=== PATIENT | male | born 1960 | race Caucasian/White ===

== ENCOUNTER → 2017-12-28 08:54 | Outpatient (CLI) | payer MEDICARE, MEDICAID, SELFPAY ==
[2017-12-28 09:51] LABS: ALT 27 U/L (12-78); AST 21 U/L (15-37); Albumin 3.9 g/dL (3.4-5.0); Alkaline Phosphatase 168 U/L (46-116); Anion Gap 8.4 mmol/L (3-11); BUN 5 mg/dL (7-18); Bilirubin, Total 0.6 mg/dL (0.2-1.0); CO2 29.6 mmol/L (21.0-32.0); CREATININE 1.23 mg/dL (0.70-1.30); Calcium 8.8 mg/dL (8.5-10.1); Chloride 104 mmol/L (98-107); Cholesterol 109 mg/dL (50-200); Glucose 154 mg/dL (70-100); HDL Cholesterol 33 mg/dL (40-60); LDL CHOLESTEROL 53 mg/dL (<100); Potassium 4.1 mmol/L (3.5-5.1); Sodium 142 mmol/L (136-145); TSH (W/Ref FT4) 1.65 uIU/mL (0.358-3.74); Total Protein 7.6 g/dL (6.4-8.2); Triglyceride 206 mg/dL (30-150)
== END ==
PROVIDERS: PCP Nurse Practitioner; Visit Provider Nurse Practitioner
DX: E78.5 Hyperlipidemia, unspecified (principal); G47.9 Sleep disorder, unspecified; R53.83 Other fatigue
CPT/HCPCS: 36415; 80053; 80061; 83721; 84443

== ENCOUNTER 2018-08-11 01:17 | Outpatient (CLI) | payer MEDICARE, MEDICAID, SELFPAY ==
--- NOTE | 2018-08-11 14:51 | DI.US_ITS ---
SYMPTOM/DIAGNOSIS: PULSATILE MASS, EX SMOKER, R19.00 AORTA ULTRASOUND: The proximal abdominal aorta measures 2.3 by 1.8 cm. The mid segment measures 2 by 2.2 cm. and the distal segment measures 1.5 by 1.5 cm. The iliacs are intact. The left iliac measures 1.3 by 1.3 and the right iliac measures 1.2 by 1.2. SUMMARY: No evidence of an aneurysm. The aorta and iliac vessels appear intact.
== END 2018-08-11 01:37 ==
PROVIDERS: PCP Nurse Practitioner; Visit Provider Nurse Practitioner
DX: R19.00 Intra-abdominal and pelvic swelling, mass and lump, unspecified site (principal); Z87.891 Personal history of nicotine dependence
CPT/HCPCS: 76706

== ENCOUNTER 2019-01-18 08:49 | Outpatient (CLI) | payer MEDICARE, MEDICAID, SELFPAY ==
[2019-01-18 09:15] LABS: HCT 42.1 % (40.0-50.0); HGB 14.4 g/dL (13.5-17.5); Mean Corp. HGB Concentration 34.2 g/dL (32.0-36.0); Mean Corpuscular Hemoglobin 31.6 pg (27.0-33.0); Mean Corpuscular Volume 92.3 fL (80-95); Mean Platelet Volume 8.9 fL (8.0-11.0); Platelet Count 201 x1000/uL (130-400); RBC 4.56 m/cumm (4.50-6.00); White Blood Cell Count 7.43 k/cumm (4.4-10.8)
[2019-01-18 09:33] LABS: Hemoglobin A1C 6.1 % (4.5-6.2)
[2019-01-18 10:13] LABS: COMMENT (LAB VIEW ONLY) 38.42 mg/dL; Microalb ug/mg Crea 5.2 ug/mg Cr
[2019-01-18 10:14] LABS: ALT 26 U/L (16-63); AST 14 U/L (15-37); Albumin 4.4 g/dL (3.4-5.0); Alkaline Phosphatase 112 U/L (46-116); Anion Gap 12.2 mmol/L (3-11); BUN 11 mg/dL (7-18); Bilirubin, Total 0.5 mg/dL (0.2-1.0); CO2 26.8 mmol/L (21.0-32.0); CREATININE 1.08 mg/dL (0.70-1.30); Calcium 9.1 mg/dL (8.5-10.1); Calculated LDL 47 mg/dL; Chloride 105 mmol/L (98-107); Cholesterol 124 mg/dL (50-200); Glucose 112 mg/dL (70-100); HDL Cholesterol 54 mg/dL (40-60); Potassium 4.3 mmol/L (3.5-5.1); Sodium 144 mmol/L (136-145); Total Protein 7.7 g/dL (6.4-8.2); Triglyceride 119 mg/dL (30-150)
== END 2019-01-18 09:09 ==
PROVIDERS: PCP Nurse Practitioner; Visit Provider Nurse Practitioner
DX: E11.9 Type 2 diabetes mellitus without complications (principal); E78.5 Hyperlipidemia, unspecified
CPT/HCPCS: 36415; 80053; 80061; 83721; 85027; 82043; 82570; 83036

== ENCOUNTER 2019-12-19 12:01 | Outpatient (CLI) | payer MEDICARE, MEDICAID, SELFPAY ==
[2019-12-21 18:15] LABS: SARS-CoV-2 RNA Undetected (Undetected)
== END 2019-12-19 12:21 ==
PROVIDERS: PCP Nurse Practitioner; Visit Provider Nurse Practitioner
DX: Z11.59 Encounter for screening for other viral diseases (principal)
CPT/HCPCS: U0003

== ENCOUNTER 2020-01-09 10:23 | Outpatient (CLI) | payer MEDICARE, MEDICAID, SELFPAY ==
[2020-01-10 02:01] LABS: COVID-19 RT-PCR UVMMC Result Negative (Negative)
== END 2020-01-09 10:43 ==
PROVIDERS: PCP Nurse Practitioner; Visit Provider Nurse Practitioner
DX: Z11.59 Encounter for screening for other viral diseases (principal)
CPT/HCPCS: U0003

== ENCOUNTER 2020-03-12 04:03 | Outpatient (CLI) | payer MEDICARE, MEDICAID, SELFPAY ==
[2020-03-12 12:15] LABS: ALT 25 U/L (16-63); AST 16 U/L (15-37); Albumin 4.4 g/dL (3.4-5.0); Alkaline Phosphatase 101 U/L (46-116); Anion Gap 7.8 mmol/L (3-11); BUN 7 mg/dL (7-18); Bilirubin, Total 0.6 mg/dL (0.2-1.0); CO2 29.2 mmol/L (21.0-32.0); CREATININE 1.16 mg/dL (0.70-1.30); Calcium 9.1 mg/dL (8.5-10.1); Calculated LDL 40 mg/dL (<100); Chloride 102 mmol/L (98-107); Cholesterol 115 mg/dL (<200); Glucose 119 mg/dL (74-106); HDL Cholesterol 48 mg/dL (40-60); Potassium 4.5 mmol/L (3.5-5.1); Sodium 139 mmol/L (136-145); Total Protein 7.5 g/dL (6.4-8.2); Triglyceride 139 mg/dL (<150)
== END 2020-03-12 04:23 ==
PROVIDERS: PCP Nurse Practitioner; Visit Provider Nurse Practitioner
DX: E11.9 Type 2 diabetes mellitus without complications (principal); E78.5 Hyperlipidemia, unspecified; R79.89 Other specified abnormal findings of blood chemistry
CPT/HCPCS: 36415; 80053; 80061

== ENCOUNTER 2020-10-16 08:19 | Outpatient (CLI) | payer MEDICARE, MEDICAID, SELFPAY ==
[2020-10-17 13:44] LABS: COVID-19 RT-PCR UVMMC Result Negative (Negative)
== END 2020-10-16 08:20 | disposition home or self-care (01) ==
PROVIDERS: PCP Nurse Practitioner; Visit Provider Nurse Practitioner
DX: Z20.822 Contact with and (suspected) exposure to COVID-19 (principal)
CPT/HCPCS: U0003; U0005

== ENCOUNTER 2021-03-12 02:51 | Outpatient (CLI) | payer MEDICARE, MEDICAID, SELFPAY ==
[2021-03-12 07:33] LABS: HCT 39.5 % (40.0-50.0); HGB 13.4 g/dL (13.5-17.5); MCHC 33.9 % (32.0-36.0); MCV 91.4 fL (80-95); MPV 8.8 fL (8.0-11.0); Platelet Count 182 10^3/uL (130-400); RBC 4.32 10^6/uL (4.36-5.78); RDW 12.6 % (11.8-14.1); RDW-SD 41.6 fL; WBC 8.74 10^3/uL (4.4-10.8)
[2021-03-12 08:35] LABS: ALT 32 U/L (16-63); AST 16 U/L (15-37); Albumin 4.4 g/dL (3.4-5.0); Alkaline Phosphatase 114 U/L (46-116); Anion Gap 7.3 mmol/L (3-11); BUN 6 mg/dL (7-18); CO2 29.7 mmol/L (21.0-32.0); CREATININE 1.3 mg/dL (0.70-1.30); Calculated LDL 30 mg/dL (<100); Chloride 104 mmol/L (98-107); Cholesterol 102 mg/dL (<200); Estimated GFR 56.31 (mL/min/1.73m2); Glucose 127 mg/dL (74-106); HDL Cholesterol 46 mg/dL (40-60); Potassium 4.1 mmol/L (3.5-5.1); Sodium 141 mmol/L (136-145); Total Protein 7.5 g/dL (6.4-8.2); Triglyceride 134 mg/dL (<150)
== END 2021-03-12 02:52 | disposition home or self-care (01) ==
LOC: LBO 02:51
PROVIDERS: PCP Nurse Practitioner; Visit Provider Nurse Practitioner
DX: E11.9 Type 2 diabetes mellitus without complications (principal); E78.5 Hyperlipidemia, unspecified; K21.9 Gastro-esophageal reflux disease without esophagitis; R79.9 Abnormal finding of blood chemistry, unspecified
CPT/HCPCS: 36415; 80053; 80061; 85027

== ENCOUNTER 2021-06-05 13:04 | Emergency (ER) | payer MEDICARE, MEDICAID, SELFPAY ==
[2021-06-05 13:12] VITALS: BP 141/98; PULSE 99; RESP 16; TEMP 36.3; O2SAT 100
--- NOTE | 2021-06-05 13:54 | W.ED.GENAD ---
Discharge Plan Disposition Patient Disposition: OTHER Condition: Stable Discharge Details Clinical Impression: Schizophrenia Primary Care Provider: Trinh Dupree ED Provider: Mani Cannon Home Meds and New Rx's Prescriptions: Continued albuterol sulfate 90 mcg/actuation HFA aerosol inhaler 2 puff inhalation Q6H PRN (Reason: shortness of breath or wheezing) Qty: 8.5 RF: 6 olanzapine 15 mg tablet 10 mg PO DAILY RF: 0 blister naoh PO RF: 0 metformin 1,000 mg tablet 2,000 mg PO DAILY Qty: 60 RF: 12 aspirin 81 mg tablet,delayed release (DR/EC) 81 mg PO DAILY Qty: 90 RF: 3 atorvastatin 20 mg tablet 20 mg PO DAILY Qty: 90 RF: 3 Discharge Instructions Additional Instructions: At this time you have been provided with a medical screening examination and no obvious emergent process identified. Mental health has evaluated you and the plan is to be discharged to the care of bed. Please follow-up the plan set forth by the mental health team. Watch for new or worsening symptoms and return to the ER for any concerns. Medical Decision Making 61-year-old gentleman presenting to the ER reporting not sleeping well, not on his medication for the past 2 days, auditory hallucinations, and vague suicidal thoughts but does not want to act upon these. He has no acute medical concerns or complaints. He is hemodynamically stable. Plan is to obtain medical screening laboratory values, initiate a care plan, CPSO, and request a mental health evaluation once his laboratories are back and he is medically cleared. Laboratory values resulted and I do not see any obvious emergent process that would inhibit a mental health evaluation. Mental health evaluation completed and he will be excepted to the care bed. Patient has remained calm and cooperative while here in the ER. He was offered his standard medications but he declines at this time. He is comfortable going to the care of bed and feels this is an appropriate and safe plan. Standard discharge and return precautions provided This documentation was generated using Solairedirectation system, please disregard any oddities of phrase or misspellings. Medical Records Medical records reviewed: Yes I reviewed the patient's medical records. Lab Data Lab results reviewed: Yes I reviewed the patient's lab results. Labs: Laboratory Tests Range/Units 06/05/21 06/05/21 06/05/21 13:45 13:45 13:45 WBC (4.4-10.8) 10^3/uL 9.66 RBC (4.36-5.78) 10^6/uL 4.12 L Hgb (13.5-17.5) g/dL 13.1 L Hct (40.0-50.0) % 38.3 L MCV (80-95) fL 93.0 MCH (27.0-33.0) pg 31.8 MCHC (32.0-36.0) % 34.2 RDW (11.8-14.1) % 12.9 Plt Count (130-400) 10^3/uL 241 MPV (8.0-11.0) fL 9.1 Immature Gran % 0.4 Neutrophils % 75.9 Lymphocytes % 14.4 Monocytes % 6.7 Eosinophils % 2.1 Basophils % 0.5 Nucleated RBC % % 0 Absolute Neutrophils (1.2-6.7) 10^3/uL 7.33 H Absolute Lymphocytes (1.2-3.4) 10^3/uL 1.39 Absolute Monocytes (0.1-0.8) 10^3/uL 0.65 Absolute Eosinophils (0.0-0.7) 10^3/uL 0.20 Absolute Basophils (0.0-0.2) 10^3/uL 0.05 Sodium (136-145) mmol/L 137 Potassium (3.5-5.1) mmol/L 3.5 Chloride (98-107) mmol/L 99 Carbon Dioxide (21.0-32.0) mmol/L 27.3 Anion Gap (3-11) mmol/L 10.7 BUN (7-18) mg/dL 13 Creatinine (0.70-1.30) mg/dL 1.2 Estimated GFR/1.73 m2 (mL/min/1.73m2) >= 60.00 Glucose (74-106) mg/dL 126 H Calcium (8.5-10.1) mg/dL 9.0 Total Bilirubin (0.2-1.0) mg/dL 0.6 AST (15-37) U/L 14 L ALT (16-63) U/L 31 Alkaline Phosphatase (46-116) U/L 124 H Total Protein (6.4-8.2) g/dL 7.8 Albumin (3.4-5.0) g/dL 4.2 TSH (0.36-3.74) uIU/mL 1.12 Urine Color (Yellow) Urine Clarity (Clear) Urine pH (5-8) Ur Specific Wayside (1.005-1.025) Urine Protein (Negative) mg/dL Urine Ketones (Negative) mg/dL Urine Blood (Negative) Urine Nitrite (Negative) Urine Bilirubin (Negative) Urine Urobilinogen (Up TO 0.2) EU/dL Ur Leukocyte Esterase (Negative) Urine RBC (0-2) HPF Urine WBC (0-5) HPF Ur Epithelial Cells (Negative) HPF Urine Crystals (Negative) HPF Urine Bacteria (Negative) HPF Urine Casts (Negative) LPF Urine Mucus (Negative) Ur Culture Indicated? Urine Glucose (Negative) mg/dL Salicylates (<2.8) mg/dL < 2.8 Urine Opiates Screen (Negative) Urine Methadone Screen (Negative) Acetaminophen (10-30) ug/mL < 2 Ur Barbiturates Screen (Negative) Ur Tricyclics Screen (Negative) Ur Amphetamines Screen (Negative) U Benzodiazepines Scrn (Negative) Urine Cocaine Screen (Negative) Ur THC Screen (Negative) Ethyl Alcohol (<10) mg/dL < 3.0 COVID-19 Source SARS-CoV-2 (PCR) (Negative) Range/Units 06/05/21 06/05/21 06/05/21 13:45 13:45 13:45 WBC (4.4-10.8) 10^3/uL RBC (4.36-5.78) 10^6/uL Hgb (13.5-17.5) g/dL Hct (40.0-50.0) % MCV (80-95) fL MCH (27.0-33.0) pg MCHC (32.0-36.0) % RDW (11.8-14.1) % Plt Count (130-400) 10^3/uL MPV (8.0-11.0) fL Immature Gran % Neutrophils % Lymphocytes % Monocytes % Eosinophils % Basophils % Nucleated RBC % % Absolute Neutrophils (1.2-6.7) 10^3/uL Absolute Lymphocytes (1.2-3.4) 10^3/uL Absolute Monocytes (0.1-0.8) 10^3/uL Absolute Eosinophils (0.0-0.7) 10^3/uL Absolute Basophils (0.0-0.2) 10^3/uL Sodium (136-145) mmol/L Potassium (3.5-5.1) mmol/L Chloride (98-107) mmol/L Carbon Dioxide (21.0-32.0) mmol/L Anion Gap (3-11) mmol/L BUN (7-18) mg/dL Creatinine (0.70-1.30) mg/dL Estimated GFR/1.73 m2 (mL/min/1.73m2) Glucose (74-106) mg/dL Calcium (8.5-10.1) mg/dL Total Bilirubin (0.2-1.0) mg/dL AST (15-37) U/L ALT (16-63) U/L Alkaline Phosphatase (46-116) U/L Total Protein (6.4-8.2) g/dL Albumin (3.4-5.0) g/dL TSH (0.36-3.74) uIU/mL Urine Color (Yellow) Yellow Urine Clarity (Clear) Clear Urine pH (5-8) 5.5 Ur Specific Wayside (1.005-1.025) 1.015 Urine Protein (Negative) mg/dL Negative Urine Ketones (Negative) mg/dL Negative Urine Blood (Negative) Trace-intact H Urine Nitrite (Negative) Negative Urine Bilirubin (Negative) Negative Urine Urobilinogen (Up TO 0.2) EU/dL 0.2 Ur Leukocyte Esterase (Negative) Negative Urine RBC (0-2) HPF 0-2 Urine WBC (0-5) HPF Negative Ur Epithelial Cells (Negative) HPF Rare Urine Crystals (Negative) HPF Negative Urine Bacteria (Negative) HPF Negative Urine Casts (Negative) LPF Negative Urine Mucus (Negative) Negative Ur Culture Indicated? No Urine Glucose (Negative) mg/dL Negative Salicylates (<2.8) mg/dL Urine Opiates Screen (Negative) Negative Urine Methadone Screen (Negative) Negative Acetaminophen (10-30) ug/mL Ur Barbiturates Screen (Negative) Negative Ur Tricyclics Screen (Negative) Negative Ur Amphetamines Screen (Negative) Negative U Benzodiazepines Scrn (Negative) Negative Urine Cocaine Screen (Negative) Negative Ur THC Screen (Negative) Negative Ethyl Alcohol (<10) mg/dL COVID-19 Source Nasal/Nares SARS-CoV-2 (PCR) (Negative) Negative HPI General Mode of arrival: EMS. Date/Time Provider Initiated Documentation: 06/05/21 13:22. Limitations to Documentation: no limitations. Information obtained by: patient and EMS. HPI Narrative: This is a 61-year-old male, past medical history that includes schizophrenia, diabetes, GERD, OCD, presenting to the ER via EMS reporting having not slept well in the last few days, not taking his medications over the past 48 hours, reporting auditory hallucinations, and feeling suicidal. He states that he had thoughts about cutting his wrist but does not want to act upon this. He feels as though he needs additional help than what he can provide himself in his current living situation. He is not vaccinated against COVID. He tells me that he is no longer smoking cigarettes. Denies alcohol or drug use. He denies recent illness or trauma. Denies any self-harm today. Denies headache, visual changes, neck pain, chest pain, shortness of breath, abdominal pain, nausea vomit, change in bowel or bladder function, numbness, tingling, weakness in his extremities. Patient is unable to tell me what his auditory hallucinations are saying, he denies command hallucinations Related Data Home Medications Medication Instructions Recorded Confirmed olanzapine 15 mg tablet 10 mg PO DAILY tab-cap 01/18/19 03/27/20 blister noah PO 02/03/20 metformin 1,000 mg tablet 2,000 mg PO DAILY #60 tab 07/16/20 albuterol sulfate 90 mcg/actuation 2 puff INHALATION Q6H PRN #8.5 g 11/15/20 11/15/20 aerosol inhaler aspirin 81 mg tablet,delayed 81 mg PO DAILY #90 tab 12/24/20 06/05/21 release atorvastatin 20 mg tablet 20 mg PO DAILY #90 tab 02/18/21 06/05/21 Previous Rx's Medication Instructions Recorded metformin 1,000 mg tablet 2,000 mg PO DAILY #60 tab 07/16/20 albuterol sulfate 90 mcg/actuation 2 puff INHALATION Q6H PRN #8.5 g 11/15/20 aerosol inhaler aspirin 81 mg tablet,delayed 81 mg PO DAILY #90 tab 12/24/20 release atorvastatin 20 mg tablet 20 mg PO DAILY #90 tab 02/18/21 Allergies Allergy/AdvReac Type Severity Reaction Status Date / Time No Known Allergies Allergy Verified 06/05/21 13:19 General Stated Complaint: PsychEval SEBASTIEN: 2 Review of Systems Constitutional Constitutional: Denies fatigue, Denies fever(s), Denies headache(s) and Denies weakness Eyes Eyes: Denies change in vision ENT Ears, Nose, Mouth, and Throat: Denies headache(s) Cardiovascular Cardiovascular: Denies chest pain and Denies dyspnea Respiratory Respiratory: Denies cough and Denies dyspnea Gastrointestinal Gastrointestinal: Denies abdominal pain, Denies nausea and Denies vomiting Genitourinary Genitourinary: Denies dysuria Musculoskeletal Musculoskeletal: Denies numbness and Denies tingling Integumentary/Breasts Skin/Breast: Denies rash Neurologic Neurologic: Denies headache(s), Denies numbness, Denies tingling and Denies weakness Psychiatric Psychiatric: Reports auditory hallucinations, Denies homicidal ideation and Reports suicidal ideation Endocrine Endocrine: Denies fatigue PFSH All Active Problems Schizophrenia (Chronic) SOB (shortness of breath) (Acute) Routine medical exam (Acute) Encounter for screening laboratory testing for COVID-19 virus (Acute) Encounter for screening laboratory testing for COVID-19 virus (Acute) Schizoaffective disorder, depressive type (Chronic 12/27/13) most recent psych adm 11/2013 [facility] with psychosis, command hallucinations Colonoscopy refused (Acute) Unspecified disorder of liver (Acute) US: 09/2008; FATTY LIVER, ABNL LFT; ALK PHOS, ALT; GI CONSULT 2002, AntiMitrohondrial Ab neg, rec wt loss. Type 2 diabetes mellitus without complication, without long-term current use of insulin (Acute 12/29/17) Tobacco use disorder, continuous (Acute 09/01/11) FEV1 2.7 in 2004; 1 PPD; longest off 1 yr, 2 wks; stopped 03/27/2015; stopped again 12/13/16 Other retirement (current) drug therapy (Acute 12/10/15) olanzapine Other and unspecified hyperlipidemia (Acute 09/01/11) LDL 128, risk 12.9% 04/2015; start statin 03/2015 and [facility] Organic sleep apnea, unspecified (Acute 05/25/99) REPORTS C-PAP SINCE 1999; needs new machine; but unable to get it without new sleep study!; no longer using CPAP 02/2017 Obesity, unspecified (Acute 09/01/11) 150 lb = BMI 25 Fatty liver disease, nonalcoholic (Acute) GGT 247 ; nl Fe/TIBC 03/1999; [place]: 09/2008; FATTY LIVER, ABNL LFT; ALK PHOS, ALT; GI CONSULT 2002, AntiMitrohondrial Ab neg, rec wt loss. Esophageal reflux disease (Acute 09/01/11) RANITIDINE RX Early cataracts, bilateral (Acute 02/09/17) Dr Pizano 12/2016 Abnormal serum creatinine level (Acute 04/13/15) History of schizophrenia (Chronic) GERD (gastroesophageal reflux disease) (Chronic) Obsessive compulsive disorder (Chronic) Sleep apnea (Chronic) Psychosis (Acute) Suicidal ideation (Acute) Leukocytosis (Chronic) Surgical History Circumcision (02/07/05) Dr Henriquez Vasectomy (05/25/93) Dr Henriquez Family History Mother Asthma onset not known Father , Kidney Failure at age 83. Renal failure onset not known Sister No problems noted. Brother Diabetes onset not known Brother No problems noted. 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 Pets and animals: No Do you think of yourself as: straight/heterosexual Current gender identity: male What is your relationship status?: How often do you talk on the phone with friends or family?: three or more times per week How often do you get together with friends or relatives?: twice per week How often do you attend voodoo or voodoo services?: decline to answer Do you belong to any clubs or organized social groups?: no Panel score (0-1 are the most socially isolated patients): 1 What type of physical activity do you participate in: walking Duration: 30-45 minutes/day Frequency: daily Margi/Pentecostal: Episcopal Special margi needs: No Drive intox or ride w/intox superintendent drivers: No Exam Const General: cooperative, comfortable, no acute distress and disheveled Orientation: alert, awake, oriented to place, oriented to time and confused (Does not know the exact date) HENOR Head: normal to inspection, normocephalic and atraumatic Face and sinus: normal facial exam Mouth: moist mucous membranes Eyes General: appearance normal, both eyes and all related structures Conjunctivae: conjunctivae normal Neck Neck: normal visual inspection, full ROM, no meningeal signs, trachea midline, supple and nontender Resp Effort & Inspection: normal respiratory effort and able to speak in complete sentences Auscultation: clear to auscultation bilaterally Cardio Rate: regular rate Rhythm: regular rhythm GI Palpation: soft and nontender Back/Spine/Pelvis Back: No back tenderness Skin General skin exam: no rashes or lesions noted Neuro General: patient alert, patient awake, moves all extremities and no focal motor deficits Cognition: normal cognition Speech: speech normal Gait: normal gait Motor: muscle tone normal throughout and strength 5/5 throughout Sensory Exam: no sensory deficits noted Extrem General: normal to inspection, full ROM and capillary refill normal Psych Appearance: disheveled Mental Status: mental status grossly normal Speech and Movement: speech and movement normal Mood: paranoid Affect: sad Attitude: guarded and avoids eye contact Thought Process: flight of ideas Thought Content: hallucinations auditory and suicidality Insight: limited Judgment: limited Course Vital Signs Vital signs: Vital Signs Temperature 36.3 C L 06/05/21 13:12 Pulse 99 H 06/05/21 13:12 Respiratory Rate 16 06/05/21 13:12 Blood Pressure 141/98 H 06/05/21 13:12 Pulse Oximetry 100 06/05/21 13:12 Temperature 36.3 C L 06/05/21 13:12 Pulse 99 H 06/05/21 13:12 Respiratory Rate 16 06/05/21 13:12 Respiratory Effort 06/05/21 13:12 Blood Pressure 141/98 H 06/05/21 13:12 Blood Pressure Position Sitting 06/05/21 13:12 Pulse Oximetry 100 06/05/21 13:12 Oxygen Delivery Method Room Air 06/05/21 13:12 Oxygen Flow Rate 0 06/05/21 13:12 Pain Level 0 06/05/21 13:12
[2021-06-05 13:56] LABS: Source Nasal/Nares
[2021-06-05 13:57] LABS: Abs Immature Grans 0.04 10^3/uL (0.0-0.06); Absolute Basophil Count 0.05 10^3/uL (0.0-0.2); Absolute Lymphocyte Count 1.39 10^3/uL (1.2-3.4); Absolute Monocyte Count 0.65 10^3/uL (0.1-0.8); Absolute Neutrophil Count 7.33 10^3/uL (1.2-6.7); Basophils % 0.5; Eosinophils % 2.1; HCT 38.3 % (40.0-50.0); HGB 13.1 g/dL (13.5-17.5); Immature Grans % 0.4; Lymphocytes % 14.4; MCH 31.8 pg (27.0-33.0); MCHC 34.2 % (32.0-36.0); MPV 9.1 fL (8.0-11.0); Monocytes % 6.7; Neutrophils % 75.9; Nucleated RBC 0 %; Platelet Count 241 10^3/uL (130-400); RBC 4.12 10^6/uL (4.36-5.78); RDW 12.9 % (11.8-14.1); WBC 9.66 10^3/uL (4.4-10.8)
--- NOTE | 2021-06-05 14:09 | NUR.NOTE ---
Nursing Note:Pt calm & agreeable with care. Currently speaking w/ Tete from mental health via ipad/zoom.
[2021-06-05 14:11] LABS: Salicylate < 2.8 mg/dL (<2.8)
[2021-06-05 14:12] LABS: Acetaminophen < 2 ug/mL (10-30)
[2021-06-05 14:15] LABS: Bilirubin Negative (Negative); Blood Trace-intact (Negative); Clarity Clear (Clear); Glucose Negative (Negative); Ketones Negative (Negative); Leukocyte Esterase Negative (Negative); Nitrite Negative (Negative); Specific Gravity 1.015 (1.005-1.025); Urobilinogen 0.2 EU/dL (Up TO 0.2); pH 5.5 (5-8)
[2021-06-05 14:23] LABS: ALT 31 U/L (16-63); AST 14 U/L (15-37); Albumin 4.2 g/dL (3.4-5.0); Alkaline Phosphatase 124 U/L (46-116); Anion Gap 10.7 mmol/L (3-11); BUN 13 mg/dL (7-18); Bacteria Negative HPF (Negative); Bilirubin, Total 0.6 mg/dL (0.2-1.0); C & S Indicated? No; CO2 27.3 mmol/L (21.0-32.0); CREATININE 1.2 mg/dL (0.70-1.30); Casts Negative LPF (Negative); Chloride 99 mmol/L (98-107); Crystals Negative HPF (Negative); Epithelial Cells Rare HPF (Negative); Glucose 126 mg/dL (74-106); Mucus Negative (Negative); Potassium 3.5 mmol/L (3.5-5.1); RBC 0-2 HPF (0-2); Sodium 137 mmol/L (136-145); TSH (W/Ref FT4) 1.12 uIU/mL (0.36-3.74); Total Protein 7.8 g/dL (6.4-8.2); WBC Negative HPF (0-5)
[2021-06-05 14:26] LABS: ETHANOL BLOOD < 3.0 mg/dL (<10)
[2021-06-05 14:36] LABS: COVID-19 PCR Negative (Negative)
[2021-06-05 15:09] LABS: *AMPHETAMINES SCREEN URINE Negative (Negative); *BARBITURATES SCREEN URINE Negative (Negative); *BENZODIAZEPINES SCREEN URINE Negative (Negative); Cannabinoids THC Negative (Negative); Cocaine Screen,Urine Negative (Negative); METHADONE URINE SCREEN Negative (Negative); OPIATES URINE SCREEN Negative (Negative)
[2021-06-05 15:10] LABS: Tricyclic Antidepressants Negative (Negative)
--- NOTE | 2021-06-05 15:17 | CMACTNOTE_ITS ---
- If Service Date Differs Date of service: 06/05/21 Time of Service: 15:17 Care Management Activity Note S/O: aDve lives alone in an apartment in [facility]. He receives services through the [facility] at [facility] and has a diagnosis of schizophrenia. [facility] delivers Dave's medication and the frequency of the med drop was recently changed from daily to weekly, per Tete, [facility] case fitter. Dave has struggled with this change and has not taken his medication for a couple of days. This has resulted in Dave being unable to sleep at night and in a return of positive symptoms of schizophrenia, e.g. auditory hallucinations. A: Dave is a 61 year old male who presents in the ED for suicidal ideation. P: Dave is accepted at the [facility] Care Bed for mood stabilization. He will follow up with his PCP, [facility] providers, and plan of care as directed. Care Bed staff are providing transport to the crisis bed.
--- NOTE | 2021-06-05 15:17 | PDOC.ERCMACT ---
- If Service Date Differs Date of service: 06/05/21 Time of Service: 15:17 Care Management Activity Note S/O: Dave lives alone in an apartment in [facility]. He receives services through the [facility] at [facility] and has a diagnosis of schizophrenia. [facility] [facility] delivers Dave's medication and the frequency of the med drop was recently changed from daily to weekly, per Tete, [employer] case consultant. Dave has struggled with this change and has not taken his medication for a couple of days. This has resulted in Dave being unable to sleep at night and in a return of positive symptoms of schizophrenia, e.g. auditory hallucinations. A: Dave is a 61 year old male who presents in the ED for suicidal ideation. P: Dave is accepted at the [facility] Care Bed for mood stabilization. He will follow up with his PCP, [facility] providers, and plan of care as directed. Care Bed staff are providing transport to the crisis bed.
--- NOTE | 2021-06-05 15:50 | NUR.NOTE ---
clothes and money $70.00 returned to pt.Nursing Note:
== END 2021-06-05 15:55 | disposition other institution (70) ==
PROVIDERS: Emergency Provider Physician Assistant; PCP Nurse Practitioner
DX: F20.9 Schizophrenia, unspecified (principal); Z79.899 Other long term (current) drug therapy; Z20.822 Contact with and (suspected) exposure to COVID-19
CPT/HCPCS: 36415; 80053; 80307; 87635; 99285; 80320; 80329; 81003; 81015; 84443; 85025; 99283

== ENCOUNTER 2021-10-02 16:56 | Inpatient (IN) | payer MEDICARE, MEDICAID, SELFPAY ==
[2021-10-02 16:59] VITALS: BP 143/90; PULSE 121; RESP 18; TEMP 36.5; O2SAT 98
--- NOTE | 2021-10-02 17:30 | W.ED.GENAD ---
Discharge Plan Discharge Details Chief Complaint: PsychEval Primary Care Provider: Trinh Dupree ED Provider: Adin Schneider Home Meds and New Rx's Prescriptions: No Action Probiotic 10 billion cell capsule 10,000 mmu cells PO DAILY 0RF quetiapine 100 mg tablet 100 mg PO DAILY 0RF atorvastatin 20 mg tablet 20 mg PO DAILY Qty: 90 3RF olanzapine 15 mg tablet 10 mg PO DAILY 0RF Label Comments: 01/18/19-[facility] update-EO blister noah PO 0RF Rx Instructions: at [facility] aspirin 81 mg tablet,delayed release (DR/EC) 81 mg PO DAILY Qty: 90 3RF Rx Instructions: cardiovascular prevention metformin 1,000 mg tablet 2,000 mg PO DAILY Qty: 60 12RF Rx Instructions: Can this be sent to [facility]? Nurse administers there. Medical Decision Making She was parasitization. Patient appears sad. Depressed. He is medically clear. Case discussed with [facility]. ESTEBAN hunter pending HPI General Date/Time Provider Initiated Documentation: 10/02/21 16:57. HPI Narrative: Jordan is a 61-year-old gentleman with a history of schizoaffective disorder depressive type who feels very sad because his only living relative in [place] is moving to [place] and he just found out that he had not been invited to the going away republican. He states that this has been hurting time to the point that he has actually considered laying in the tub with water and dying if he does not get admitted to the hospital for he has full appetite, feels very lonely, has not had any alcohol in 20 years. Stopped smoking 3 years ago. Does not do any drugs. He came to the emergency department because he knows that mental health services close to 5 PM. Related Data Home Medications Medication Instructions Recorded Confirmed olanzapine 15 mg tablet 10 mg PO DAILY tab-cap 01/18/19 10/02/21 blister noah PO 02/03/20 10/01/21 aspirin 81 mg tablet,delayed 81 mg PO DAILY #90 tab 12/24/20 10/02/21 release metformin 1,000 mg tablet 2,000 mg PO DAILY #60 tab 07/09/21 10/02/21 Lactobacillus acidophilus 10 10,000 mmu cells PO DAILY 10/01/21 10/02/21 billion cell capsule (Probiotic) atorvastatin 20 mg tablet 20 mg PO DAILY #90 tab 10/01/21 10/02/21 quetiapine 100 mg tablet 100 mg PO DAILY 10/01/21 10/02/21 Previous Rx's Medication Instructions Recorded aspirin 81 mg tablet,delayed 81 mg PO DAILY #90 tab 12/24/20 release metformin 1,000 mg tablet 2,000 mg PO DAILY #60 tab 07/09/21 atorvastatin 20 mg tablet 20 mg PO DAILY #90 tab 10/01/21 Allergies Allergy/AdvReac Type Severity Reaction Status Date / Time No Known Allergies Allergy Verified 10/02/21 17:08 General Stated Complaint: PsychEval SEBASTIEN: 2 Review of Systems Narrative: Constitutional Constitutional:?Denies fatigue, Denies fever(s), Denies headache(s) and Denies weakness Eyes Eyes:?Denies change in vision ENT Ears, Nose, Mouth, and Throat:?Denies headache(s) Cardiovascular Cardiovascular:?Denies chest pain and Denies dyspnea Respiratory Respiratory:?Denies cough and Denies dyspnea Gastrointestinal Gastrointestinal:?Denies abdominal pain, Denies nausea and Denies vomiting Genitourinary Genitourinary:?Denies dysuria Musculoskeletal Musculoskeletal:?Denies numbness and Denies tingling Integumentary/Breasts Skin/Breast:?Denies rash Neurologic Neurologic:?Denies headache(s), Denies numbness, Denies tingling and Denies weakness Psychiatric Psychiatric:?No auditory hallucinations, Denies homicidal ideation Endocrine Endocrine:?Denies fatigue PFSH All Active Problems (Updated 07/06/21 @ 00:01 by SHERI ALLEN) SOB (shortness of breath) (Acute) Routine medical exam (Acute) Encounter for screening laboratory testing for COVID-19 virus (Acute) Encounter for screening laboratory testing for COVID-19 virus (Acute) Schizoaffective disorder, depressive type (Chronic 12/27/13) most recent psych adm 11/2013 [facility] with psychosis, command hallucinations Colonoscopy refused (Acute) Unspecified disorder of liver (Acute) US: 09/2008; FATTY LIVER, ABNL LFT; ALK PHOS, ALT; GI CONSULT 2002, AntiMitrohondrial Ab neg, rec wt loss. 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 Esophageal reflux disease (Acute 09/01/11) RANITIDINE RX Early cataracts, bilateral (Acute 02/09/17) Dr Pizano 12/2016 Abnormal serum creatinine level (Acute 04/13/15) History of schizophrenia (Chronic) GERD (gastroesophageal reflux disease) (Chronic) Obsessive compulsive disorder (Chronic) Sleep apnea (Chronic) Psychosis (Acute) Suicidal ideation (Acute) Leukocytosis (Chronic) Surgical History Circumcision (02/07/05) Dr Henriquez Vasectomy (05/25/93) Dr Henriquez Family History Mother Asthma onset not known Father , Kidney Failure at age 83. Renal failure onset not known Sister No problems noted. Brother Diabetes onset not known Brother No problems noted. 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 Pets and animals: No Do you think of yourself as: straight/heterosexual Current gender identity: male What is your relationship status?: How often do you talk on the phone with friends or family?: three or more times per week How often do you get together with friends or relatives?: twice per week How often do you attend zoroastrianism or spiritism services?: decline to answer Do you belong to any clubs or organized social groups?: no Panel score (0-1 are the most socially isolated patients): 1 What type of physical activity do you participate in: walking Duration: 30-45 minutes/day Frequency: daily Margi/Islam: Anabaptist Special margi needs: No Drive intox or ride w/intox school boat driver: No Do you feel safe at home: Yes Do you feel safe in your relationship?: Yes Exam Narrative Exam Narrative: Const General:?cooperative, comfortable, no acute distress and disheveled Orientation:?alert, awake, oriented to place, oriented to time and confused (Does not know the exact date) [facility] Head:?normal to inspection, normocephalic and atraumatic Face and sinus:?normal facial exam Mouth:?moist mucous membranes Eyes General:?appearance normal, both eyes and all related structures Conjunctivae:?conjunctivae normal Neck Neck:?normal visual inspection, full ROM, no meningeal signs, trachea midline, supple and nontender Resp Effort & Inspection:?normal respiratory effort and able to speak in complete sentences Auscultation:?clear to auscultation bilaterally Cardio Rate:?regular rate Rhythm:?regular rhythm GI Palpation:?soft and nontender Back/Spine/Pelvis Back:?No back tenderness Skin General skin exam:?no rashes or lesions noted Neuro General:?patient alert, patient awake, moves all extremities and no focal motor deficits Cognition:?normal cognition Speech:?speech normal Gait:?normal gait Motor:?muscle tone normal throughout and strength 5/5 throughout Sensory Exam:?no sensory deficits noted Extrem General:?normal to inspection, full ROM and capillary refill normal Psych Appearance:?disheveled Mental Status:?mental status grossly normal Speech and Movement:?speech and movement normal Mood:?flat Affect:?sad Attitude:?guarded and avoids eye contact Thought Process:?flight of ideas Thought Content suicidality Insight:?limited Judgment:?limited Course Consultations Consultation #1: Patient seen by [facility]. There are no available beds for the patient. Patient will be held emergency department overnight. They are seeking Time: 21:24 Vital Signs Vital signs: Vital Signs Temperature 36.5 C 10/02/21 16:59 Pulse 121 H 10/02/21 16:59 Respiratory Rate 18 10/02/21 16:59 Blood Pressure 143/90 H 10/02/21 16:59 Pulse Oximetry 98 10/02/21 16:59 Temperature 36.5 C 10/02/21 16:59 Temperature Source Temporal Artery Scan 10/02/21 16:59 Pulse 121 H 10/02/21 16:59 Respiratory Rate 18 10/02/21 16:59 Respiratory Effort Non-Labored 10/02/21 17:06 Blood Pressure 143/90 H 10/02/21 16:59 Blood Pressure Position Sitting 10/02/21 16:59 Pulse Oximetry 98 10/02/21 16:59 Oxygen Delivery Method Room Air 10/02/21 16:59 Oxygen Flow Rate 0 10/02/21 16:59 Pain Level 0 10/02/21 16:59
[2021-10-02 19:02] LABS: Abs Immature Grans 0.06 10^3/uL (0.0-0.06); Absolute Eosinophil Count 0.43 10^3/uL (0.0-0.7); Absolute Lymphocyte Count 2.56 10^3/uL (1.2-3.4); Absolute Monocyte Count 0.96 10^3/uL (0.1-0.8); Basophils % 0.8; Eosinophils % 3.6; HCT 38.7 % (40.0-50.0); HGB 13.1 g/dL (13.5-17.5); Immature Grans % 0.5; Lymphocytes % 21.4; MCH 30.7 pg (27.0-33.0); MCHC 33.9 % (32.0-36.0); MCV 91 fL (80-95); Neutrophils % 65.7; Platelet Count 203 10^3/uL (130-400); RBC 4.27 10^6/uL (4.36-5.78); RDW 12.9 % (11.8-14.1); RDW-SD 42.5 fL; WBC 11.95 10^3/uL (4.4-10.8)
[2021-10-02 19:03] LABS: Absolute Neutrophil Count 7.85 10^3/uL (1.2-6.7)
[2021-10-02 19:26] LABS: ALT 101 U/L (16-63); AST 29 U/L (15-37); Albumin 4.1 g/dL (3.4-5.0); Alkaline Phosphatase 137 U/L (46-116); Anion Gap 11.4 mmol/L (3-11); BUN 11 mg/dL (7-18); Bilirubin, Total 0.6 mg/dL (0.2-1.0); CO2 26.6 mmol/L (21.0-32.0); CREATININE 1.4 mg/dL (0.70-1.30); Calcium 8.6 mg/dL (8.5-10.1); Chloride 103 mmol/L (98-107); Estimated GFR 51.69 (mL/min/1.73m2); Glucose 125 mg/dL (74-106); Potassium 3.3 mmol/L (3.5-5.1); Sodium 141 mmol/L (136-145); TSH (W/Ref FT4) 1.78 uIU/mL (0.36-3.74); Total Protein 7.4 g/dL (6.4-8.2)
--- NOTE | 2021-10-02 19:31 | NUR.NOTE ---
pt did eat dinner . Nursing Note:
[2021-10-02 19:55] LABS: ETHANOL BLOOD < 3.0 mg/dL (<10)
[2021-10-02 19:57] LABS: Salicylate < 2.8 mg/dL (<2.8)
[2021-10-02 20:01] LABS: Acetaminophen < 2 ug/mL (10-30)
--- NOTE | 2021-10-02 21:31 | PDOC.MHCN ---
Date of service: 10/02/21 Time of Service: 21:32 Mental Health Crisis Note Presenting Issue How did you arrive at the ED and why did you come: Client arrived at [facility] ED endorsing SI with a plan. Client feels like he has nothing left to live for. Precipitating Factors Client currently endorsing SI. Disposition BEHAVIOR: Client is laying down in hospital bed dressed in proper paper hospital when this consumer loan underwriter arrives via zoom. EYE CONTACT: Good eye contact MOOD: depressed, hopeless, and withdrawn AFFECT: Flat APPETITE: Client reports that he only eats one time every two days. SLEEP(trouble falling/staying asleep: Client states that he has not been sleeping well, states that he sleeps for about 2 hours and then wakes up and cannot fall back asleep. Plan Client will remain at [facility] ED pending either inpatient admission or admission to a crisis bed. Crisis bed referral has already been made and referrals to [facility], [facility], and , and [facility]. Client will be seen daily until inpatient treatment can be secured or client can be safety planned home. Signature Clinician's Name/Title: Tere Conrad [facility] Emergency Clinician
[2021-10-02] MEDS: LORazepam 1 MG TAB 2 MG PO (22:02)
--- NOTE | 2021-10-02 22:02 | NUR.NOTE ---
pt sked that i call his boss at the [facility] to let him know that he would be spending the night in the hospital [facility] . I did do that. he also said that he had not slept in three days . Nursing Note:
[2021-10-02 23:40] LABS: Source Nasal/Nares
--- NOTE | 2021-10-02 23:57 | NUR.NOTE ---
pt to med 2 via [facility] .Nursing Note:
[2021-10-03 00:32] LABS: COVID-19 PCR Negative (Negative)
[2021-10-03 01:16] VITALS: BP 103/71; PULSE 100; RESP 17; TEMP 36.5; O2SAT 99
[2021-10-03 06:06] LABS: *AMPHETAMINES SCREEN URINE Negative (Negative); *BARBITURATES SCREEN URINE Negative (Negative); *BENZODIAZEPINES SCREEN URINE Negative (Negative); Cannabinoids THC Negative (Negative); Cocaine Screen,Urine Negative (Negative); METHADONE URINE SCREEN Negative (Negative); OPIATES URINE SCREEN Negative (Negative); Tricyclic Antidepressants Negative (Negative)
--- NOTE | 2021-10-03 07:30 | W.PM.HP.N ---
Assessment and Plan Assessment and plan (1) Schizoaffective disorder, depressive type: Status: Chronic Assessment and plan: He does exhibit some delusional thought processes. There does seem to be an element of psychosis present. (2) Suicidal ideation: Status: Acute Assessment and plan: He seems quite depressed and has thoughts of suicide with his statement about getting into out of been cutting his wrists. He does seem depressed about being alone with no support. A psychiatric admission is being worked on by mental health. History of Present Illness History of Present Illness Chief Complaint: suicidal ideation and abnormal thought problem Narrative: This 61-year-old male is here because of depression and suicidal ideation. He said he was invited to a republican that his [id number] was throwing because she is moving to [place]. He has a long history of schizophrenia and says he was in a hospital in [place] for 13 months, and he has been in other institutions such as [facility], [facility], [facility] and [facility] for psychiatric stabilization. He says he often hears voices and at least twice he found himself going the wrong way [place] the [place]. He has not had good reaction to haloperidol or risperidone. 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 He said his license might be taken away if he goes the wrong direction on [employer] again. He does not know how he can get to work. He says that he thought about sitting in a bathtub and cutting his wrists because he felt so much psychological pain and emotional discomfort from not being invited to the going away republican. He says he has no one to look to her friends except his only relationship is person that manages his Social Security payments and who is his guardian. He says he has been sleeping poorly and eats poorly. He says all his family is as he had a brother of [place] at age 56 and his sister did choke on a piece of lobster few years ago. He has not drank alcohol for 22 years and not smoked for 3 years according to him. He says he sometimes hears voices. He told me that he believes that before Fei came to [facility] stars were of different colors and that they sang music. He came to the emergency department and was seen by mental health and that a psychiatric admission/transfer is being worked on. He would be a voluntary admission. He tells me that he did not receive COVID-vaccine but the screening notes says that he has received it. Review of Systems Constitutional Constitutional: Denies chills, Denies fever(s), Denies headache(s) and Denies malaise ENT Ears, Nose, Mouth, and Throat: Denies headache(s) Cardiovascular Cardiovascular: Denies chest pain, Denies radiating jaw, neck or arm pain, Denies palpitations and Denies dyspnea Respiratory Respiratory: Denies cough, Denies dyspnea and Denies wheezing Gastrointestinal Gastrointestinal: Denies abdominal pain, Denies nausea and Denies vomiting Genitourinary Genitourinary: Denies difficulty urinating and Denies dysuria Neurologic Neurologic: Denies headache(s) Psychiatric Psychiatric: Reports depression, Reports difficulty concentrating, Reports auditory hallucinations, Denies homicidal ideation and Reports suicidal ideation Endocrine Endocrine: Denies palpitations Allergic/Immunologic Allergic/Immunologic: Denies wheezing PFSH All Active Problems (Updated 07/06/21 @ 00:01 by SHERI ALLEN) SOB (shortness of breath) (Acute) Routine medical exam (Acute) Encounter for screening laboratory testing for COVID-19 virus (Acute) Encounter for screening laboratory testing for COVID-19 virus (Acute) Schizoaffective disorder, depressive type (Chronic 12/27/13) most recent psych adm 11/2013 [facility] with psychosis, command hallucinations Colonoscopy refused (Acute) Unspecified disorder of liver (Acute) US: 09/2008; FATTY LIVER, ABNL LFT; ALK PHOS, ALT; GI CONSULT 2002, AntiMitrohondrial Ab neg, rec wt loss. 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 Esophageal reflux disease (Acute 09/01/11) RANITIDINE RX Early cataracts, bilateral (Acute 02/09/17) Dr Pizano 12/2016 Abnormal serum creatinine level (Acute 04/13/15) History of schizophrenia (Chronic) GERD (gastroesophageal reflux disease) (Chronic) Obsessive compulsive disorder (Chronic) Sleep apnea (Chronic) Psychosis (Acute) Suicidal ideation (Acute) Leukocytosis (Chronic) Surgical History Circumcision (02/07/05) Dr Henriquez Vasectomy (05/25/93) Dr Henriquez Family History Mother Asthma onset not known Father , Kidney Failure at age 83. Renal failure onset not known Sister No problems noted. Brother Diabetes onset not known Brother No problems noted. 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 animals: No Do you think of yourself as: straight/heterosexual Current gender identity: male What is your relationship status?: How often do you talk on the phone with friends or family?: three or more times per week How often do you get together with friends or relatives?: twice per week How often do you attend muslim or alevism services?: decline to answer Do you belong to any clubs or organized social groups?: no Panel score (0-1 are the most socially isolated patients): 1 What type of physical activity do you participate in: walking Duration: 30-45 minutes/day Frequency: daily Margi/Gnosticism: Yazidi Special margi needs: No Drive intox or ride w/intox electric train driver: No Do you feel safe at home: Yes Do you feel safe in your relationship?: Yes Meds Allergies and Home Medications Allergies Allergy/AdvReac Type Severity Reaction Status Date / Time No Known Allergies Allergy Verified 10/02/21 17:08 Home Medications Medication Instructions Recorded Confirmed Type olanzapine 15 mg tablet 10 mg PO DAILY 01/18/19 10/02/21 History blister noah PO 02/03/20 10/01/21 History aspirin 81 mg tablet,delayed 81 mg PO DAILY #90 tabs 12/24/20 10/02/21 Rx release metformin 1,000 mg tablet 2,000 mg PO DAILY #60 tabs 07/09/21 10/02/21 Rx Lactobacillus acidophilus 10 10,000 mmu cells PO DAILY 10/01/21 10/02/21 History billion cell capsule (Probiotic) atorvastatin 20 mg tablet 20 mg PO DAILY #90 tabs 10/01/21 10/02/21 Rx quetiapine 100 mg tablet 100 mg PO DAILY 10/01/21 10/02/21 History Exam Const General: cooperative, comfortable, no acute distress, not frail appearing and not lethargic Nutritional Appearance: overweight Orientation: alert and awake Eyes General: appearance normal, both eyes and all related structures Neck Neck: normal visual inspection, no lymphadenopathy and no JVD Thyroid: thyroid normal Resp Auscultation: clear to auscultation bilaterally, no rhonchi and no wheezes Cardio Rate: regular rate Rhythm: regular rhythm Heart Sounds: S1 normal, S2 normal, no gallops and no murmurs GI Palpation: soft, no hepatosplenomegaly, not firm and nontender Neuro General: patient alert, patient awake and CN's II-XI intact bilaterally Speech: speech normal Motor: muscle tone normal throughout and no movement abnormalities noted Extrem General: normal to inspection and no edema Psych Speech and Movement: speech and movement normal Affect: blunted Attitude: cooperative Thought Process: perseverating Thought Content: hallucinations Insight: fair Results Labs Result diagrams: 10/02/21 19:00 10/02/21 19:00 Labs: Laboratory Results - last 24 hr 10/02/21 10/02/21 10/02/21 19:00 19:00 19:00 WBC 11.95 H RBC 4.27 L Hgb 13.1 L Hct 38.7 L MCV 91 MCH 30.7 MCHC 33.9 RDW 12.9 Plt Count 203 MPV 9.0 Immature Gran % 0.5 Neutrophils % 65.7 Lymphocytes % 21.4 Monocytes % 8.0 Eosinophils % 3.6 Basophils % 0.8 Nucleated RBC % 0.0 Absolute Neutrophils 7.85 H Absolute Lymphocytes 2.56 Absolute Monocytes 0.96 H Absolute Eosinophils 0.43 Absolute Basophils 0.10 Sodium 141 Potassium 3.3 L Chloride 103 Carbon Dioxide 26.6 Anion Gap 11.4 H BUN 11 Creatinine 1.4 H Estimated GFR/1.73 m2 51.69 Glucose 125 H Calcium 8.6 Total Bilirubin 0.6 AST 29 ALT 101 H Alkaline Phosphatase 137 H Total Protein 7.4 Albumin 4.1 TSH 1.78 Salicylates < 2.8 Urine Opiates Screen Urine Methadone Screen Acetaminophen < 2 Ur Barbiturates Screen Ur Tricyclics Screen Ur Amphetamines Screen U Benzodiazepines Scrn Urine Cocaine Screen Ur THC Screen Ethyl Alcohol < 3.0 COVID-19 Source SARS-CoV-2 (PCR) 10/02/21 10/03/21 10/03/21 23:33 04:30 05:59 WBC RBC Hgb Hct MCV MCH MCHC RDW Plt Count MPV Immature Gran % Neutrophils % Lymphocytes % Monocytes % Eosinophils % Basophils % Nucleated RBC % Absolute Neutrophils Absolute Lymphocytes Absolute Monocytes Absolute Eosinophils Absolute Basophils Sodium Potassium Chloride Carbon Dioxide Anion Gap BUN Creatinine Estimated GFR/1.73 m2 Glucose Calcium Total Bilirubin AST ALT Alkaline Phosphatase Total Protein Albumin TSH Salicylates Urine Opiates Screen Negative Cancelled Urine Methadone Screen Negative Cancelled Acetaminophen Ur Barbiturates Screen Negative Cancelled Ur Tricyclics Screen Negative Cancelled Ur Amphetamines Screen Negative Cancelled U Benzodiazepines Scrn Negative Cancelled Urine Cocaine Screen Negative Cancelled Ur THC Screen Negative Cancelled Ethyl Alcohol COVID-19 Source Nasal/Nares SARS-CoV-2 (PCR) Negative Last Vital Signs Temp 36.5 C 10/03/21 01:16 Pulse 100 H 10/03/21 01:16 Resp 17 10/03/21 01:16 BP 103/71 10/03/21 01:16 Pulse Ox 99 10/03/21 01:16
[2021-10-03 08:15] VITALS: BP 125/86; PULSE 91; RESP 17; TEMP 36.8; O2SAT 100
[2021-10-03] MEDS: Aspirin E.C. 81 MG TABEC PO (08:31)
[2021-10-03] MEDS: metFORMIN C.R. 500 MG TABCR 2000 MG PO (08:31)
[2021-10-03] MEDS: OLANZapine 10 MG TAB PO (08:32)
[2021-10-03] MEDS: Atorvastatin 20 MG TAB PO (08:32)
--- NOTE | 2021-10-03 08:45 | PDOC.CMSAFE ---
- If Service Date Differs Date of service: 10/03/21 Time of Service: 08:46 Care Management Safety Plan Status: Voluntary - Reason for Wait Reason for Wait: Inpatient Admission VOLUNTARY FOR INPATIENT PSYCHIATRIC STABILIZATION. Patient is appropriate in all interactions since arriving at [facility]; Pt has demonstrated appropriate coping and communication skills, has articulated his or her needs and concerns and is fully engaged during staff interactions. Safety plan has been established with patient, and care team, to adhere to patient goals, identify restrictions based on behavioral status, address nutrition, and determine allowed personal belongings, tools for hygiene and personal care. Determine level of activity including ambulation, level of supervision, visitors, and determine privileges based on behaviors and level of engagement by pt. SAFETY PLAN: 1. Will remain on suicide precautions. In Paper Clothes 2. Will remain in room under direct supervision of one-on-one staff at all times provided by [employer]; RICKEY, GENERAL WAREHOUSE WORKER supervisor dairy sanitation. 3. May have paper cups, plates, finger foods as well as a cardboard spoon with which to eat meals. 4. Follow [facility] Management of the Admitted Behavioral Health Patient policy. 5. Comfort bath system only, shower permitted with escort at RN discretion. 6. No personal belongings-soft items permitted at RN discretion. 7. Visitors- per [facility] visitor policy and at RN discretion. 8. Activities: soft cart items, television and remote approved per RN discretion. 9. Bathroom privileges with escort in the ED, available in room without limitation on M/S. 10. Phone: contact limited to family at this time, via cordless phone at RN discretion. 11. Due to VOLUNTARY status, if patient wishes to leave [facility], staff will contact [facility] Crisis Screener ([phone]) and On-Call Adoption Specialist ([phone]) as soon as possible. In the event of elopement, notify [place] [employer] ([phone]). Patient is currently voluntarily at [facility] and seeking inpatient admission when a bed becomes available. [facility] Frontline Extension Service Specialist will continue seeking placement. Please contact the Produce Sorter Adoption Specialist ([phone]) and [facility] Extension Service Specialist ([phone]) for any needed changes in the Safety Plan. Safety plan has been provided to interdepartmental care team.
--- NOTE | 2021-10-03 10:06 | CMDISCH_ITS ---
- If Service Date Differs Date of service: 10/03/21 Time of Service: 10:06 LACE Index Scoring Tool - Questions: Length of Stay (in days): 1 Acuity (Admit via E.D.?): Yes Comorbidities: Diabetes w/o Complication, Mild Liver/Renal Disease (Fatty Liver) E.D. Visits: 2 - Answers: Total Score: 9 Risk of Readmission: Low Risk Care Management Discharge Reason for Hospitalization: Depression with SI: CONFERENCE COORDINATOR client Discharge Plan: Dave will discharge to the [facility] Crisis Bed. He will transport via private vehicle with [facility] staff. Patient/Family Education Needs: Review discharge instructions, discuss Ask Me Three. - MH Services (Omit if N/A) Current MH Services: CONFERENCE COORDINATOR - Disposition Disposition: Crisis Bed ([facility]) Transport via of: Private Vechicle ([facility])
--- NOTE | 2021-10-03 10:06 | PDOC.CMDIS ---
- If Service Date Differs Date of service: 10/03/21 Time of Service: 10:06 LACE Index Scoring Tool - Questions: Length of Stay (in days): 1 Acuity (Admit via E.D.?): Yes Comorbidities: Diabetes w/o Complication, Mild Liver/Renal Disease (Fatty Liver) E.D. Visits: 2 - Answers: Total Score: 9 Risk of Readmission: Low Risk Care Management Discharge Reason for Hospitalization: Depression with SI: HIM TECH client Discharge Plan: Dave will discharge to the [facility] Crisis Bed. He will transport via private vehicle with [facility] staff. Patient/Family Education Needs: Review discharge instructions, discuss Ask Me Three. - MH Services (Omit if N/A) Current MH Services: HIM TECH - Disposition Disposition: Crisis Bed ([facility]) Transport via of: Private Vechicle ([facility])
--- NOTE | 2021-10-03 10:14 | DSE_ITS ---
DS: Diagnosis Discharge Diagnosis (1) Schizoaffective disorder, depressive type: Status: Chronic (2) Suicidal ideation: Status: Acute Discharge Plan Disposition Patient Disposition: OTHER Condition: Fair Discharge Details Reason For Visit: depression Admit Date/Time: 10/02/21 22:44 Admit Provider: Ravi Castellanos Attending Provider: Ravi Castellanos Primary Care Provider: Trinh Dupree Hospital Course Hospital Course: This 61-year-old male is came to the hospital for complaint of depression and suicidal ideation.? He said he was invited to a democrat that his [id number] was throwing because she is moving to [place].? He has a long history of schizophrenia and says he was in a hospital in [place] for 13 months, and he has been in other institutions such as [facility], [facility], [facility], later [facility] and [facility] for psychiatric stabilization.? He says he often hears voices and at least twice he found himself going the [place] the [place].? He has not had good reaction to haloperidol or risperidone.? 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 He said his license might be taken away if he goes the wrong direction on [employer] again.? He does not know how he can get to work.? He says that he thought about sitting in a bathtub and cutting his wrists because he felt so much psychological pain and emotional discomfort from not being invited to the going away democrat.? He says he has no one to look to her friends except his only relationship is person that manages his Social Security payments and who is his guardian.? He says he has been sleeping poorly and eats poorly.? He says all his family is as he had a brother of [place] at age 56 and his sister did choke on a piece of lobster few years ago.? He has not drank alcohol for 22 years and not smoked for 3 years according to him.? He says he sometimes hears voices.? He told admitting MD he believes that before Fei came to the stars were of different colors and that they sang music.? He came to the emergency department and was seen by mental health. He was a voluntary admission.? He states he did not receive COVID-vaccine but the screening notes says that he has received it. Discharge to care bed Home Meds and New Rx's Prescriptions: Continued Probiotic 10 billion cell capsule 10,000 mmu cells PO DAILY quetiapine 100 mg tablet 100 mg PO DAILY atorvastatin 20 mg tablet 20 mg PO DAILY Qty: 90 3RF olanzapine 15 mg tablet 10 mg PO DAILY Label Comments: 01/18/19-[facility] update-EO aspirin 81 mg tablet,delayed release (DR/EC) 81 mg PO DAILY Qty: 90 3RF Rx Instructions: cardiovascular prevention metformin 1,000 mg tablet 2,000 mg PO DAILY Qty: 60 12RF Rx Instructions: Can this be sent to [facility]? Nurse administers there. Discontinued blister noah PO Rx Instructions: at [facility] Discharge Instructions Instructions: Depression (DC), Suicide Prevention (DC) Activity:: Activity as Tolerated Equipment/Supplies:: No Equipment Needed Diet:: As Tolerated Discharge Orders Discharge Orders: Discharge Order (Routine); Ordered 10/03/21 Ordered By: Bernadine Sandoval DS: Data Vitals/I&O Vitals and I&O: Vital Signs Temperature 36.8 C 10/03/21 08:15 Temperature Source Tympanic 10/03/21 08:15 Pulse 91 H 10/03/21 08:15 Pulse Rhythm Regular 10/03/21 08:57 Respiratory Rate 17 10/03/21 08:15 Respiratory Effort Non-Labored 10/03/21 08:57 Respiratory Depth Normal 10/03/21 08:57 Respiratory Pattern Normal 10/03/21 08:57 Blood Pressure 125/86 10/03/21 08:15 Blood Pressure Position Sitting 10/02/21 16:59 Pulse Oximetry 100 10/03/21 08:15 Oxygen Delivery Method Room Air 10/03/21 08:15 Oxygen Flow Rate 0 10/03/21 08:15 Pain Level 0 10/03/21 08:15 Intake & Output 10/02/21 10/02/21 10/03/21 11:59 23:59 11:59 Intake Total 716 / 716 Balance 716 / 716 Weight 67.132 kg Intake: Oral / 716 Other: Urine Color Yellow Urine Appearance Clear Urine Odor None Voiding Methods Toilet Data Completed and Pending Labs on day of discharge: Labs from last 24 hours 10/03/21 10/03/21 10/02/21 05:59 04:30 23:33 WBC RBC Hgb Hct MCV MCH MCHC RDW Plt Count MPV Immature Gran % Neutrophils % Lymphocytes % Monocytes % Eosinophils % Basophils % Nucleated RBC % Absolute Neutrophils Absolute Lymphocytes Absolute Monocytes Absolute Eosinophils Absolute Basophils Sodium Potassium Chloride Carbon Dioxide Anion Gap BUN Creatinine Estimated GFR/1.73 m2 Glucose Calcium Total Bilirubin AST ALT Alkaline Phosphatase Total Protein Albumin TSH Salicylates Urine Opiates Screen Cancelled Negative Urine Methadone Screen Cancelled Negative Acetaminophen Ur Barbiturates Screen Cancelled Negative Ur Tricyclics Screen Cancelled Negative Ur Amphetamines Screen Cancelled Negative U Benzodiazepines Scrn Cancelled Negative Urine Cocaine Screen Cancelled Negative Ur THC Screen Cancelled Negative Ethyl Alcohol COVID-19 Source Nasal/Nares SARS-CoV-2 (PCR) Negative 10/02/21 10/02/21 10/02/21 19:00 19:00 19:00 WBC 11.95 H RBC 4.27 L Hgb 13.1 L Hct 38.7 L MCV 91 MCH 30.7 MCHC 33.9 RDW 12.9 Plt Count 203 MPV 9.0 Immature Gran % 0.5 Neutrophils % 65.7 Lymphocytes % 21.4 Monocytes % 8.0 Eosinophils % 3.6 Basophils % 0.8 Nucleated RBC % 0.0 Absolute Neutrophils 7.85 H Absolute Lymphocytes 2.56 Absolute Monocytes 0.96 H Absolute Eosinophils 0.43 Absolute Basophils 0.10 Sodium 141 Potassium 3.3 L Chloride 103 Carbon Dioxide 26.6 Anion Gap 11.4 H BUN 11 Creatinine 1.4 H Estimated GFR/1.73 m2 51.69 Glucose 125 H Calcium 8.6 Total Bilirubin 0.6 AST 29 ALT 101 H Alkaline Phosphatase 137 H Total Protein 7.4 Albumin 4.1 TSH 1.78 Salicylates < 2.8 Urine Opiates Screen Urine Methadone Screen Acetaminophen < 2 Ur Barbiturates Screen Ur Tricyclics Screen Ur Amphetamines Screen U Benzodiazepines Scrn Urine Cocaine Screen Ur THC Screen Ethyl Alcohol < 3.0 COVID-19 Source SARS-CoV-2 (PCR) PFSH All Active Problems (Updated 07/06/21 @ 00:01 by SHERI ALLEN) SOB (shortness of breath) (Acute) Routine medical exam (Acute) Encounter for screening laboratory testing for COVID-19 virus (Acute) Encounter for screening laboratory testing for COVID-19 virus (Acute) Schizoaffective disorder, depressive type (Chronic 12/27/13) most recent psych adm 11/2013 [facility] with psychosis, command hallucinations Colonoscopy refused (Acute) Unspecified disorder of liver (Acute) US: 09/2008; FATTY LIVER, ABNL LFT; ALK PHOS, ALT; GI CONSULT 2002, AntiMitrohondrial Ab neg, rec wt loss. Type 2 diabetes mellitus without complication, without long-term current use of insulin (Acute 12/29/17) Tobacco use disorder, continuous (Acute 09/01/11) FEV1 2.7 in 2003; 1 PPD; longest off 1 yr, 2 wks; stopped 03/27/2015; stopped again 12/13/16 Other nursing home (current) drug therapy (Acute 12/10/15) olanzapine Other and unspecified hyperlipidemia (Acute 09/01/11) LDL 128, risk 12.9% 04/2015; start statin 03/2015 and [facility] [place] Organic sleep apnea, unspecified (Acute 05/25/99) REPORTS C-PAP SINCE 1999; needs new machine; but unable to get it without new sleep study!; no longer using CPAP 02/2017 Obesity, unspecified (Acute 09/01/11) 150 lb = BMI 25 Fatty liver disease, nonalcoholic (Acute) GGT 247 ; nl Fe/TIBC 03/1999; [place]: 09/2008; FATTY LIVER, ABNL LFT; ALK PHOS, ALT; GI CONSULT 2002, AntiMitrohondrial Ab neg, rec wt loss. Esophageal reflux disease (Acute 09/01/11) RANITIDINE RX Early cataracts, bilateral (Acute 02/09/17) Dr Pizano 12/2016 Abnormal serum creatinine level (Acute 04/13/15) History of schizophrenia (Chronic) GERD (gastroesophageal reflux disease) (Chronic) Obsessive compulsive disorder (Chronic) Sleep apnea (Chronic) Psychosis (Acute) Suicidal ideation (Acute) Leukocytosis (Chronic) Surgical History Circumcision (02/07/05) Dr Henriquez Vasectomy (05/25/93) Dr Henriquez Family History Mother Asthma onset not known Father , Kidney Failure at age 83. Renal failure onset not known Sister No problems noted. Brother Diabetes onset not known Brother No problems noted. 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 Pets and animals: No Do you think of yourself as: straight/heterosexual Current gender identity: male What is your relationship status?: How often do you talk on the phone with friends or family?: three or more times per week How often do you get together with friends or relatives?: twice per week How often do you attend baptist or yarsanism services?: decline to answer Do you belong to any clubs or organized social groups?: no Panel score (0-1 are the most socially isolated patients): 1 What type of physical activity do you participate in: walking Duration: 30-45 minutes/day Frequency: daily Margi/Islam: Latter-Day Special margi needs: No Drive intox or ride w/intox charter coach driver: No Do you feel safe at home: Yes Do you feel safe in your relationship?: Yes
--- NOTE | 2021-10-03 16:58 | W.PM.DS.N ---
Date of service: 10/03/21 Time of Service: 11:00 DS: Diagnosis Discharge Diagnosis (1) Schizoaffective disorder, depressive type: Status: Chronic Asessment and Plan: This 61-year-old male is here because of depression and suicidal ideation. He has a long history of schizophrenia and says he was in a hospital in [place] for 13 months, and he has been in other institutions such as group homes, care [facility], Replaced by [facility] and [facility] for psychiatric stabilization.? He says he hears voices and at least twice he found himself going the [place] way [place] the interstate.? He does not do well with haloperidol or risperidone.? 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 He says that he thought about sitting in a bathtub and cutting his wrists. He says he has been sleeping poorly and eats poorly.? He denies ETOH and drugs.? He says he sometimes hears voices.? He told the admitting provider he believes that before Fei came, the stars were of different colors and that they sang music.? He came to the emergency department and was seen by mental health, admitted to wait for placement. He is accepted at [facility] and awaiting transport by [facility]. He is in agreement with the ts. This is a voluntary admission. (2) Suicidal ideation: Status: Acute Asessment and Plan: As above - contracts for safety - is being transported by [facility] for safety. Discharge Plan Disposition Patient Disposition: OTHER Condition: Fair Discharge Details Reason For Visit: depression Admit Date/Time: 10/02/21 22:44 Admit Provider: Ravi Castellanos Attending Provider: Ravi Castellanos Primary Care Provider: Trinh Dupree Hospital Course Hospital Course: This 61-year-old male is came to the hospital for complaint of depression and suicidal ideation.? He said he was invited to a green party that his tghdev-sf-ipo was throwing because she is moving to [place].? He has a long history of schizophrenia and says he was in a hospital in [place] for 13 months, and he has been in other institutions such as group homes, [facility], Replaced by [facility] and [facility] for psychiatric stabilization.? He says he often hears voices and at least twice he found himself going the [place] the interstate.? He has not had good reaction to haloperidol or risperidone.? 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 He said his license might be taken away if he goes the wrong direction on interstate again.? He does not know how he can get to work.? He says that he thought about sitting in a bathtub and cutting his wrists because he felt so much psychological pain and emotional discomfort from not being invited to the going away green party.? He says he has no one to look to her friends except his only relationship is person that manages his Social Security payments and who is his guardian.? He says he has been sleeping poorly and eats poorly.? He says all his family is as he had a brother of [place] at age 56 and his sister did choke on a piece of lobster few years ago.? He has not drank alcohol for 22 years and not smoked for 3 years according to him.? He says he sometimes hears voices.? He told admitting MD he believes that before Fei came to the stars were of different colors and that they sang music.? He came to the emergency department and was seen by mental health. He was a voluntary admission.? He states he did not receive COVID-vaccine but the screening notes says that he has received it. Discharge to care bed Home Meds and New Rx's Prescriptions: Continued Probiotic 10 billion cell capsule 10,000 mmu cells PO DAILY quetiapine 100 mg tablet 100 mg PO DAILY atorvastatin 20 mg tablet 20 mg PO DAILY Qty: 90 3RF olanzapine 15 mg tablet 10 mg PO DAILY Label Comments: 01/18/19-[facility] update-EO aspirin 81 mg tablet,delayed release (DR/EC) 81 mg PO DAILY Qty: 90 3RF Rx Instructions: cardiovascular prevention metformin 1,000 mg tablet 2,000 mg PO DAILY Qty: 60 12RF Rx Instructions: Can this be sent to [facility]? Nurse administers there. Discontinued blister noah PO Rx Instructions: at [facility] Discharge Instructions Instructions: Depression (DC), Suicide Prevention (DC) Stand Alone Forms: Nursing Discharge Form Referrals: Trinh Dupree NP [Primary Care Provider] - Activity:: Activity as Tolerated Equipment/Supplies:: No Equipment Needed Diet:: As Tolerated Discharge Orders Discharge Orders: Discharge Order (Routine); Ordered 10/03/21 Ordered By: Bernadine Sandoval Discharge Data Discharge Date/Time-TO BE ENTERED AT DEPARTURE: 10/03/21 10:34 DS: Summary Time Spent with Patient providing and/or coordinating discharge services: Less than 30 minutes Status at Discharge Functional status at discharge: independent ambulation Overall status at discharge: patient is not back to baseline Mental Status: mental status grossly normal (anxious) Speech and Movement: agitated Mood: anxious mood Affect: normal affect Exam Psych Mental Status: mental status grossly normal (anxious) Speech and Movement: agitated Mood: anxious mood Affect: normal affect DS: Data Vitals/I&O Vitals and I&O: Vital Signs Temperature 36.8 C 10/03/21 08:15 Temperature Source Tympanic 10/03/21 08:15 Pulse 91 H 10/03/21 08:15 Pulse Rhythm Regular 10/03/21 08:57 Respiratory Rate 17 10/03/21 08:15 Respiratory Effort Non-Labored 10/03/21 08:57 Respiratory Depth Normal 10/03/21 08:57 Respiratory Pattern Normal 10/03/21 08:57 Blood Pressure 125/86 10/03/21 08:15 Blood Pressure Position Sitting 10/02/21 16:59 Pulse Oximetry 100 10/03/21 08:15 Oxygen Delivery Method Room Air 10/03/21 08:15 Oxygen Flow Rate 0 10/03/21 08:15 Pain Level 0 10/03/21 08:15 Intake & Output 10/02/21 10/03/21 10/03/21 23:59 11:59 23:59 Intake Total 2396 / 2396 Balance 2396 / 2396 Weight 67.132 kg Intake: Oral 2396 / 2396 Other: Urine Color Yellow Urine Appearance Clear Urine Odor None Comment Pt urinated in toilet Stool Size Moderate Voiding Methods Toilet Data Completed and Pending Labs on day of discharge: Labs from last 24 hours 10/03/21 10/03/21 10/02/21 05:59 04:30 23:33 WBC RBC Hgb Hct MCV MCH MCHC RDW Plt Count MPV Immature Gran % Neutrophils % Lymphocytes % Monocytes % Eosinophils % Basophils % Nucleated RBC % Absolute Neutrophils Absolute Lymphocytes Absolute Monocytes Absolute Eosinophils Absolute Basophils Sodium Potassium Chloride Carbon Dioxide Anion Gap BUN Creatinine Estimated GFR/1.73 m2 Glucose Calcium Total Bilirubin AST ALT Alkaline Phosphatase Total Protein Albumin TSH Salicylates Urine Opiates Screen Cancelled Negative Urine Methadone Screen Cancelled Negative Acetaminophen Ur Barbiturates Screen Cancelled Negative Ur Tricyclics Screen Cancelled Negative Ur Amphetamines Screen Cancelled Negative U Benzodiazepines Scrn Cancelled Negative Urine Cocaine Screen Cancelled Negative Ur THC Screen Cancelled Negative Ethyl Alcohol COVID-19 Source Nasal/Nares SARS-CoV-2 (PCR) Negative 10/02/21 10/02/21 10/02/21 19:00 19:00 19:00 WBC 11.95 H RBC 4.27 L Hgb 13.1 L Hct 38.7 L MCV 91 MCH 30.7 MCHC 33.9 RDW 12.9 Plt Count 203 MPV 9.0 Immature Gran % 0.5 Neutrophils % 65.7 Lymphocytes % 21.4 Monocytes % 8.0 Eosinophils % 3.6 Basophils % 0.8 Nucleated RBC % 0.0 Absolute Neutrophils 7.85 H Absolute Lymphocytes 2.56 Absolute Monocytes 0.96 H Absolute Eosinophils 0.43 Absolute Basophils 0.10 Sodium 141 Potassium 3.3 L Chloride 103 Carbon Dioxide 26.6 Anion Gap 11.4 H BUN 11 Creatinine 1.4 H Estimated GFR/1.73 m2 51.69 Glucose 125 H Calcium 8.6 Total Bilirubin 0.6 AST 29 ALT 101 H Alkaline Phosphatase 137 H Total Protein 7.4 Albumin 4.1 TSH 1.78 Salicylates < 2.8 Urine Opiates Screen Urine Methadone Screen Acetaminophen < 2 Ur Barbiturates Screen Ur Tricyclics Screen Ur Amphetamines Screen U Benzodiazepines Scrn Urine Cocaine Screen Ur THC Screen Ethyl Alcohol < 3.0 COVID-19 Source SARS-CoV-2 (PCR) PFSH All Active Problems SOB (shortness of breath) (Acute) Routine medical exam (Acute) Encounter for screening laboratory testing for COVID-19 virus (Acute) Encounter for screening laboratory testing for COVID-19 virus (Acute) Schizoaffective disorder, depressive type (Chronic 12/27/13) most recent psych adm 11/2013 [facility] with psychosis, command hallucinations Colonoscopy refused (Acute) Unspecified disorder of liver (Acute) US: 09/2008; FATTY LIVER, ABNL LFT; ALK PHOS, ALT; GI CONSULT 2002, AntiMitrohondrial Ab neg, rec wt loss. 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 Esophageal reflux disease (Acute 09/01/11) RANITIDINE RX Early cataracts, bilateral (Acute 02/09/17) Dr Pizano 12/2016 Abnormal serum creatinine level (Acute 04/13/15) History of schizophrenia (Chronic) GERD (gastroesophageal reflux disease) (Chronic) Obsessive compulsive disorder (Chronic) Sleep apnea (Chronic) Psychosis (Acute) Suicidal ideation (Acute) Leukocytosis (Chronic) Surgical History Circumcision (02/07/05) Dr Henriquez Vasectomy (05/25/93) Dr Henriquez Family History Mother Asthma onset not known Father , Kidney Failure at age 83. Renal failure onset not known Sister No problems noted. Brother Diabetes onset not known Brother No problems noted. 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 Pets and animals: No Do you think of yourself as: straight/heterosexual Current gender identity: male What is your relationship status?: How often do you talk on the phone with friends or family?: three or more times per week How often do you get together with friends or relatives?: twice per week How often do you attend hindu or jain services?: decline to answer Do you belong to any clubs or organized social groups?: no Panel score (0-1 are the most socially isolated patients): 1 What type of physical activity do you participate in: walking Duration: 30-45 minutes/day Frequency: daily Margi/Jew: Rastafarian Special margi needs: No Drive intox or ride w/intox road oiling truck driver: No Do you feel safe at home: Yes Do you feel safe in your relationship?: Yes
== END 2021-10-03 10:34 | disposition other institution (70) | DRG 885 ==
LOC: ER 23:30 → MS 23:42
PROVIDERS: Emergency Medicine; Admitting Provider Family Medicine; Emergency Provider Emergency Medicine; PCP Nurse Practitioner; Visit Provider Family Medicine
DX: F25.1 Schizoaffective disorder, depressive type (principal); R45.851 Suicidal ideations; K76.0 Fatty (change of) liver, not elsewhere classified; E11.9 Type 2 diabetes mellitus without complications; E78.5 Hyperlipidemia, unspecified; K21.9 Gastro-esophageal reflux disease without esophagitis; H25.9 Unspecified age-related cataract; F42.9 Obsessive-compulsive disorder, unspecified; G47.30 Sleep apnea, unspecified; Z87.891 Personal history of nicotine dependence
CPT/HCPCS: 36415; 80053; 80307; 87635; 99285; 80320; 80329; 84443; 85025; 99222; 99238

== ENCOUNTER 2022-01-06 10:50 | Observation (INO) | payer MEDICARE, MEDICAID, SELFPAY ==
[2022-01-06 10:57] VITALS: BP 151/87; PULSE 93; RESP 18; TEMP 36.8; O2SAT 99
--- NOTE | 2022-01-06 11:10 | ED.GENADUL_ITS ---
Discharge Plan Disposition Patient Disposition: [facility]IENT Condition: Stable Discharge Details Chief Complaint: PsychEval Clinical Impression: History of schizophrenia Primary Care Provider: Trinh Dupree ED Provider: Wander Tong Home Meds and New Rx's Prescriptions: No Action Probiotic 10 billion cell capsule 10,000 mmu cells PO DAILY quetiapine 100 mg tablet 100 mg PO DAILY atorvastatin 20 mg tablet 20 mg PO DAILY Qty: 90 3RF olanzapine 15 mg tablet 10 mg PO DAILY Label Comments: 01/18/19-[facility] update-EO metformin 1,000 mg tablet 2,000 mg PO DAILY Qty: 60 12RF Rx Instructions: Can this be sent to [facility]? Nurse administers there. aspirin 81 mg tablet,delayed release (DR/EC) 81 mg PO DAILY Qty: 90 3RF Rx Instructions: cardiovascular prevention Medical Decision Making 61 yo male with hx of schizophrenia comes in with [facility] after stating he was having thoughts of taking pills to harm himself. He denies actually taking anything to harm himself. He does appear anxious on exam but has clear speech and normal gait. He has no focal motor or sensation deficits on exam. Given his si with thoughts of self harm [facility] has already made a plan to seek voluntary placement, will obtain labs to evaluate for toxic ingestion. no bed availability today, patient calm and cooperative, voluntary. discussed with hospitalist who accepts for admission Differential Diagnosis Differential Diagnosis: schizophrenia, si Medical Records Medical records reviewed: Yes I reviewed the patient's medical records. Lab Data Lab results reviewed: Yes I reviewed the patient's lab results. HPI General Mode of arrival: ambulatory . Date/Time Provider Initiated Documentation: 01/06/22 10:55 . Limitations to Documentation: no limitations . Information obtained by: patient . History of Present Illness 61 year old M presents to the emergency department with the chief complaint of thoughts of self harm, described as moderate, Patient started experiencing this day(s) (1) and it has been constant. No relieving factors improve symptom(s), No exacerbating factors reported . Patient notes no other symptoms.. Patient did receive the following treatments prior to arrival, none Related Data Home Medications Medication Instructions Recorded Confirmed olanzapine 15 mg tablet 10 mg PO DAILY 01/18/19 10/02/21 metformin 1,000 mg tablet 2,000 mg PO DAILY #60 tabs 07/09/21 10/02/21 Lactobacillus acidophilus 10 10,000 mmu cells PO DAILY 10/01/21 10/02/21 billion cell capsule (Probiotic) atorvastatin 20 mg tablet 20 mg PO DAILY #90 tabs 10/01/21 10/02/21 quetiapine 100 mg tablet 100 mg PO DAILY 10/01/21 10/02/21 aspirin 81 mg tablet,delayed 81 mg PO DAILY #90 tabs 11/21/21 release Previous Rx's Medication Instructions Recorded metformin 1,000 mg tablet 2,000 mg PO DAILY #60 tabs 07/09/21 atorvastatin 20 mg tablet 20 mg PO DAILY #90 tabs 10/01/21 aspirin 81 mg tablet,delayed 81 mg PO DAILY #90 tabs 11/21/21 release Allergies Allergy/AdvReac Type Severity Reaction Status Date / Time No Known Allergies Allergy Verified 10/02/21 17:08 General Stated Complaint: PsychEval SEBASTIEN: 2 Review of Systems All systems reviewed & are unremarkable except as noted in HPI and below Constitutional Constitutional: Denies chills, Denies fever(s) and Denies weakness Eyes Eyes: Denies loss of vision Cardiovascular Cardiovascular: Denies chest pain and Denies dyspnea Respiratory Respiratory: Denies cough and Denies dyspnea Gastrointestinal Gastrointestinal: Denies abdominal pain, Denies nausea and Denies vomiting Genitourinary Genitourinary: Denies dysuria Integumentary/Breasts Skin/Breast: Denies rash Neurologic Neurologic: Denies loss of vision and Denies weakness PFSH All Active Problems (Updated 01/06/22 @ 12:49 by Wander Tong MD) SOB (shortness of breath) (Acute) Routine medical exam (Acute) Encounter for screening laboratory testing for COVID-19 virus (Acute) Encounter for screening laboratory testing for COVID-19 virus (Acute) Schizoaffective disorder, depressive type (Chronic 12/27/13) most recent psych adm 11/2013 [facility] with psychosis, command hallucinations Colonoscopy refused (Acute) Unspecified disorder of liver (Acute) US: 09/2008; FATTY LIVER, ABNL LFT; ALK PHOS, ALT; GI CONSULT 2002, AntiMitrohondrial Ab neg, rec wt loss. 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 Esophageal reflux disease (Acute 09/01/11) RANITIDINE RX Early cataracts, bilateral (Acute 02/09/17) Dr Pizano 12/2016 Abnormal serum creatinine level (Acute 04/13/15) History of schizophrenia (Chronic) GERD (gastroesophageal reflux disease) (Chronic) Obsessive compulsive disorder (Chronic) Sleep apnea (Chronic) Psychosis (Acute) Suicidal ideation (Acute) Leukocytosis (Chronic) Surgical History Circumcision (02/07/05) Dr Henriquez Vasectomy (05/25/93) Dr Henriquez Family History Mother Asthma onset not known Father , Kidney Failure at age 83. Renal failure onset not known Sister No problems noted. Brother Diabetes onset not known Brother No problems noted. 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 Pets and animals: No Do you think of yourself as: straight/heterosexual Current gender identity: male What is your relationship status?: How often do you talk on the phone with friends or family?: three or more times per week How often do you get together with friends or relatives?: twice per week How often do you attend baptism or church services?: decline to answer Do you belong to any clubs or organized social groups?: no Panel score (0-1 are the most socially isolated patients): 1 What type of physical activity do you participate in: walking Duration: 30-45 minutes/day Frequency: daily Margi/Restoration: Sikhism Special margi needs: No Drive intox or ride w/intox driver engineer: No Do you feel safe at home: Yes Do you feel safe in your relationship?: Yes Exam Const General: no acute distress Orientation: alert HENMT Head: normal to inspection Ears: external ears normal General nose exam: external nose normal Mouth: moist mucous membranes Eyes General: appearance normal, both eyes and all related structures Neck Neck: normal visual inspection Resp Effort & Inspection: normal respiratory effort and able to speak in complete sentences Cardio Rate: regular rate Skin General skin exam: no rashes or lesions noted Neuro General: patient alert and patient oriented x3 Extrem General: normal to inspection Psych Speech and Movement: speech and movement normal Course Vital Signs Vital signs: Vital Signs Temperature 36.8 C 01/06/22 10:57 Pulse 93 H 01/06/22 10:57 Respiratory Rate 18 01/06/22 10:57 Blood Pressure 151/87 H 01/06/22 10:57 Pulse Oximetry 99 01/06/22 10:57 Temperature 36.8 C 01/06/22 10:57 Temperature Source Temporal Artery Scan 01/06/22 10:57 Pulse 93 H 01/06/22 10:57 Respiratory Rate 18 01/06/22 10:57 Blood Pressure 151/87 H 01/06/22 10:57 Blood Pressure Position Sitting 01/06/22 10:57 Pulse Oximetry 99 01/06/22 10:57 Oxygen Delivery Method Room Air 01/06/22 10:57 Oxygen Flow Rate 0 01/06/22 10:57
[2022-01-06 11:39] LABS: Source Nasal/Nares
[2022-01-06 11:47] LABS: Abs Immature Grans 0.05 10^3/uL (0.0-0.06); Absolute Basophil Count 0.07 10^3/uL (0.0-0.2); Absolute Eosinophil Count 0.11 10^3/uL (0.0-0.7); Absolute Monocyte Count 0.68 10^3/uL (0.1-0.8); Absolute Neutrophil Count 7.72 10^3/uL (1.2-6.7); Basophils % 0.7; Eosinophils % 1.1; HCT 38.7 % (40.0-50.0); HGB 13.6 g/dL (13.5-17.5); Immature Grans % 0.5; Lymphocytes % 14.8; MCH 31.8 pg (27.0-33.0); MCHC 35.1 % (32.0-36.0); MCV 90 fL (80-95); MPV 8.6 fL (8.0-11.0); Monocytes % 6.7; Neutrophils % 76.2; Platelet Count 227 10^3/uL (130-400); RBC 4.28 10^6/uL (4.36-5.78); RDW 12.8 % (11.8-14.1); WBC 10.13 10^3/uL (4.4-10.8)
[2022-01-06 12:06] LABS: ALT 27 U/L (16-63); AST 14 U/L (15-37); Albumin 4.4 g/dL (3.4-5.0); Alkaline Phosphatase 110 U/L (46-116); BUN 14 mg/dL (7-18); Bilirubin, Total 0.6 mg/dL (0.2-1.0); CREATININE 1.3 mg/dL (0.70-1.30); Calcium 9.3 mg/dL (8.5-10.1); Chloride 101 mmol/L (98-107); Estimated GFR 56.31 (mL/min/1.73m2); Glucose 127 mg/dL (74-106); Potassium 4.1 mmol/L (3.5-5.1); Salicylate < 2.8 mg/dL (<2.8); Sodium 137 mmol/L (136-145); TSH (W/Ref FT4) 1.62 uIU/mL (0.36-3.74)
[2022-01-06 12:07] LABS: Acetaminophen < 2 ug/mL (10-30); ETHANOL BLOOD < 3.0 mg/dL (<10)
[2022-01-06 12:21] LABS: COVID-19 PCR Negative (Negative)
--- NOTE | 2022-01-06 12:36 | W.PM.HP.N ---
Date of service: 01/06/22 Time of Service: 12:36 Assessment and Plan Assessment and plan (1) Suicidal ideation: Status: Acute Assessment and plan: medically cleared and awaiting inpatient psychiatric placement continue CPSO and suicidal precautions. mental health following. (2) Schizoaffective disorder, depressive type: Status: Chronic Assessment and plan: continue home medication (3) Type 2 diabetes mellitus without complication, without long-term current use of insulin: Status: Acute Assessment and plan: continue home medication diabetic diet last A1C in September was 6.0 (4) Discharge planning issues: Status: Acute Assessment and plan: case management and mental health following plan to transfer for inpatient psychiatric care discussed with Dr Grove History of Present Illness History of Present Illness Chief Complaint: depression with suicidal ideation Narrative: This is a 61 yo? male with history of schizophrenia who presented to the ED with his mental health providers after reporting thoughts of taking pills to harm himself. He was medically screened in the ED and cleared for mental health evaluation. He has agreed to voluntary inpatient psychiatric management. He has had no behavioral disturbances while awaiting a bed. He will be moved to the transition unit under hospitalist services while awaiting his transfer. Review of Systems All systems reviewed & are unremarkable except as noted in HPI and below PFSH All Active Problems (Updated 01/06/22 @ 13:43 by Brooke Jose NP) Discharge planning issues (Acute) SOB (shortness of breath) (Acute) Routine medical exam (Acute) Encounter for screening laboratory testing for COVID-19 virus (Acute) Encounter for screening laboratory testing for COVID-19 virus (Acute) Schizoaffective disorder, depressive type (Chronic 12/27/13) most recent psych adm 11/2013 [facility] with psychosis, command hallucinations Colonoscopy refused (Acute) Unspecified disorder of liver (Acute) US: 09/2008; FATTY LIVER, ABNL LFT; ALK PHOS, ALT; GI CONSULT 2002, AntiMitrohondrial Ab neg, rec wt loss. Type 2 diabetes mellitus without complication, without long-term current use of insulin (Acute 12/29/17) Tobacco use disorder, continuous (Acute 09/01/11) FEV1 2.7 in 2003; 1 PPD; longest off 1 yr, 2 wks; stopped 03/27/2015; stopped again 12/13/16 [facility] [place] [facility] [place] drug therapy (Acute 12/10/15) olanzapine Other and unspecified hyperlipidemia (Acute 09/01/11) LDL 128, risk 12.9% 04/2015; [place] statin 03/[place] [facility] [place] sleep apnea, unspecified (Acute 05/25/99) REPORTS C-PAP SINCE 1999; needs new machine; but unable to get it without new sleep study!; no longer using CPAP 02/2017 Obesity, unspecified (Acute 09/01/11) 150 lb = BMI 25 Fatty liver disease, nonalcoholic (Acute) GGT 247 ; nl Fe/TIBC 03/1999; US: 09/2008; FATTY LIVER, ABNL LFT; ALK PHOS, ALT; GI CONSULT 2002, AntiMitrohondrial Ab neg, rec wt loss. Esophageal reflux disease (Acute 09/01/11) RANITIDINE RX Early cataracts, bilateral (Acute 02/09/17) Dr Pizano 12/2016 Abnormal serum creatinine level (Acute 04/13/15) History of schizophrenia (Chronic) GERD (gastroesophageal reflux disease) (Chronic) Obsessive compulsive disorder (Chronic) Sleep apnea (Chronic) Psychosis (Acute) Suicidal ideation (Acute) Leukocytosis (Chronic) Surgical History Circumcision (02/07/05) Dr Henriquez Vasectomy (05/25/93) Dr Henriquez Family History Mother Asthma onset not known Father , Kidney Failure at age 83. Renal failure onset not known Sister No problems noted. Brother Diabetes onset not known Brother No problems noted. 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 Pets and animals: No Do you think of yourself as: straight/heterosexual Current gender identity: male What is your relationship status?: How often do you talk on the phone with friends or family?: three or more times per week How often do you get together with friends or relatives?: twice per week How often do you attend alevism or sabianism services?: decline to answer Do you belong to any clubs or organized social groups?: no Panel score (0-1 are the most socially isolated patients): 1 What type of physical activity do you participate in: walking Duration: 30-45 minutes/day Frequency: daily Margi/Cheondoism: Rastafarian Special margi needs: No Drive intox or ride w/intox hearse driver: No Do you feel safe at home: Yes Do you feel safe in your relationship?: Yes Meds Allergies and Home Medications Allergies Allergy/AdvReac Type Severity Reaction Status Date / Time No Known Allergies Allergy Verified 10/02/21 17:08 Home Medications Medication Instructions Recorded Confirmed Type olanzapine 15 mg tablet 10 mg PO HS 01/18/19 01/06/22 History metformin 1,000 mg tablet 2,000 mg PO DAILY #60 tabs 07/09/21 01/06/22 Rx Lactobacillus acidophilus 10 10,000 mmu cells PO DAILY 10/01/21 01/06/22 History billion cell capsule (Probiotic) atorvastatin 20 mg tablet 20 mg PO DAILY #90 tabs 10/01/21 01/06/22 Rx quetiapine 100 mg tablet 100 mg PO HS 10/01/21 01/06/22 History aspirin 81 mg tablet,delayed 81 mg PO DAILY #90 tabs 11/21/21 01/06/22 Rx release Exam Const General: no acute distress Orientation: alert HENMT Head: normal to inspection Mouth: moist mucous membranes Eyes General: appearance normal, both eyes and all related structures Neck Neck: normal visual inspection Resp Effort & Inspection: normal respiratory effort and able to speak in complete sentences Cardio Rate: regular rate Skin General skin exam: no rashes or lesions noted Neuro General: patient alert and patient oriented x3 Extrem General: normal to inspection Psych Speech and Movement: speech and movement normal Results Labs Result diagrams: 01/06/22 11:33 01/06/22 11:33 Labs: Laboratory Results - last 24 hr 01/06/22 01/06/22 01/06/22 11:18 11:33 11:33 WBC 10.13 RBC 4.28 L Hgb 13.6 Hct 38.7 L MCV 90 MCH 31.8 MCHC 35.1 RDW 12.8 Plt Count 227 MPV 8.6 Immature Gran % 0.5 Neutrophils % 76.2 Lymphocytes % 14.8 Monocytes % 6.7 Eosinophils % 1.1 Basophils % 0.7 Nucleated RBC % 0.0 Absolute Neutrophils 7.72 H Absolute Lymphocytes 1.50 Absolute Monocytes 0.68 Absolute Eosinophils 0.11 Absolute Basophils 0.07 Sodium 137 Potassium 4.1 Chloride 101 Carbon Dioxide 28.0 Anion Gap 8.0 BUN 14 Creatinine 1.3 Estimated GFR/1.73 m2 56.31 Glucose 127 H Calcium 9.3 Total Bilirubin 0.6 AST 14 L ALT 27 Alkaline Phosphatase 110 Total Protein 8.0 Albumin 4.4 TSH 1.62 Salicylates Acetaminophen Ethyl Alcohol < 3.0 COVID-19 Source Nasal/Nares 01/06/22 11:33 WBC RBC Hgb Hct MCV MCH MCHC RDW Plt Count MPV Immature Gran % Neutrophils % Lymphocytes % Monocytes % Eosinophils % Basophils % Nucleated RBC % Absolute Neutrophils Absolute Lymphocytes Absolute Monocytes Absolute Eosinophils Absolute Basophils Sodium Potassium Chloride Carbon Dioxide Anion Gap BUN Creatinine Estimated GFR/1.73 m2 Glucose Calcium Total Bilirubin AST ALT Alkaline Phosphatase Total Protein Albumin TSH Salicylates < 2.8 Acetaminophen < 2 Ethyl Alcohol COVID-19 Source Last Vital Signs Temp 36.8 C 01/06/22 10:57 Pulse 93 H 01/06/22 10:57 Resp 18 01/06/22 10:57 BP 151/87 H 01/06/22 10:57 Pulse Ox 99 01/06/22 10:57
--- NOTE | 2022-01-06 13:00 | CMSP_ITS ---
- If Service Date Differs Date of service: 01/06/22 Time of Service: 13:00 Care Management Safety Plan Status: Voluntary - Reason for Wait Reason for Wait: Inpatient Admission CHIEF COMPLAINT: Dave presents in the ED for depression and suicidal ideation. He is accompanied by his [facility] HELP AID service provider. He reports a plan of overdosing on medication but denies acting on those thoughts. Dave has an extensive psychiatric history with a diagnosis of schizophrenia. VOLUNTARY FOR INPATIENT PSYCHIATRIC STABILIZATION. Patient is appropriate in all interactions since arriving at [facility]; Pt has demonstrated appropriate coping and communication skills, has articulated his or her needs and concerns and is fully engaged during staff interactions. Safety plan has been established with patient, and care team, to adhere to p atient goals, identify restrictions based on behavioral status, address nutrition, and determine allowed personal belongings, tools for hygiene and personal care. Determine level of activity including ambulation, level of supervision, visitors, and determine privileges based on behaviors and level of engagement by pt. SAFETY PLAN: 1. Will remain on suicide precautions. In Paper Clothes 2. Will remain in room under direct supervision of one-on-one staff at all times provided by CPSO, KINDERGARTEN TUTOR, CALL CENTER CONSULTANT hardwood floor sander. 3. May have paper cups, plates, finger foods as well as a cardboard spoon with which to eat meals. 4. Follow [facility] Management of the Admitted Behavioral Health Patient policy. 5. Shower permitted with escort at RN discretion. 6. No personal belongings-soft items permitted at RN discretion. 7. Visitors- per [facility] visitor policy and at RN discretion. 8. Activities: soft cart items, television and remote approved per RN discretion. 9. Bathroom privileges with escort in the ED, available in room without limitation on M/S. 10. Phone: contact limited to family at this time, via cordless phone at RN discretion. 11. Due to VOLUNTARY status, if patient wishes to leave [facility], staff will contact [facility] Crisis Screener ([phone]) and On-Call Bi Specialist ([phone]) as soon as possible. In the event of elopement, notify [facility] Police ([phone]). Patient is currently voluntarily at [facility] and seeking inpatient admission when a bed becomes available. [facility] Frontline Tile Applicator will continue seeking placement. Please contact the County Commissioner Bi Specialist ([phone]) and [facility] Tile Applicator ([phone]) for any needed changes in the Safety Plan. Safety plan has been provided to interdepartmental care team.
--- NOTE | 2022-01-06 13:00 | PDOC.CMSAFED ---
- If Service Date Differs Date of service: 01/06/22 Time of Service: 13:00 Care Management Safety Plan Status: Voluntary - Reason for Wait Reason for Wait: Inpatient Admission CHIEF COMPLAINT: Dave presents in the ED for depression and suicidal ideation. He is accompanied by his [facility] ENDLESS BED DRUM SANDER service provider. He reports a plan of overdosing on medication but denies acting on those thoughts. Dave has an extensive psychiatric history with a diagnosis of schizophrenia. VOLUNTARY FOR INPATIENT PSYCHIATRIC STABILIZATION. Patient is appropriate in all interactions since arriving at [facility]; Pt has demonstrated appropriate coping and communication skills, has articulated his or her needs and concerns and is fully engaged during staff interactions. Safety plan has been established with patient, and care team, to adhere to patient goals, identify restrictions based on behavioral status, address nutrition, and determine allowed personal belongings, tools for hygiene and personal care. Determine level of activity including ambulation, level of supervision, visitors, and determine privileges based on behaviors and level of engagement by pt. SAFETY PLAN: 1. Will remain on suicide precautions. In Paper Clothes 2. Will remain in room under direct supervision of one-on-one staff at all times provided by CPSO, SPORTS INSTRUCTOR, ALL SOURCE ANALYST medical staff credentialing coordinator. 3. May have paper cups, plates, finger foods as well as a cardboard spoon with which to eat meals. 4. Follow [facility] Management of the Admitted Behavioral Health Patient policy. 5. Shower permitted with escort at RN discretion. 6. No personal belongings-soft items permitted at RN discretion. 7. Visitors- per [facility] visitor policy and at RN discretion. 8. Activities: soft cart items, television and remote approved per RN discretion. 9. Bathroom privileges with escort in the ED, available in room without limitation on M/S. 10. Phone: contact limited to family at this time, via cordless phone at RN discretion. 11. Due to VOLUNTARY status, if patient wishes to leave [facility], staff will contact [facility] Crisis Screener ([phone]) and On-Call Waste Handling Technician ([phone]) as soon as possible. In the event of elopement, notify [facility] Police ([phone]). Patient is currently voluntarily at [facility] and seeking inpatient admission when a bed becomes available. [facility] Frontline Manufacturing Accountant will continue seeking placement. Please contact the [employer] Waste Handling Technician ([phone]) and [facility] Manufacturing Accountant ([phone]) for any needed changes in the Safety Plan. Safety plan has been provided to interdepartmental care team.
[2022-01-06 13:22] VITALS: BP 151/87; PULSE 93; RESP 18; TEMP 36.8; O2SAT 99
[2022-01-06 13:44] VITALS: BP 152/96; PULSE 92; RESP 20; TEMP 36.7; O2SAT 98
--- NOTE | 2022-01-06 14:50 | NUR.NOTE ---
Patient vomited. RN notified. Nursing Note:
[2022-01-06 15:19] LABS: Bilirubin Negative (Negative); Blood Negative (Negative); Clarity Clear (Clear); Glucose 100 mg/dL (Negative); Ketones Negative (Negative); Leukocyte Esterase Negative (Negative); Nitrite Negative (Negative); Specific Gravity 1.015 (1.005-1.025); Urobilinogen 0.2 EU/dL (Up TO 0.2); pH 5.5 (5-8)
[2022-01-06 15:32] LABS: *AMPHETAMINES SCREEN URINE Negative (Negative); *BARBITURATES SCREEN URINE Negative (Negative); *BENZODIAZEPINES SCREEN URINE Negative (Negative); Cannabinoids THC Negative (Negative); Cocaine Screen,Urine Negative (Negative); METHADONE URINE SCREEN Negative (Negative); OPIATES URINE SCREEN Negative (Negative)
[2022-01-06 16:03] LABS: Tricyclic Antidepressants Negative (Negative)
[2022-01-06] MEDS: QUEtiapine 100 MG TAB PO (21:14)
[2022-01-06] MEDS: OLANZapine 10 MG TAB PO (21:14)
[2022-01-07 08:00] VITALS: BP 142/77; PULSE 88; RESP 16; TEMP 36.1; O2SAT 100
[2022-01-07] MEDS: Atorvastatin 20 MG TAB PO (08:09)
[2022-01-07] MEDS: Aspirin E.C. 81 MG TABEC PO (08:09)
[2022-01-07] MEDS: Lactobacillus Acidophilus CAP 1 CAP PO (08:09)
[2022-01-07] MEDS: metFORMIN 500 MG TAB 2000 MG PO (08:09)
--- NOTE | 2022-01-07 10:39 | W.PM.PROGNOT ---
Date of Service Date of service: 01/07/22 Time of Service: 10:39 Assessment and Plan Assessment and plan (1) Suicidal ideation: Status: Acute Assessment and plan: medically cleared and we continue to wait for an inpatient psychiatric placement continue CPSO and suicidal precautions. mental health following. (2) Schizoaffective disorder, depressive type: Status: Chronic Assessment and plan: continue home medication (3) Type 2 diabetes mellitus without complication, without long-term current use of insulin: Status: Acute Assessment and plan: continue home medication diabetic diet last A1C in September was 6.0 (4) Discharge planning issues: Status: Acute Assessment and plan: case management and mental health following plan to transfer for inpatient psychiatric care discussed with Dr Grove Subjective Subjective Patient reports: no new complaints Interval history since last seen: Sleeping alot Exam Const General: no acute distress Orientation: alert HENMT Head: normal to inspection Mouth: moist mucous membranes Eyes General: appearance normal, both eyes and all related structures Neck Neck: normal visual inspection Resp Effort & Inspection: normal respiratory effort and able to speak in complete sentences Cardio Rate: regular rate Skin General skin exam: no rashes or lesions noted Neuro General: patient alert and patient oriented x3 Extrem General: normal to inspection Psych Speech and Movement: speech and movement normal Objective Last Vital Signs Temp 36.1 C L 01/07/22 08:00 Pulse 88 01/07/22 08:00 Resp 16 01/07/22 08:00 BP 142/77 H 01/07/22 08:00 Pulse Ox 100 01/07/22 08:00 Laboratory Results - last 24 hr 01/06/22 01/06/22 01/06/22 11:18 11:33 11:33 WBC 10.13 RBC 4.28 L Hgb 13.6 Hct 38.7 L MCV 90 MCH 31.8 MCHC 35.1 RDW 12.8 Plt Count 227 MPV 8.6 Immature Gran % 0.5 Neutrophils % 76.2 Lymphocytes % 14.8 Monocytes % 6.7 Eosinophils % 1.1 Basophils % 0.7 Nucleated RBC % 0.0 Absolute Neutrophils 7.72 H Absolute Lymphocytes 1.50 Absolute Monocytes 0.68 Absolute Eosinophils 0.11 Absolute Basophils 0.07 Sodium 137 Potassium 4.1 Chloride 101 Carbon Dioxide 28.0 Anion Gap 8.0 BUN 14 Creatinine 1.3 Estimated GFR/1.73 m2 56.31 Glucose 127 H Calcium 9.3 Total Bilirubin 0.6 AST 14 L ALT 27 Alkaline Phosphatase 110 Total Protein 8.0 Albumin 4.4 TSH 1.62 Urine Color Urine Clarity Urine pH Ur Specific [place] Urine Protein Urine Ketones Urine Blood Urine Nitrite Urine Bilirubin Urine Urobilinogen Ur Leukocyte Esterase Urine Glucose Salicylates Urine Opiates Screen Urine Methadone Screen Acetaminophen Ur Barbiturates Screen Ur Tricyclics Screen Ur Amphetamines Screen U Benzodiazepines Scrn Urine Cocaine Screen Ur THC Screen Ethyl Alcohol < 3.0 COVID-19 Source Nasal/Nares SARS-CoV-2 (PCR) Negative 01/06/22 01/06/22 01/06/22 11:33 15:06 15:06 WBC RBC Hgb Hct MCV MCH MCHC RDW Plt Count MPV Immature Gran % Neutrophils % Lymphocytes % Monocytes % Eosinophils % Basophils % Nucleated RBC % Absolute Neutrophils Absolute Lymphocytes Absolute Monocytes Absolute Eosinophils Absolute Basophils Sodium Potassium Chloride Carbon Dioxide Anion Gap BUN Creatinine Estimated GFR/1.73 m2 Glucose Calcium Total Bilirubin AST ALT Alkaline Phosphatase Total Protein Albumin TSH Urine Color Yellow Urine Clarity Clear Urine pH 5.5 Ur Specific [place] 1.015 Urine Protein Negative Urine Ketones Negative Urine Blood Negative Urine Nitrite Negative Urine Bilirubin Negative Urine Urobilinogen 0.2 Ur Leukocyte Esterase Negative Urine Glucose 100 Salicylates < 2.8 Urine Opiates Screen Negative Urine Methadone Screen Negative Acetaminophen < 2 Ur Barbiturates Screen Negative Ur Tricyclics Screen Negative Ur Amphetamines Screen Negative U Benzodiazepines Scrn Negative Urine Cocaine Screen Negative Ur THC Screen Negative Ethyl Alcohol COVID-19 Source SARS-CoV-2 (PCR) Reviewed Pertinent PMH: Yes
--- NOTE | 2022-01-07 15:08 | CMSP_ITS ---
- If Service Date Differs Date of service: 01/07/22 Time of Service: 15:08 Care Management Safety Plan Status: Voluntary - Reason for Wait Reason for Wait: Community Placement VOLUNTARY FOR INPATIENT PSYCHIATRIC STABILIZATION. Patient is appropriate in all interactions since arriving at [facility]; Pt has demonstrated appropriate coping and communication skills, has articulated his or her needs and concerns and is fully engaged during staff interactions. A huddle is held at 14:40 with Skye, nursing furnace process supervisor, Bre, coordinator, DAMARIS Espinosa, and NADINE Beverly, in attendance. Safety plan has been established with patient, and care team, to adhere to patient goals, identify restrictions based on behavioral status, address nutrition, and determine allowed personal belongings, tools for hygiene and personal care. Determine level of activity including ambulation, level of supervision, visitors, and determine privileges based on behaviors and level of engagement by pt. SAFETY PLAN: 1. Will remain on suicide precautions. In Paper Clothes 2. Will remain in room under direct supervision of one-on-one staff at all times provided by CPSO, RICKEY, VETERINARY BACTERIOLOGIST radial router operator. 3. May have paper cups, plates, finger foods as well as a cardboard spoon with which to eat meals. 4. Follow [facility] Management of the Admitted Behavioral Health Patient policy. 5. Shower permitted with escort at RN discretion. 6. No personal belongings-soft items permitted at RN discretion. 7. Visitors- per [facility] visitor policy and at RN discretion. 8. Activities: soft cart items, television and remote approved per RN discretion. 9. Bathroom available in room without limitation on M/S. 10. Phone: may use [employer] hospital phone at RN discretion. 11. Due to VOLUNTARY status, if patient wishes to leave [facility], staff will contact [facility] Crisis Screener ([phone]) and On-Call Bufferer ([phone]) as soon as possible. In the event of elopement, notify [place] [employer] Police ([phone]). Patient is currently voluntarily at [facility] and seeking inpatient admission when a bed becomes available. [facility] Frontline Sales Clerk Food will continue seeking placement. Please contact the Striper Bufferer ([phone]) and [facility] Sales Clerk Food ([phone]) for any needed changes in the Safety Plan. Safety plan has been provided to interdepartmental care team.
--- NOTE | 2022-01-07 15:08 | PDOC.CMSAFE ---
- If Service Date Differs Date of service: 01/07/22 Time of Service: 15:08 Care Management Safety Plan Status: Voluntary - Reason for Wait Reason for Wait: Community Placement VOLUNTARY FOR INPATIENT PSYCHIATRIC STABILIZATION. Patient is appropriate in all interactions since arriving at [facility]; Pt has demonstrated appropriate coping and communication skills, has articulated his or her needs and concerns and is fully engaged during staff interactions. A huddle is held at 14:40 with Skye, nursing special assemblies supervisor, Bre, coordinator, DAMARIS Espinosa, and NADINE Beverly, in attendance. Safety plan has been established with patient, and care team, to adhere to patient goals, identify restrictions based on behavioral status, address nutrition, and determine allowed personal belongings, tools for hygiene and personal care. Determine level of activity including ambulation, level of supervision, visitors, and determine privileges based on behaviors and level of engagement by pt. SAFETY PLAN: 1. Will remain on suicide precautions. In Paper Clothes 2. Will remain in room under direct supervision of one-on-one staff at all times provided by CPSO, RICKEY, SEAMAN animal laboratory helper. 3. May have paper cups, plates, finger foods as well as a cardboard spoon with which to eat meals. 4. Follow [facility] Management of the Admitted Behavioral Health Patient policy. 5. Shower permitted with escort at RN discretion. 6. No personal belongings-soft items permitted at RN discretion. 7. Visitors- per [facility] visitor policy and at RN discretion. 8. Activities: soft cart items, television and remote approved per RN discretion. 9. Bathroom available in room without limitation on M/S. 10. Phone: may use [employer] hospital phone at RN discretion. 11. Due to VOLUNTARY status, if patient wishes to leave [facility], staff will contact [facility] Crisis Screener ([phone]) and On-Call Macaroni Maker ([phone]) as soon as possible. In the event of elopement, notify [place] [employer] Police ([phone]). Patient is currently voluntarily at [facility] and seeking inpatient admission when a bed becomes available. [facility] Frontline Molder Meat will continue seeking placement. Please contact the Epic Cadence Analyst Macaroni Maker ([phone]) and [facility] Molder Meat ([phone]) for any needed changes in the Safety Plan. Safety plan has been provided to interdepartmental care team.
--- NOTE | 2022-01-07 15:12 | CMPROGNOTE_ITS ---
- If Service Date Differs Date of service: 01/07/22 Time of Service: 15:12 Care Management Progress Note S/O: Dave is sitting on the side of his bed when CM comes to meet with him. He is calm and pleasant and talks about the different service providers he has had at [facility] over the years. Dave shares he stopped taking his medications several days ago but is unable to say why he stopped taking his meds. He talks about mental illness, the stigma associated with mental illness, and how some people are afraid of him. He then gets up from the bed, moves closer to CM, and begins making inappropriate sexualized comments. CM tells him those comments are inappropriate. Dave apologizes and returns to sitting on the bed as CM is exiting the room. A: Dave remains at [facility] awaiting a crisis bed placement. P: Per Beatris of [facility], referrals have been sent to the following crisis beds: [facility] (waiting on response), [facility] (denied due to acuity of the home), [facility] (attempted but phone line busy), [facility] (no bed availability), [facility] (waiting on response), [facility] (waiting pottery decoration designer back), and [facility] (denied - do not accept referrals out of catchment area). The [facility] Care Bed is currently full. Dave will remain at [facility] and will be reassessed daily by [facility] EMBEDDED SOFTWARE MANAGER until a bed is secured for him or his mental status improves enough for him to return home on a safety plan with outpatient follow up. CM will continue to follow. - MH Services (Omit if N/A) Current MH Services: EMBEDDED SOFTWARE MANAGER - Status Status: Voluntary - Reason for Wait Reason for Wait: Community Placement
--- NOTE | 2022-01-07 15:12 | PDOC.CMPRO ---
- If Service Date Differs Date of service: 01/07/22 Time of Service: 15:12 Care Management Progress Note S/O: Dave is sitting on the side of his bed when CM comes to meet with him. He is calm and pleasant and talks about the different service providers he has had at [facility] over the years. Dave shares he stopped taking his medications several days ago but is unable to say why he stopped taking his meds. He talks about mental illness, the stigma associated with mental illness, and how some people are afraid of him. He then gets up from the bed, moves closer to CM, and begins making inappropriate sexualized comments. CM tells him those comments are inappropriate. Dave apologizes and returns to sitting on the bed as CM is exiting the room. A: Dave remains at [facility] awaiting a crisis bed placement. P: Per Beatris of [facility], referrals have been sent to the following crisis beds: [facility] (waiting on response), [facility] (denied due to acuity of the home), [facility] (attempted but phone line busy), [facility] (no bed availability), [facility] ([facility] availability), [facility] (waiting on response), [facility] (waiting stone derrickman and rigger back), and [facility] (denied - do not accept referrals out of catchment area). The [facility] Care Bed is currently full. Dave will remain at [facility] and will be reassessed daily by [facility] SECURITY OFFICER until a bed is secured for him or his mental status improves enough for him to return home on a safety plan with outpatient follow up. CM will continue to follow. - MH Services (Omit if N/A) Current MH Services: SECURITY OFFICER - Status Status: Voluntary - Reason for Wait Reason for Wait: Community Placement
[2022-01-07] MEDS: OLANZapine 10 MG TAB PO (20:57)
[2022-01-07] MEDS: QUEtiapine 100 MG TAB PO (20:57)
[2022-01-08 07:09] VITALS: BP 146/93; PULSE 89; RESP 16; TEMP 37.1; O2SAT 100
[2022-01-08] MEDS: Lactobacillus Acidophilus CAP 1 CAP PO (07:47)
[2022-01-08] MEDS: Aspirin E.C. 81 MG TABEC PO (07:47)
[2022-01-08] MEDS: metFORMIN 500 MG TAB 2000 MG PO (07:48)
[2022-01-08] MEDS: Atorvastatin 20 MG TAB PO (07:48)
--- NOTE | 2022-01-08 10:50 | CHAPLAIN ---
Dave asked for a surface miner visit. He was sitting up on the edge of the bed when I arrived. He asked me what I thought about anabaptist and God. He attended Taoism Zoroastrian, on and off, with his aunt when he was young, and made his first communion, but did not attend after that. He said a journalism professor visited him once and gave him a communion wafer. Dave said he has lived in [place] all his life and he gets disoriented if he is in [place], so he will stay in [place]. I left when staff from [facility] came to see him. When I returned after his meeting with [facility] staff, Dave said he didn't have anything left to say. I let him know that surface miner is available 15/12 and he could ask the nursing staff outside his door to contact me if he wanted to talk again.
--- NOTE | 2022-01-08 12:30 | PGE_ITS ---
Date of Service Date of service: 01/08/22 Time of Service: 12:30 Assessment and Plan Assessment and plan (1) Suicidal ideation: Status: Acute Assessment and plan: medically cleared and we continue to wait for an inpatient psychiatric placement continue CPSO and suicidal precautions. mental health following. (2) Schizoaffective disorder, depressive type: Status: Chronic Assessment and plan: continue home medication (3) Type 2 diabetes mellitus without complication, without long-term current use of insulin: Status: Acute Assessment and plan: continue home medication diabetic diet last A1C in September was 6.0 (4) Discharge planning issues: Status: Acute Assessment and plan: case management and mental health following plan to transfer for inpatient psychiatric care discussed with Dr Grove Subjective Subjective Patient reports: no new complaints Interval history since last seen: Asked to shave today, provided battery operated razor with BEAN SPROUT LABORER in attendance Exam Const General: no acute distress Orientation: alert HENMT Head: normal to inspection Mouth: moist mucous membranes Eyes General: appearance normal, both eyes and all related structures Neck Neck: normal visual inspection Resp Effort & Inspection: normal respiratory effort and able to speak in complete sentences Cardio Rate: regular rate Skin General skin exam: no rashes or lesions noted Neuro General: patient alert and patient oriented x3 Extrem General: normal to inspection Psych Speech and Movement: speech and movement normal Objective Last Vital Signs Temp 37.1 C 01/08/22 07:09 Pulse 89 01/08/22 07:09 Resp 16 01/08/22 07:09 BP 146/93 H 01/08/22 07:09 Pulse Ox 100 01/08/22 07:09
--- NOTE | 2022-01-08 13:21 | CMSP_ITS ---
- If Service Date Differs Date of service: 01/08/22 Time of Service: 13:21 Care Management Safety Plan Status: Voluntary - Reason for Wait Reason for Wait: Inpatient Admission VOLUNTARY FOR INPATIENT PSYCHIATRIC STABILIZATION. Patient is appropriate in all interactions since arriving at [facility]; Pt has demonstrated appropriate coping and communication skills, has articulated his or her needs and concerns and is fully engaged during staff interactions. A decentralized huddle is done with Bre, dexter, and DAMARIS Espinosa. No changes are being made to the safety plan. Safety plan has been established with patient, and care team, to adhere to patient goals, identify restrictions based on behavioral status, address nutrition, and determine allowed personal belongings, tools for hygiene and personal care. Determine level of activity including ambulation, level of supervision, visitors, and determine privileges based on behaviors and level of engagement by pt. SAFETY PLAN: 1. Will remain on suicide precautions. In Paper Clothes 2. Will remain in room under direct supervision of one-on-one staff at all times provided by CPSO, RICKEY, HUMAN RESOURCES EXECUTIVE ASSISTANT wall mirror department supervisor. 3. May have paper cups, plates, finger foods as well as a cardboard spoon with which to eat meals. 4. Follow [facility] Management of the Admitted Behavioral Health Patient policy. 5. Shower permitted with escort at RN discretion. 6. No personal belongings-soft items permitted at RN discretion. 7. Visitors- per [facility] visitor policy and at RN discretion. 8. Activities: soft cart items, television and remote approved per RN discretion. 9. Bathroom available in room without limitation on M/S. 10. Phone: may use Medical Referral Source hospital phone at RN discretion. 11. Due to VOLUNTARY status, if patient wishes to leave [facility], staff will contact [facility] Crisis Screener ([phone]) and On-Call Power Sewing Machine Operator ([phone]) as soon as possible. In the event of elopement, notify [place] [employer] ([phone]). Patient is currently voluntarily at [facility] and seeking inpatient admission when a bed becomes available. [facility] Frontline Ammonium Nitrate Crystallizer will continue seeking placement. Please contact the Senior It Business Analyst Power Sewing Machine Operator ([phone]) and [facility] Ammonium Nitrate Crystallizer ([phone]) for any needed changes in the Safety Plan. Safety plan has been provided to interdepartmental care team.
--- NOTE | 2022-01-08 16:05 | CMPROGNOTE_ITS ---
- If Service Date Differs Date of service: 01/08/22 Time of Service: 16:05 Care Management Progress Note S/O: Dave is lying in bed watching television when CM comes to meet with him. He is pleasant and easily engages in conversation. He shares he is feeling much better today and says he was depressed because he had forgotten about all of the good things in his life. He quotes several Bible verses and talks about God in great detail. His speech is of normal rate and volume, eye contact is intense, mood is described as improved, thought process is logical, and thought content is of a muslim nature. A: Dave remains at [facility] awaiting a crisis bed placement. P: Per Beatris of [facility], referrals are now being sent to inpatient psychiatric facilities for review. Referrals are faxed to [facility], [facility]Note [facility] and [facility] and [facility] are currently full. Dave will remain at [facility] and will be reassessed daily by [facility] TELETRAY OPERATOR until a bed is secured for him or his mental status improves enough for him to return home on a safety plan with outpatient follow up. CM will continue to follow. - MH Services (Omit if N/A) Current MH Services: TELETRAY OPERATOR - Status Status: Voluntary - Reason for Wait Reason for Wait: Inpatient Admission
--- NOTE | 2022-01-08 16:05 | PDOC.CMPRO ---
- If Service Date Differs Date of service: 01/08/22 Time of Service: 16:05 Care Management Progress Note S/O: Dave is lying in bed watching television when CM comes to meet with him. He is pleasant and easily engages in conversation. He shares he is feeling much better today and says he was depressed because he had forgotten about all of the good things in his life. He quotes several Bible verses and talks about God in great detail. His speech is of normal rate and volume, eye contact is intense, mood is described as improved, thought process is logical, and thought content is of a synagogue nature. A: Dave remains at [facility] awaiting a crisis bed placement. P: Per Beatris of [facility], referrals are now being sent to inpatient psychiatric facilities for review. Referrals are faxed to [facility], [facility], and [facility]. [facility] and [facility] are currently full. Dave will remain at [facility] and will be reassessed daily by [facility] PODIATRIST ASSISTANT until a bed is secured for him or his mental status improves enough for him to return home on a safety plan with outpatient follow up. CM will continue to follow. - MH Services (Omit if N/A) Current MH Services: PODIATRIST ASSISTANT - Status Status: Voluntary - Reason for Wait Reason for Wait: Inpatient Admission
[2022-01-08] MEDS: QUEtiapine 100 MG TAB PO (21:01)
[2022-01-08] MEDS: OLANZapine 10 MG TAB PO (21:01)
--- NOTE | 2022-01-08 21:52 | NUR.NOTE ---
Nursing Note: [facility] accepted Pt for 01/09/22. [place] will accept Pt at noon. Transportation needs to be arranged. Nurse to nurse report given.
[2022-01-09 08:07] VITALS: BP 144/90; PULSE 83; RESP 17; TEMP 36.2; O2SAT 100
[2022-01-09] MEDS: Atorvastatin 20 MG TAB PO (08:42)
[2022-01-09] MEDS: Aspirin E.C. 81 MG TABEC PO (08:42)
[2022-01-09] MEDS: metFORMIN 500 MG TAB 2000 MG PO (08:42)
[2022-01-09] MEDS: Lactobacillus Acidophilus CAP 1 CAP PO (08:43)
--- NOTE | 2022-01-09 09:48 | W.PM.DS.N ---
Date of service: 01/09/22 Time of Service: 09:48 DS: Diagnosis Discharge Diagnosis (1) Suicidal ideation: Status: Acute (2) Schizoaffective disorder, depressive type: Status: Chronic (3) Type 2 diabetes mellitus without complication, without long-term current use of insulin: Status: Acute (4) Discharge planning issues: Status: Acute Discharge Plan Disposition Patient Disposition: [facility] Condition: Stable Discharge Details Reason For Visit: Major Depression Admit Date/Time: 01/06/22 12:34 Admit Provider: Mani Grove Attending Provider: Mani Grove [facility] Hospital Course: This is a 61 year old? male patient that presented with [facility] staff, to the [facility] emergency department 01/06/2022 with the chief complaint of thoughts of self harm,?described as moderate. he said he had thoughts of taking pills to harm himself. He denied taking anything other than his usual medications correctly. ?Patient started experiencing this 01/05/2022?and he reported it has been constant.?No relieving factors improve symptom(s),?No exacerbating factors reported .?Patient notes no other symptoms. His labs were unremarkable, toxicology all negative. He was admitted to the medical unit for observation until we could secure placement for him. He is pleasant, has clear, appropriate speech. He has a normal gait. He is CAOx4, conversant and pleasant. Vital signs are stable, he is eating and drinking well. He has no complaints at time of discharge. He is willing and wanting to go to [facility] for treatment. We have not made any changes to his medicine regimen. He is being transported safely to [facility] by [facility]. [place] Home Meds and New Rx's Prescriptions: Continued Probiotic 10 billion cell capsule 10,000 mmu cells PO DAILY quetiapine 100 mg tablet 100 mg PO HS atorvastatin 20 mg tablet 20 mg PO DAILY Qty: 90 3RF olanzapine 15 mg tablet 10 mg PO HS Label Comments: 01/18/19-[facility] update-EO metformin 1,000 mg tablet 2,000 mg PO DAILY Qty: 60 12RF aspirin 81 mg tablet,delayed release (DR/EC) 81 mg PO DAILY Qty: 90 3RF Rx Instructions: cardiovascular prevention Discharge Instructions Stand Alone Forms: Nursing Discharge Form Activity:: Activity as Tolerated Equipment/Supplies:: No Equipment Needed Diet:: As Tolerated Discharge Orders Discharge Orders: Discharge Order (Routine); Ordered 01/09/22 Ordered By: Bernadine Sandoval DS: Summary Time Spent with Patient providing and/or coordinating discharge services: Less than 30 minutes Status at Discharge Functional status at discharge: independent ambulation Overall status at discharge: patient is progressing back to baseline Mental Status: mental status grossly normal Speech and Movement: speech and movement normal Mood: congruent mood Affect: normal affect Exam Const Other: Const General: no acute distress Orientation: alert HENMT Head: normal to inspection Ears: external ears normal General nose exam: external nose normal Mouth: moist mucous membranes Eyes General: appearance normal, both eyes and all related structures Neck Neck: normal visual inspection Resp Effort & Inspection: normal respiratory effort and able to speak in complete sentences Cardio Rate: regular rate Skin General skin exam: no rashes or lesions noted Neuro General: patient alert and patient oriented x3 Extrem General: normal to inspection Psych Speech and Movement: speech and movement normal Psych Mental Status: mental status grossly normal Speech and Movement: speech and movement normal Mood: congruent mood Affect: normal affect DS: Data Vitals/I&O Vitals and I&O: Vital Signs Temperature 36.2 C L 01/09/22 08:07 Temperature Source Tympanic 01/09/22 08:07 Pulse 83 01/09/22 08:07 Pulse Rhythm Regular 01/09/22 04:42 Respiratory Rate 17 01/09/22 08:07 Respiratory Effort Non-Labored 01/09/22 04:42 Respiratory Depth Normal 01/09/22 04:42 Respiratory Pattern Normal 01/09/22 04:42 Blood Pressure 144/90 H 01/09/22 08:07 Blood Pressure Position Sitting 01/06/22 10:57 Pulse Oximetry 100 01/09/22 08:07 Oxygen Delivery Method Room Air 01/09/22 08:07 Oxygen Flow Rate 0 01/09/22 08:07 Pain Level 0 01/09/22 08:07 Comment 01/06/22 13:44 Intake & Output 01/08/22 01/08/22 01/09/22 11:59 23:59 11:59 Intake Total 470 / 1040 570 / 1040 400 / 400 Balance 470 / 1040 570 / 1040 400 / 400 Intake: Oral 470 / 1040 570 / 1040 400 / 400 Other: Urine Color Pale Yellow Urine Appearance Clear Clear Clear Comment pt. has been voiding through out the day. pT voided in toilet Voiding Methods Toilet Toilet Toilet PFSH All Active Problems Discharge planning issues (Acute) SOB (shortness of breath) (Acute) Routine medical exam (Acute) Encounter for screening laboratory testing for COVID-19 virus (Acute) Encounter for screening laboratory testing for COVID-19 virus (Acute) Schizoaffective disorder, depressive type (Chronic 12/27/13) most recent psych adm 11/2013 [facility] with psychosis, command hallucinations Colonoscopy refused (Acute) Unspecified disorder of liver (Acute) US: 09/2008; FATTY LIVER, ABNL LFT; ALK PHOS, ALT; GI CONSULT 2002, AntiMitrohondrial Ab neg, rec wt loss. 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 Esophageal reflux disease (Acute 09/01/11) RANITIDINE RX Early cataracts, bilateral (Acute 02/09/17) Dr Pizano 12/2016 Abnormal serum creatinine level (Acute 04/13/15) History of schizophrenia (Chronic) GERD (gastroesophageal reflux disease) (Chronic) Obsessive compulsive disorder (Chronic) Sleep apnea (Chronic) Psychosis (Acute) Suicidal ideation (Acute) Leukocytosis (Chronic) Surgical History Circumcision (02/07/05) Dr Henriquez Vasectomy (05/25/93) Dr Henriquez Family History Mother Asthma onset not known Father , Kidney Failure at age 83. Renal failure onset not known Sister No problems noted. Brother Diabetes onset not known Brother No problems noted. 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 Pets and animals: No Do you think of yourself as: straight/heterosexual Current gender identity: male What is your relationship status?: How often do you talk on the phone with friends or family?: three or more times per week How often do you get together with friends or relatives?: twice per week How often do you attend restorationism or pentecostal services?: decline to answer Do you belong to any clubs or organized social groups?: no Panel score (0-1 are the most socially isolated patients): 1 What type of physical activity do you participate in: walking Duration: 30-45 minutes/day Frequency: daily Margi/Tenriism: Mosque Special margi needs: No Drive intox or ride w/intox new autos delivery driver: No Do you feel safe at home: Yes Do you feel safe in your relationship?: Yes
--- NOTE | 2022-01-09 10:58 | CMDISCH_ITS ---
- If Service Date Differs Date of service: 01/09/22 Time of Service: 10:58 LACE Index Scoring Tool - Questions: Length of Stay (in days): 3 Acuity (Admit via E.D.?): Yes Comorbidities: Diabetes w/o Complication, Liver or Renal Disease E.D. Visits: 3 - Answers: Total Score: 14 Risk of Readmission: High Risk Care Management Discharge Reason for Hospitalization: Major Depression. Discharge Plan: [facility]. 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 He is transported to [place] by [facility]. Patient/Family Education Needs: Review expectations; discuss Ask Me Three. 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
--- NOTE | 2022-01-09 10:58 | PDOC.CMDIS ---
- If Service Date Differs Date of service: 01/09/22 Time of Service: 10:58 LACE Index Scoring Tool - Questions: Length of Stay (in days): 3 Acuity (Admit via E.D.?): Yes Comorbidities: Diabetes w/o Complication, Liver or Renal Disease E.D. Visits: 3 - Answers: Total Score: 14 Risk of Readmission: High Risk Care Management Discharge Reason for Hospitalization: Major Depression. Discharge Plan: [facility] 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 He is transported to [place] by [facility]. Patient/Family Education Needs: Review expectations; discuss Ask Me Three. 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
== END 2022-01-09 11:32 | disposition short-term general hospital (02) ==
LOC: ER 12:49 → MS 13:34
PROVIDERS: Admitting Provider Internal Medicine; Emergency Provider Emergency Medicine; PCP Nurse Practitioner; Visit Provider Internal Medicine
DX: F25.1 Schizoaffective disorder, depressive type (principal); R45.851 Suicidal ideations; E11.9 Type 2 diabetes mellitus without complications; Z20.822 Contact with and (suspected) exposure to COVID-19; Z79.899 Other long term (current) drug therapy; Z79.82 Long term (current) use of aspirin; Z79.84 Long term (current) use of oral hypoglycemic drugs; K76.0 Fatty (change of) liver, not elsewhere classified; E78.5 Hyperlipidemia, unspecified; K21.9 Gastro-esophageal reflux disease without esophagitis; F42.9 Obsessive-compulsive disorder, unspecified; G47.30 Sleep apnea, unspecified
CPT/HCPCS: 36415; 80053; 80307; 87635; 99285; 80320; 80329; 81003; 84443; 85025; 99217; 99219; 99225; 99232; G0378

== ENCOUNTER 2022-02-11 17:20 | Observation (INO) | payer MEDICARE, MEDICAID, SELFPAY ==
[2022-02-11 17:33] VITALS: BP 108/60; PULSE 82; RESP 16; TEMP 36.8; O2SAT 100
--- NOTE | 2022-02-11 18:47 | ED.GENADUL_ITS ---
Discharge Plan Disposition Patient Disposition: [facility] INPATIENT Condition: Stable Discharge Details Chief Complaint: PsychEval Clinical Impression: Suicidal ideations, Hallucinations Primary Care Provider: Trinh Dupree ED Provider: Mani Cannon Home Meds and New Rx's Prescriptions: No Action Probiotic 10 billion cell capsule 10,000 mmu cells PO DAILY olanzapine 15 mg tablet 10 mg PO HS Label Comments: 01/18/19-[facility] update-EO metformin 1,000 mg tablet 2,000 mg PO DAILY Qty: 60 12RF aspirin 81 mg tablet,delayed release (DR/EC) 81 mg PO DAILY Qty: 90 3RF Rx Instructions: cardiovascular prevention atorvastatin 20 mg tablet 20 mg PO DAILY Qty: 90 3RF lisinopril 10 mg tablet 10 mg PO DAILY metoprolol succinate 25 mg tablet extended release 24 hr 25 mg PO DAILY Rx Instructions: Take two tablets by mouth daily quetiapine 100 mg tablet 200 mg PO HS Rx Instructions: Take two (2) tablets by mouth at bedtime. Medical Decision Making This is a 61-year-old gentleman presenting to the ER for a mental health evaluation. Glucose fingerstick of 121. Using the smart medical clearance form, will not pursue laboratory values other than a tox screen and COVID swab. He denies acute medical concerns or complaints. Vital signs are unremarkable. Will initiate a mental health evaluation, interim safety plan, and a CPSO. I was able to speak with [facility] human services, [place], who reports that they already spoke with the patient CRRT team and they have already evaluated the patient and plan to initiate voluntary placement. This will not happen tonight Patient has been cooperative in the ER. Ate a sandwich without difficulty. Took his nightly Zyprexa and Seroquel Case discussed with our hospitalist team Dr. Galloway for admission until placement can be found This documentation was generated using Omadaation system, please disregard any oddities of phrase or misspellings. Medical Records Medical records reviewed: Yes I reviewed the patient's medical records. Lab Data Lab results reviewed: Yes I reviewed the patient's lab results. Labs: Laboratory Tests Range/Units 02/11/22 18:45 COVID-19 Source Nasal/Nares SARS-CoV-2 (PCR) (Negative) Negative HPI General Mode of arrival: ambulatory . Date/Time Provider Initiated Documentation: 02/11/22 17:58 . Limitations to Documentation: no limitations . Information obtained by: patient . HPI Narrative: This is a 61-year-old gentleman, past medical history that includes OCD, GERD, diabetes, schizoaffective disorder, presenting to the ER feeling suicidal requesting a mental health evaluation. Patient reports that he has not been on any of his medications for the past 3 days which is causing him to feel suicidal, thoughts of cutting his arms, also reports auditory and visual hallucinations. He sees lights flickering in his house and he hears voices that are being mean to him. He denies recent illness or trauma. Denies any alcohol or drug use. Patient denies doing anything today to harm himself Related Data Home Medications Medication Instructions Recorded Confirmed olanzapine 15 mg tablet 10 mg PO HS 01/18/19 02/11/22 metformin 1,000 mg tablet 2,000 mg PO DAILY #60 tabs 07/09/21 02/11/22 Lactobacillus acidophilus 10 10,000 mmu cells PO DAILY 10/01/21 02/11/22 billion cell capsule (Probiotic) aspirin 81 mg tablet,delayed 81 mg PO DAILY #90 tabs 11/21/21 02/11/22 release atorvastatin 20 mg tablet 20 mg PO DAILY #90 tabs 01/13/22 02/11/22 lisinopril 10 mg tablet 10 mg PO DAILY 02/04/22 02/11/22 metoprolol succinate 25 mg 25 mg PO DAILY 02/04/22 02/11/22 tablet,extended release 24 hr quetiapine 100 mg tablet 200 mg PO HS 02/04/22 02/11/22 Previous Rx's Medication Instructions Recorded metformin 1,000 mg tablet 2,000 mg PO DAILY #60 tabs 07/09/21 aspirin 81 mg tablet,delayed 81 mg PO DAILY #90 tabs 11/21/21 release atorvastatin 20 mg tablet 20 mg PO DAILY #90 tabs 01/13/22 Allergies Allergy/AdvReac Type Severity Reaction Status Date / Time No Known Allergies Allergy Verified 02/11/22 17:39 General Stated Complaint: PsychEval SEBASTIEN: 2 Review of Systems Constitutional Constitutional: Denies fever(s) and Denies weakness Eyes Eyes: Denies change in vision ENT Ears, Nose, Mouth, and Throat: Denies neck pain Cardiovascular Cardiovascular: Denies chest pain and Denies dyspnea Respiratory Respiratory: Denies dyspnea Gastrointestinal Gastrointestinal: Denies abdominal pain, Denies nausea and Denies vomiting Musculoskeletal Musculoskeletal: Denies back pain, Denies neck pain, Denies numbness and Denies tingling Integumentary/Breasts Skin/Breast: Denies rash Neurologic Neurologic: Denies numbness, Denies tingling and Denies weakness Psychiatric Psychiatric: Reports depression, Denies homicidal ideation and Reports suicidal ideation Hematologic/Lymphatic Hematologic/Lymphatic: Denies easy bleeding and Denies easy bruising PFSH All Active Problems (Updated 02/11/22 @ 20:57 by JAIR Dent) Suicidal ideations (Acute) Hallucinations (Acute) SOB (shortness of breath) (Acute) Routine medical exam (Acute) Encounter for screening laboratory testing for COVID-19 virus (Acute) Encounter for screening laboratory testing for COVID-19 virus (Acute) Schizoaffective disorder, depressive type (Chronic 12/27/13) most recent psych adm 11/2013 [facility] with psychosis, command hallucinations Colonoscopy refused (Acute) Unspecified disorder of liver (Acute) US: 09/2008; FATTY LIVER, ABNL LFT; ALK PHOS, ALT; GI CONSULT 2002, AntiMitr ohondrial Ab neg, rec wt loss. 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 Esophageal reflux disease (Acute 09/01/11) RANITIDINE RX Early cataracts, bilateral (Acute 02/09/17) Dr Pizano 12/2016 Abnormal serum creatinine level (Acute 04/13/15) GERD (gastroesophageal reflux disease) (Chronic) Obsessive compulsive disorder (Chronic) Sleep apnea (Chronic) Psychosis (Acute) Suicidal ideation (Acute) Leukocytosis (Chronic) Surgical History Circumcision (02/07/05) Dr Henriquez Vasectomy (05/25/93) Dr Henriquez Family History Mother Asthma onset not known Father , Kidney Failure at age 83. Renal failure onset not known Sister No problems noted. Brother Diabetes onset not known Brother No problems noted. 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 animals: No Do you think of yourself as: straight/heterosexual Current gender identity: male What is your relationship status?: How often do you talk on the phone with friends or family?: three or more times per week How often do you get together with friends or relatives?: twice per week How often do you attend pentecostal or denominational services?: decline to answer Do you belong to any clubs or organized social groups?: no Panel score (0-1 are the most socially isolated patients): 1 What type of physical activity do you participate in: walking Duration: 30-45 minutes/day Frequency: daily Margi/Jewish: Orthodoxy Special margi needs: No Drive intox or ride w/intox oil transport driver: No Do you feel safe at home: Yes Do you feel safe in your relationship?: Yes Exam Const General: cooperative, healthy appearing, comfortable and no acute distress Orientation: alert, awake, oriented to person, oriented to place and confused (knows the year, unsure of exact date) [facility] Head: normal to inspection, normocephalic and atraumatic Face and sinus: normal facial exam Mouth: moist mucous membranes Eyes General: appearance normal, both eyes and all related structures Conjunctivae: conjunctivae normal Neck Neck: normal visual inspection, full ROM, no meningeal signs, trachea midline and supple Resp Effort & Inspection: normal respiratory effort and able to speak in complete sentences Auscultation: clear to auscultation bilaterally Cardio Rate: regular rate Rhythm: regular rhythm GI Palpation: soft, not firm, no guarding and nontender Back/Spine/Pelvis Back: No back tenderness Skin General skin exam: no rashes or lesions noted Neuro General: patient alert, patient awake, moves all extremities and no focal motor deficits Cognition: normal cognition Speech: speech normal Gait: normal gait Motor: muscle tone normal throughout Sensory Exam: no sensory deficits noted Extrem General: normal to inspection, full ROM and capillary refill normal Psych Appearance: grossly normal Mental Status: mental status grossly normal Speech and Movement: speech and movement normal Mood: dysthymic mood Affect: sad Attitude: cooperative Thought Process: normal Thought Content: suicidality Insight: limited Judgment: limited Course Vital Signs Vital signs: Vital Signs Temperature 36.8 C 02/11/22 17:33 Pulse 82 02/11/22 17:33 Respiratory Rate 16 02/11/22 17:33 Blood Pressure 108/60 02/11/22 17:33 Pulse Oximetry 100 02/11/22 17:33 Temperature 36.8 C 02/11/22 17:33 Pulse 82 02/11/22 17:33 Respiratory Rate 16 02/11/22 17:33 Blood Pressure 108/60 02/11/22 17:33 Pulse Oximetry 100 02/11/22 17:33
[2022-02-11 18:50] LABS: Source Nasal/Nares
[2022-02-11 19:23] LABS: COVID-19 PCR Negative (Negative)
--- NOTE | 2022-02-11 21:07 | W.PM.HP.N ---
Date of service: 02/11/22 Time of Service: 21:07 Assessment and Plan Assessment and plan (1) Suicidal ideations: Status: Acute Assessment and plan: SI due to medication non-compliance. Now back on meds. Will watch overnight and await mental health eval and placement. Will also await tox screen results and COVID swab. History of Present Illness History of Present Illness Chief Complaint: suicidal Narrative: 61 male with h/o schizaffective disorder. Per ER has not been taking his meds for three days (unspecified as to why) and was brought in [facility] due to auditory hallucinations and suicidal ideation. Here in ER has been calm and cooperative, and has taken his nightly meds (Zyprexa and Seroquel). Told ER staf that it was stupid not to take his meds. Using SMART protocol p[atine thas been medically cleared, pending Tox screen and COVID swab. Patient states he is still hearing voices. Denies SI at this time. No other complaints. Review of Systems Narrative: per HPI PFSH All Active Problems Suicidal ideations (Acute) Hallucinations (Acute) SOB (shortness of breath) (Acute) Routine medical exam (Acute) Encounter for screening laboratory testing for COVID-19 virus (Acute) Encounter for screening laboratory testing for COVID-19 virus (Acute) Schizoaffective disorder, depressive type (Chronic 12/27/13) most recent psych adm 11/2013 [facility] with psychosis, command hallucinations Colonoscopy refused (Acute) Unspecified disorder of liver (Acute) US: 09/2008; FATTY LIVER, ABNL LFT; ALK PHOS, ALT; GI CONSULT 2002, AntiMitrohondrial Ab neg, rec wt loss. Type 2 diabetes mellitus without complication, without long-term current use of insulin (Acute 12/29/17) Tobacco use disorder, continuous (Acute 09/01/11) FEV1 2.7 in 2004; 1 PPD; longest off 1 yr, 2 wks; stopped 03/27/2015; stopped again 12/13/16 Other detention (current) drug therapy (Acute 12/10/15) olanzapine Other and unspecified hyperlipidemia (Acute 09/01/11) LDL 128, risk 12.9% 04/2015; start statin 03/2015 and [facility] Organic sleep apnea, unspecified (Acute 05/25/99) REPORTS C-PAP SINCE 1999; needs new machine; but unable to get it without new sleep study!; no longer using CPAP 02/2017 Obesity, unspecified (Acute 09/01/11) 150 lb = BMI 25 Fatty liver disease, nonalcoholic (Acute) GGT 247 ; nl Fe/TIBC 03/1999; US: 09/2008; FATTY LIVER, ABNL LFT; ALK PHOS, ALT; GI CONSULT 2002, AntiMitrohondrial Ab neg, rec wt loss. Esophageal reflux disease (Acute 09/01/11) RANITIDINE RX Early cataracts, bilateral (Acute 02/09/17) Dr Pizano 12/2016 Abnormal serum creatinine level (Acute 04/13/15) GERD (gastroesophageal reflux disease) (Chronic) Obsessive compulsive disorder (Chronic) Sleep apnea (Chronic) Psychosis (Acute) Suicidal ideation (Acute) Leukocytosis (Chronic) Surgical History Circumcision (02/07/05) Dr Henriquez Vasectomy (05/25/93) Dr Henriquez Family History Mother Asthma onset not known Father , Kidney Failure at age 83. Renal failure onset not known Sister No problems noted. Brother Diabetes onset not known Brother No problems noted. 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 Pets and animals: No Do you think of yourself as: straight/heterosexual Current gender identity: male What is your relationship status?: How often do you talk on the phone with friends or family?: three or more times per week How often do you get together with friends or relatives?: twice per week How often do you attend sabianism or mu-ism services?: decline to answer Do you belong to any clubs or organized social groups?: no Panel score (0-1 are the most socially isolated patients): 1 What type of physical activity do you participate in: walking Duration: 30-45 minutes/day Frequency: daily Margi/Hindu: Yarsanism Special margi needs: No Drive intox or ride w/intox cdl a driver: No Do you feel safe at home: Yes Do you feel safe in your relationship?: Yes Meds Allergies and Home Medications Allergies Allergy/AdvReac Type Severity Reaction Status Date / Time No Known Allergies Allergy Verified 02/11/22 17:39 Home Medications Medication Instructions Recorded Confirmed Type olanzapine 15 mg tablet 10 mg PO HS 01/18/19 02/11/22 History metformin 1,000 mg tablet 2,000 mg PO DAILY #60 tabs 07/09/21 02/11/22 Rx Lactobacillus acidophilus 10 10,000 mmu cells PO DAILY 10/01/21 02/11/22 History billion cell capsule (Probiotic) aspirin 81 mg tablet,delayed 81 mg PO DAILY #90 tabs 11/21/21 02/11/22 Rx release atorvastatin 20 mg tablet 20 mg PO DAILY #90 tabs 01/13/22 02/11/22 Rx lisinopril 10 mg tablet 10 mg PO DAILY 02/04/22 02/11/22 History metoprolol succinate 25 mg 25 mg PO DAILY 02/04/22 02/11/22 History tablet,extended release 24 hr quetiapine 100 mg tablet 200 mg PO HS 02/04/22 02/11/22 History Exam Narrative Exam Narrative: 108/60, 82, 36.8, 16, 100% RA. HEENT atraumatic;neck supple; lungs clear; heart RRR; abdomen soft and NT; extremities w/o edema; neuro appears to be responding to internal stimuli, engages in conversation, albeit wanders off subject and at times incoherent, moves all 4s Results Labs Labs: Laboratory Results - last 24 hr 02/11/22 18:45 COVID-19 Source Nasal/Nares SARS-CoV-2 (PCR) Negative Last Vital Signs Temp 36.8 C 02/11/22 17:33 Pulse 82 02/11/22 17:33 Resp 16 02/11/22 17:33 BP 108/60 02/11/22 17:33 Pulse Ox 100 02/11/22 17:33
[2022-02-11] MEDS: OLANZapine 10 MG TAB PO (21:52)
[2022-02-11] MEDS: QUEtiapine 100 MG TAB 200 MG PO (21:52)
[2022-02-11 22:06] VITALS: BP 100/62; PULSE 76; RESP 17; TEMP 36.5; O2SAT 100
[2022-02-11 22:24] VITALS: BP 100/62; PULSE 76; RESP 17; TEMP 36.5; O2SAT 100
--- NOTE | 2022-02-12 09:55 | W.PM.PROGNOT ---
Date of Service Date of service: 02/12/22 Time of Service: 09:55 Assessment and Plan Assessment and plan (1) Suicidal ideations: Status: Acute Assessment and plan: SI due to medication non-compliance. Now back on meds. Denies SI now. He was observed overnight and we await mental health eval and placement. Covid negative Tox screen still pending Continue CPSO and suicidal precautions Mental Health following. (2) Schizoaffective disorder, depressive type: Status: Chronic Assessment and plan: continue home medication (3) Type 2 diabetes mellitus without complication, without long-term current use of insulin: Status: Acute Assessment and plan: continue home medication diabetic diet last A1C in September was 6.0 (4) Discharge planning issues: Status: Deleted Assessment and plan: case management and mental health following plan to transfer for inpatient psychiatric care discussed with Dr Holloway Subjective Subjective Patient reports: no new complaints, tolerating a regular diet, voiding w/o difficulty, no flatus and afebrile; denies flatus, diarrhea, nausea, vomiting or shortness of breath Interval history since last seen: C/A oriented to place and time, some trouble with the date. He has a flat affect; is conversant. He is pleasant and calm. Exam Const General: cooperative, healthy appearing, comfortable and no acute distress Orientation: alert, awake, oriented to person, oriented to place and oriented to time HENND Head: normal to inspection, normocephalic and atraumatic Face and sinus: normal facial exam Mouth: moist mucous membranes Eyes General: appearance normal, both eyes and all related structures Conjunctivae: conjunctivae normal Neck Neck: normal visual inspection, full ROM, no meningeal signs, trachea midline and supple Resp Effort & Inspection: normal respiratory effort and able to speak in complete sentences Auscultation: clear to auscultation bilaterally Cardio Rate: regular rate Rhythm: regular rhythm GI Palpation: soft, not firm, no guarding and nontender Back/Spine/Pelvis Back: No back tenderness Skin General skin exam: no rashes or lesions noted Neuro General: patient alert, patient awake, moves all extremities and no focal motor deficits Cognition: normal cognition Speech: speech normal Gait: normal gait Motor: muscle tone normal throughout Sensory Exam: no sensory deficits noted Extrem General: normal to inspection, full ROM and capillary refill normal Psych Appearance: grossly normal Mental Status: mental status grossly normal Speech and Movement: speech and movement normal Mood: dysthymic mood Affect: sad Attitude: cooperative Thought Process: normal Thought Content: suicidality Insight: limited Judgment: limited Objective Last Vital Signs Temp 36.5 C 02/11/22 22:24 Pulse 76 02/11/22 22:24 Resp 17 02/11/22 22:24 BP 100/62 02/11/22 22:24 Pulse Ox 100 02/11/22 22:24 Laboratory Results - last 24 hr 02/11/22 18:45 COVID-19 Source Nasal/Nares SARS-CoV-2 (PCR) Negative Reviewed Pertinent PMH: Yes
[2022-02-12 10:01] VITALS: BP 112/74; PULSE 83; RESP 18; TEMP 35.3; O2SAT 97
[2022-02-12] MEDS: Aspirin E.C. 81 MG TABEC PO (10:02)
[2022-02-12] MEDS: Lactobacillus Acidophilus CAP 1 CAP PO (10:02)
[2022-02-12] MEDS: Atorvastatin 20 MG TAB PO (10:02)
[2022-02-12] MEDS: Metoprolol CR 50 MG TABCR PO (10:02)
[2022-02-12] MEDS: Lisinopril 10 MG TAB PO (10:02)
[2022-02-12] MEDS: metFORMIN 500 MG TAB 2000 MG PO (10:02)
--- NOTE | 2022-02-12 11:05 | CMSP_ITS ---
- If Service Date Differs Date of service: 02/12/22 Time of Service: 11:05 Care Management Safety Plan Status: Voluntary - Reason for Wait Reason for Wait: Inpatient Admission VOLUNTARY FOR INPATIENT PSYCHIATRIC STABILIZATION. Patient is appropriate in all interactions since arriving at [facility]; Pt has demonstrated appropriate coping and communication skills, has articulated his or her needs and concerns and is fully engaged during staff interactions. A huddle is held at 10:30 am with Skye, Nursing Business Job Titles, Bre, Coordinator, DAMARIS Campbell, and NADINE Beverly, in attendance. Safety plan has been established with patient, and care team, to adhere to patient goals, identify restrictions based on behavioral status, address nutrition, and determine allowed personal belongings, tools for hygiene and personal care. Determine level of activity including ambulation, level of supervision, visitors, and determine privileges based on behaviors and level of engagement by pt. SAFETY PLAN: 1. Will remain on suicide precautions. In Paper Clothes 2. Will remain in room under direct supervision of one-on-one staff at all times provided by CPSO, RICKEY, POLICE LIEUTENANT PRECINCT split and drum room supervisor. 3. May have paper cups, plates, finger foods as well as a cardboard spoon with which to eat meals. 4. Follow [facility] Management of the Admitted Behavioral Health Patient policy. 5. Shower permitted with escort at RN discretion. 6. No personal belongings. 7. Visitors- per [facility] visitor policy and at RN discretion. 8. Activities: soft cart items, television, and other activities at RN discretion. 9. Bathroom available in room without limitation on M/S. 10. Phone: may use [employer] hospital phone at RN discretion. 11. Due to VOLUNTARY status, if patient wishes to leave [facility], staff will contact [facility] Crisis Screener ([phone]) and On-Call Integration Analyst ([phone]) as soon as possible. In the event of elopement, notify [place] [employer] ([phone]). Patient is currently voluntarily at [facility] and seeking inpatient admission when a bed becomes available. [facility] Frontline Ethnographer will continue seeking placement. Please contact the Ghost Writer Integration Analyst ([phone]) and [facility] Ethnographer ([phone]) for any needed changes in the Safety Plan. Safety plan has been provided to interdepartmental care team.
[2022-02-12 11:14] LABS: Bilirubin Negative (Negative); Blood Negative (Negative); Clarity Sl Cloudy (Clear); Glucose 100 mg/dL (Negative); Ketones Negative (Negative); Leukocyte Esterase Negative (Negative); Nitrite Negative (Negative); Specific Gravity >= 1.030 (1.005-1.025); Urobilinogen 0.2 EU/dL (Up TO 0.2); pH 5.5 (5-8)
--- NOTE | 2022-02-12 11:18 | CMPROGNOTE_ITS ---
- If Service Date Differs Date of service: 02/12/22 Time of Service: 11:18 Care Management Progress Note S/O: Dave is a 61 year old male who resides alone in [facility]. He has an extensive psychiatric history with multiple hospitalizations and crisis bed admissions for hallucinations, suicidal ideation, and non-compliance with medications. Dave was last hospitalized in December 2021 at the [facility]. He is a long time client of [facility] and receives services through their CARDIOLOGY NURSE PRACTITIONER Program. Dave is standing in his room when CM comes to meet with him today. He is pleasant and easily engages in conversation. He talks about his childhood, family and his friends. He shares that he is experiencing auditory hallucinations but when CM asks what the voices are saying, he begins talking about the word of God and his speech becomes nonsensical. A: Dave presents in the ED on 02/11/22 for a psychiatric evaluation. P: A referral is made to the [facility] Crisis Bed. Dave will remain at [facility] voluntarily and will be reassessed by [facility] CARDIOLOGY NURSE PRACTITIONER daily until placement is secured for him. CM will continue to follow. - MH Services (Omit if N/A) Current MH Services: CARDIOLOGY NURSE PRACTITIONER - Status Status: Voluntary - Reason for Wait Reason for Wait: Community Placement (Crisis Bed)
[2022-02-12 11:48] LABS: *AMPHETAMINES SCREEN URINE Negative (Negative); *BARBITURATES SCREEN URINE Negative (Negative); *BENZODIAZEPINES SCREEN URINE Negative (Negative); Cannabinoids THC Negative (Negative); Cocaine Screen,Urine Negative (Negative); METHADONE URINE SCREEN Negative (Negative); OPIATES URINE SCREEN Negative (Negative)
[2022-02-12 11:51] LABS: Tricyclic Antidepressants Negative (Negative)
[2022-02-12 13:47] LABS: Source Nasal/Nares
[2022-02-12 14:20] LABS: COVID-19 PCR Negative (Negative)
--- NOTE | 2022-02-12 14:26 | DSE_ITS ---
Date of service: 02/12/22 Time of Service: 14:26 DS: Diagnosis Discharge Diagnosis (1) Suicidal ideations: Status: Acute (2) Hallucinations: Status: Acute (3) Schizoaffective disorder, depressive type: Status: Chronic (4) Type 2 diabetes mellitus without complication, without long-term current use of insulin: Status: Acute Discharge Plan Disposition Patient Disposition: [facility] Condition: Stable Discharge Details Reason For Visit: Suicidal Ideation Admit Date/Time: 02/11/22 21:15 Admit Provider: Lennox Galloway Attending Provider: Lennox Galloway Primary Care Provider: Trinh Dupree Hospital Course Hospital Course: Mr Brady is a 61 year old male with PMHx of schizoaffective disorder, NIDDM2, hypertension, hyperlipidemia, who was observed [facility] hospitalist service from 02/11/22 until 02/12/22 having presented to the ED with hallucinations and suicidal ideation. The patient had stopped taking his outpatient psychiatric medications three days prior to his presentation. He was agreeable to taking them at our facility and was evaluated by mental health who felt that placement to a [facility] bed would be appropriate. He is being discharged into that setting today. His repeat COVID-19 PCR, as well as his original test done yesterday, are both negative. Care for patient as well as completion of his transfer summary on day of transfer took 30 minutes. Home Meds and New Rx's Prescriptions: Continued Probiotic 10 billion cell capsule 10,000 mmu cells PO DAILY olanzapine 15 mg tablet 10 mg PO HS Label Comments: 01/18/19-[facility] update-EO metformin 1,000 mg tablet 2,000 mg PO DAILY Qty: 60 12RF aspirin 81 mg tablet,delayed release (DR/EC) 81 mg PO DAILY Qty: 90 3RF Rx Instructions: cardiovascular prevention atorvastatin 20 mg tablet 20 mg PO DAILY Qty: 90 3RF lisinopril 10 mg tablet 10 mg PO DAILY quetiapine 100 mg tablet 200 mg PO HS Rx Instructions: Take two (2) tablets by mouth at bedtime. metoprolol succinate 50 mg tablet extended release 24 hr 50 mg PO DAILY Discharge Instructions Instructions: Suicide Prevention (DC) Additional Instructions: Follow up with [facility] and with your PCP. Care Plan Goals: Discharge to [facility] bed. Stand Alone Forms: Nursing Discharge Form Referrals: Trinh Dupree NP [Primary Care Provider] - (Follow up Per Care Bed Discharge) Activity:: Activity as Tolerated Equipment/Supplies:: No Equipment Needed Diet:: heart healthy carb consistent Discharge Orders Discharge Orders: Discharge Order (Routine); Ordered 02/12/22 Ordered By: Tamara Holloway DS: Summary Time Spent with Patient providing and/or coordinating discharge services: Less than 30 minutes Status at Discharge Functional status at discharge: independent ambulation Overall status at discharge: patient is progressing back to baseline Mental Status: mental status grossly normal and other (sad) Speech and Movement: speech and movement normal Mood: other (sad) Affect: sad Exam Narrative Exam Narrative: General: Very pleasant and cooperative middle-aged male, A&Ox3, looks tired HEENT: EOMI, MMM Heart: RRR, no m/r/g Lungs: CTAB Abdomen: soft, nontender, nondistended Extremities: no edema Psych Mental Status: mental status grossly normal and other (sad) Speech and Movement: speech and movement normal Mood: other (sad) Affect: sad DS: Data Vitals/I&O Vitals and I&O: Vital Signs Temperature 35.3 C L 02/12/22 10:01 Temperature Source Tympanic 02/12/22 10:01 Pulse 83 02/12/22 10:01 Pulse Rhythm Regular 02/12/22 03:59 Respiratory Rate 18 02/12/22 10:01 Respiratory Effort Non-Labored 02/12/22 03:59 Respiratory Depth Normal 02/12/22 03:59 Respiratory Pattern Normal 02/12/22 03:59 Blood Pressure 112/74 02/12/22 10:01 Pulse Oximetry 97 02/12/22 10:01 Oxygen Delivery Method Room Air 02/12/22 10:01 Oxygen Flow Rate 0 02/12/22 10:01 Pain Level 0 02/12/22 10:01 Intake & Output 02/11/22 02/12/22 02/12/22 23:59 11:59 23:59 Intake Total 250 / 250 360 / 720 360 / 720 Output Total 400 / 400 Balance 250 / 250 -40 / 320 360 / 320 Weight 74.843 kg Intake: Oral 250 / 250 360 / 720 360 / 720 Output: Urine 400 / 400 Other: Urine Color Yellow Urine Appearance Clear Clear Stool Characteristics Soft Voiding Methods Toilet Data Completed and Pending Labs on day of discharge: Labs from last 24 hours 02/12/22 02/12/22 02/12/22 13:15 09:55 09:55 Urine Color Dark Yellow Urine Clarity Sl Cloudy Urine pH 5.5 Ur Specific [place] >= 1.030 H Urine Protein Negative Urine Ketones Negative Urine Blood Negative Urine Nitrite Negative Urine Bilirubin Negative Urine Urobilinogen 0.2 Ur Leukocyte Esterase Negative Urine Glucose 100 Urine Opiates Screen Negative Urine Methadone Screen Negative Ur Barbiturates Screen Negative Ur Tricyclics Screen Negative Ur Amphetamines Screen Negative U Benzodiazepines Scrn Negative Urine Cocaine Screen Negative Ur THC Screen Negative COVID-19 Source Nasal/Nares SARS-CoV-2 (PCR) Negative 02/11/22 13:15 Urine Color Urine Clarity Urine pH Ur Specific [place] Urine Protein Urine Ketones Urine Blood Urine Nitrite Urine Bilirubin Urine Urobilinogen Ur Leukocyte Esterase Urine Glucose Urine Opiates Screen Urine Methadone Screen Ur Barbiturates Screen Ur Tricyclics Screen Ur Amphetamines Screen U Benzodiazepines Scrn Urine Cocaine Screen Ur THC Screen COVID-19 Source Nasal/Nares SARS-CoV-2 (PCR) Negative PFSH All Active Problems Suicidal ideations (Acute) Hallucinations (Acute) SOB (shortness of breath) (Acute) Routine medical exam (Acute) Encounter for screening laboratory testing for COVID-19 virus (Acute) Encounter for screening laboratory testing for COVID-19 virus (Acute) Schizoaffective disorder, depressive type (Chronic 12/27/13) most recent psych adm 11/2013 [facility] with psychosis, command hallucinations Colonoscopy refused (Acute) Unspecified disorder of liver (Acute) US: 09/2008; FATTY LIVER, ABNL LFT; ALK PHOS, ALT; GI CONSULT 2002, AntiMitrohondrial Ab neg, rec wt loss. Type 2 diabetes mellitus without complication, without long-term current use of insulin (Acute 12/29/17) Tobacco use disorder, continuous (Acute 09/01/11) FEV1 2.7 in 2004; 1 PPD; longest off 1 yr, 2 wks; stopped 03/27/2015; stopped again 12/13/16 Other fdc (current) drug therapy (Acute 12/10/15) olanzapine Other and unspecified hyperlipidemia (Acute 09/01/11) LDL 128, risk 12.9% 04/2015; [place] 03/[place] [facility] [place] sleep apnea, unspecified (Acute 05/25/99) REPORTS C-PAP SINCE 1999; needs new machine; but unable to get it without new sleep study!; no longer using CPAP 02/2017 Obesity, unspecified (Acute 09/01/11) 150 lb = BMI 25 Fatty liver disease, nonalcoholic (Acute) GGT 247 ; nl Fe/TIBC 03/1999; US: 09/2008; FATTY LIVER, ABNL LFT; ALK PHOS, ALT; GI CONSULT 2002, AntiMitrohondrial Ab neg, rec wt loss. Esophageal reflux disease (Acute 09/01/11) RANITIDINE RX Early cataracts, bilateral (Acute 02/09/17) Dr Pizano 12/2016 Abnormal serum creatinine level (Acute 04/13/15) GERD (gastroesophageal reflux disease) (Chronic) Obsessive compulsive disorder (Chronic) Sleep apnea (Chronic) Psychosis (Acute) Suicidal ideation (Acute) Leukocytosis (Chronic) Surgical History Circumcision (02/07/05) Dr Henriquez Vasectomy (05/25/93) Dr Henriquez Family History Mother Asthma onset not known Father , Kidney Failure at age 83. Renal failure onset not known Sister No problems noted. Brother Diabetes onset not known Brother No problems noted. 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 Pets and animals: No Do you think of yourself as: straight/heterosexual Current gender identity: male What is your relationship status?: How often do you talk on the phone with friends or family?: three or more times per week How often do you get together with friends or relatives?: twice per week How often do you attend yazidism or gnosticism services?: decline to answer Do you belong to any clubs or organized social groups?: no Panel score (0-1 are the most socially isolated patients): 1 What type of physical activity do you participate in: walking Duration: 30-45 minutes/day Frequency: daily Margi/Yarsani: Scientologist Special margi needs: No Drive intox or ride w/intox pick up driver: No Do you feel safe at home: Yes Do you feel safe in your relationship?: Yes
--- NOTE | 2022-02-12 14:54 | CMDISCH_ITS ---
- If Service Date Differs Date of service: 02/12/22 Time of Service: 14:54 LACE Index Scoring Tool - Questions: Length of Stay (in days): 1 Acuity (Admit via E.D.?): Yes E.D. Visits: 4 - Answers: Total Score: 8 Risk of Readmission: Low Risk Care Management Discharge Reason for Hospitalization: Suicidal ideation, hallucinations. Discharge Plan: Dave is discharged to the [facility] Care Bed. He will follow up with his PCP, [facility] providers, and discharge plan of care as prescribed. [facility] staff provide transportation. Patient/Family Education Needs: Review of discharge instructions; discuss Ask Me Three. - MH Services (Omit if N/A) Current MH Services: DUMP GRADER - Disposition Disposition: Crisis Bed ([facility] Care Bed)
--- NOTE | 2022-02-12 14:54 | PDOC.CMDIS ---
- If Service Date Differs Date of service: 02/12/22 Time of Service: 14:54 LACE Index Scoring Tool - Questions: Length of Stay (in days): 1 Acuity (Admit via E.D.?): Yes E.D. Visits: 4 - Answers: Total Score: 8 Risk of Readmission: Low Risk Care Management Discharge Reason for Hospitalization: Suicidal ideation, hallucinations. Discharge Plan: Dave is discharged to the [facility] Care Bed. He will follow up with his PCP, [facility] providers, and discharge plan of care as prescribed. [facility] staff provide transportation. Patient/Family Education Needs: Review of discharge instructions; discuss Ask Me Three. - MH Services (Omit if N/A) Current MH Services: DRESS SHOE INSPECTOR - Disposition Disposition: Crisis Bed ([facility] Care Bed)
== END 2022-02-12 15:16 | disposition designated cancer center or children's hospital (05) ==
LOC: ER 21:35 → MS 21:50
PROVIDERS: Internal Medicine; Admitting Provider General Practice; Emergency Provider Physician Assistant; PCP Nurse Practitioner; Visit Provider General Practice
DX: F25.1 Schizoaffective disorder, depressive type (principal); R45.851 Suicidal ideations; E11.9 Type 2 diabetes mellitus without complications; Z79.899 Other long term (current) drug therapy; Z79.84 Long term (current) use of oral hypoglycemic drugs; Z20.822 Contact with and (suspected) exposure to COVID-19; Z91.14 Patient's other noncompliance with medication regimen; K76.0 Fatty (change of) liver, not elsewhere classified; E78.5 Hyperlipidemia, unspecified; G47.39 Other sleep apnea; F42.9 Obsessive-compulsive disorder, unspecified; K21.9 Gastro-esophageal reflux disease without esophagitis
CPT/HCPCS: 36416; 80307; 82962; 87635; 99285; 81003; 99217; 99218; G0378

== ENCOUNTER 2022-03-14 11:08 | Inpatient (IN) | payer MEDICARE, MEDICAID, SELFPAY ==
[2022-03-14 11:25] VITALS: BP 136/84; PULSE 107; RESP 18; TEMP 36.5; O2SAT 98
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
[2022-03-14] MEDS: OLANZapine 10 MG TAB PO (13:25)
[2022-03-14 13:58] LABS: Source Nasal/Nares
[2022-03-14 14:30] LABS: COVID-19 PCR Negative (Negative)
[2022-03-14 15:00] VITALS: BP 111/77; PULSE 97; RESP 18; O2SAT 99
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
--- NOTE | 2022-03-14 16:43 | CMSP_ITS ---
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 He has been making suicidal and homicidal statements towards [facility] staff. He typically leans on [facility] staff for support and identifies when he is unstable. He recently (within the last month) has been stabilized at [facility], and then was at the care bed until he was released, about two weeks ago. Per KENIA Chatterjee, [facility] is seeking inpatient treatment, and he is voluntary at this time. [facility] will notify [facility] of his arrival to the ED, at 's request. Per staff, he has been appropriate in interactions in the ED, and is taking his medications. He will remain in the ED for a period of observation, and may be placed from there, if a bed is available today. Referrals were sent to [facility], [facility], [facility] and [facility]. [place] has beds and is reviewing the referral. VOLUNTARY FOR INPATIENT PSYCHIATRIC STABILIZATION. Patient is appropriate in all interactions since arriving at [facility]; Pt has demonstrated appropriate coping and communication skills, has articulated his or her needs and concerns and is fully engaged during staff interactions. Safety plan has been established with patient, and care team, to adhere to patient goals, identify restrictions based on behavioral status, address nutrition, and determine allowed personal belongings, tools for hygiene and personal care. Determine level of activity including ambulation, level of supervision, visitors, and determine privileges based on behaviors and level of engagement by pt. SAFETY PLAN: 1. Will remain on suicide precautions. In Paper Clothes 2. Will remain in room under direct supervision of one-on-one staff at all times provided by [employer]; RICKEY, SANITARY LANDFILL SUPERVISOR estimator. 3. May have paper cups, plates, finger foods as well as a cardboard spoon with which to eat meals. 4. Follow [facility] Management of the Admitted Behavioral Health Patient policy. 5. Comfort bath system only, shower permitted with escort at RN discretion. 6. No personal belongings-soft items permitted at RN discretion. 7. Visitors-none at this time. 8. Activities: soft cart items approved per RN discretion. 9. Bathroom privileges with escort in the ED, available in room without limitation on M/S. 10. Phone: contact limited to family at this time, via cordless phone at RN discretion. 11. Due to VOLUNTARY status, if patient wishes to leave [facility], staff will contact [facility] Crisis Screener ([phone]) and On-Call Wood Router Hand ([phone]) as soon as possible. In the event of elopement, notify [facility] Police ([phone]). Patient is currently voluntarily at [facility] and seeking inpatient admission when a bed becomes available. [facility] Frontline Pathology Transcriptionist will continue seeking placement. Please contact the Drug Safety Coordinator Wood Router Hand ([phone]) and [facility] Pathology Transcriptionist ([phone]) for any needed changes in the Safety Plan. Safety plan has been provided to interdepartmental care team.
--- NOTE | 2022-03-14 16:43 | PDOC.CMSAFED ---
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 He has been making suicidal and homicidal statements towards [facility] staff. He typically leans on [facility] staff for support and identifies when he is unstable. He recently (within the last month) has been stabilized at [facility], and then was at the care bed until he was released, about two weeks ago. Per KENIA Chatterjee, [facility] is seeking inpatient treatment, and he is voluntary at this time. [facility] will notify [facility] of his arrival to the ED, at 's request. Per staff, he has been appropriate in interactions in the ED, and is taking his medications. He will remain in the ED for a period of observation, and may be placed from there, if a bed is available today. Referrals were sent to [facility], [facility], [facility] and [facility]. [facility] has beds and is reviewing the referral. VOLUNTARY FOR INPATIENT PSYCHIATRIC STABILIZATION. Patient is appropriate in all interactions since arriving at [facility]; Pt has demonstrated appropriate coping and communication skills, has articulated his or her needs and concerns and is fully engaged during staff interactions. Safety plan has been established with patient, and care team, to adhere to patient goals, identify restrictions based on behavioral status, address nutrition, and determine allowed personal belongings, tools for hygiene and personal care. Determine level of activity including ambulation, level of supervision, visitors, and determine privileges based on behaviors and level of engagement by pt. SAFETY PLAN: 1. Will remain on suicide precautions. In Paper Clothes 2. Will remain in room under direct supervision of one-on-one staff at all times provided by [employer]; RICKEY, ORE CRUSHING DUST COLLECTOR roofing laborer. 3. May have paper cups, plates, finger foods as well as a cardboard spoon with which to eat meals. 4. Follow [facility] Management of the Admitted Behavioral Health Patient policy. 5. Comfort bath system only, shower permitted with escort at RN discretion. 6. No personal belongings-soft items permitted at RN discretion. 7. Visitors-none at this time. 8. Activities: soft cart items approved per RN discretion. 9. Bathroom privileges with escort in the ED, available in room without limitation on M/S. 10. Phone: contact limited to family at this time, via cordless phone at RN discretion. 11. Due to VOLUNTARY status, if patient wishes to leave [facility], staff will contact [facility] Crisis Screener ([phone]) and On-Call Market Research Analyst ([phone]) as soon as possible. In the event of elopement, notify [facility] Police ([phone]). Patient is currently voluntarily at [facility] and seeking inpatient admission when a bed becomes available. [facility] Frontline Internal Audit Manager will continue seeking placement. Please contact the Radiator Mechanic Market Research Analyst ([phone]) and [facility] Internal Audit Manager ([phone]) for any needed changes in the Safety Plan. Safety plan has been provided to interdepartmental care team.
[2022-03-14 21:00] VITALS: BP 112/84; PULSE 94; TEMP 36.6; O2SAT 98
--- NOTE | 2022-03-14 21:00 | W.PM.HP.N ---
Date of service: 03/14/22 Time of Service: 21:00 Assessment and Plan Assessment and plan (1) Suicidal ideations: Status: Acute Assessment and plan: Voluntary admission. Restart home psychiatric meds. Safety plan in place. [facility] very involved with patient and is seeking inpatient treatment. Pt is currently agreeable. (2) Hallucinations: Status: Acute Assessment and plan: At time of this evaluation, he voiced no current hallucinations. Hasn't been compliant with meds. Home quetiapine and olazapine restarted. (3) Schizoaffective disorder, depressive type: Status: Chronic Assessment and plan: As above. (4) Type 2 diabetes mellitus without complication, without long-term current use of insulin: Status: Acute Assessment and plan: Cont metformin 2g daily. Diabetic diet. Random glucose at time of admission was 127. Lisinopril 20mg daily. (5) Noncompliance with medication regimen: Status: Acute Assessment and plan: Home meds re-initiated. (6) Other and unspecified hyperlipidemia: Status: Acute Assessment and plan: Atorvastatin 20mg daily. History of Present Illness History of Present Illness Chief Complaint: auditory hallucinations, SI, HI Narrative: This is a 62 yo male with a PMH of schizoaffective d.o., DM2, HLD, GERD. He presented to the ED with concerns of auditory hallucinations, thoughts of self-harm and thoughts of using an AK 47 to shoot [facility] members / making SI and HI statements to [facility] staff. He has been noncompliant with his medications for 1-2 weeks. He presented voluntarily. He denies any pain, F/C, N/V, CP. Care Management safety plan in effect. Of note, he was stabilized at [facility] within the last 1 month. He subsequently went to the care bed and then released from there 2 weeks ago. [facility] is seeking inpatient treatment. Review of Systems All systems reviewed & are unremarkable except as noted in HPI and below PFSH All Active Problems (Updated 03/14/22 @ 21:13 by Robert Valentin MD) Noncompliance with medication regimen (Acute) Suicidal ideations (Acute) Hallucinations (Acute) SOB (shortness of breath) (Acute) Routine medical exam (Acute) Encounter for screening laboratory testing for COVID-19 virus (Acute) Encounter for screening laboratory testing for COVID-19 virus (Acute) Schizoaffective disorder, depressive type (Chronic 12/27/13) most recent psych adm 11/2013 [facility] with psychosis, command hallucinations Colonoscopy refused (Acute) Unspecified disorder of liver (Acute) US: 09/2008; FATTY LIVER, ABNL LFT; ALK PHOS, ALT; GI CONSULT 2002, AntiMitrohondrial Ab neg, rec wt loss. Type 2 diabetes mellitus without complication, without long-term current use of insulin (Acute 12/29/17) Tobacco use disorder, continuous (Acute 09/01/11) FEV1 2.7 in 2003; 1 PPD; longest off 1 yr, 2 wks; stopped 03/27/2015; stopped again 12/13/16 Other terminal gauger (current) drug therapy (Acute 12/10/15) olanzapine Other and unspecified hyperlipidemia (Acute 09/01/11) LDL 128, risk 12.9% 04/2015; start statin 03/2015 and [facility] Organic sleep apnea, unspecified (Acute 05/25/99) REPORTS C-PAP SINCE 1999; needs new machine; but unable to get it without new sleep study!; no longer using CPAP 02/2017 Obesity, unspecified (Acute 09/01/11) 150 lb = BMI 25 Fatty liver disease, nonalcoholic (Acute) GGT 247 ; nl Fe/TIBC 03/1999; US: 09/2008; FATTY LIVER, ABNL LFT; ALK PHOS, ALT; GI CONSULT 2002, AntiMitrohondrial Ab neg, rec wt loss. Esophageal reflux disease (Acute 09/01/11) RANITIDINE RX Early cataracts, bilateral (Acute 02/09/17) Dr Pizano 12/2016 Abnormal serum creatinine level (Acute 04/13/15) GERD (gastroesophageal reflux disease) (Chronic) Obsessive compulsive disorder (Chronic) Sleep apnea (Chronic) Psychosis (Acute) Suicidal ideation (Acute) Leukocytosis (Chronic) Surgical History Circumcision (02/07/05) Dr Henriquez Vasectomy (05/25/93) Dr Henriquez Family History Mother Asthma onset not known Father , Kidney Failure at age 83. Renal failure onset not known Sister No problems noted. Brother Diabetes onset not known Brother No problems noted. 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 Pets and animals: No Do you think of yourself as: straight/heterosexual Current gender identity: male What is your relationship status?: How often do you talk on the phone with friends or family?: three or more times per week How often do you get together with friends or relatives?: twice per week How often do you attend voodoo or pentecostal services?: decline to answer Do you belong to any clubs or organized social groups?: no Panel score (0-1 are the most socially isolated patients): 1 What type of physical activity do you participate in: walking Duration: 30-45 minutes/day Frequency: daily Margi/Buddhist: Christianity Special margi needs: No Drive intox or ride w/intox cattle driver: No Do you feel safe at home: Yes Do you feel safe in your relationship?: Yes Meds Allergies and Home Medications Allergies Allergy/AdvReac Type Severity Reaction Status Date / Time No Known Allergies Allergy Verified 03/14/22 11:40 Home Medications Medication Instructions Recorded Confirmed Type olanzapine 15 mg tablet 10 mg PO HS 01/18/19 03/14/22 History metformin 1,000 mg tablet 2,000 mg PO DAILY #60 tabs 07/09/21 03/14/22 Rx Lactobacillus acidophilus 10 10,000 mmu cells PO DAILY 10/01/21 03/14/22 History billion cell capsule (Probiotic) aspirin 81 mg tablet,delayed 81 mg PO DAILY #90 tabs 11/21/21 03/14/22 Rx release atorvastatin 20 mg tablet 20 mg PO DAILY #90 tabs 01/13/22 03/14/22 Rx quetiapine 100 mg tablet 100 mg PO HS 02/04/22 02/11/22 History lisinopril 10 mg tablet 10 mg PO DAILY #90 tabs 02/17/22 03/14/22 Rx metoprolol succinate 50 mg 50 mg PO DAILY #90 tabs 02/17/22 03/14/22 Rx tablet,extended release 24 hr Exam Narrative Exam Narrative: Gen: lying on R side facing the wall. He is conversant. Cooperative. Lungs: clear. Nonlabored breathing. CV: RRR, No murmur GI: abd soft, NT. Exts: no edema. No calf tenderness. Psych: Appearance and mental status grossly normal. Mood was noted to be paranoid in the ED; now he isn't showed overt paranoia. Attitude is cooperative. Results Labs Labs: Laboratory Results - last 24 hr 03/14/22 13:48 COVID-19 Source Nasal/Nares SARS-CoV-2 (PCR) Negative Last Vital Signs Temp 36.5 C 03/14/22 11:25 Pulse 97 H 03/14/22 15:00 Resp 18 03/14/22 15:00 BP 111/77 03/14/22 15:00 Pulse Ox 99 03/14/22 15:00
[2022-03-14] MEDS: QUEtiapine 100 MG TAB 200 MG PO (21:05)
[2022-03-14] MEDS: OLANZapine 5 MG TAB 10 MG PO (21:05)
--- NOTE | 2022-03-15 09:58 | CMSP_ITS ---
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 Per report, he has been med non-compliant resulting in paranoia and subsequent suicidal and homicidal statements towards [facility] staff. Reportedly, delusional beliefs central to being poisoned by [facility] staff resulted in Dave not taking his medications. He has a significant psychiatric history including schizoaffective disorder, depressive with psychosis and command hallucinations. Previously, he had been well engaged with [facility] and able to identify when he needs support, more recently (within the last month) he was stabilized at [facility], stepped down to the [facility] care bed, then released to home about two weeks ago. Reportedly, since returning home he has been medication non-compliant. Per KENIA Chatterjee, [facility] is seeking inpatient treatment, and he is voluntary at this time. CAB SUPERVISOR notified [facility] of Dave's arrival to the [facility], at 's request. Per staff, he has been appropriate in interactions and is taking his medications without issue. Referrals faxed to [facility], [facility], [facility] and [facility]. [place] has beds and is reviewing the referral. VOLUNTARY FOR INPATIENT PSYCHIATRIC STABILIZATION. Patient is appropriate in all interactions since arriving at [facility]; Pt has demonstrated appropriate coping and communication skills, has articulated his or her needs and concerns and is fully engaged during staff interactions. Safety plan has been established with patient, and care team, to adhere to patient goals, identify restrictions based on behavioral status, address nutrition, and determine allowed personal belongings, tools for hygiene and pers onal care. Determine level of activity including ambulation, level of supervision, visitors, and determine privileges based on behaviors and level of engagement by pt. SAFETY PLAN: 1. Will remain on suicide precautions. In Paper Clothes 2. Will remain in room under direct supervision of one-on-one staff at all times provided by [employer]; RICKEY, GASOLINE PUMP INSTALLER information clerk brokerage. 3. May have paper cups, plates, finger foods as well as a cardboard spoon with which to eat meals. 4. Follow [facility] Management of the Admitted Behavioral Health Patient policy. 5. Comfort bath system, shower permitted with escort at RN discretion. 6. Personal belongings-soft items permitted at RN discretion. 7. Visitors-none at this time. 8. Activities: television, remote and soft cart items approved per RN discretion. 9. Bathroom privileges available in room without limitation on M/S. 10. Phone contact: via cordless phone at RN discretion. 11. Due to VOLUNTARY status, if patient wishes to leave [facility], staff will contact [facility] Crisis Screener ([phone]) and On-Call Mobile Paint Specialist ([phone]) as soon as possible. In the event of elopement, notify [facility] Police ([phone]). Patient is currently voluntarily at [facility] and seeking inpatient admission when a bed becomes available. [facility] Frontline Pastry Cook will continue seeking placement. Please contact the Rabbit Breeder Mobile Paint Specialist ([phone]) and [facility] Pastry Cook ([phone]) for any needed changes in the Safety Plan. Safety plan has been provided to interdepartmental care team.
--- NOTE | 2022-03-15 09:58 | PDOC.CMSAFE ---
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 Per report, he has been med non-compliant resulting in paranoia and subsequent suicidal and homicidal statements towards [facility] staff. Reportedly, delusional beliefs central to being poisoned by [facility] staff resulted in Dave not taking his medications. He has a significant psychiatric history including schizoaffective disorder, depressive with psychosis and command hallucinations. Previously, he had been well engaged with [facility] and able to identify when he needs support, more recently (within the last month) he was stabilized at [facility], stepped down to the [facility] care bed, then released to home about two weeks ago. Reportedly, since returning home he has been medication non-compliant. Per KENIA Chatterjee, [facility] is seeking inpatient treatment, and he is voluntary at this time. VARNISH BLENDER notified [facility] of Dave's arrival to the [facility], at 's request. Per staff, he has been appropriate in interactions and is taking his medications without issue. Referrals faxed to [facility], [facility], [facility] and [facility]. [place] has beds and is reviewing the referral. VOLUNTARY FOR INPATIENT PSYCHIATRIC STABILIZATION. Patient is appropriate in all interactions since arriving at [facility]; Pt has demonstrated appropriate coping and communication skills, has articulated his or her needs and concerns and is fully engaged during staff interactions. Safety plan has been established with patient, and care team, to adhere to patient goals, identify restrictions based on behavioral status, address nutrition, and determine allowed personal belongings, tools for hygiene and personal care. Determine level of activity including ambulation, level of supervision, visitors, and determine privileges based on behaviors and level of engagement by pt. SAFETY PLAN: 1. Will remain on suicide precautions. In Paper Clothes 2. Will remain in room under direct supervision of one-on-one staff at all times provided by [employer]; RICKEY, CARPENTER REFRIGERATOR cooling pipe inspector. 3. May have paper cups, plates, finger foods as well as a cardboard spoon with which to eat meals. 4. Follow [facility] Management of the Admitted Behavioral Health Patient policy. 5. Comfort bath system, shower permitted with escort at RN discretion. 6. Personal belongings-soft items permitted at RN discretion. 7. Visitors-none at this time. 8. Activities: television, remote and soft cart items approved per RN discretion. 9. Bathroom privileges available in room without limitation on M/S. 10. Phone contact: via cordless phone at RN discretion. 11. Due to VOLUNTARY status, if patient wishes to leave [facility], staff will contact [facility] Crisis Screener ([phone]) and On-Call Geotechnical Engineer ([phone]) as soon as possible. In the event of elopement, notify [facility] Police ([phone]). Patient is currently voluntarily at [facility] and seeking inpatient admission when a bed becomes available. [facility] Frontline Barbering Teacher will continue seeking placement. Please contact the Vice President Process Geotechnical Engineer ([phone]) and [facility] Barbering Teacher ([phone]) for any needed changes in the Safety Plan. Safety plan has been provided to interdepartmental care team.
[2022-03-15] MEDS: Atorvastatin 20 MG TAB PO (10:15)
[2022-03-15] MEDS: Lisinopril 10 MG TAB PO (10:15)
[2022-03-15] MEDS: Aspirin E.C. 81 MG TABEC PO (10:15)
[2022-03-15] MEDS: metFORMIN 500 MG TAB 2000 MG PO (10:15)
[2022-03-15] MEDS: Metoprolol CR 50 MG TABCR PO (10:15)
[2022-03-15 12:42] VITALS: BP 128/72; PULSE 99; RESP 20; TEMP 36.6; O2SAT 97
--- NOTE | 2022-03-15 17:29 | PGE_ITS ---
Date of Service Date of service: 03/15/22 Time of Service: 15:00 Assessment and Plan Assessment and plan (1) Suicidal ideations: Status: Acute Assessment and plan: Voluntary admission. Restart home psychiatric meds he reports he has not been taking his night meds, he states the workers don't watch him take it, they leave it at the door. We discussed the importance of taking his medication - he said he was told it was poison and not to take it; he can't say who told him that. I did redirect him and told him it is what he needs and it is not poison. Safety plan in place. [facility] very involved with patient and is seeking inpatient treatment. Pt is currently agreeable. (2) Hallucinations: Status: Acute Assessment and plan: At time of this evaluation, he voiced no current hallucinations. Hasn't been compliant with meds, he wouldn't let the mental health workers in to his residence, they left his night time meds outside, he then believed they are poison. Home quetiapine and olazapine restarted. (3) Schizoaffective disorder, depressive type: Status: Chronic Assessment and plan: As above. (4) Type 2 diabetes mellitus without complication, without long-term current use of insulin: Status: Acute Assessment and plan: Cont metformin 2g daily. Diabetic diet. Random glucose at time of admission was 127. Lisinopril 20mg daily. (5) Noncompliance with medication regimen: Status: Acute Assessment and plan: Home meds re-initiated. (6) Other and unspecified hyperlipidemia: Status: Acute Assessment and plan: Atorvastatin 20mg daily. (7) DVT prophylaxis: Status: Acute Assessment and plan: Ambulatory, does not need prophylaxis (8) Discharge planning issues: Status: Acute Assessment and plan: MH to see; plan for in-pt placement. Subjective Subjective Patient reports: no new complaints, tolerating a regular diet, voiding w/o difficulty, bowel movement and afebrile; denies flatus, diarrhea, nausea or vomiting Interval history since last seen: Conversant, pleasant, flat affect, looking at the floor while speaking with me, alert and oriented to place and time. Exam Const General: cooperative, healthy appearing, comfortable and no acute distress Orientation: alert, awake and oriented x3 HENMT Head: normal to inspection, normocephalic and atraumatic Face and sinus: normal facial exam Mouth: moist mucous membranes Throat: posterior oropharynx normal Eyes General: appearance normal, both eyes and all related structures Conjunctivae: conjunctivae normal Neck Neck: normal visual inspection, full ROM, no meningeal signs, trachea midline and supple Resp Effort & Inspection: normal respiratory effort and able to speak in complete sentences Auscultation: clear to auscultation bilaterally Cardio Rate: regular rate Rhythm: regular rhythm GI Palpation: soft, not firm, no guarding and nontender Back/Spine/Pelvis Back: No back tenderness Skin General skin exam: no rashes or lesions noted Neuro General: patient alert, patient awake, patient oriented x3, moves all extremities and no focal motor deficits Cognition: normal cognition Speech: speech normal Gait: normal gait Motor: muscle tone normal throughout Sensory Exam: no sensory deficits noted Extrem General: normal to inspection, full ROM and capillary refill normal Psych Appearance: grossly normal Mental Status: mental status grossly normal Speech and Movement: speech and movement normal Affect: indifferent Attitude: cooperative Thought Process: normal Thought Content: hallucinations (Auditory) and suicidality Insight: limited Judgment: limited Objective Last Vital Signs Temp 36.6 C 03/15/22 12:42 Pulse 99 H 03/15/22 12:42 Resp 20 03/15/22 12:42 BP 128/72 03/15/22 12:42 Pulse Ox 97 03/15/22 12:42 Reviewed Pertinent PMH: Yes
[2022-03-15 20:29] VITALS: BP 99/65; PULSE 84; RESP 18; TEMP 36.5; O2SAT 98
[2022-03-15] MEDS: QUEtiapine 100 MG TAB 200 MG PO (20:32)
[2022-03-15] MEDS: OLANZapine 5 MG TAB 10 MG PO (20:33)
[2022-03-15] MEDS: Melatonin 3 MG TAB 6 MG PO (22:57)
[2022-03-15] MEDS: Zolpidem 5 MG TAB PO (22:57)
[2022-03-16] MEDS: Atorvastatin 20 MG TAB PO (08:43)
[2022-03-16] MEDS: Lisinopril 10 MG TAB PO (08:44)
[2022-03-16] MEDS: metFORMIN 500 MG TAB 2000 MG PO (08:44)
[2022-03-16] MEDS: Aspirin E.C. 81 MG TABEC PO (08:44)
[2022-03-16] MEDS: Metoprolol CR 50 MG TABCR PO (08:44)
[2022-03-16 08:51] VITALS: BP 112/81; PULSE 94; RESP 14; TEMP 36.2; O2SAT 100
--- NOTE | 2022-03-16 10:21 | CMSP_ITS ---
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 Per report, he has been med non-compliant resulting in paranoia and subsequent suicidal and homicidal statements towards [facility] staff. Reportedly, delusional beliefs central to being poisoned by [facility] staff resulted in Dave not taking his medications. He has a significant psychiatric history including schizoaffective disorder, depressive with psychosis and command hallucinations. Previously, he had been well engaged with [facility] and able to identify when he needs support, more recently (within the last month) he was stabilized at [facility], stepped down to the [facility] care bed, then released to home about two weeks ago. Reportedly, since returning home he has been medication non-compliant. Per KENIA Chatterjee, [facility] is seeking inpatient treatment, and he is voluntary at this time. PATIENT CASE COORDINATOR notified [facility] of Dave's arrival to the [facility], at 's request. Per staff, he has been appropriate in interactions and is taking his medications without issue. Referrals faxed to [facility], [facility], [facility] and [facility]. [place] has beds and is reviewing the referral. VOLUNTARY FOR INPATIENT PSYCHIATRIC STABILIZATION. Patient is appropriate in all interactions since arriving at [facility]; Pt has demonstrated appropriate coping and communication skills, has articulated his or her needs and concerns and is fully engaged during staff interactions. Safety plan has been established with patient, and care team, to adhere to patient goals, identify restrictions based on behavioral status, address nutrition, and determine allowed personal belongings, tools for hygiene and pers onal care. Determine level of activity including ambulation, level of supervision, visitors, and determine privileges based on behaviors and level of engagement by pt. SAFETY PLAN: 1. Will remain on suicide precautions. In Paper Clothes 2. Will remain in room under direct supervision of one-on-one staff at all times provided by [employer]; RICKEY, ROTOGRAVURE PRESS OPERATOR shot peening operator. 3. May have paper cups, plates, finger foods as well as a cardboard spoon with which to eat meals. 4. Follow [facility] Management of the Admitted Behavioral Health Patient policy. 5. Comfort bath system, shower permitted with escort at RN discretion. 6. Personal belongings-soft items permitted at RN discretion. 7. Visitors-none at this time. 8. Activities: television, remote and soft cart items approved per RN discretion. 9. Bathroom privileges available in room without limitation on M/S. 10. Phone contact: via cordless phone at RN discretion. 11. Due to VOLUNTARY status, if patient wishes to leave [facility], staff will contact [facility] Crisis Screener ([phone]) and On-Call Wire Wrapper Machine Operator ([phone]) as soon as possible. In the event of elopement, notify [facility] Police ([phone]). Patient is currently voluntarily at [facility] and seeking inpatient admission when a bed becomes available. [facility] Frontline Stock Trader will continue seeking placement. Please contact the Glass Or Mirror Inspector Wire Wrapper Machine Operator ([phone]) and [facility] Stock Trader ([phone]) for any needed changes in the Safety Plan. Safety plan has been provided to interdepartmental care team.
--- NOTE | 2022-03-16 10:21 | PDOC.CMSAFE ---
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 Per report, he has been med non-compliant resulting in paranoia and subsequent suicidal and homicidal statements towards [facility] staff. Reportedly, delusional beliefs central to being poisoned by [facility] staff resulted in Dave not taking his medications. He has a significant psychiatric history including schizoaffective disorder, depressive with psychosis and command hallucinations. Previously, he had been well engaged with [facility] and able to identify when he needs support, more recently (within the last month) he was stabilized at [facility], stepped down to the [facility] care bed, then released to home about two weeks ago. Reportedly, since returning home he has been medication non-compliant. Per KENIA Chatterjee, [facility] is seeking inpatient treatment, and he is voluntary at this time. HOGSHEAD ROLLER notified [facility] of Dave's arrival to the [facility], at 's request. Per staff, he has been appropriate in interactions and is taking his medications without issue. Referrals faxed to [facility], [facility], [place] and [facility]. [place] has beds and is reviewing the referral. VOLUNTARY FOR INPATIENT PSYCHIATRIC STABILIZATION. Patient is appropriate in all interactions since arriving at [facility]; Pt has demonstrated appropriate coping and communication skills, has articulated his or her needs and concerns and is fully engaged during staff interactions. Safety plan has been established with patient, and care team, to adhere to patient goals, identify restrictions based on behavioral status, address nutrition, and determine allowed personal belongings, tools for hygiene and personal care. Determine level of activity including ambulation, level of supervision, visitors, and determine privileges based on behaviors and level of engagement by pt. SAFETY PLAN: 1. Will remain on suicide precautions. In Paper Clothes 2. Will remain in room under direct supervision of one-on-one staff at all times provided by [employer]; RICKEY, SPRING CRATER senior web architect. 3. May have paper cups, plates, finger foods as well as a cardboard spoon with which to eat meals. 4. Follow [facility] Management of the Admitted Behavioral Health Patient policy. 5. Comfort bath system, shower permitted with escort at RN discretion. 6. Personal belongings-soft items permitted at RN discretion. 7. Visitors-none at this time. 8. Activities: television, remote and soft cart items approved per RN discretion. 9. Bathroom privileges available in room without limitation on M/S. 10. Phone contact: via cordless phone at RN discretion. 11. Due to VOLUNTARY status, if patient wishes to leave [facility], staff will contact [facility] Crisis Screener ([phone]) and On-Call Strip Mill Operator ([phone]) as soon as possible. In the event of elopement, notify [facility] Police ([phone]). Patient is currently voluntarily at [facility] and seeking inpatient admission when a bed becomes available. [facility] Frontline Boat Motor Mechanic will continue seeking placement. Please contact the Riveter Pneumatic Strip Mill Operator ([phone]) and [facility] Boat Motor Mechanic ([phone]) for any needed changes in the Safety Plan. Safety plan has been provided to interdepartmental care team.
--- NOTE | 2022-03-16 12:57 | PGE_ITS ---
Date of Service Date of service: 03/16/22 Time of Service: 12:58 Assessment and Plan Assessment and plan (1) Suicidal ideations: Status: Acute Assessment and plan: Voluntary admission. Restart home psychiatric meds he reports he has not been taking his night meds, he states the workers don't watch him take it, they leave it at the door. We discussed the importance of taking his medication - he said he was told it was poison and not to take it; he can't say who told him that. I did redirect him and told him it is what he needs and it is not poison. He is taking his me dications here. Safety plan in place. [facility] very involved with patient and is seeking inpatient treatment. Pt is currently agreeable. (2) Hallucinations: Status: Acute Assessment and plan: Continues to deny hallucinations. Hasn't been compliant with meds, he wouldn't let the mental health workers in to his residence, they left his night time meds outside, he then believed they are poison and didn't take Home quetiapine and olazapine restarted. (3) Schizoaffective disorder, depressive type: Status: Chronic Assessment and plan: As above. (4) Type 2 diabetes mellitus without complication, without long-term current use of insulin: Status: Acute Assessment and plan: Cont metformin 2g daily. Diabetic diet. Random glucose at time of admission was 127. (5) Noncompliance with medication regimen: Status: Acute Assessment and plan: Home meds re-initiated. (6) Other and unspecified hyperlipidemia: Status: Acute Assessment and plan: Atorvastatin 20mg daily. (7) DVT prophylaxis: Status: Acute Assessment and plan: Ambulatory, does not need prophylaxis (8) Discharge planning issues: Status: Acute Assessment and plan: saw him this am - there is no note; they did [facility] mg[facility]; plan for in-pt placement. Subjective Subjective Patient reports: no new complaints, feels better, voiding w/o difficulty, bowel movement and afebrile; denies diarrhea, nausea, vomiting or shortness of breath Exam Const General: cooperative, healthy appearing, comfortable and no acute distress Orientation: alert, awake and oriented x3 HENMT Head: normal to inspection, normocephalic and atraumatic Face and sinus: normal facial exam Mouth: moist mucous membranes Throat: posterior oropharynx normal Eyes General: appearance normal, both eyes and all related structures Conjunctivae: conjunctivae normal Neck Neck: normal visual inspection, full ROM, no meningeal signs, trachea midline and supple Resp Effort & Inspection: normal respiratory effort and able to speak in complete sentences Auscultation: clear to auscultation bilaterally Cardio Rate: regular rate Rhythm: regular rhythm GI Palpation: soft, not firm, no guarding and nontender Back/Spine/Pelvis Back: No back tenderness Skin General skin exam: no rashes or lesions noted Neuro General: patient alert, patient awake, patient oriented x3, moves all extremities and no focal motor deficits Cognition: normal cognition Speech: speech normal Gait: normal gait Motor: muscle tone normal throughout Sensory Exam: no sensory deficits noted Extrem General: normal to inspection, full ROM and capillary refill normal Psych Appearance: grossly normal Mental Status: mental status grossly normal Speech and Movement: speech and movement normal Affect: indifferent Attitude: cooperative Thought Process: normal Thought Content: hallucinations (Auditory) and suicidality Insight: limited Judgment: limited Objective Last Vital Signs Temp 36.2 C L 03/16/22 08:51 Pulse 94 H 03/16/22 08:51 Resp 14 03/16/22 08:51 BP 112/81 03/16/22 08:51 Pulse Ox 100 03/16/22 08:51 Reviewed Pertinent PMH: Yes
[2022-03-16 15:44] VITALS: BP 110/73; PULSE 100; RESP 16; TEMP 36.3; O2SAT 98
--- NOTE | 2022-03-16 17:10 | CMPROGNOTE_ITS ---
- If Service Date Differs Date of service: 03/16/22 Time of Service: 17:10 Care Management Progress Note S/O:Dave was sitting up on his stretcher when CM met with him. He was very approachable and engaged easily with CM. Dave has been pleasant, cooperative and compliant with medication administration today. He informed CM that he he had stopped taking his medication at home and became suicidal and homicidal. He shared that he feels really bad about that because it was my own fault. He stated that his voices told him to do that. They told him [facility] was poisoning him. Dave talked quite a bit about his psychiatric hospitalizations and the care he has received. He verbalized being grateful for the care he is receiving through [employer] [facility] and really wants to remain on his medications. He stated that he understands that when he stops taking them things get a lot worse. He informed CM that Beatris form [employer] [facility] is very nice and has been very helpful and supportive. A: Dave is a 62 year old man admitted on 03/14/22 with SI/HI P: Dave is awaiting voluntary placement in a psychiatric facility for stabilization. Per Kian, match up worker at [facility], Sabrina Springlake is reviewing Dave aqt this time. [facility], [place] and [place] have no availability.
--- NOTE | 2022-03-16 20:38 | NUR.NOTE ---
Pt speaking of the planets coliding, and god making him a teenager again. Pt also speaking of the bird outside with window that is , no bird observed. Pt went on to speak of spiritual things and almost reciting, currently sitting in bed at this time.
[2022-03-16] MEDS: QUEtiapine 100 MG TAB 200 MG PO (21:10)
[2022-03-16] MEDS: Melatonin 3 MG TAB 6 MG PO (21:11)
[2022-03-16] MEDS: OLANZapine 5 MG TAB 10 MG PO (21:11)
[2022-03-16] MEDS: Zolpidem 5 MG TAB PO (22:21)
[2022-03-16 23:51] VITALS: BP 107/71; PULSE 94; RESP 14; TEMP 35.5; O2SAT 99
[2022-03-17 08:02] VITALS: BP 109/76; PULSE 86; RESP 18; TEMP 36.3; O2SAT 100
[2022-03-17] MEDS: Lisinopril 10 MG TAB PO (09:01)
[2022-03-17] MEDS: metFORMIN 500 MG TAB 2000 MG PO (09:02)
[2022-03-17] MEDS: Aspirin E.C. 81 MG TABEC PO (09:02)
[2022-03-17] MEDS: Atorvastatin 20 MG TAB PO (09:02)
[2022-03-17] MEDS: Metoprolol CR 50 MG TABCR PO (09:02)
--- NOTE | 2022-03-17 11:24 | PDOC.CMPRO ---
- If Service Date Differs Date of service: 03/17/22 Time of Service: 11:24 Care Management Progress Note VOLUNTARY FOR INPATIENT PSYCHIATRIC STABILIZATION. Patient is appropriate in all interactions since arriving at [facility]; Pt has demonstrated appropriate coping and communication skills, has articulated his or her needs and concerns and is fully engaged during staff interactions. Safety plan has been established with patient, and care team, to adhere to patient goals, identify restrictions based on behavioral status, address nutrition, and determine allowed personal belongings, tools for hygiene and personal care. Determine level of activity including ambulation, level of supervision, visitors, and determine privileges based on behaviors and level of engagement by pt. SAFETY PLAN: 1. Will remain on suicide precautions. In Paper Clothes 2. Will remain in room under direct supervision of one-on-one staff at all times provided by [employer]; RICKEY, AUTO AIR CONDITIONING INSTALLER network security administrator. 3. May have paper cups, plates, finger foods as well as a cardboard spoon with which to eat meals. 4. Follow [facility] Management of the Admitted Behavioral Health Patient policy. 5. Comfort bath system, shower permitted with escort at RN discretion. 6. Personal belongings-soft items permitted at RN discretion. 7. Visitors-none at this time. 8. Activities: television, remote and soft cart items approved per RN discretion. 9. Bathroom privileges available in room without limitation on M/S. 10. Phone contact: via cordless phone at RN discretion. 11. Due to VOLUNTARY status, if patient wishes to leave [facility], staff will contact [facility] Crisis Screener ([phone]) and On-Call Tire Buffer ([phone]) as soon as possible. In the event of elopement, notify [facility] Police ([phone]). Patient is currently voluntarily at [facility] and seeking inpatient admission when a bed becomes available. [facility] Frontline Handle Turner will continue seeking placement. Please contact the Recruiting Consultant Tire Buffer ([phone]) and [facility] Handle Turner ([phone]) for any needed changes in the Safety Plan. Safety plan has been provided to interdepartmental care team.
--- NOTE | 2022-03-17 13:43 | MHPN_ITS ---
Date of service: 03/17/22 Time of Service: 12:50 Mental Health Emergency Note Release [facility] release signed:: Yes Reason for Visit Client presented to [facility] ED via [employer] pillowcase maker Beatris Shettydebbikaylyn after Cristela went to clients home to attempt to deliver daily medications on 03/14. Per Cristela client has been refusing medications and interactions with [employer] staff for about a month. Client reports: they are poisoning me and I am not taking them. Cristela reports that when she was at clients home on 03/14, he pulled out a switch blade. Per [employer] report, [facility] was notified of the mentioned incident by Kanika Mays ([employer] Fashion Design Professor. Client is at [facility] ED seeking voluntary inpatient treatment. In the last 2 weeks has the pt presented for ES prior to today?: Unknown Client Information Client is: [employer] (Client is a long time client of [facility] [employer] program ) Well Housed: Yes Non Suicidal Self Injury Current: Yes, Client has not been complaint in taking his prescribed medications and per [employer] report, client has been decompensating rapidly over the past few weeks. History: yes, Client has had multiple past hospitalizations for voluntary and involuntary placements for MH tx. Safety Risk/Harm to Self or Others Current Ideation to Harm Self or Others: Yes to self. (Client reports he is currently endorsing SI, Client reports if he were to gain access to a fire arm he would shoot himself) Intent: yes, has intent. Plan: yes,has a plan. and to others. (Client reports if he were to gain access to firearm he would go on a shooting rampage to get peoples attention. Client reports he would like to shoot some people at [facility].) Intent: yes, has intent to harm others Plan: yes,has a plan. History of becoming violent with another person(any age): no history of violence with others. Risk: Does risk to harm exist?: No Risk: High Risk Duty to warn indicated: No Asssessment/Mental Status Appearance: Disheveled Attitude: Cooperative Behavior: Unremarkable Speech: Pressured Affect: Flat and Cogruent with mood Mood: Sad, Depressed and Anxious Thought process: Loose associations and Tangential Hallucinations: yes, (Client reports hearing multiple voices. The voices are telling him to kill himself.) Auditory Delusions: yes, Persectory/Paranoid Attention: Wandering Perception: Not impaired Orientation: Fully orientated Memory: Intact Insight: Poor Judgement: Poor Neurovegetative Symptoms Sleep: Increase (Client reports since being in ED sleep habits have increased) Appetitie: Increase (Client reports since being in ED eating habits have increased. Client reports eating 3x meals a day) Interests: No change Energy: No change Libido: Not applicable Additional Issues: Assaultive/Threatening Behavior: Yes Medical Concerns: Yes Client engaged in active self harm w/weapon: No Threatening to run away: No Child reported abuse/neglect: No Voluntarily presenting for services: Yes Domestic violence is a concern: No Extreme Psychosis or extreme behavior is present: Yes Impression Prior to screening client this process description writer spoke with NADINE Stoddard and was provided collateral information. Arlyn reports she met with client yesterday evening; client was very friendly/cheerful/insight has improved since restarting his medications. Arlyn reports client has been compliant in taking his medications during his time at [facility]. Arlyn reports client's assigned CM is Larisa. Client is a 62 y/o single male who resides in an apartment in [place], [place] by himself. Client is a long time active member of the [facility] [employer] program. Client reports his MH has improved since being admitted in ED. Client reports his current mood is mad. Clients presented with loose associations and tangential thought process, client was redirected multiple times throughout the duration of screening. Client reports, I am suffering, can't you tell. Client reports hearing multiple voices. Client reports the voices are warning him, telling him not to talk to this process description writer. Client reports, you are trying to put me in retirement. Client denies actively endorsing SI. However it should be noted, client reports on Thursday, 03/14, if he were to gain access to a firearm he would have shot hi mself. This process description writer asked client if he were to gain access to a firearm, if he were to leave the ED today would he plan on using the firearm on himself. Client reports he has intent/plan to act on his SI. Client reports on Wednesday 03/14, he reached out to multiple friends in attempt to gain access to a firearm. Client denies that he currently endorsing HI, however reports on Wednesday 03/14, he planned on gaining access to a fire arm and going on a shooting rampage to get people's attention. Client reports he planned on gunning down multiple [facility] workers. Client then proceeded to ask this worker if he were to hold someone at gun point in his apartment if he would get in trouble. Client denies current/past hx of NSSI. Client is able to identify that he needs help if he is going to be successful. Client will benefit from short term intense inpatient treatment to explore medication management, decrease suicidal/homicidal ideations, and learn coping skills that he can utilize when he is feeling overwhelmed. After screening client this process description writer provided NADINE Mcdonald update on this process description writer's assessment. This process description writer informed CM to outreach to this process description writer if any further clarification was needed. Plan/Disposition Recommended Disposition: Hospitalization facilities contacted. Plan: Client will remain on voluntary status at [facility]. Client was made aware if he were attempt to leave, an EE will be written on his behalf due to his dangerous and threatening behaviors. Person reported agreement to plan: Yes Facilities contacted if Applicable TAM Accepted, Pending review. Information Sent to Tam: [facility] (Full Capacity ) Not accepted, No bed available [facility] Not accepted, No bed available, [facility] Not accepted, No bed available Reports/communication Outcome discussed with: ED/Personnel (NADINE Mcdonald)
--- NOTE | 2022-03-17 15:05 | W.PM.PROGNOT ---
Date of Service Date of service: 03/17/22 Time of Service: 15:05 Assessment and Plan Assessment and plan (1) Suicidal ideations: Status: Acute Assessment and plan: Voluntary admission. tolerating home psychiatric meds Safety plan in place. [facility] very involved with patient and is seeking inpatient treatment. Pt is currently agreeable. (2) Hallucinations: Status: Acute Assessment and plan: Continues to deny hallucinations. Hasn't been compliant with meds, he wouldn't let the mental health workers in to his residence, they left his night time meds outside, he then believed they are poison and didn't take Home quetiapine and olazapine restarted. (3) Schizoaffective disorder, depressive type: Status: Chronic Assessment and plan: As above. (4) Type 2 diabetes mellitus without complication, without long-term current use of insulin: Status: Acute Assessment and plan: Cont metformin 2g daily. Diabetic diet. Random glucose at time of admission was 127. (5) Noncompliance with medication regimen: Status: Acute Assessment and plan: Home meds re-initiated. (6) Other and unspecified hyperlipidemia: Status: Acute Assessment and plan: Atorvastatin 20mg daily. (7) DVT prophylaxis: Status: Acute Assessment and plan: Ambulatory, does not need prophylaxis (8) Discharge planning issues: Status: Acute Assessment and plan: case management and mental health following plan for inpatient psychiatric management discussed with Dr Grove Subjective Subjective Patient reports: no new complaints, feels better, tolerating liquids well, tolerating a regular diet, voiding w/o difficulty and afebrile; denies shortness of breath Exam Const General: cooperative, healthy appearing, comfortable and no acute distress Orientation: alert, awake and oriented x3 [facility] Head: normal to inspection, normocephalic and atraumatic Face and sinus: normal facial exam Mouth: moist mucous membranes Eyes General: appearance normal, both eyes and all related structures Conjunctivae: conjunctivae normal Neck Neck: normal visual inspection, full ROM and supple Resp Effort & Inspection: normal respiratory effort and able to speak in complete sentences Auscultation: clear to auscultation bilaterally Cardio Rate: regular rate Rhythm: regular rhythm GI Palpation: soft and nontender Back/Spine/Pelvis Back: No back tenderness Skin General skin exam: no rashes or lesions noted Neuro General: patient alert, patient awake, patient oriented x3, moves all extremities and no focal motor deficits Speech: speech normal Gait: normal gait Motor: muscle tone normal throughout Sensory Exam: no sensory deficits noted Extrem General: normal to inspection, full ROM and capillary refill normal Psych Appearance: grossly normal Speech and Movement: speech and movement normal Attitude: cooperative Thought Process: normal Thought Content: suicidality Insight: limited Judgment: limited Objective Last Vital Signs Temp 36.3 C L 03/17/22 08:02 Pulse 86 03/17/22 08:02 Resp 18 03/17/22 08:02 BP 109/76 03/17/22 08:02 Pulse Ox 100 03/17/22 08:02
[2022-03-17 15:18] VITALS: BP 102/75; PULSE 96; RESP 22; TEMP 36.8; O2SAT 100
[2022-03-17] MEDS: OLANZapine 5 MG TAB 10 MG PO (20:14)
[2022-03-17] MEDS: Melatonin 3 MG TAB 6 MG PO (20:14)
[2022-03-17] MEDS: QUEtiapine 100 MG TAB 200 MG PO (20:14)
[2022-03-18 04:26] VITALS: BP 105/73; PULSE 90; RESP 20; TEMP 36.9; O2SAT 99
[2022-03-18 07:38] VITALS: BP 105/73; PULSE 87; RESP 18; TEMP 36; O2SAT 100
[2022-03-18] MEDS: Aspirin E.C. 81 MG TABEC PO (08:20)
[2022-03-18] MEDS: metFORMIN 500 MG TAB 2000 MG PO (08:20)
[2022-03-18] MEDS: Lisinopril 10 MG TAB PO (08:20)
[2022-03-18] MEDS: Atorvastatin 20 MG TAB PO (08:20)
[2022-03-18] MEDS: Metoprolol CR 50 MG TABCR PO (08:20)
--- NOTE | 2022-03-18 08:31 | PDOC.CMSAFE ---
- If Service Date Differs Date of service: 03/18/22 Time of Service: 08:32 Care Management Safety Plan Status: Voluntary - Reason for Wait Reason for Wait: Inpatient Admission VOLUNTARY FOR INPATIENT PSYCHIATRIC STABILIZATION. Patient is appropriate in all interactions since arriving at [facility]; Pt has demonstrated appropriate coping and communication skills, has articulated his or her needs and concerns and is fully engaged during staff interactions. Safety plan has been established with patient, and care team, to adhere to patient goals, identify restrictions based on behavioral status, address nutrition, and determine allowed personal belongings, tools for hygiene and personal care. Determine level of activity including ambulation, level of supervision, visitors, and determine privileges based on behaviors and level of engagement by pt. SAFETY PLAN: 1. Will remain on suicide precautions. In Paper Clothes 2. Will remain in room under direct supervision of one-on-one staff at all times provided by [employer]; RICKEY, HVAC MECHANICAL ENGINEER senior information developer. 3. May have paper cups, plates, finger foods as well as a cardboard spoon with which to eat meals. 4. Follow [facility] Management of the Admitted Behavioral Health Patient policy. 5. Comfort bath system, shower permitted with escort at RN discretion. 6. Personal belongings-soft items permitted at RN discretion. 7. Visitors-none at this time. 8. Activities: television, remote and soft cart items approved per RN discretion. 9. Bathroom privileges available in room without limitation on M/S. 10. Phone contact: via cordless phone at RN discretion. 11. Due to VOLUNTARY status, if patient wishes to leave [facility], staff will contact [facility] Crisis Screener ([phone]) and On-Call Full Stack Software Developer ([phone]) as soon as possible. In the event of elopement, notify [facility] Police ([phone]). Patient is currently voluntarily at [facility] and seeking inpatient admission when a bed becomes available. [facility] Frontline Cyber Defense Forensics Analyst will continue seeking placement. Please contact the [place] Supervisor Full Stack Software Developer ([phone]) and [facility] Cyber Defense Forensics Analyst ([phone]) for any needed changes in the Safety Plan. Safety plan has been provided to interdepartmental care team.
--- NOTE | 2022-03-18 09:43 | NUR.NOTE ---
Nursing Note: right wrist abrasion/ scrape cleaned at this time. Skin hydrating cream applied, non stick telfa applied, wrapped with gauze.
--- NOTE | 2022-03-18 14:19 | PGE_ITS ---
Date of Service Date of service: 03/18/22 Time of Service: 14:19 Assessment and Plan Assessment and plan (1) Suicidal ideations: Status: Acute Assessment and plan: Voluntary admission. tolerating home psychiatric meds Safety plan in place. [facility] very involved with patient and is seeking inpatient treatment. Pt is currently agreeable. (2) Hallucinations: Status: Acute Assessment and plan: Continues to deny hallucinations. Hasn't been compliant with meds, he wouldn't let the mental health workers in to his residence, they left his night time meds outside, he then believed they are poison and didn't take Home quetiapine and olazapine restarted. (3) Schizoaffective disorder, depressive type: Status: Chronic Assessment and plan: As above. (4) Type 2 diabetes mellitus without complication, without long-term current use of insulin: Status: Acute Assessment and plan: Cont metformin 2g daily. Diabetic diet. Random glucose at time of admission was 127. (5) Noncompliance with medication regimen: Status: Acute Assessment and plan: Home meds re-initiated. (6) Other and unspecified hyperlipidemia: Status: Acute Assessment and plan: Atorvastatin 20mg daily. (7) DVT prophylaxis: Status: Acute Assessment and plan: Ambulatory, does not need prophylaxis (8) Discharge planning issues: Status: Acute Assessment and plan: case management and mental health following plan for inpatient psychiatric management discussed with Dr Grove Subjective Subjective Patient reports: no new complaints, tolerating liquids well and tolerating a regular diet Interval history since last seen: remains medically stable. Exam Const General: cooperative, healthy appearing, comfortable and no acute distress Orientation: alert, awake and oriented x3 [facility] Head: normal to inspection, normocephalic and atraumatic Face and sinus: normal facial exam Mouth: moist mucous membranes Eyes General: appearance normal, both eyes and all related structures Conjunctivae: conjunctivae normal Neck Neck: normal visual inspection, full ROM and supple Resp Effort & Inspection: normal respiratory effort and able to speak in complete sentences Auscultation: clear to auscultation bilaterally Cardio Rate: regular rate Rhythm: regular rhythm GI Palpation: soft and nontender Back/Spine/Pelvis Back: No back tenderness Skin General skin exam: no rashes or lesions noted Neuro General: patient alert, patient awake, patient oriented x3, moves all extremities and no focal motor deficits Speech: speech normal Gait: normal gait Motor: muscle tone normal throughout Sensory Exam: no sensory deficits noted Extrem General: normal to inspection, full ROM and capillary refill normal Psych Appearance: grossly normal Speech and Movement: speech and movement normal Attitude: cooperative Thought Process: normal Thought Content: suicidality Insight: limited Judgment: limited Objective Last Vital Signs Temp 36.0 C L 03/18/22 07:38 Pulse 87 03/18/22 07:38 Resp 18 03/18/22 07:38 BP 105/73 03/18/22 07:38 Pulse Ox 100 03/18/22 07:38
[2022-03-18] MEDS: QUEtiapine 100 MG TAB 200 MG PO (21:00)
[2022-03-18] MEDS: Melatonin 3 MG TAB 6 MG PO (21:00)
[2022-03-18] MEDS: OLANZapine 5 MG TAB 10 MG PO (21:00)
[2022-03-19] MEDS: Aspirin E.C. 81 MG TABEC PO (08:17)
[2022-03-19] MEDS: Lisinopril 10 MG TAB PO (08:17)
[2022-03-19] MEDS: metFORMIN 500 MG TAB 2000 MG PO (08:17)
[2022-03-19] MEDS: Atorvastatin 20 MG TAB PO (08:17)
[2022-03-19] MEDS: Metoprolol CR 50 MG TABCR PO (08:17)
[2022-03-19 08:34] VITALS: BP 103/71; PULSE 85; RESP 18; TEMP 35.8; O2SAT 100
--- NOTE | 2022-03-19 08:39 | PDOC.CMDIS ---
- If Service Date Differs Date of service: 03/19/22 Time of Service: 08:39 LACE Index Scoring Tool - Questions: Length of Stay (in days): 4 - 6 Acuity (Admit via E.D.?): Yes E.D. Visits: 5 - Answers: Total Score: 11 Risk of Readmission: High Risk Care Management Discharge Reason for Hospitalization: Auditory hallucinations, SI, HI, med non-compliance Discharge Plan: Dave will discharge to [facility] via [facility], coordinated by CM. Patient/Family Education Needs: Review discharge instructions, discuss Ask Me Three. Services Needed at Discharge: Transportation ([facility]) - MH Services (Omit if N/A) Current MH Services: Psychiatric Inp - Disposition Disposition: [place] Transport via [facility] ([facility]
--- NOTE | 2022-03-19 11:11 | DSE_ITS ---
Date of service: 03/19/22 Time of Service: 11:11 DS: Diagnosis Discharge Diagnosis (1) Suicidal ideations: Status: Acute (2) Hallucinations: Status: Acute (3) Schizoaffective disorder, depressive type: Status: Chronic (4) Type 2 diabetes mellitus without complication, without long-term current use of insulin: Status: Acute (5) Noncompliance with medication regimen: Status: Acute (6) Other and unspecified hyperlipidemia: Status: Acute Discharge Plan Disposition Patient Disposition: [facility] Condition: Stable Discharge Details Reason For Visit: Auditory Hallucinations, SI, HI Thoughts, Med. Non Admit Date/Time: 03/14/22 19:08 Admit Provider: Robert Valentin Attending Provider: Robert Valentin Primary Care Provider: Trinh Dupree [facility] Hospital Course: This is a 62 yo male with a history of schizoaffective disorder, diabetes mellitus type 2, hyperlipidemia, and gerd who presented to the ED with concerns of auditory hallucinations, thoughts of self-harm and thoughts of using an assault rifle to shoot [facility] members and making suicidal and homicidal statements to staff.? He has been noncompliant with his medications for 1-2 weeks.? He presented voluntarily and was medically cleared in the ED for psychiatric evaluation. There were no behavioral issues and he was compliant with starting his medication back up, night seroquel increased and melatonin added for insomnia. He remained here on a voluntary hold until a bed acceptance offer from [facility] was made. He will be transported by ground for inpatient treatment. He remains medically stable, no behavioral issues and med compliant. Of note, he was stabilized at [facility] within the last 1 month. He subsequently went to the care bed and then released from there 2 weeks ago.? [facility] is seeking inpatient treatment. discussed with Dr Grove. Home Meds and New Rx's Prescriptions: New melatonin 3 mg Tablet 6 mg PO HS Qty: 0 0RF Continued Probiotic 10 billion cell capsule 10,000 mmu cells PO DAILY olanzapine 15 mg tablet 10 mg PO HS Label Comments: 01/18/19-[facility] update-EO metformin 1,000 mg tablet 2,000 mg PO DAILY Qty: 60 12RF aspirin 81 mg tablet,delayed release (DR/EC) 81 mg PO DAILY Qty: 90 3RF Rx Instructions: cardiovascular prevention atorvastatin 20 mg tablet 20 mg PO DAILY Qty: 90 3RF lisinopril 10 mg tablet 10 mg PO DAILY Qty: 90 0RF metoprolol succinate 50 mg tablet extended release 24 hr 50 mg PO DAILY Qty: 90 0RF Changed quetiapine 100 mg tablet 200 mg PO HS Qty: 0 0RF Rx Instructions: Take two (2) tablets by mouth at bedtime. Discharge Instructions Instructions: Suicide Prevention (DC), Depression (DC) Referrals: Trinh Dupree NP [Primary Care Provider] - (on discharge from inpatient psychiatric hospitalization) Activity:: Activity as Tolerated Diet:: As Tolerated DS: Summary Time Spent with Patient providing and/or coordinating discharge services: Less than 30 minutes Status at Discharge Functional status at discharge: independent ambulation Overall status at discharge: patient is not back to baseline Mental Status: mental status grossly normal Speech and Movement: speech and movement normal Mood: congruent mood Affect: blunted Exam Const General: cooperative, healthy appearing, comfortable and no acute distress Orientation: alert, awake and oriented x3 HENMT Head: normal to inspection, normocephalic and atraumatic Face and sinus: normal facial exam Mouth: moist mucous membranes Eyes General: appearance normal, both eyes and all related structures Conjunctivae: conjunctivae normal Neck Neck: normal visual inspection, full ROM and supple Resp Effort & Inspection: normal respiratory effort and able to speak in complete sentences Auscultation: clear to auscultation bilaterally Cardio Rate: regular rate Rhythm: regular rhythm GI Palpation: soft and nontender Back/Spine/Pelvis Back: No back tenderness Skin General skin exam: no rashes or lesions noted Neuro General: patient alert, patient awake, patient oriented x3, moves all extremities and no focal motor deficits Speech: speech normal Gait: normal gait Motor: muscle tone normal throughout Sensory Exam: no sensory deficits noted Extrem General: normal to inspection, full ROM and capillary refill normal Psych Appearance: grossly normal Mental Status: mental status grossly normal Speech and Movement: speech and movement normal Mood: congruent mood Affect: blunted Attitude: cooperative Thought Process: normal Thought Content: suicidality Insight: limited Judgment: limited DS: Data Vitals/I&O Vitals and I&O: Vital Signs Temperature 35.8 C L 03/19/22 08:34 Temperature Source Tympanic 03/19/22 08:34 Pulse 85 03/19/22 08:34 Pulse Rhythm Regular 03/19/22 09:14 Respiratory Rate 18 03/19/22 08:34 Respiratory Effort Non-Labored 03/19/22 09:14 Respiratory Depth Normal 03/19/22 09:14 Respiratory Pattern Normal 03/19/22 09:14 Blood Pressure 103/71 03/19/22 08:34 Blood Pressure Position Sitting 03/14/22 11:25 Pulse Oximetry 100 03/19/22 08:34 Oxygen Delivery Method Room Air 03/19/22 08:34 Oxygen Flow Rate 0 03/19/22 08:34 Pain Level 0 03/18/22 07:38 Comment 03/19/22 08:34 Intake & Output 03/18/22 03/18/22 03/19/22 11:59 23:59 11:59 Intake Total 400 / 1160 760 / 1160 240 / 240 Balance 400 / 1160 760 / 1160 240 / 240 Intake: Oral 400 / 1160 760 / 1160 240 / 240 Other: Urine Color Yellow Urine Appearance Clear Urine Odor Normal Comment 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 using BR independently w/o complaints Stool Size Moderate Stool Characteristics Soft Voiding Methods Toilet Toilet PFSH All Active Problems (Updated 03/15/22 @ 17:36 by Bernadine Sandoval NP) DVT prophylaxis (Acute) Discharge planning issues (Acute) Noncompliance with medication regimen (Acute) Suicidal ideations (Acute) Hallucinations (Acute) SOB (shortness of breath) (Acute) Routine medical exam (Acute) Encounter for screening laboratory testing for COVID-19 virus (Acute) Encounter for screening laboratory testing for COVID-19 virus (Acute) Schizoaffective disorder, depressive type (Chronic 12/27/13) most recent psych adm 11/2013 [facility] with psychosis, command hallucinations Colonoscopy refused (Acute) Unspecified disorder of liver (Acute) US: 09/2008; FATTY LIVER, ABNL LFT; ALK PHOS, ALT; GI CONSULT 2002, AntiMitrohondrial Ab neg, rec wt loss. 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 Esophageal reflux disease (Acute 09/01/11) RANITIDINE RX Early cataracts, bilateral (Acute 02/09/17) Dr Pizano 12/2016 Abnormal serum creatinine level (Acute 04/13/15) GERD (gastroesophageal reflux disease) (Chronic) Obsessive compulsive disorder (Chronic) Sleep apnea (Chronic) Psychosis (Acute) Suicidal ideation (Acute) Leukocytosis (Chronic) Surgical History Circumcision (02/07/05) Dr Henriquez Vasectomy (05/25/93) Dr Henriquez Family History Mother Asthma onset not known Father , Kidney Failure at age 83. Renal failure onset not known Sister No problems noted. Brother Diabetes onset not known Brother No problems noted. Social History Smoking/Tobacco Use Status: Former Tobacco Use Quit Date: 01/07/18 Tobacco: How many years used: 35 Smoking risk assessment performed?: Yes Alcohol Intake: former Year quit: 1999 Drug use: Never Substance use type: does not use Adopted: No Caregiver/Support person: No Foster care: No Household members: none Housing: apartment Number of Children: 0 Communication Needs: None Do you need help understanding health information?: Often current occupation: [employer] Pets and animals: No Do you think of yourself as: straight/heterosexual Current gender identity: male What is your relationship status?: How often do you talk on the phone with friends or family?: three or more times per week How often do you get together with friends or relatives?: twice per week How often do you attend sabianist or congregation services?: decline to answer Do you belong to any clubs or organized social groups?: no Panel score (0-1 are the most socially isolated patients): 1 What type of physical activity do you participate in: walking Duration: 30-45 minutes/day Frequency: daily Margi/Catholic: Faith Special margi needs: No Drive intox or ride w/intox sales route driver helper: No Do you feel safe at home: Yes Do you feel safe in your relationship?: Yes
== END 2022-03-19 12:47 | disposition short-term general hospital (02) | DRG 885 ==
LOC: ER 19:29 → MS 20:22
PROVIDERS: Physician Assistant; Admitting Provider Family Medicine; Emergency Provider Physician Assistant; PCP Nurse Practitioner; Visit Provider Family Medicine
DX: F25.1 Schizoaffective disorder, depressive type (principal); R45.851 Suicidal ideations; E11.9 Type 2 diabetes mellitus without complications; Z91.14 Patient's other noncompliance with medication regimen; E78.5 Hyperlipidemia, unspecified; R45.850 Homicidal ideations; Z79.84 Long term (current) use of oral hypoglycemic drugs; K76.0 Fatty (change of) liver, not elsewhere classified; Z79.899 Other long term (current) drug therapy; K21.9 Gastro-esophageal reflux disease without esophagitis; F42.9 Obsessive-compulsive disorder, unspecified; Z87.891 Personal history of nicotine dependence
CPT/HCPCS: 36416; 82962; 87635; 99285; 99222; 99232; 99233; 99238

== ENCOUNTER 2022-04-30 03:57 | Outpatient (CLI) | payer MEDICARE, MEDICAID, SELFPAY ==
[2022-04-30 11:47] LABS: Calculated LDL 36 mg/dL (<100); Cholesterol 106 mg/dL (<200); Ferritin 135 ng/mL (26-388); HDL Cholesterol 56 mg/dL (40-60); Triglyceride 72 mg/dL (<150); Vitamin B12 507 pg/mL (193-986)
== END 2022-04-30 03:58 | disposition home or self-care (01) ==
LOC: LBO 03:57
PROVIDERS: Absent Provider Nurse Practitioner; PCP Nurse Practitioner; Visit Provider Nurse Practitioner
DX: R41.3 Other amnesia (principal); E11.9 Type 2 diabetes mellitus without complications; E78.5 Hyperlipidemia, unspecified; K76.0 Fatty (change of) liver, not elsewhere classified; R79.9 Abnormal finding of blood chemistry, unspecified
CPT/HCPCS: 36415; 80061; 82607; 82728

== ENCOUNTER 2022-09-01 01:36 | Outpatient (CLI) | payer MEDICARE, MEDICAID, SELFPAY ==
[2022-09-01 09:15] LABS: Abs Immature Grans 0.02 10^3/uL (0.0-0.06); Absolute Basophil Count 0.07 10^3/uL (0.0-0.2); Absolute Eosinophil Count 0.17 10^3/uL (0.0-0.7); Absolute Monocyte Count 0.52 10^3/uL (0.1-0.8); Absolute Neutrophil Count 4.88 10^3/uL (1.2-6.7); Eosinophils % 2.5; HCT 33.7 % (40.0-50.0); HGB 11.5 g/dL (13.5-17.5); Immature Grans % 0.3; Lymphocytes % 16.3; MCH 30.2 pg (27.0-33.0); MCHC 34.1 % (32.0-36.0); MCV 89 fL (80-95); MPV 8.3 fL (8.0-11.0); Monocytes % 7.7; Neutrophils % 72.2; Platelet Count 185 10^3/uL (130-400); RBC 3.81 10^6/uL (4.36-5.78); RDW 12.7 % (11.8-14.1); RDW-SD 41.2 fL; WBC 6.76 10^3/uL (4.4-10.8)
[2022-09-01 09:35] LABS: ALT 19 U/L (16-63); AST 10 U/L (15-37); Albumin 4.2 g/dL (3.4-5.0); Alkaline Phosphatase 114 U/L (46-116); Anion Gap 6.3 mmol/L (3-11); BUN 17 mg/dL (7-18); Bilirubin, Total 0.4 mg/dL (0.2-1.0); CO2 26.7 mmol/L (21.0-32.0); CREATININE 1.6 mg/dL (0.70-1.30); Calcium 9.3 mg/dL (8.5-10.1); Chloride 100 mmol/L (98-107); Estimated GFR 48.72 (mL/min/1.73m2); Glucose 125 mg/dL (74-106); Potassium 5.3 mmol/L (3.5-5.1); Sodium 133 mmol/L (136-145); Total Protein 7.6 g/dL (6.4-8.2)
[2022-09-01 10:20] LABS: Hemoglobin A1C 6.1 % (<5.7)
== END 2022-09-01 01:37 | disposition home or self-care (01) ==
LOC: LBO 01:36
PROVIDERS: PCP Nurse Practitioner; Visit Provider Nurse Practitioner
DX: E11.9 Type 2 diabetes mellitus without complications (principal); E78.49 Other hyperlipidemia
CPT/HCPCS: 36415; 80053; 83036; 85025

== ENCOUNTER 2022-11-04 10:08 | Emergency (ER) | payer MEDICARE, MEDICAID, SELFPAY ==
[2022-11-04 10:29] VITALS: BP 117/76; PULSE 68; RESP 15; TEMP 37; O2SAT 99
--- NOTE | 2022-11-04 10:55 | ED.GENADUL_ITS ---
Discharge Plan Disposition Condition: Stable Discharge Details Chief Complaint: PsychEval Clinical Impression: Depression Primary Care Provider: Trinh Dupree ED Provider: Wander Tong Home Meds and New Rx's Prescriptions: No Action olanzapine 20 mg tablet 20 mg PO QHS Patient Comments: at OV with new med list from [facility] Probiotic 10 billion cell capsule 10,000 mmu cells PO DAILY olanzapine 10 mg tablet 10 mg PO QAM Patient Comments: 07/21/22 ov with new med list atorvastatin 20 mg tablet 20 mg PO DAILY Qty: 90 3RF metoprolol succinate 50 mg tablet extended release 24 hr 50 mg PO DAILY Qty: 90 3RF lisinopril 10 mg tablet 10 mg PO DAILY Qty: 90 3RF metformin 1,000 mg tablet 2,000 mg PO DAILY Qty: 60 12RF aspirin 81 mg tablet,delayed release (DR/EC) See Rx Instructions .ROUTE .COMPLEX Qty: 28 12RF Dose Instruction: TAKE 1 TABLET BY MOUTH DAILY FOR CARDIOVASCULAR PREVENTION Rx Instructions: TAKE 1 TABLET BY MOUTH DAILY FOR CARDIOVASCULAR PREVENTION melatonin 3 mg Tablet 6 mg PO HS Qty: 0 0RF quetiapine 100 mg tablet 200 mg PO HS Qty: 0 0RF Rx Instructions: Take two (2) tablets by mouth at bedtime. Medical Decision Making 62 yo male with hx of depression comes in with worsening thoughts of self harm. He states he hasn't attempted to harm himself. He was seen by [facility] who is with him and are trying to get him to a care bed and [facility] is with him in the room. Pt is caox4 on arrival, normal gait, normal speech, calm and cooperative with no deficits on neuro exam. Will proceed with screening labs. labs unremarkable, reassessed by mental health and will be seeking voluntary placement Differential Diagnosis Differential Diagnosis: depression, si Medical Records Medical records reviewed: Yes I reviewed the patient's medical records. Lab Data Lab results reviewed: Yes I reviewed the patient's lab results. HPI General Mode of arrival: ambulatory . Date/Time Provider Initiated Documentation: 11/04/22 10:09 . Limitations to Documentation: no limitations . Information obtained by: patient . History of Present Illness 62 year old M presents to the emergency department with the chief complaint of depression/si, described as moderate, Patient started experiencing this day(s) (10) and it has been constant. No relieving factors improve symptom(s), No exacerbating factors reported . Related Data Home Medications Medication Instructions Recorded Confirmed Lactobacillus acidophilus 10 10,000 mmu cells PO DAILY 10/01/21 03/14/22 billion cell capsule (Probiotic) atorvastatin 20 mg tablet 20 mg PO DAILY #90 tabs 01/13/22 11/04/22 melatonin 3 mg tablet 6 mg PO HS #0 tabs 03/19/22 quetiapine 100 mg tablet 200 mg PO HS #0 tabs 03/19/22 02/11/22 lisinopril 10 mg tablet 10 mg PO DAILY #90 tabs 04/15/22 11/04/22 metoprolol succinate 50 mg 50 mg PO DAILY #90 tabs 04/15/22 11/04/22 tablet,extended release 24 hr metformin 1,000 mg tablet 2,000 mg PO DAILY #60 tabs 06/12/22 11/04/22 olanzapine 10 mg tablet 10 mg PO QAM 08/18/22 11/04/22 olanzapine 20 mg tablet 20 mg PO QHS 08/18/22 11/04/22 aspirin 81 mg tablet,delayed See Rx Instructions .Route 10/27/22 11/04/22 release .COMPLEX #28 tabs Previous Rx's Medication Instructions Recorded atorvastatin 20 mg tablet 20 mg PO DAILY #90 tabs 01/13/22 melatonin 3 mg tablet 6 mg PO HS #0 tabs 03/19/22 quetiapine 100 mg tablet 200 mg PO HS #0 tabs 03/19/22 lisinopril 10 mg tablet 10 mg PO DAILY #90 tabs 04/15/22 metoprolol succinate 50 mg 50 mg PO DAILY #90 tabs 04/15/22 tablet,extended release 24 hr metformin 1,000 mg tablet 2,000 mg PO DAILY #60 tabs 06/12/22 aspirin 81 mg tablet,delayed See Rx Instructions .Route 10/27/22 release .COMPLEX #28 tabs Allergies Allergy/AdvReac Type Severity Reaction Status Date / Time No Known Allergies Allergy Verified 08/18/22 10:52 General Stated Complaint: PsychEval SEBASTIEN: 2 Review of Systems All systems reviewed & are unremarkable except as noted in HPI and below Constitutional Constitutional: Denies chills and Denies fever(s) Eyes Eyes: Denies loss of vision ENT Ears, Nose, Mouth, and Throat: Denies change in voice Cardiovascular Cardiovascular: Denies chest pain and Denies dyspnea Respiratory Respiratory: Denies cough and Denies dyspnea Gastrointestinal Gastrointestinal: Denies abdominal pain, Denies nausea and Denies vomiting Neurologic Neurologic: Denies loss of vision PFSH All Active Problems (Updated 11/04/22 @ 15:19 by Wander Tong MD) Depression (Chronic) Noncompliance with medication regimen (Acute) Suicidal ideations (Acute) Hallucinations (Acute) SOB (shortness of breath) (Acute) Routine medical exam (Acute) Encounter for screening laboratory testing for COVID-19 virus (Acute) Encounter for screening laboratory testing for COVID-19 virus (Acute) Schizoaffective disorder, depressive type (Chronic 12/27/13) most recent psych adm 11/2013 [facility] with psychosis, command hallucinations Colonoscopy refused (Acute) Unspecified disorder of liver (Acute) US: 09/2008; FATTY LIVER, ABNL LFT; ALK PHOS, ALT; GI CONSULT 2002, AntiMitr ohondrial Ab neg, rec wt loss. Type 2 diabetes mellitus without complication, without long-term current use of insulin (Acute 12/29/17) Tobacco use disorder, continuous (Acute 09/01/11) FEV1 2.7 in 2003; 1 PPD; longest off 1 yr, 2 wks; stopped 03/27/2015; stopped again 12/13/16 Other prison (current) drug therapy (Acute 12/10/15) olanzapine Other and unspecified hyperlipidemia (Acute 09/01/11) LDL 128, risk 12.9% 04/2015; start statin 03/2015 and [facility] Organic sleep apnea, unspecified (Acute 05/25/99) REPORTS C-PAP SINCE 1999; needs new machine; but unable to get it without new sleep study!; no longer using CPAP 02/2017 Obesity, unspecified (Acute 09/01/11) 150 lb = BMI 25 Fatty liver disease, nonalcoholic (Acute) GGT 247 ; nl Fe/TIBC 03/1999; [place]: 09/2008; FATTY LIVER, ABNL LFT; ALK PHOS, ALT; GI CONSULT 2002, AntiMitrohondrial Ab neg, rec wt loss. Esophageal reflux disease (Acute 09/01/11) RANITIDINE RX Early cataracts, bilateral (Acute 02/09/17) Dr Pizano 12/2016 Abnormal serum creatinine level (Acute 04/13/15) GERD (gastroesophageal reflux disease) (Chronic) Obsessive compulsive disorder (Chronic) Sleep apnea (Chronic) Psychosis (Acute) Suicidal ideation (Acute) Leukocytosis (Chronic) Surgical History Circumcision (02/07/05) Dr Henriquez Vasectomy (05/25/93) Dr Henriquez Family History Mother Asthma onset not known Father , Kidney Failure at age 83. Renal failure onset not known Sister No problems noted. Brother Diabetes onset not known Brother No problems noted. 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 Pets and animals: No Do you think of yourself as: straight/heterosexual Current gender identity: male What is your relationship status?: How often do you talk on the phone with friends or family?: three or more times per week How often do you get together with friends or relatives?: twice per week How often do you attend christianity or baptism services?: decline to answer Do you belong to any clubs or organized social groups?: no Panel score (0-1 are the most socially isolated patients): 1 What type of physical activity do you participate in: walking Duration: 30-45 minutes/day Frequency: daily Margi/Christianity: Sikhism Special margi needs: No Drive intox or ride w/intox tram driver: No Do you feel safe at home: Yes Do you feel safe in your relationship?: Yes Exam Const General: no acute distress Orientation: alert HENMT Head: normal to inspection Ears: external ears normal General nose exam: external nose normal Mouth: moist mucous membranes Eyes General: appearance normal, both eyes and all related structures Neck Neck: normal visual inspection Resp Effort & Inspection: normal respiratory effort and able to speak in complete sentences Cardio Rate: regular rate Skin General skin exam: no rashes or lesions noted Neuro General: patient alert and patient oriented x3 Extrem General: normal to inspection Psych Appearance: well kempt Attitude: cooperative and not belligerent Course Vital Signs Vital signs: Vital Signs Temperature 37.0 C 11/04/22 10:29 Pulse 68 11/04/22 10:29 Respiratory Rate 15 11/04/22 10:29 Blood Pressure 117/76 11/04/22 10:29 Pulse Oximetry 99 11/04/22 10:29 Temperature 37.0 C 11/04/22 10:29 Temperature Source Oral 11/04/22 10:29 Pulse 68 11/04/22 10:29 Respiratory Rate 15 11/04/22 10:29 Respiratory Effort Normal 11/04/22 10:33 Blood Pressure 117/76 11/04/22 10:29 Blood Pressure Position Sitting 11/04/22 10:29 Pulse Oximetry 99 11/04/22 10:29 Oxygen Delivery Method Room Air 11/04/22 10:29 Oxygen Flow Rate 0 11/04/22 10:29 Pain Level 0 11/04/22 10:29
[2022-11-04 11:02] LABS: Bilirubin Negative (Negative); Blood Negative (Negative); Clarity Clear (Clear); Glucose Negative (Negative); Ketones Negative (Negative); Leukocyte Esterase Negative (Negative); Nitrite Negative (Negative); Specific Gravity <= 1.005 (1.005-1.025); Urobilinogen 0.2 mg/dL (Up to 0.2)
[2022-11-04 11:04] LABS: Abs Immature Grans 0.05 10^3/uL (0.0-0.06); Absolute Basophil Count 0.08 10^3/uL (0.0-0.2); Absolute Eosinophil Count 0.18 10^3/uL (0.0-0.7); Absolute Lymphocyte Count 1.09 10^3/uL (1.2-3.4); Absolute Neutrophil Count 6.13 10^3/uL (1.2-6.7); Eosinophils % 2.2; HCT 35.6 % (40.0-50.0); HGB 12.5 g/dL (13.5-17.5); Immature Grans % 0.6; Lymphocytes % 13.4; MCH 31.2 pg (27.0-33.0); MCHC 35.1 % (32.0-36.0); MCV 89 fL (80-95); Monocytes % 7.4; Neutrophils % 75.4; Platelet Count 174 10^3/uL (130-400); RBC 4.01 10^6/uL (4.36-5.78); RDW 13.2 % (11.8-14.1); WBC 8.13 10^3/uL (4.4-10.8)
[2022-11-04 11:16] LABS: *AMPHETAMINES SCREEN URINE Negative (Negative); *BARBITURATES SCREEN URINE Negative (Negative); *BENZODIAZEPINES SCREEN URINE Negative (Negative); Cannabinoids THC Negative (Negative); Cocaine Screen,Urine Negative (Negative); METHADONE URINE SCREEN Negative (Negative); OPIATES URINE SCREEN Negative (Negative)
[2022-11-04 11:21] LABS: Salicylate < 2.8 mg/dL (<2.8)
[2022-11-04 11:23] LABS: Tricyclic Antidepressants Negative (Negative)
[2022-11-04 11:24] LABS: Acetaminophen < 2 ug/mL (10-30)
[2022-11-04 11:33] LABS: ALT 21 U/L (16-63); AST 9 U/L (15-37); Albumin 4.6 g/dL (3.4-5.0); Alkaline Phosphatase 122 U/L (46-116); Anion Gap 5.8 mmol/L (3-11); BUN 12 mg/dL (7-18); Bilirubin, Total 0.5 mg/dL (0.2-1.0); CO2 26.2 mmol/L (21.0-32.0); CREATININE 1.5 mg/dL (0.70-1.30); Calcium 9.2 mg/dL (8.5-10.1); Chloride 98 mmol/L (98-107); ETHANOL BLOOD < 3.0 mg/dL (<10); Estimated GFR 52.64 (mL/min/1.73m2); Glucose 80 mg/dL (74-106); Potassium 4.8 mmol/L (3.5-5.1); Sodium 130 mmol/L (136-145); TSH (W/Ref FT4) 2.05 uIU/mL (0.36-3.74); Total Protein 8.4 g/dL (6.4-8.2)
--- NOTE | 2022-11-04 16:26 | NUR.NOTE ---
Nursing Note:home meds, labs faxed to [facility] care bed
--- NOTE | 2022-11-04 16:27 | W.EDPROG ---
Date of service: 11/04/22 Time of Service: 15:55 Medical Decision Making Patient signed out to me pending voluntary placement for suicidal ideations. Patient resting comfortably in bed with no complaints. 1625-received word from the acute mental health crisis screener whom stated patient was actually excepted at the care bed where he does qualify for placement there given his chronic mental health complaints. Discussed this plan with patient and patient is agreeable to go to the care bed compared to waiting for bed availability for voluntary placement. Given that patient is medically clear and labs were nondiagnostic I do feel that patient is safe for this plan. Sign Out Sign Out Data: Sign Out Comment: depression/si, voluntary, stable during shift Last updated by Wander Tong MD at 11/04/22 15:21 Discharge Plan Disposition Patient Disposition: Other Disposition Not Listed Other Facility: Psychiatric care bed Discharge Details Clinical Impression: Depression, Schizoaffective disorder, depressive type, Suicidal ideations Primary Care Provider: Trinh Dupree ED Provider: Laith Trujillo Home Meds and New Rx's Prescriptions: Continued olanzapine 20 mg tablet 20 mg PO QHS Patient Comments: at OV with new med list from [facility] olanzapine 10 mg tablet 10 mg PO QAM Patient Comments: 07/21/22 ov with new med list atorvastatin 20 mg tablet 20 mg PO DAILY Qty: 90 3RF metoprolol succinate 50 mg tablet extended release 24 hr 50 mg PO DAILY Qty: 90 3RF lisinopril 10 mg tablet 10 mg PO DAILY Qty: 90 3RF metformin 1,000 mg tablet 2,000 mg PO DAILY Qty: 60 12RF aspirin 81 mg tablet,delayed release (DR/EC) See Rx Instructions .ROUTE .COMPLEX Qty: 28 12RF Dose Instruction: TAKE 1 TABLET BY MOUTH DAILY FOR CARDIOVASCULAR PREVENTION Rx Instructions: TAKE 1 TABLET BY MOUTH DAILY FOR CARDIOVASCULAR PREVENTION Discontinued Probiotic 10 billion cell capsule 10,000 mmu cells PO DAILY Patient Comments: No longer taking 11/04/22 CT melatonin 3 mg Tablet 6 mg PO HS Qty: 0 0RF Patient Comments: No longer taking 11/04/22 CT quetiapine 100 mg tablet 200 mg PO HS Qty: 0 0RF Patient Comments: No longer taking 11/04/22 CT Rx Instructions: Take two (2) tablets by mouth at bedtime. Discharge Instructions Instructions: Depression (ED) Additional Instructions: At this time you have been medically cleared to go to the acute care bed to help with your depression and suicidal thoughts. If you have any new or significant worsening of symptoms please return to the emergency department for reassessment and reconsideration of voluntary in placement admission if needed. Otherwise continue to follow-up with your psychiatric team as needed. Referrals: [facility] [Outside] Discharge Data Discharge Date/Time-TO BE ENTERED AT DEPARTURE: 11/04/22 16:47
== END 2022-11-04 16:47 | disposition other institution (70) ==
PROVIDERS: Emergency Medicine; Emergency Provider Nurse Practitioner Family; PCP Nurse Practitioner
DX: F32.A Depression, unspecified (principal); F25.1 Schizoaffective disorder, depressive type; R45.851 Suicidal ideations; Z79.899 Other long term (current) drug therapy
CPT/HCPCS: 36415; 80053; 80307; 99285; 80320; 80329; 81003; 84443; 85025

== ENCOUNTER 2023-06-22 11:20 | Emergency (ER) | payer MEDICARE, MEDICAID, SELFPAY ==
[2023-06-22 11:20] VITALS: BP 137/84; PULSE 85; RESP 17; TEMP 36.4; O2SAT 99
--- NOTE | 2023-06-22 13:07 | W.ED.GENAD ---
HPI General Date/Time Provider Initiated Documentation: 06/22/23 12:00. Limitations to Documentation: no limitations. Information obtained by: patient. HPI Narrative: 63-year-old gentleman with past medical history of type 2 diabetes, psychosis presents for evaluation of medication noncompliance, auditory hallucinations. Patient reports that he stopped taking the medication at some point because the elders in his strokes told him that he does not need medication. He states that he hears voices in his head and that the voices tell him that if he goes outside and hangs himself from a tree the patient will come down from [facility] and take him. He also states that if he goes up onto the roof top, causing chills will be able to find him better. He states that they told him to lay in a bathtub and cut his wrists so that he can meet this patient. He has no thoughts about hurting other people. He states that he has not been sleeping well. He states that he cannot go to sleep. He states that he has only had a few hours of sleep this week. He states that he has been trying to eat and drink normally. Denies any alcohol or drug use. Related Data Home Medications Medication Instructions Recorded Confirmed olanzapine 10 mg tablet 10 mg PO QAM 08/18/22 06/22/23 olanzapine 20 mg tablet 20 mg PO QHS 08/18/22 06/22/23 aspirin 81 mg tablet,delayed See Rx Instructions .Route 10/27/22 06/22/23 release .COMPLEX #28 tabs atorvastatin 20 mg tablet 20 mg PO DAILY #90 tabs 12/22/22 06/22/23 lisinopril 10 mg tablet 10 mg PO DAILY #90 tabs 02/18/23 06/22/23 metformin 1,000 mg tablet 2,000 mg (2 x 1,000 mg) PO DAILY 02/18/23 06/22/23 #60 tabs metoprolol succinate 50 mg 50 mg PO DAILY #90 tabs 02/18/23 06/22/23 tablet,extended release 24 hr Previous Rx's Medication Instructions Recorded aspirin 81 mg tablet,delayed See Rx Instructions .Route 10/27/22 release .COMPLEX #28 tabs atorvastatin 20 mg tablet 20 mg PO DAILY #90 tabs 12/22/22 lisinopril 10 mg tablet 10 mg PO DAILY #90 tabs 02/18/23 metformin 1,000 mg tablet 2,000 mg (2 x 1,000 mg) PO DAILY 02/18/23 #60 tabs metoprolol succinate 50 mg 50 mg PO DAILY #90 tabs 02/18/23 tablet,extended release 24 hr Allergies Allergy/AdvReac Type Severity Reaction Status Date / Time No Known Allergies Allergy Verified 06/22/23 11:54 General Stated Complaint: PsychEval SEBASTIEN: 2 Exam Narrative Exam Narrative: Review of Systems: All systems reviewed & are unremarkable except as noted in HPI and below Well-developed, no acute distress NCAT PERRL, normal conjunctiva RRR Unlabored respiratory effort Nondistended abdomen Extremities w/o deformity, no cyanosis, no edema No rashes or lesions. no focal neurologic deficits + Hallucinating, responding to internal stimuli Course Vital Signs Vital signs: Vital Signs Temperature 36.4 C 06/22/23 11:20 Pulse 85 06/22/23 11:20 Respiratory Rate 17 06/22/23 11:20 Blood Pressure 137/84 06/22/23 11:20 Pulse Oximetry 99 06/22/23 11:20 Temperature 36.4 C 06/22/23 11:20 Temperature Source Oral 06/22/23 11:20 Pulse 85 06/22/23 11:20 Respiratory Rate 17 06/22/23 11:20 Respiratory Effort Normal 06/22/23 11:25 Blood Pressure 137/84 06/22/23 11:20 Blood Pressure Position Sitting 06/22/23 11:20 Pulse Oximetry 99 06/22/23 11:20 Oxygen Delivery Method Room Air 06/22/23 11:20 Oxygen Flow Rate 0 06/22/23 11:20 Medical Decision Making Emergent evaluation of psychosis. Initial differential includes medication noncompliance, polysubstance abuse less likely, unlikely encephalopathy or other organic disorder. Patient medically cleared per the smart clearance form. He was evaluated by mental health services in the emergency department, and they feel he would benefit from inpatient hospitalization. Patient is amenable to staying. Will restart his home medications. Referrals for placement have been sent. They will reassess him tomorrow. Medical Records Medical records reviewed: Yes I reviewed the patient's medical records. Lab Data Lab results reviewed: Yes I reviewed the patient's lab results. Quality:SDOH Health Related Social Needs: No Data to Display PFSH All Active Problems (Updated 12/05/22 @ 00:06 by SHERI ALLEN) Noncompliance with medication regimen (Acute) Suicidal ideations (Acute) Hallucinations (Acute) SOB (shortness of breath) (Acute) Routine medical exam (Acute) Encounter for screening laboratory testing for COVID-19 virus (Acute) Encounter for screening laboratory testing for COVID-19 virus (Acute) Schizoaffective disorder, depressive type (Chronic 12/27/13) most recent psych adm 11/2013 [facility] with psychosis, command hallucinations Colonoscopy refused (Acute) Unspecified disorder of liver (Acute) US: 09/2008; FATTY LIVER, ABNL LFT; ALK PHOS, ALT; GI CONSULT 2002, AntiMitrohondrial Ab neg, rec wt loss. Type 2 diabetes mellitus without complication, without long-term current use of insulin (Acute 12/29/17) Tobacco use disorder, continuous (Acute 09/01/11) FEV1 2.7 in 2003; 1 PPD; longest off 1 yr, 2 wks; stopped 03/27/2015; stopped again 12/13/16 Other assisted (current) drug therapy (Acute 12/10/15) olanzapine Other and unspecified hyperlipidemia (Acute 09/01/11) LDL 128, risk 12.9% 04/2015; [place] 03/[place] [facility] Organic sleep apnea, unspecified (Acute 05/25/99) REPORTS C-PAP SINCE 1999; needs new machine; but unable to get it without new sleep study!; no longer using CPAP 02/2017 Obesity, unspecified (Acute 09/01/11) 150 lb = BMI 25 Fatty liver disease, nonalcoholic (Acute) GGT 247 ; nl Fe/TIBC 03/1999; US: 09/2008; FATTY LIVER, ABNL LFT; ALK PHOS, ALT; GI CONSULT 2002, AntiMitrohondrial Ab neg, rec wt loss. Esophageal reflux disease (Acute 09/01/11) RANITIDINE RX Early cataracts, bilateral (Acute 02/09/17) Dr Pizano 12/2016 Abnormal serum creatinine level (Acute 04/13/15) GERD (gastroesophageal reflux disease) (Chronic) Obsessive compulsive disorder (Chronic) Sleep apnea (Chronic) Psychosis (Acute) Suicidal ideation (Acute) Leukocytosis (Chronic) Surgical History Circumcision (02/07/05) Dr Henriquez Vasectomy (05/25/93) Dr Henriquez Family History Mother Asthma onset not known Father , Kidney Failure at age 83. Renal failure onset not known Sister No problems noted. Brother Diabetes onset not known Brother No problems noted. 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 Pets and animals: No Do you think of yourself as: straight/heterosexual Current gender identity: male What is your relationship status?: How often do you talk on the phone with friends or family?: three or more times per week How often do you get together with friends or relatives?: twice per week How often do you attend christian or confucianism services?: decline to answer Do you belong to any clubs or organized social groups?: no Panel score (0-1 are the most socially isolated patients): 1 What type of physical activity do you participate in: walking Duration: 30-45 minutes/day Frequency: daily Margi/Restorationism: Anglican Special margi needs: No Drive intox or ride w/intox otr company truck driver: No Do you feel safe at home: Yes Do you feel safe in your relationship?: Yes Discharge Plan Discharge Details Chief Complaint: PsychEval Primary Care Provider: Trinh Dupree ED Provider: Sachin Jimenez Home Meds and New Rx's Prescriptions: No Action olanzapine 20 mg tablet 20 mg PO QHS Patient Comments: at OV with new med list from [facility] olanzapine 10 mg tablet 10 mg PO QAM Patient Comments: 07/21/22 ov with new med list lisinopril 10 mg tablet 10 mg PO DAILY Qty: 90 3RF metoprolol succinate 50 mg tablet extended release 24 hr 50 mg PO DAILY Qty: 90 3RF metformin 1,000 mg tablet 2,000 mg PO DAILY Qty: 60 12RF aspirin 81 mg tablet,delayed release (DR/EC) See Rx Instructions .ROUTE .COMPLEX Qty: 28 12RF Dose Instruction: TAKE 1 TABLET BY MOUTH DAILY FOR CARDIOVASCULAR PREVENTION Rx Instructions: TAKE 1 TABLET BY MOUTH DAILY FOR CARDIOVASCULAR PREVENTION atorvastatin 20 mg tablet 20 mg PO DAILY Qty: 90 3RF
--- NOTE | 2023-06-22 16:24 | PDOC.MHCN ---
Date of service: 06/22/23 Time of Service: 16:24 PHQ-9 Over the last 2 weeks, how often have you been bothered by any of the following problems? 1. Little interest or pleasure in doing things: nearly every day 2. Feeling down, depressed, or hopeless: nearly every day 3. Trouble falling or staying asleep, or sleeping too much: more than half the days 4. Feeling tired or having little energy: nearly every day 5. Poor appetite or overeating: nearly every day 6. Feeling bad about yourself - or that you are a failure or have let yourself and your family down: nearly every day 7. Trouble concentrating on things, such as reading the newspaper or watching television: several days 8. Moving or speaking so slowly that other people could have noticed? - Or the opposite - being so fidgety or restless that you have been moving around a lot more than usual: nearly every day 9. Thoughts that you would be better off or of hurting yourself in some way: nearly every day Total score: 24 If you checked off any problems, how difficult have these problems made it for you to do your work, take care of things at home, or get along with other people?: very difficult Source: Developed by Drs. Milton Gray, Norma Samuel, Denzel Sutherland and colleagues, with an educational nga from [employer]. Suicide Severity Rate CSSRS Have you wished you were or wished you could go to sleep and not wake up?: Yes Have you actually had any thoughts of killing yourself?: Yes CSSRS2 Have you been thinking about how you might do this?: Yes Have you had these thoughts and had some intention of acting on them?: Yes Have you started to work out or worked out the details of how to kill yourself? Do you intend to carry out this plan?: Yes CSSRS3 Have you ever done anything, started to do anything or prepared to do anything to end your life?: Yes CSSRS4 Was this within the past three months?: No Screening Score Total Score: 6 Screening: Positive Mental Health Emergency Note Release [facility] release signed:: Yes Reason for Visit The client arrived to the ED via [facility]. 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 He has had numerous hospitalizations previous to today and his last higher level of intervention was at the [facility] Bed in January 2023. The client was last seen by his team this am when they decided to call for an ambulance ride to the ED for assessment. In the last 2 weeks has the pt presented for ES prior to today?: Unknown Client Information Client is: TRUST CLERK Well Housed: Yes Non Suicidal Self Injury Current: No History: No Safety Risk/Harm to Self or Others Current Ideation to Harm Self or Others: Yes to self. Intent: yes, has intent. Plan: yes,has a plan. History of suicide attempt: yes,history of suicide attempt reported. Details of previous suicide attempt: hanging Risk: Does risk to harm exist?: yes. Risk: High Risk Duty to warn indicated: No Asssessment/Mental Status Appearance: Disheveled Attitude: Cooperative Behavior: Other (distracted by hallucinations ) Speech: Normal Affect: Flat and Cogruent with mood Mood: Depressed and Anxious Thought process: Flight of ideas Hallucinations: yes, Visual and Auditory Delusions: yes, Yazidism and Persectory/Paranoid Attention: Poor concentration Perception: Not impaired Orientation: Disoriented in Time and Person Memory: Impaired in: Immediate, Recent and Remote Insight: Fair Judgement: Fair Neurovegetative Symptoms Sleep: Decrease Appetitie: Decrease Interests: Decrease Energy: Decrease Libido: Not applicable Substance Use: Do you use nicotine?: No Have you used substances in the last 7 days?: No Additional Issues: Assaultive/Threatening Behavior: No Medical Concerns: No Client engaged in active self harm w/weapon: No Threatening to run away: No Child reported abuse/neglect: No Voluntarily presenting for services: Yes Domestic violence is a concern: No Extreme Psychosis or extreme behavior is present: No Impression The client is a 63 year old, single, , Heterosexual male who lives independently in [facility]. 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 He follows a Jewish jae. These underrepresented categories were used during his assessment. The client did complete the CSSRS however, CAM's could not be offered as this clinician is not trained. The [facility] Bed was considered however, due to the client noting that he had intent and a plan to hang himself today in the [place] with his belt it was agreed that he would need a little more of a controlled environment until he was more stable back on his medications and the CARE Bed could be resisted upon discharge from a hospital setting. The client reported that he also had a plan to slit his wrist and lie in the bathtub. He reported the voices are telling him to do this. In addition, believed that a spaceship was going to come down and take him to [facility] after. The client asked during triage if they could take him to the roof so that the spaceship could pick him up and take him to [facility]. He stated that some people from orthodox told him to stop taking his medications because this was a demonic thing. It is this clinician's belief that this may be a delusion and not factual information. He identified natural and professional supports. He reported he is good at comforting and supporting others. He reported his need is to be somewhere safe and stable on his medications. He also showed some insight to report that he is aware based on previous conversations with med providers and staff that the more times he goes off his meds and he falls deeper into his breaks the harder it will be to get him back to baseline and that there may be a point that this is not able to happen. Plan/Disposition Recommended Disposition: Hospitalization facilities contacted. Plan: The client is seeking a voluntary placement and is willing to stay voluntarily to seek that treatment. He will be re-assessed daily by [facility] until placement is found. Person reported agreement to plan: Yes Facilities contacted if Applicable [facility] Not [facility], Other [facility] Not accepted, Other [facility] Not accepted, Other, [facility] Not accepted, Other Reports/communication Outcome discussed with: ED/Personnel
[2023-06-22] MEDS: metFORMIN 500 MG TAB 1000 MG PO (16:37)
--- NOTE | 2023-06-22 16:41 | CMSP_ITS ---
Date of service: 06/22/23 Time of Service: 16:41 Care Management Safety Plan Status Status: Voluntary Reason for Wait Reason for Wait: Inpatient Admission Safety Plan Safety Plan: VOLUNTARY FOR INPATIENT PSYCHIATRIC STABILIZATION.? Patient is appropriate in all interactions since arriving at [facility]; Pt has demonstrated appropriate coping and communication skills, has articulated his or her needs and concerns and is fully engaged during staff interactions. Safety plan has been established with patient, and care team, to adhere to patient goals, identify restrictions based on behavioral status, address nutrition, and determine allowed personal belongings, tools for hygiene and personal care. Determine level of activity including ambulation, level of superv ision, visitors, and determine privileges based on behaviors and level of engagement by pt. SAFETY PLAN: 1. Will remain on suicide precautions, in paper clothes 2. Will remain in Zone B under direct supervision of one-on-one staff at all times provided by [employer]; RICKEY, HISTORY CARD CLERK supervisor grading. 3. May have paper cups, plates, finger foods as well as a cardboard spoon with which to eat meals. 4. Follow [facility] Management of the Admitted Behavioral Health Patient policy. 5. Shower available in Zone B without restriction. 6. Personal belongings-soft items permitted at RN discretion. 7. Visitors-none at this time. 8. Activities: soft cart items approved per RN discretion. 9.? Bathroom available in Zone B without restriction. 10. Phone: limited to [facility] cordless phone at RN discretion. Due to VOLUNTARY status, if patient wishes to leave [facility], staff will contact [facility] Crisis Screener ([phone]) and On-Call Physician Executive ([phone]) as soon as possible. In the event of elopement, notify [facility] Police ([phone]). Patient is currently voluntarily at [facility] and seeking inpatient admission when a bed becomes available. [facility] Frontline Control Tower Operator will continue seeking placement. Please contact the Asset Accountant Physician Executive ([phone]) and [facility] Control Tower Operator ([phone]) for any needed changes in the Safety Plan. Safety plan has been provided to interdepartmental care team.
--- NOTE | 2023-06-22 16:41 | PDOC.CMSAFE ---
Date of service: 06/22/23 Time of Service: 16:41 Care Management Safety Plan Status Status: Voluntary Reason for Wait Reason for Wait: Inpatient Admission Safety Plan Safety Plan: VOLUNTARY FOR INPATIENT PSYCHIATRIC STABILIZATION.? Patient is appropriate in all interactions since arriving at [facility]; Pt has demonstrated appropriate coping and communication skills, has articulated his or her needs and concerns and is fully engaged during staff interactions. Safety plan has been established with patient, and care team, to adhere to patient goals, identify restrictions based on behavioral status, address nutrition, and determine allowed personal belongings, tools for hygiene and personal care. Determine level of activity including ambulation, level of supervision, visitors, and determine privileges based on behaviors and level of engagement by pt. SAFETY PLAN: 1. Will remain on suicide precautions, in paper clothes 2. Will remain in Zone B under direct supervision of one-on-one staff at all times provided by [employer]; RICKEY, SPREADER brakes inspector. 3. May have paper cups, plates, finger foods as well as a cardboard spoon with which to eat meals. 4. Follow [facility] Management of the Admitted Behavioral Health Patient policy. 5. Shower available in Zone B without restriction. 6. Personal belongings-soft items permitted at RN discretion. 7. Visitors-none at this time. 8. Activities: soft cart items approved per RN discretion. 9.? Bathroom available in Zone B without restriction. 10. Phone: limited to [facility] cordless phone at RN discretion. Due to VOLUNTARY status, if patient wishes to leave [facility], staff will contact [facility] Crisis Screener ([phone]) and On-Call Preventive Medicine Physician ([phone]) as soon as possible. In the event of elopement, notify [facility] Police ([phone]). Patient is currently voluntarily at [facility] and seeking inpatient admission when a bed becomes available. [facility] Frontline Blood Bank Worker will continue seeking placement. Please contact the Metal Patternmaker Preventive Medicine Physician ([phone]) and [facility] Blood Bank Worker ([phone]) for any needed changes in the Safety Plan. Safety plan has been provided to interdepartmental care team.
--- NOTE | 2023-06-22 17:39 | ED.PROG_ITS ---
Date of service: 06/22/23 Time of Service: 17:40 Medical Decision Making I received signout on this 63-year-old man with schizophrenia and auditory command hallucinations. He has been off of his medications. He is medically cleared. His home medications have been ordered. He has been evaluated by [facility] human services and they are seeking voluntary placement. Will update documentation as clinically warranted and sign patient out to the oncoming overnight provider. 10:30 PM No active behavioral issues my shift. Will sign patient out to overnight provider. Quality:[facility] Health Related Social Needs: No Data to Display Sign Out Sign Out Data: Sign Out Comment: 63M with schizophrenia + auditory command hallucinations stopped taking meds because mosque elders told him not to voices telling him to kill himself so that god's space ship can come take him to [facility]. medically cleared meds ordered eval'd by [facility]> voluntary inpatient pending placement Last updated by Sachin Jimenez MD at 06/22/23 16:09 Discharge Plan Discharge Details Chief Complaint: PsychEval Primary Care Provider: Trinh Dupree ED Provider: Ravi Miller Home Meds and New Rx's Prescriptions: No Action olanzapine 20 mg tablet 20 mg PO QHS Patient Comments: at OV with new med list from [facility] olanzapine 10 mg tablet 10 mg PO QAM Patient Comments: 07/21/22 ov with new med list lisinopril 10 mg tablet 10 mg PO DAILY Qty: 90 3RF metoprolol succinate 50 mg tablet extended release 24 hr 50 mg PO DAILY Qty: 90 3RF metformin 1,000 mg tablet 2,000 mg PO DAILY Qty: 60 12RF aspirin 81 mg tablet,delayed release (DR/EC) See Rx Instructions .ROUTE .COMPLEX Qty: 28 12RF Dose Instruction: TAKE 1 TABLET BY MOUTH DAILY FOR CARDIOVASCULAR PREVENTION Rx Instructions: TAKE 1 TABLET BY MOUTH DAILY FOR CARDIOVASCULAR PREVENTION atorvastatin 20 mg tablet 20 mg PO DAILY Qty: 90 3RF
[2023-06-22] MEDS: Atorvastatin 20 MG TAB PO (20:16)
[2023-06-22] MEDS: OLANZapine 10 MG TAB 20 MG PO (21:43)
--- NOTE | 2023-06-22 23:16 | W.EDPROG ---
Date of service: 06/22/23 Time of Service: 23:16 Medical Decision Making This patient was signed out to me. Please see previous notes for H&P and initial eval. In brief, 63yo M with SI, command hallucinations, plan to hang himself or cut his wrists. Presents voluntarily; [facility] recommends inpatient treatment. Medically cleared, home meds ordered. Pending placement. Overnight appeared to be sleeping. Did not awaken patient for assessment. Signed out to oncoming physician, plan remains as above. Quality:[facility] Health Related Social Needs: No Data to Display Sign Out Sign Out Data: Sign Out Comment: 63M with schizophrenia + auditory command hallucinations stopped taking meds because taoism elders told him not to voices telling him to kill himself so that god's space ship can come take him to [facility]. medically cleared meds ordered eval'd by [facility]> voluntary inpatient pending placement Last updated by Sachin Jimenez MD at 06/22/23 16:09 Sign Out Comment: 63-year-old male history of schizophrenia with auditory command hallucinations medically cleared. Has been voluntarily taking meds. Pending placement. No behavioral issues/shift. Last updated by Ravi Miller MD at 06/22/23 22:29 Sign Out Comment: 63yo M hx schizophrenia presented with SI, command hallucinations, voluntary. [facility] rec inpatient. Medically cleared, home meds ordered, pending placement. Last updated by Shruthi Morris MD at 06/23/23 03:58 Discharge Plan Discharge Details Chief Complaint: PsychEval Primary Care Provider: Trinh Dupree ED Provider: Shruthi Morris Home Meds and New Rx's Prescriptions: No Action olanzapine 20 mg tablet 20 mg PO QHS Patient Comments: at OV with new med list from [facility] olanzapine 10 mg tablet 10 mg PO QAM Patient Comments: 07/21/22 ov with new med list lisinopril 10 mg tablet 10 mg PO DAILY Qty: 90 3RF metoprolol succinate 50 mg tablet extended release 24 hr 50 mg PO DAILY Qty: 90 3RF metformin 1,000 mg tablet 2,000 mg PO DAILY Qty: 60 12RF aspirin 81 mg tablet,delayed release (DR/EC) See Rx Instructions .ROUTE .COMPLEX Qty: 28 12RF Dose Instruction: TAKE 1 TABLET BY MOUTH DAILY FOR CARDIOVASCULAR PREVENTION Rx Instructions: TAKE 1 TABLET BY MOUTH DAILY FOR CARDIOVASCULAR PREVENTION atorvastatin 20 mg tablet 20 mg PO DAILY Qty: 90 3RF
[2023-06-23 07:39] VITALS: BP 123/79; PULSE 94; RESP 16; TEMP 36.6; O2SAT 99
[2023-06-23] MEDS: Lisinopril 10 MG TAB PO (07:48)
[2023-06-23] MEDS: OLANZapine 10 MG TAB PO (07:48)
[2023-06-23] MEDS: metFORMIN 500 MG TAB 1000 MG PO (07:48)
[2023-06-23] MEDS: Aspirin 81 MG CHEW PO (07:48)
[2023-06-23 14:01] LABS: Bilirubin Negative (Negative); Blood Negative (Negative); Clarity Clear (Clear); Glucose Negative (Negative); Ketones Negative (Negative); Leukocyte Esterase Negative (Negative); Nitrite Negative (Negative); Specific Gravity <= 1.005 (1.005-1.025); Urobilinogen 0.2 mg/dL (Up to 0.2); pH 5.5 (5-8)
--- NOTE | 2023-06-23 14:05 | PDOC.MHPN2 ---
Date of service: 06/23/23 Time of Service: 14:05 PHQ-9 Over the last 2 weeks, how often have you been bothered by any of the following problems? 1. Little interest or pleasure in doing things: nearly every day 2. Feeling down, depressed, or hopeless: nearly every day 3. Trouble falling or staying asleep, or sleeping too much: more than half the days 4. Feeling tired or having little energy: nearly every day 5. Poor appetite or overeating: nearly every day 6. Feeling bad about yourself - or that you are a failure or have let yourself and your family down: nearly every day 7. Trouble concentrating on things, such as reading the newspaper or watching television: several days 8. Moving or speaking so slowly that other people could have noticed? - Or the opposite - being so fidgety or restless that you have been moving around a lot more than usual: nearly every day 9. Thoughts that you would be better off or of hurting yourself in some way: nearly every day Total score: 24 If you checked off any problems, how difficult have these problems made it for you to do your work, take care of things at home, or get along with other people?: very difficult Source: Developed by Drs. Milton Gray, Norma Samuel, Denzel Sutherland and colleagues, with an educational nga from [employer]. Suicide Severity Rate CSSRS Have you wished you were or wished you could go to sleep and not wake up?: Yes Have you actually had any thoughts of killing yourself?: Yes CSSRS2 Have you been thinking about how you might do this?: Yes Have you had these thoughts and had some intention of acting on them?: Yes Have you started to work out or worked out the details of how to kill yourself? Do you intend to carry out this plan?: Yes CSSRS3 Have you ever done anything, started to do anything or prepared to do anything to end your life?: Yes CSSRS4 Was this within the past three months?: No Screening Score Total Score: 6 Screening: Positive Mental Health Emergency Note Release [facility] release signed:: Yes Reason for Visit The client arrived to the ED via [facility] on 06.22.22. 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 He has had numerous hospitalizations previous to today and his last higher level of intervention was at the [facility] Bed in January 2023. The client was last seen by his team and this clinician for assessment on 06.22.23. In the last 2 weeks has the pt presented for ES prior to today?: Unknown Impression The client is a 63 year old, single, , Heterosexual male who lives independently in [facility]. 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 He follows a [employer] jae. These underrepresented categories were used during his assessment. The client did complete the CSSRS however, CAM's could not be offered as this clinician is not trained. The [facility] Bed was considered however, due to the client noting that he had intent and a plan to hang himself today in the [place] with his belt it was agreed that he would need a little more of a controlled environment until he was more stable back on his medications and the CARE Bed could be resisted upon discharge from a hospital setting. Today the client presents with some confusion the date he stated is June 2020, The same year as my car. At the same time he recognizes this clinician and is consistent with this clinician's name through the assessment. He however, got some sleep, and started taking his medications again and inquired if he could please go to the CARE Bed instead of a hospital because I've been institutionalized so many times and the CARE Bed is more homy and I would feel more comfortable there. He reported not having any memories of events yesterday it's like my memory was erased. He denied SI and HI noting that the voices are still telling him to not take his medications but he believes with the support of the CARE Bed he can get back on track and not listen to the voices. He reported that he work early however staff reported he slept fine. He is eating well. Collateral conversations were had with the CARE Bed as well as his major case detective and ED staff. A referral will be put in for the CARE Bed and he should be able to be accepted today. Plan/Disposition Recommended Disposition: Crisis bed, facility contacted. Status of Crisis Bed acceptance: Accepted/transfer pending. Plan: The client will be admitted to the CARE Bed today. Person reported agreement to plan: Yes Reports/communication Outcome discussed with: ED/Personnel
--- NOTE | 2023-06-23 14:41 | CMSP_ITS ---
Date of service: 06/23/23 Time of Service: 14:41 Care Management Safety Plan Status Status: Voluntary Reason for Wait Reason for Wait: Inpatient Admission Safety Plan Safety Plan: VOLUNTARY FOR INPATIENT PSYCHIATRIC STABILIZATION.? Patient is appropriate in all interactions since arriving at [facility]; Pt has demonstrated appropriate coping and communication skills, has articulated his or her needs and concerns and is fully engaged during staff interactions. Safety plan has been established with patient, and care team, to adhere to patient goals, identify restrictions based on behavioral status, address nutrition, and determine allowed personal belongings, tools for hygiene and personal care. Determine level of activity including ambulation, level of supervision, visitors, and determine privileges based on behaviors and level of engagement by pt. SAFETY PLAN: 1. Will remain on suicide precautions, in paper clothes 2. Will remain in Zone B under direct supervision of one-on-one staff at all times provided by [employer]; RICKEY, WANT AD CLERK decorator lighting fixtures. 3. May have paper cups, plates, finger foods as well as a cardboard spoon with which to eat meals. 4. Follow [facility] Management of the Admitted Behavioral Health Patient policy. 5. Shower available in Zone B without restriction. 6. Personal belongings-soft items permitted at RN discretion. 7. Visitors-none at this time, at RN discretion. 8. Activities: soft cart items approved per RN discretion. 9.? Bathroom available in Zone B without restriction. 10. Phone: limited to [facility] cordless phone at RN discretion. Due to VOLUNTARY status, if patient wishes to leave [facility], staff will contact [facility] Crisis Screener ([phone]) and On-Call Band And Cuff Cutter ([phone]) as soon as possible. In the event of elopement, notify [facility] Police ([phone]). Patient is currently voluntarily at [facility] and seeking inpatient admission when a bed becomes available. [facility] Frontline Mixing Engineer will continue seeking placement. Please contact the Reimbursement Liaison Band And Cuff Cutter ([phone]) and [facility] Mixing Engineer ([phone]) for any needed changes in the Safety Plan. Safety plan has been provided to interdepartmental care team.
--- NOTE | 2023-06-23 14:54 | ED.PROG_ITS ---
Date of service: 06/23/23 Time of Service: 14:54 Medical Decision Making Patient was stable throughout the stay. Patient was reassessed by mental health, and at this time they feel that the patient is an ideal candidate for the care bed. Patient agrees with this plan. Patient is otherwise stable. No other interventions needed. I have extensively reviewed the treatment plan and discharge instructions with the patient. I have addressed all patient concerns at this time. The patient was made aware of what symptoms to monitor for that would warrant a return to the emergency department. Discussed the plan with the patient, they demonstrate verbal understanding and agreement with our assessment and plan at this time. The documentation in this chart was dictated using [employer] dictation software. Please excuse any dictation errors. Quality:[facility] Health Related Social Needs: No Data to Display Sign Out Sign Out Data: Sign Out Comment: 63M with schizophrenia + auditory command hallucinations stopped taking meds because roman catholic elders told him not to voices telling him to kill himself so that god's space ship can come take him to [facility]. medically cleared meds ordered eval'd by [facility]> voluntary inpatient pending placement Last updated by Sachin Jimenez MD at 06/22/23 16:09 Sign Out Comment: 63-year-old male history of schizophrenia with auditory command hallucinations medically cleared. Has been voluntarily taking meds. Pending placement. No behavioral issues/shift. Last updated by Ravi Miller MD at 06/22/23 22:29 Sign Out Comment: 63yo M hx schizophrenia presented with SI, command hallucinations, voluntary. [facility] inpatient. Medically cleared, home meds ordered, pending placement. Last updated by Shruthi Morris MD at 06/23/23 03:58 Discharge Plan Disposition Patient Disposition: Psychiatric Hospital/Unit Specific Psychiatric Facility: Care Bed Discharge Details Chief Complaint: PsychEval Clinical Impression: Aggression Primary Care Provider: Trinh Dupree ED Provider: Denilson Friedman Home Meds and New Rx's Prescriptions: No Action olanzapine 20 mg tablet 20 mg PO QHS Patient Comments: at OV with new med list from [facility] olanzapine 10 mg tablet 10 mg PO QAM Patient Comments: 07/21/22 ov with new med list lisinopril 10 mg tablet 10 mg PO DAILY Qty: 90 3RF metoprolol succinate 50 mg tablet extended release 24 hr 50 mg PO DAILY Qty: 90 3RF metformin 1,000 mg tablet 2,000 mg PO DAILY Qty: 60 12RF aspirin 81 mg tablet,delayed release (DR/EC) See Rx Instructions .ROUTE .COMPLEX Qty: 28 12RF Dose Instruction: TAKE 1 TABLET BY MOUTH DAILY FOR CARDIOVASCULAR PREVENTION Rx Instructions: TAKE 1 TABLET BY MOUTH DAILY FOR CARDIOVASCULAR PREVENTION atorvastatin 20 mg tablet 20 mg PO DAILY Qty: 90 3RF Discharge Instructions Additional Instructions: Please go directly to the care bed. Please follow-up closely with your mental health advocates. If you notice any worsening of your symptoms, or any new symptoms such as vomiting, diarrhea, fever, chills, shortness of breath, chest pain, numbness, weakness, or fainting , please return immediately to the emergency department for reevaluation. Please follow up with your primary care provider as soon as possible for reassessment and reevaluation. As always, it was a pleasure participating in your medical care today. Referrals: Trinh Dupree NP [Primary Care Provider] -
== END 2023-06-23 15:02 ==
PROVIDERS: Emergency Provider Student in an Organized Health Care Education/Training Program; PCP Nurse Practitioner
DX: F20.9 Schizophrenia, unspecified (principal); R45.851 Suicidal ideations; R44.0 Auditory hallucinations; Z91.148 Patient's other noncompliance with medication regimen for other reason; E11.9 Type 2 diabetes mellitus without complications
CPT/HCPCS: 00123; 36416; 82962; 96127; 99283; 81003; 99284

== ENCOUNTER 2023-10-09 17:44 | Emergency (ER) | payer MEDICARE, MEDICAID, SELFPAY ==
--- NOTE | 2023-10-09 17:54 | W.ED.GENAD ---
Discharge Plan Discharge Details Chief Complaint: PsychEval Primary Care Provider: Trinh Dupree ED Provider: Ruthie Carrington Home Meds and New Rx's Prescriptions: No Action olanzapine 20 mg tablet 20 mg PO QHS Patient Comments: at OV with new med list from [facility], no meds for 2 weeks olanzapine 10 mg tablet 10 mg PO QAM Patient Comments: 07/21/22 ov with new med list, no meds for 2 weeks metoprolol succinate 50 mg tablet extended release 24 hr 50 mg PO DAILY Qty: 90 3RF Patient Comments: not taking for 2 weeks metformin 500 mg tablet extended release 24 hr 500 mg PO DAILY Patient Comments: not taking for 2 weeks aspirin 81 mg tablet,delayed release (DR/EC) See Rx Instructions .ROUTE .COMPLEX Qty: 28 12RF Dose Instruction: TAKE 1 TABLET BY MOUTH DAILY FOR CARDIOVASCULAR PREVENTION Patient Comments: no meds for 2 weeks Rx Instructions: TAKE 1 TABLET BY MOUTH DAILY FOR CARDIOVASCULAR PREVENTION mirtazapine 15 mg tablet 15 mg PO DAILY Patient Comments: not taking/refused atorvastatin 20 mg tablet 20 mg PO DAILY Invega Sustenna 156 mg/mL syringe 156 mg IM Q30D Patient Comments: refusing metformin 500 mg tablet 500 mg PO DAILY lisinopril 10 mg tablet 10 mg PO DAILY Patient Comments: unsure if taking HPI General Mode of arrival: ambulatory. Date/Time Provider Initiated Documentation: 10/09/23 17:46. Limitations to Documentation: no limitations. Information obtained by: patient, RN/MD (BENNY rosales), RN notes reviewed and old records reviewed. HPI Narrative: Patient arrives with BENNY Carranza from a care bed with cc of suicidal ideation with a plan to slit his wrists. Has not taken any meds for a while and has been declining them. Has already been evaluated by an EKG chest prior to arrival and is seeking voluntary placement at this time. There is a potential for EE if patient tries to leave. Patient does have a past medical history of schizoaffective disorder, hyperlipidemia, type 2 diabetes mellitus, OCD, GERD. Upon initial presentation patient is able to hold a conversation but is audibly hearing voices, he does stop conversing and start talking gibberish such as did you know that the stars used to be different colors and that the voices are telling me that if I slit my wrists that a ship will take me to heaven The voices are annointing you with sadness, and there are wild hairy chicks. Patient states he is willing to take his medications and do whatever they tell me to do, because I want to get better. Related Data Home Medications Medication Instructions Recorded Confirmed olanzapine 10 mg tablet 10 mg PO QAM 08/18/22 10/09/23 olanzapine 20 mg tablet 20 mg PO QHS 08/18/22 10/09/23 metoprolol succinate 50 mg 50 mg PO DAILY #90 tabs 02/18/23 10/09/23 tablet,extended release 24 hr metformin 500 mg tablet,extended 500 mg PO DAILY 07/13/23 10/09/23 release 24 hr aspirin 81 mg tablet,delayed See Rx Instructions .Route 09/29/23 10/09/23 release .COMPLEX #28 tabs atorvastatin 20 mg tablet 20 mg PO DAILY 10/09/23 10/09/23 lisinopril 10 mg tablet 10 mg PO DAILY 10/09/23 10/09/23 metformin 500 mg tablet 500 mg PO DAILY 10/09/23 10/09/23 mirtazapine 15 mg tablet 15 mg PO DAILY 10/09/23 10/09/23 paliperidone palmitate 156 mg/mL 156 mg IM Q30D 10/09/23 10/09/23 intramuscular syringe (Invega Sustenna) Previous Rx's Medication Instructions Recorded metoprolol succinate 50 mg 50 mg PO DAILY #90 tabs 02/18/23 tablet,extended release 24 hr aspirin 81 mg tablet,delayed See Rx Instructions .Route 09/29/23 release .COMPLEX #28 tabs Allergies Allergy/AdvReac Type Severity Reaction Status Date / Time No Known Allergies Allergy Verified 10/09/23 17:48 General SEBASTIEN: 2 Review of Systems All systems reviewed & are unremarkable except as noted in HPI and below Constitutional Constitutional: Reports as per HPI, Denies body ache(s) and Denies fever(s) Psychiatric Psychiatric: Reports as per HPI, Reports auditory hallucinations and Reports suicidal ideation Exam Narrative Exam Narrative: Constitutional: Alert and oriented x3. Appears stated age. Normal body habitus. Head: Normocephalic, no trauma. Eyes: Pupils PERRL, Red reflex noted, EOM's intact. Eyelids symmetrical without lesions, discharge, or swelling. ENT: Bilateral TM's WNL, External ear normal to inspection, no mastoid TTP, swelling, or erythema, Nasal turbinates WNL, no nasal discharge. Normal dentition, Posterior pharynx WNL, no exudate. Chest: RRR, Normal S1, S2, distal pulses intact. Resp: Lungs clear to auscultation bilaterally, no wheezes, rales, or rhonchi. Abdomen: Soft, non-distended, Normoactive bowel sounds all 4 quads. Musculoskeletal: Normal gait, Moves all 4 extremities without difficulty. Skin: No suspicious rashes or lesions. Capillary refill less than 2 sec. Neurologic: Cranial nerves II-XII intact. Alert and oriented x 3. Motor: No deficits noted. Sensory: Intact bilaterally all 4 extremities. Hematologic/Lymphatic: No ecchymosis, no lymphadenopathy. Psych Appearance: well kempt Speech and Movement: speech and movement normal Mood: expansive Affect: blunted Attitude: cooperative Thought Process: loose association and tangential Thought Content: hallucinations auditory and suicidality Insight: insight good Judgment: fair Medical Decision Making Patient arrives with [facility] psych liafely Carranza from a care bed with cc of suicidal ideation with a plan to slit his wrists. Has not taken any meds for a while and has been declining them. Has already been evaluated by an EKG chest prior to arrival and is seeking voluntary placement at this time. There is a potential for EE if patient tries to leave. Patient does have a past medical history of schizoaffective disorder, hyperlipidemia, type 2 diabetes mellitus, OCD, GERD. Upon initial presentation patient is able to hold a conversation but is audibly hearing voices, he does stop conversing and start talking gibberish such as did you know that the stars used to be different colors and that the voices are telling me that if I slit my wrists that a ship will take me to heaven The voices are annointing you with sadness, and there are wild hairy chicks. Patient states he is willing to take his medications and do whatever they tell me to do, because I want to get better. Medical clearance workup ordered including labs and urine due to patient's age and past medical history I cannot use the [facility] medical clearance form. Patient denies any drugs or alcohol does not appear to be under the influence of any substances. He is suicidal with a plan to slit his wrist. Patient is in paper scrubs, he is being directly observed in zone B at this time. At this time he is calm and cooperative. Labs are largely within normal limits, patient is medically cleared. Patient has been sleeping throughout the remainder of his stay. He did take 20 mg of olanzapine p.o. Care is to be handed off to oncoming provider Eduardo Friedman DO pending voluntary placement. This text was generated using [employer]ze[employer] dictation system, please disregard any oddities of phrase or misspellings. Medical Records Medical records reviewed: Yes I reviewed the patient's medical records. Lab Data Lab results reviewed: Yes I reviewed the patient's lab results. Labs: Laboratory Tests Range/Units 10/09/23 10/09/23 18:00 18:53 WBC (4.4-10.8) 10^3/uL 8.85 RBC (4.36-5.78) 10^6/uL 4.04 L Hgb (13.5-17.5) g/dL 12.6 L Hct (40.0-50.0) % 36.2 L MCV (80-95) fL 90 MCH (27.0-33.0) pg 31.2 MCHC (32.0-36.0) % 34.8 RDW (11.8-14.1) % 12.4 Plt Count (130-400) 10^3/uL 217 MPV (8.0-11.0) fL 8.2 Immature Gran % % 0.5 Neutrophils % % 71.2 Lymphocytes % % 18.9 Monocytes % % 6.8 Eosinophils % % 1.8 Basophils % % 0.8 Nucleated RBC % (0.0-0.3) % 0.0 Absolute Neutrophils (1.2-6.7) 10^3/uL 6.31 Absolute Lymphocytes (1.2-3.4) 10^3/uL 1.67 Absolute Monocytes (0.1-0.8) 10^3/uL 0.60 Absolute Eosinophils (0.0-0.7) 10^3/uL 0.16 Absolute Basophils (0.0-0.2) 10^3/uL 0.07 Sodium (136-145) mmol/L 132 L Potassium (3.5-5.1) mmol/L 4.0 Chloride (98-107) mmol/L 96 L Carbon Dioxide (21.0-32.0) mmol/L 25.0 Anion Gap (3-11) mmol/L 11.0 BUN (7-18) mg/dL 8 Creatinine (0.70-1.30) mg/dL 1.6 H Est GFR (CKD-EPI 2020) (mL/min/1.73m2) 48.41 Glucose (74-106) mg/dL 177 H Calcium (8.5-10.1) mg/dL 8.8 Total Bilirubin (0.2-1.0) mg/dL 0.6 AST (15-37) U/L 13 L ALT (16-63) U/L 19 Alkaline Phosphatase (46-116) U/L 111 Total Protein (6.4-8.2) g/dL 7.5 Albumin (3.4-5.0) g/dL 4.2 TSH (0.36-3.74) uIU/mL 1.50 Urine Color (Yellow) Yellow Urine Clarity (Clear) Clear Urine pH (5-8) 6.0 Ur Specific [place] (1.005-1.025) 1.020 Urine Protein (Neg-Trace) mg/dL Negative Urine Ketones (Negative) mg/dL Negative Urine Blood (Negative) Negative Urine Nitrite (Negative) Negative Urine Bilirubin (Negative) Negative Urine Urobilinogen (Up to 0.2) mg/dL 0.2 Ur Leukocyte Esterase (Negative) Negative Urine Glucose (Negative) mg/dL Negative Salicylates (<2.8) mg/dL < 2.8 Urine Opiates Screen (Negative) Negative Urine Methadone Screen (Negative) Negative Acetaminophen (10-30) ug/mL < 2 Ur Barbiturates Screen (Negative) Negative Ur Tricyclics Screen (Negative) Negative Ur Amphetamines Screen (Negative) Negative U Benzodiazepines Scrn (Negative) Negative Urine Cocaine Screen (Negative) Negative Ur THC Screen (Negative) Negative Ethyl Alcohol (<10) mg/dL < 3.0 Quality:SDOH Health Related Social Needs: No Data to Display PFSH All Active Problems Noncompliance with medication regimen (Acute) Suicidal ideations (Acute) Hallucinations (Acute) SOB (shortness of breath) (Acute) Routine medical exam (Acute) Encounter for screening laboratory testing for COVID-19 virus (Acute) Encounter for screening laboratory testing for COVID-19 virus (Acute) Schizoaffective disorder, depressive type (Chronic 12/27/13) most recent psych adm 11/2013 [facility] with psychosis, command hallucinations Colonoscopy refused (Acute) Unspecified disorder of liver (Acute) US: 09/2008; FATTY LIVER, ABNL LFT; ALK PHOS, ALT; GI CONSULT 2002, AntiMitrohondrial Ab neg, rec wt loss. Type 2 diabetes mellitus without complication, without long-term current use of insulin (Acute 12/29/17) Tobacco use disorder, continuous (Acute 09/01/11) FEV1 2.7 in 2003; 1 PPD; longest off 1 yr, 2 wks; stopped 03/27/2015; stopped again 12/13/16 Other mcc (current) drug therapy (Acute 12/10/15) olanzapine Other and unspecified hyperlipidemia (Acute 09/01/11) LDL 128, risk 12.9% 04/2015; start statin 03/2015 and [facility] Organic sleep apnea, unspecified (Acute 05/25/99) REPORTS C-PAP SINCE 1999; needs new machine; but unable to get it without new sleep study!; no longer using CPAP 02/2017 Obesity, unspecified (Acute 09/01/11) 150 lb = BMI 25 Fatty liver disease, nonalcoholic (Acute) GGT 247 ; nl Fe/TIBC 03/1999; US: 09/2008; FATTY LIVER, ABNL LFT; ALK PHOS, ALT; GI CONSULT 2002, AntiMitrohondrial Ab neg, rec wt loss. Esophageal reflux disease (Acute 09/01/11) RANITIDINE RX Early cataracts, bilateral (Acute 02/09/17) Dr Pizano 12/2016 Abnormal serum creatinine level (Acute 04/13/15) GERD (gastroesophageal reflux disease) (Chronic) Obsessive compulsive disorder (Chronic) Sleep apnea (Chronic) Psychosis (Acute) Suicidal ideation (Acute) Leukocytosis (Chronic) Surgical History Vasectomy (05/25/93) Dr Henriuqez Circumcision (02/07/05) Dr Henriquez Family History Mother Asthma onset not known Father , Kidney Failure at age 83. Renal failure onset not known Sister No problems noted. Brother Diabetes onset not known Brother No problems noted. 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 Pets and animals: No Do you think of yourself as: straight/heterosexual Current gender identity: male What is your relationship status?: How often do you talk on the phone with friends or family?: three or more times per week How often do you get together with friends or relatives?: twice per week How often do you attend pentecostal or restoration services?: decline to answer Do you belong to any clubs or organized social groups?: no Panel score (0-1 are the most socially isolated patients): 1 What type of physical activity do you participate in: walking Duration: 30-45 minutes/day Frequency: daily Margi/Latter Day: Amish Special margi needs: No Drive intox or ride w/intox school boat driver: No Do you feel safe at home: Yes Do you feel safe in your relationship?: Yes Additional Social history: came from care bed Sign Out Sign Out Data: Sign Out Comment: Pending voluntary placement, Hx of schizoaffective disorder, evaluated ENVIRONMENTAL TECHNICIAN by BENNY, auditory hallucinations where the voices are telling him to slit his wrists. Has been off his medications for the last couple of weeks. Did take olanzapine 20 mg here for his bedtime dose. Has been calm and cooperative throughout his stay. Last updated by Ruthie Carrington NP at 10/09/23 23:02
[2023-10-09 17:56] VITALS: BP 136/93; PULSE 77; RESP 16; TEMP 36.6; O2SAT 97
[2023-10-09 18:12] LABS: Bilirubin Negative (Negative); Blood Negative (Negative); Clarity Clear (Clear); Glucose Negative (Negative); Ketones Negative (Negative); Leukocyte Esterase Negative (Negative); Nitrite Negative (Negative); Urobilinogen 0.2 mg/dL (Up to 0.2)
[2023-10-09 18:22] LABS: *AMPHETAMINES SCREEN URINE Negative (Negative); *BARBITURATES SCREEN URINE Negative (Negative); *BENZODIAZEPINES SCREEN URINE Negative (Negative); Cannabinoids THC Negative (Negative); Cocaine Screen,Urine Negative (Negative); METHADONE URINE SCREEN Negative (Negative); OPIATES URINE SCREEN Negative (Negative)
[2023-10-09 18:23] LABS: Tricyclic Antidepressants Negative (Negative)
[2023-10-09 19:08] LABS: Abs Immature Grans 0.04 10^3/uL (0.0-0.06); Absolute Basophil Count 0.07 10^3/uL (0.0-0.2); Absolute Eosinophil Count 0.16 10^3/uL (0.0-0.7); Absolute Lymphocyte Count 1.67 10^3/uL (1.2-3.4); Absolute Neutrophil Count 6.31 10^3/uL (1.2-6.7); Basophils % 0.8 %; Eosinophils % 1.8 %; HCT 36.2 % (40.0-50.0); HGB 12.6 g/dL (13.5-17.5); Immature Grans % 0.5 %; Lymphocytes % 18.9 %; MCH 31.2 pg (27.0-33.0); MCHC 34.8 % (32.0-36.0); MCV 90 fL (80-95); MPV 8.2 fL (8.0-11.0); Monocytes % 6.8 %; Neutrophils % 71.2 %; Platelet Count 217 10^3/uL (130-400); RBC 4.04 10^6/uL (4.36-5.78); RDW 12.4 % (11.8-14.1); RDW-SD 41.1 fL; WBC 8.85 10^3/uL (4.4-10.8)
[2023-10-09] MEDS: OLANZapine 10 MG TAB 20 MG PO (19:19)
[2023-10-09 19:32] LABS: ALT 19 U/L (16-63); AST 13 U/L (15-37); Albumin 4.2 g/dL (3.4-5.0); Alkaline Phosphatase 111 U/L (46-116); BUN 8 mg/dL (7-18); Bilirubin, Total 0.6 mg/dL (0.2-1.0); CREATININE 1.6 mg/dL (0.70-1.30); Calcium 8.8 mg/dL (8.5-10.1); Chloride 96 mmol/L (98-107); ETHANOL BLOOD < 3.0 mg/dL (<10); Estimated GFR 48.41 (mL/min/1.73m2); Glucose 177 mg/dL (74-106); Sodium 132 mmol/L (136-145); Total Protein 7.5 g/dL (6.4-8.2)
[2023-10-09 19:33] LABS: Salicylate < 2.8 mg/dL (<2.8)
[2023-10-09 19:39] LABS: Acetaminophen < 2 ug/mL (10-30)
--- NOTE | 2023-10-10 07:30 | W.EDPROG ---
Date of service: 10/10/23 Time of Service: 07:30 Medical Decision Making Patient signed out to me reportedly seeking voluntary placement for hallucinations and has underlying schizoaffective disorder. No issues reported on previous shift, currently calm and cooperative without acute complaints. Will continue to monitor until safe dispo found. 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 Has been off his medications for the last couple of weeks. Did take olanzapine 20 mg here for his bedtime dose. Has been calm and cooperative throughout his stay. Last updated by Ruthie Carrington NP at 10/09/23 23:02 Sign Out Comment: Pending voluntary placement, hearing voices. Voluntary. No interventions throughout the night Last updated by Denilson Friedman DO at 10/10/23 06:55 Discharge Plan Discharge Details Chief Complaint: PsychEval Primary Care Provider: Trinh Dupree ED Provider: Wander Tong Home Meds and New Rx's Prescriptions: No Action olanzapine 20 mg tablet 20 mg PO QHS Patient Comments: at OV with new med list from [facility], no meds for 2 weeks olanzapine 10 mg tablet 10 mg PO QAM Patient Comments: 07/21/22 ov with new med list, no meds for 2 weeks metoprolol succinate 50 mg tablet extended release 24 hr 50 mg PO DAILY Qty: 90 3RF Patient Comments: not taking for 2 weeks metformin 500 mg tablet extended release 24 hr 500 mg PO DAILY Patient Comments: not taking for 2 weeks aspirin 81 mg tablet,delayed release (DR/EC) See Rx Instructions .ROUTE .COMPLEX Qty: 28 12RF Dose Instruction: TAKE 1 TABLET BY MOUTH DAILY FOR CARDIOVASCULAR PREVENTION Patient Comments: no meds for 2 weeks Rx Instructions: TAKE 1 TABLET BY MOUTH DAILY FOR CARDIOVASCULAR PREVENTION mirtazapine 15 mg tablet 15 mg PO DAILY Patient Comments: not taking/refused atorvastatin 20 mg tablet 20 mg PO DAILY Invega Sustenna 156 mg/mL syringe 156 mg IM Q30D Patient Comments: refusing metformin 500 mg tablet 500 mg PO DAILY lisinopril 10 mg tablet 10 mg PO DAILY Patient Comments: unsure if taking
[2023-10-10] MEDS: Aspirin 81 MG CHEW CH (09:24)
[2023-10-10] MEDS: Atorvastatin 20 MG TAB PO (09:24)
[2023-10-10] MEDS: metFORMIN 500 MG TAB PO (09:25)
[2023-10-10] MEDS: OLANZapine 10 MG TAB PO (09:25)
[2023-10-10 09:26] VITALS: BP 135/88; PULSE 88; RESP 16; TEMP 36.1; O2SAT 100
--- NOTE | 2023-10-10 15:50 | CMSP_ITS ---
Date of service: 10/10/23 Time of Service: 15:51 Care Management Safety Plan Status Status: Voluntary Reason for Wait Reason for Wait: Inpatient Admission Safety Plan Safety Plan: VOLUNTARY FOR INPATIENT PSYCHIATRIC STABILIZATION.? Patient is appropriate in all interactions since arriving at [facility]; Pt has demonstrated appropriate coping and communication skills, has articulated his needs and concerns and is fully engaged during staff interactions. Safety plan has been established with patient, and care team, to adhere to patient goals, identify restrictions based on behavioral status, address nutrition, and determine allowed personal belongings, tools for hygiene and personal care. Determine level of activity including ambulation, level of supervision, visitors, and determine privileges based on behaviors and level of engagement by pt. SAFETY PLAN: 1. Will remain on suicide precautions, in paper clothes 2. Will remain in Zone B under direct supervision of one-on-one staff at all times provided by [facility]; RICKEY, QUALITY COMPLIANCE COORDINATOR orthodontic lab technician. 3. May have paper cups, plates, finger foods as well as a cardboard spoon with which to eat meals. 4. Follow [facility] Management of the Admitted Behavioral Health Patient policy. 5. Shower available in Zone B without restriction. 6. Personal belongings-soft items permitted at RN discretion. 7. Visitors-none at this time, at RN discretion. 8. Activities: soft cart items approved per RN discretion. 9.? Bathroom available in Zone B without restriction. 10. Phone: limited to [facility] cordless phone at RN discretion. Due to VOLUNTARY status, if patient wishes to leave [facility], staff will contact [facility] Crisis Screener ([phone]) and On-Call Electrocardiograph Repairer ([phone]) as soon as possible. In the event of elopement, notify [facility] Police ([phone]). Patient is currently voluntarily at [facility] and seeking inpatient admission when a bed becomes available. [facility] Frontline Route Sales Person will continue seeking placement. Please contact the Engineering Manager Electronics Electrocardiograph Repairer ([phone]) and [facility] Route Sales Person ([phone]) for any needed changes in the Safety Plan. Safety plan has been provided to interdepartmental care team.
--- NOTE | 2023-10-10 17:33 | W.EDPROG ---
Date of service: 10/10/23 Time of Service: 17:00 Medical Decision Making 63-year-old gentleman pending voluntary psychiatric placement for delusions and auditory hallucinations. He is medically cleared, no issues during my shift. 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 Has been off his medications for the last couple of weeks. Did take olanzapine 20 mg here for his bedtime dose. Has been calm and cooperative throughout his stay. Last updated by Ruthie Carrington NP at 10/09/23 23:02 Sign Out Comment: Pending voluntary placement, hearing voices. Voluntary. No interventions throughout the night Last updated by Denilson Friedman DO at 10/10/23 06:55 Sign Out Comment: voluntary for hearing voices, hx of schizoaffective. no issues during shift Last updated by Wander Tong MD at 10/10/23 16:02 Discharge Plan Discharge Details Chief Complaint: PsychEval Primary Care Provider: Trinh Dupree ED Provider: Sachin Jimenez Home Meds and New Rx's Prescriptions: No Action olanzapine 20 mg tablet 20 mg PO QHS Patient Comments: at OV with new med list from [facility], no meds for 2 weeks olanzapine 10 mg tablet 10 mg PO QAM Patient Comments: 07/21/22 ov with new med list, no meds for 2 weeks metoprolol succinate 50 mg tablet extended release 24 hr 50 mg PO DAILY Qty: 90 3RF Patient Comments: not taking for 2 weeks metformin 500 mg tablet extended release 24 hr 500 mg PO DAILY Patient Comments: not taking for 2 weeks aspirin 81 mg tablet,delayed release (DR/EC) See Rx Instructions .ROUTE .COMPLEX Qty: 28 12RF Dose Instruction: TAKE 1 TABLET BY MOUTH DAILY FOR CARDIOVASCULAR PREVENTION Patient Comments: no meds for 2 weeks Rx Instructions: TAKE 1 TABLET BY MOUTH DAILY FOR CARDIOVASCULAR PREVENTION mirtazapine 15 mg tablet 15 mg PO DAILY Patient Comments: not taking/refused atorvastatin 20 mg tablet 20 mg PO DAILY Invega Sustenna 156 mg/mL syringe 156 mg IM Q30D Patient Comments: refusing metformin 500 mg tablet 500 mg PO DAILY lisinopril 10 mg tablet 10 mg PO DAILY Patient Comments: unsure if taking
[2023-10-10] MEDS: Mirtazapine 15 MG TAB PO (19:44)
[2023-10-10] MEDS: OLANZapine 10 MG TAB 20 MG PO (19:44)
--- NOTE | 2023-10-10 20:44 | PDOC.MHCN ---
Date of service: 10/10/23 Time of Service: 01:30 PHQ-9 Over the last 2 weeks, how often have you been bothered by any of the following problems? 1. Little interest or pleasure in doing things: not at all 2. Feeling down, depressed, or hopeless: several days 3. Trouble falling or staying asleep, or sleeping too much: not at all 4. Feeling tired or having little energy: several days 5. Poor appetite or overeating: not at all 6. Feeling bad about yourself - or that you are a failure or have let yourself and your family down: not at all 7. Trouble concentrating on things, such as reading the newspaper or watching television: several days 8. Moving or speaking so slowly that other people could have noticed? - Or the opposite - being so fidgety or restless that you have been moving around a lot more than usual: not at all 9. Thoughts that you would be better off or of hurting yourself in some way: not at all Total score: 3 Source: Developed by Drs. Milton Gray, Norma Samuel, Denzel Sutherland and colleagues, with an educational nga from [employer]. Suicide Severity Rate CSSRS Have you wished you were or wished you could go to sleep and not wake up?: No Have you actually had any thoughts of killing yourself?: No CSSRS2 Have you been thinking about how you might do this?: No Have you had these thoughts and had some intention of acting on them?: No Have you started to work out or worked out the details of how to kill yourself? 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 Risk: Low Risk Duty to warn indicated: Yes Asssessment/Mental Status Appearance: Unremarkable Attitude: Cooperative Behavior: Unremarkable Speech: Other Affect: Constricted and Cogruent with mood Mood: Sad and Anxious Thought process: Loose associations Hallucinations: yes, Auditory Delusions: No Attention: Unremarkable Perception: Not impaired Orientation: Fully orientated Memory: Intact Insight: Fair Judgement: Fair Neurovegetative Symptoms Sleep: No change Appetitie: No change Interests: No change Energy: Decrease Libido: Not applicable Substance Use: Other Drug Issues: Other Do you use nicotine?: No Have you used substances in the last 7 days?: No Additional Issues: Assaultive/Threatening Behavior: No Medical Concerns: Yes Client engaged in active self harm w/weapon: No Threatening to run away: No Child reported abuse/neglect: No Voluntarily presenting for services: Yes Domestic violence is a concern: No Extreme Psychosis or extreme behavior is present: No Impression Client is a [facility] client awaiting inpatient Plan/Disposition Recommended Disposition: PUBLIC INTERVIEWER and Med management. Plan: awaiting inpatient Person reported agreement to plan: Yes Reports/communication Outcome discussed with: ED/Personnel
--- NOTE | 2023-10-11 01:32 | NUR.NOTE ---
Patient's sodium level was shared with the charge nurse. No new orders.
--- NOTE | 2023-10-11 07:21 | W.EDPROG ---
Date of service: 10/11/23 Time of Service: 07:21 Medical Decision Making Patient signed out to me with no reported issues on previous shift seeking voluntary placement for hallucinations. 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 Has been off his medications for the last couple of weeks. Did take olanzapine 20 mg here for his bedtime dose. Has been calm and cooperative throughout his stay. Last updated by Ruthie Carrington NP at 10/09/23 23:02 Sign Out Comment: Pending voluntary placement, hearing voices. Voluntary. No interventions throughout the night Last updated by Denilson Friedman DO at 10/10/23 06:55 Sign Out Comment: voluntary for hearing voices, hx of schizoaffective. no issues during shift Last updated by Wander Tong MD at 10/10/23 16:02 Sign Out Comment: Pending voluntary inpatient psychiatric placement History of schizoaffective disorder Having auditory command hallucinations No issues during this shift Last updated by Sachin Jimenez MD at 10/11/23 00:16 Sign Out Comment: Patient stable throughout the night, no interventions needed. Pending voluntary placement Last updated by Denilson Friedman DO at 10/11/23 04:19 Discharge Plan Discharge Details Chief Complaint: PsychEval Primary Care Provider: Trinh Dupree ED Provider: Wander Tong Home Meds and New Rx's Prescriptions: No Action olanzapine 20 mg tablet 20 mg PO QHS Patient Comments: at OV with new med list from [facility], no meds for 2 weeks olanzapine 10 mg tablet 10 mg PO QAM Patient Comments: 07/21/22 ov with new med list, no meds for 2 weeks metoprolol succinate 50 mg tablet extended release 24 hr 50 mg PO DAILY Qty: 90 3RF Patient Comments: not taking for 2 weeks metformin 500 mg tablet extended release 24 hr 500 mg PO DAILY Patient Comments: not taking for 2 weeks aspirin 81 mg tablet,delayed release (DR/EC) See Rx Instructions .ROUTE .COMPLEX Qty: 28 12RF Dose Instruction: TAKE 1 TABLET BY MOUTH DAILY FOR CARDIOVASCULAR PREVENTION Patient Comments: no meds for 2 weeks Rx Instructions: TAKE 1 TABLET BY MOUTH DAILY FOR CARDIOVASCULAR PREVENTION mirtazapine 15 mg tablet 15 mg PO DAILY Patient Comments: not taking/refused atorvastatin 20 mg tablet 20 mg PO DAILY Invega Sustenna 156 mg/mL syringe 156 mg IM Q30D Patient Comments: refusing metformin 500 mg tablet 500 mg PO DAILY lisinopril 10 mg tablet 10 mg PO DAILY Patient Comments: unsure if taking
[2023-10-11] MEDS: metFORMIN 500 MG TAB PO (07:56)
[2023-10-11] MEDS: Atorvastatin 20 MG TAB PO (07:56)
[2023-10-11] MEDS: OLANZapine 10 MG TAB PO (07:56)
[2023-10-11 07:57] VITALS: BP 136/90; PULSE 85; TEMP 36.7; O2SAT 100
[2023-10-11] MEDS: Aspirin 81 MG CHEW CH (07:57)
--- NOTE | 2023-10-11 16:34 | W.EDPROG ---
Date of service: 10/11/23 Time of Service: 17:00 Medical Decision Making 63-year-old gentleman pending voluntary inpatient psychiatric placement for auditory hallucinations. The patient has been calm and had no issues during my shift. He has been accepted at [facility], and will be transported tomorrow morning. 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 Has been off his medications for the last couple of weeks. Did take olanzapine 20 mg here for his bedtime dose. Has been calm and cooperative throughout his stay. Last updated by Ruthie Carrington NP at 10/09/23 23:02 Sign Out Comment: Pending voluntary placement, hearing voices. Voluntary. No interventions throughout the night Last updated by Denilson Friedman DO at 10/10/23 06:55 Sign Out Comment: voluntary for hearing voices, hx of schizoaffective. no issues during shift Last updated by Wander Tong MD at 10/10/23 16:02 Sign Out Comment: Pending voluntary inpatient psychiatric placement History of schizoaffective disorder Having auditory command hallucinations No issues during this shift Last updated by Sachin Jimenez MD at 10/11/23 00:16 Sign Out Comment: Patient stable throughout the night, no interventions needed. Pending voluntary placement Last updated by Denilson Friedman DO at 10/11/23 04:19 Sign Out Comment: Seeking voluntary placement for hallucinations has been accepted at [facility] and will go tomorrow. No issues during the shift Last updated by Wander Tong MD at 10/11/23 15:55 Discharge Plan Disposition Specific Psychiatric Facility: [facility] Condition: Stable Discharge Details Chief Complaint: PsychEval Clinical Impression: Schizoaffective disorder, depressive type Primary Care Provider: Trinh Dupree ED Provider: Sachin Jimenez Home Meds and New Rx's Prescriptions: No Action olanzapine 20 mg tablet 20 mg PO QHS Patient Comments: at OV with new med list from [facility], no meds for 2 weeks olanzapine 10 mg tablet 10 mg PO QAM Patient Comments: 07/21/22 ov with new med list, no meds for 2 weeks metoprolol succinate 50 mg tablet extended release 24 hr 50 mg PO DAILY Qty: 90 3RF Patient Comments: not taking for 2 weeks metformin 500 mg tablet extended release 24 hr 500 mg PO DAILY Patient Comments: not taking for 2 weeks aspirin 81 mg tablet,delayed release (DR/EC) See Rx Instructions .ROUTE .COMPLEX Qty: 28 12RF Dose Instruction: TAKE 1 TABLET BY MOUTH DAILY FOR CARDIOVASCULAR PREVENTION Patient Comments: no meds for 2 weeks Rx Instructions: TAKE 1 TABLET BY MOUTH DAILY FOR CARDIOVASCULAR PREVENTION mirtazapine 15 mg tablet 15 mg PO DAILY Patient Comments: not taking/refused atorvastatin 20 mg tablet 20 mg PO DAILY Invega Sustenna 156 mg/mL syringe 156 mg IM Q30D Patient Comments: refusing metformin 500 mg tablet 500 mg PO DAILY lisinopril 10 mg tablet 10 mg PO DAILY Patient Comments: unsure if taking
--- NOTE | 2023-10-11 17:57 | CMSP_ITS ---
Date of service: 10/11/23 Time of Service: 17:57 Care Management Safety Plan Status Status: Voluntary Reason for Wait Reason for Wait: Inpatient Admission Safety Plan Safety Plan: VOLUNTARY FOR INPATIENT PSYCHIATRIC STABILIZATION.? Patient is appropriate in all interactions since arriving at [facility]; Pt has demonstrated appropriate coping and communication skills, has articulated his needs and concerns and is fully engaged during staff interactions. Safety plan has been established with patient, and care team, to adhere to patient goals, identify restrictions based on behavioral status, address nutrition, and determine allowed personal belongings, tools for hygiene and personal care. Determine level of activity including ambulation, level of supervision, visitors, and determine privileges based on behaviors and level of engagement by pt. SAFETY PLAN: 1. Will remain on suicide precautions, in paper clothes 2. Will remain in Zone B under direct supervision of one-on-one staff at all times provided by [employer]; RICKEY, [employer] petroleum inspector. 3. May have paper cups, plates, finger foods as well as a cardboard spoon with which to eat meals. 4. Follow [facility] Management of the Admitted Behavioral Health Patient policy. 5. Shower available in Zone B without restriction. 6. Personal belongings-soft items permitted at RN discretion. 7. Visitors-none at this time, at RN discretion. 8. Activities: soft cart items approved per RN discretion. 9.? Bathroom available in Zone B without restriction. 10. Phone: limited to [facility] cordless phone at RN discretion. Due to VOLUNTARY status, if patient wishes to leave [facility], staff will contact [facility] Crisis Screener ([phone]) and On-Call [employer] ([phone]) as soon as possible. In the event of elopement, notify [facility] Police ([phone]). Patient is currently voluntarily at [facility] and seeking inpatient admission when a bed becomes available. [facility] Frontline Stiff Leg Operator will continue seeking placement. Please contact the Manager Heavy Duty [employer] Mason ([phone]) and [facility] Stiff Leg Operator ([phone]) for any needed changes in the Safety Plan. Safety plan has been provided to interdepartmental care team.
--- NOTE | 2023-10-11 22:49 | ED.PROG_ITS ---
Date of service: 10/11/23 Time of Service: 22:50 Medical Decision Making This patient was signed out to me. Please see previous notes for H&P and initial eval. In brief, 63yo M presenting with auditory hallucinations. Medically cleared, plan for inpatient treatment, [facility] tomorrow. No acute events overnight. Did not wake for assessment. Signed out to oncoming physician, plan remains as above. 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 Has been off his medications for the last couple of weeks. Did take olanzapine 20 mg here for his bedtime dose. Has been calm and cooperative throughout his stay. Last updated by Ruthie Carrington NP at 10/09/23 23:02 Sign Out Comment: Pending voluntary placement, hearing voices. Voluntary. No interventions throughout the night Last updated by Denilson Friedman DO at 10/10/23 06:55 Sign Out Comment: voluntary for hearing voices, hx of schizoaffective. no issues during shift Last updated by Wander Tong MD at 10/10/23 16:02 Sign Out Comment: Pending voluntary inpatient psychiatric placement History of schizoaffective disorder Having auditory command hallucinations No issues during this shift Last updated by Sachin Jimenez MD at 10/11/23 00:16 Sign Out Comment: Patient stable throughout the night, no interventions needed. Pending voluntary placement Last updated by Denilson Friedman DO at 10/11/23 04:19 Sign Out Comment: Seeking voluntary placement for hallucinations has been accepted at [facility] and will go tomorrow. No issues during the shift Last updated by Wander Tong MD at 10/11/23 15:55 Sign Out Comment: Has been accepted at [facility] Pending transportation that will occur tomorrow morning History of schizoaffective disorder Having auditory command hallucinations No issues during this shift Last updated by Sachin Jimenez MD at 10/11/23 21:18 Discharge Plan Disposition Specific Psychiatric Facility: [facility] Condition: Stable Discharge Details Chief Complaint: PsychEval Clinical Impression: Schizoaffective disorder, depressive type Primary Care Provider: Trinh Dupree ED Provider: Shruthi Morris Home Meds and New Rx's Prescriptions: No Action olanzapine 20 mg tablet 20 mg PO QHS Patient Comments: at OV with new med list from [facility], no meds for 2 weeks olanzapine 10 mg tablet 10 mg PO QAM Patient Comments: 07/21/22 ov with new med list, no meds for 2 weeks metoprolol succinate 50 mg tablet extended release 24 hr 50 mg PO DAILY Qty: 90 3RF Patient Comments: not taking for 2 weeks metformin 500 mg tablet extended release 24 hr 500 mg PO DAILY Patient Comments: not taking for 2 weeks aspirin 81 mg tablet,delayed release (DR/EC) See Rx Instructions .ROUTE .COMPLEX Qty: 28 12RF Dose Instruction: TAKE 1 TABLET BY MOUTH DAILY FOR CARDIOVASCULAR PREVENTION Patient Comments: no meds for 2 weeks Rx Instructions: TAKE 1 TABLET BY MOUTH DAILY FOR CARDIOVASCULAR PREVENTION mirtazapine 15 mg tablet 15 mg PO DAILY Patient Comments: not taking/refused atorvastatin 20 mg tablet 20 mg PO DAILY Invega Sustenna 156 mg/mL syringe 156 mg IM Q30D Patient Comments: refusing metformin 500 mg tablet 500 mg PO DAILY lisinopril 10 mg tablet 10 mg PO DAILY Patient Comments: unsure if taking
[2023-10-12] MEDS: Mirtazapine 15 MG TAB PO (03:46)
[2023-10-12] MEDS: OLANZapine 10 MG TAB 20 MG PO (03:46)
[2023-10-12 07:06] VITALS: BP 158/104; PULSE 98; RESP 15; TEMP 36.8; O2SAT 97
--- NOTE | 2023-10-12 07:50 | ED.PROG_ITS ---
Date of service: 10/12/23 Time of Service: 07:51 Medical Decision Making Patient seeking voluntary placement for auditory hallucinations. No issues overnight reported reportedly will go to [facility] today. 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 Has been off his medications for the last couple of weeks. Did take olanzapine 20 mg here for his bedtime dose. Has been calm and cooperative throughout his stay. Last updated by Ruthie Carrington NP at 10/09/23 23:02 Sign Out Comment: Pending voluntary placement, hearing voices. Voluntary. No interventions throughout the night Last updated by Denilson Friedman DO at 10/10/23 06:55 Sign Out Comment: voluntary for hearing voices, hx of schizoaffective. no issues during shift Last updated by Wander Tong MD at 10/10/23 16:02 Sign Out Comment: Pending voluntary inpatient psychiatric placement History of schizoaffective disorder Having auditory command hallucinations No issues during this shift Last updated by Sachin Jimenez MD at 10/11/23 00:16 Sign Out Comment: Patient stable throughout the night, no interventions needed. Pending voluntary placement Last updated by Denilson Friedman DO at 10/11/23 04:19 Sign Out Comment: Seeking voluntary placement for hallucinations has been accepted at [facility] and will go tomorrow. No issues during the shift Last updated by Wander Tong MD at 10/11/23 15:55 Sign Out Comment: Has been accepted at [facility] Pending transportation that will occur tomorrow morning History of schizoaffective disorder Having auditory command hallucinations No issues during this shift Last updated by Sachin Jimenez MD at 10/11/23 21:18 Sign Out Comment: Schizoaffective, auditory hallucinations. Voluntary, accepted to [facility], plan for this morning. Last updated by Shruthi Morris MD at 10/12/23 06:00 Discharge Plan Disposition Specific Psychiatric Facility: [facility] Condition: Stable Discharge Details Chief Complaint: PsychEval Clinical Impression: Schizoaffective disorder, depressive type Primary Care Provider: Trin[facility] Dupree ED Provider: Wander Tong Home Meds and New Rx's Prescriptions: No Action olanzapine 20 mg tablet 20 mg PO QHS Patient Comments: at OV with new med list from [facility], no meds for 2 weeks olanzapine 10 mg tablet 10 mg PO QAM Patient Comments: 07/21/22 ov with new med list, no meds for 2 weeks metoprolol succinate 50 mg tablet extended release 24 hr 50 mg PO DAILY Qty: 90 3RF Patient Comments: not taking for 2 weeks metformin 500 mg tablet extended release 24 hr 500 mg PO DAILY Patient Comments: not taking for 2 weeks aspirin 81 mg tablet,delayed release (DR/EC) See Rx Instructions .ROUTE .COMPLEX Qty: 28 12RF Dose Instruction: TAKE 1 TABLET BY MOUTH DAILY FOR CARDIOVASCULAR PREVENTION Patient Comments: no meds for 2 weeks Rx Instructions: TAKE 1 TABLET BY MOUTH DAILY FOR CARDIOVASCULAR PREVENTION mirtazapine 15 mg tablet 15 mg PO DAILY Patient Comments: not taking/refused atorvastatin 20 mg tablet 20 mg PO DAILY Invega Sustenna 156 mg/mL syringe 156 mg IM Q30D Patient Comments: refusing metformin 500 mg tablet 500 mg PO DAILY lisinopril 10 mg tablet 10 mg PO DAILY Patient Comments: unsure if taking
[2023-10-12] MEDS: Atorvastatin 20 MG TAB PO (09:11)
[2023-10-12] MEDS: metFORMIN 500 MG TAB PO (09:11)
[2023-10-12] MEDS: Aspirin 81 MG CHEW CH (09:11)
[2023-10-12] MEDS: OLANZapine 10 MG TAB PO (10:02)
--- NOTE | 2023-10-12 10:04 | NUR.NOTE ---
Pt given olanzapine late d/t receiving it late overnight. Provider is aware and gave verbal consent. Nursing Note:
[2023-10-12 11:36] VITALS: BP 158/104; PULSE 98; RESP 15; TEMP 36.8; O2SAT 97
== END 2023-10-12 11:38 | disposition home or self-care (01) ==
PROVIDERS: Registered Nurse Emergency; Emergency Provider Emergency Medicine; PCP Nurse Practitioner
DX: R44.0 Auditory hallucinations (principal); F25.9 Schizoaffective disorder, unspecified; E11.9 Type 2 diabetes mellitus without complications; Z91.148 Patient's other noncompliance with medication regimen for other reason; Z79.899 Other long term (current) drug therapy; Z79.84 Long term (current) use of oral hypoglycemic drugs; Z87.891 Personal history of nicotine dependence
CPT/HCPCS: 00123; 36415; 80053; 80307; 96127; 99285; 80320; 80329; 81003; 84443; 85025

== ENCOUNTER 2024-02-23 03:13 | Outpatient (CLI) | payer MEDICARE, MEDICAID, SELFPAY ==
[2024-02-23 07:58] LABS: Abs Immature Grans 0.03 10^3/uL (0.0-0.06); Absolute Basophil Count 0.06 10^3/uL (0.0-0.2); Absolute Eosinophil Count 0.23 10^3/uL (0.0-0.7); Absolute Lymphocyte Count 1.09 10^3/uL (1.2-3.4); Absolute Monocyte Count 0.78 10^3/uL (0.1-0.8); Absolute Neutrophil Count 5.96 10^3/uL (1.2-6.7); Basophils % 0.7 %; Eosinophils % 2.8 %; HCT 35.8 % (40.0-50.0); HGB 12.9 g/dL (13.5-17.5); Immature Grans % 0.4 %; Lymphocytes % 13.4 %; MCH 32.2 pg (27.0-33.0); MCV 89 fL (80-95); MPV 8.4 fL (8.0-11.0); Monocytes % 9.6 %; Neutrophils % 73.1 %; Platelet Count 171 10^3/uL (130-400); RBC 4.01 10^6/uL (4.36-5.78); RDW 12.9 % (11.8-14.1); RDW-SD 42.1 fL; WBC 8.15 10^3/uL (4.4-10.8)
[2024-02-23 08:25] LABS: ALT 36 U/L (16-63); AST 27 U/L (15-37); Alkaline Phosphatase 108 U/L (46-116); Anion Gap 6.8 mmol/L (3-11); BUN 11 mg/dL (7-18); Bilirubin, Total 0.43 mg/dL (0.2-1.0); CO2 28.2 mmol/L (21.0-32.0); CREATININE 1.3 mg/dL (0.70-1.30); Calcium 8.9 mg/dL (8.5-10.1); Calculated LDL 6 mg/dL (<100); Chloride 96 mmol/L (98-107); Cholesterol 98 mg/dL (<200); Estimated GFR 62.11 (mL/min/1.73m2); Glucose 119 mg/dL (74-106); HDL Cholesterol 53 mg/dL (40-60); Potassium 4.3 mmol/L (3.5-5.1); Sodium 131 mmol/L (136-145); Total Protein 7.3 g/dL (6.4-8.2); Triglyceride 199 mg/dL (<150)
== END 2024-02-23 03:14 | disposition home or self-care (01) ==
LOC: LBO 03:14
PROVIDERS: PCP Nurse Practitioner; Referring Provider Nurse Practitioner; Visit Provider Nurse Practitioner
DX: E11.9 Type 2 diabetes mellitus without complications (principal); E78.5 Hyperlipidemia, unspecified
CPT/HCPCS: 36415; 80053; 80061; 85025

== ENCOUNTER 2024-06-14 13:05 | Emergency (ER) | payer MEDICARE, MEDICAID, SELFPAY ==
[2024-06-14 13:08] VITALS: BP 126/73; PULSE 76; RESP 18; TEMP 36.8; O2SAT 97
--- NOTE | 2024-06-14 13:30 | W.ED.GENAD ---
Discharge Plan Discharge Details Chief Complaint: PsychEval Clinical Impression: Suicide ideation Primary Care Provider: Trinh Dupree ED Provider: Denilson Ambrose Home Meds and New Rx's Prescriptions: No Action olanzapine 20 mg tablet 20 mg PO QHS Patient Comments: at OV with new med list from [facility], no meds for 2 weeks olanzapine 10 mg tablet 10 mg PO QAM Patient Comments: 07/21/22 ov with new med list, no meds for 2 weeks atorvastatin 10 mg tablet 10 mg PO DAILY Qty: 28 12RF metformin 500 mg tablet extended release 24 hr 500 mg PO DAILY Patient Comments: not taking for 2 weeks aspirin 81 mg tablet,delayed release (DR/EC) See Rx Instructions .ROUTE .COMPLEX Qty: 28 12RF Dose Instruction: TAKE 1 TABLET BY MOUTH DAILY FOR CARDIOVASCULAR PREVENTION Patient Comments: no meds for 2 weeks Rx Instructions: TAKE 1 TABLET BY MOUTH DAILY FOR CARDIOVASCULAR PREVENTION metoprolol succinate 50 mg tablet extended release 24 hr 50 mg PO DAILY Qty: 90 3RF Patient Comments: not taking for 2 weeks metformin 500 mg tablet See Rx Instructions .ROUTE .COMPLEX Qty: 28 12RF Dose Instruction: TAKE 1 TABLET BY MOUTH DAILY WITH BREAKFAST Rx Instructions: TAKE 1 TABLET BY MOUTH DAILY WITH BREAKFAST mirtazapine [Remeron] 15 mg tablet 15 mg PO QHS Invega Sustenna 234 mg/1.5 mL syringe 234 mg IM Q30D mirtazapine 15 mg tablet 15 mg PO DAILY Patient Comments: not taking/refused Invega Sustenna 156 mg/mL syringe 156 mg IM Q30D Patient Comments: refusing lisinopril 10 mg tablet 10 mg PO DAILY Patient Comments: unsure if taking HPI General Date/Time Provider Initiated Documentation: 06/14/24 13:15. HPI Narrative: 64 year-old male presents to ED today by [facility] with a chief complaint of suicidal ideation, hallucinations, states his risperidone isn't working anymore, with onset over the past two weeks- patient has been at [facility], they are seeking in-patient care for him. Quality described as calmly describes voices urging him to kill himself, hallucinations of spiders coming out of [place] that scare him, no radiation to hurried speech, manic or aggressive behavior, physical complaint. Severity is described as severe. Palliating factors include nothing specific attempted. Provoking factors include nothing specific- no med changes. Events leading up to the incident/Associated Symptoms: Patient denies any history of violence, denies urge to harm others. Patient not anticoagulated. Related Data Home Medications ?Medication ?Instructions ?Recorded ?Confirmed olanzapine 10 mg tablet 10 mg PO QAM 08/18/22 06/14/24 olanzapine 20 mg tablet 20 mg PO QHS 08/18/22 06/14/24 metformin 500 mg tablet,extended 500 mg PO DAILY 07/13/23 06/14/24 release 24 hr aspirin 81 mg tablet,delayed See Rx Instructions .Route 09/29/23 06/14/24 release .COMPLEX #28 tabs lisinopril 10 mg tablet 10 mg PO DAILY 10/09/23 06/14/24 mirtazapine 15 mg tablet 15 mg PO DAILY 10/09/23 06/14/24 paliperidone palmitate 156 mg/mL 156 mg IM Q30D 10/09/23 06/14/24 intramuscular syringe (Invega SustIkerChem) metoprolol succinate 50 mg 50 mg PO DAILY #90 tabs 02/15/24 06/14/24 tablet,extended release 24 hr metformin 500 mg tablet See Rx Instructions .Route 02/24/24 06/14/24 .COMPLEX #28 tabs atorvastatin 10 mg tablet 10 mg PO DAILY #28 tabs 03/08/24 06/14/24 mirtazapine 15 mg tablet (Remeron) 15 mg PO QHS 06/14/24 06/14/24 paliperidone palmitate 234 mg/1.5 234 mg IM Q30D 06/14/24 06/14/24 mL intramuscular syringe (ZinMobiega SustIkerChem) Previous Rx's ?Medication ?Instructions ?Recorded aspirin 81 mg tablet,delayed See Rx Instructions .Route 09/29/23 release .COMPLEX #28 tabs metoprolol succinate 50 mg 50 mg PO DAILY #90 tabs 02/15/24 tablet,extended release 24 hr metformin 500 mg tablet See Rx Instructions .Route 02/24/24 .COMPLEX #28 tabs atorvastatin 10 mg tablet 10 mg PO DAILY #28 tabs 03/08/24 Allergies Allergy/AdvReac Type Severity Reaction Status Date / Time No Known Allergies Allergy Verified 06/14/24 13:13 General Stated Complaint: PsychEval SEBASTIEN: 2 Review of Systems All systems reviewed & are unremarkable except as noted in HPI and below Exam Narrative Exam Narrative: GENERAL APPEARANCE: Well-nourished, non-toxic, awake and alert, atraumatic, no acute distress. SKIN: Warm, pink, dry, intact, without rashes/lesions/ulcerations. HEAD: Normocephalic, atraumatic, normal hair distribution for gender/age. EYES: Normal conjunctiva, no exudates on lids/lashes. ENT: Nares patent, no circumoral cyanosis, no facial swelling NECK: Supple, trachea midline, painless cervical ROM. LUNGS/CHEST: Lungs CTA bilaterally, non-labored respirations, normal A/P diameter, symmetrical expansion, no chest wall deformity HEART (CV/PV): Regular rate and rhythm without murmur, no peripheral edema, no JVD. ABDOMEN: Soft, non-distended, no guarding. MSK: Normal ROM, no swelling/deformity to bilateral UEs or LEs, moving all extremities without weakness, no cyanosis, spine midline without tenderness, normal curvature. NEURO: Mental Status AAOx4 - alert to person, place, time, events No facial droop, no forehead involvement. Motor: No focal weakness - strength 5/5 in bilateral UEs and LEs, proximal and distal, symmetric. Sensory: sensation intact to light touch globally. Gait normal: patient ambulated without ataxia into ED room. PSYCH: euthymic, cooperative, pleasant, appropriate speech Course Vital Signs Vital signs: Vital Signs Temperature 36.8 C 06/14/24 13:08 Pulse 76 06/14/24 13:08 Respiratory Rate 18 06/14/24 13:08 Blood Pressure 126/73 06/14/24 13:08 Pulse Oximetry 97 06/14/24 13:08 Temperature 36.8 C 06/14/24 13:08 Temperature Source Temporal Artery Scan 06/14/24 13:08 Pulse 76 06/14/24 13:08 Respiratory Rate 18 06/14/24 13:08 Blood Pressure 126/73 06/14/24 13:08 Blood Pressure Position Sitting 06/14/24 13:08 Pulse Oximetry 97 06/14/24 13:08 Oxygen Delivery Method Room Air 06/14/24 13:08 Oxygen Flow Rate 0 06/14/24 13:08 Medical Decision Making This dictation utilizes [id number] dictation software and may contain unedited grammatical errors. 64 year-old male presents to ED today by [facility] with a chief complaint of suicidal ideation, hallucinations, states his risperidone isn't working anymore, with onset over the past two weeks- [facility]. Quality described as calmly describes voices urging him to kill himself, hallucinations of spiders coming out of [place] that scare him, no radiation to hurried speech, manic or aggressive behavior, physical complaint. Severity is described as severe. Palliating factors include nothing specific attempted. Provoking factors include nothing specific- no med changes. Events leading up to the incident/Associated Symptoms: Patient denies any history of violence, denies urge to harm others. Patients' medical history: Diabetes mellitus, hallucinations, suicidal ideations, GERD, psychosis. Family and social history: Has been at the care bed for significant amount of time, denies IVDU or EtOH. Pertinent exam findings / vital signs include calm, answering in full complete sentences, not manic, no physical complaints, benign cardiopulmonary exam, benign abdomen. Differential / pathologies of concern include psychosis, suicidal ideation. Diagnostic studies of: -CBC, CMP, TSH, UA, UDS, alcohol level, salicylate level, acetaminophen level. -Laboratory workup benign Interventions of: -None, ordered home meds, [facility] had already evaluated the patient and are in process of bed search. ED Course/Assessment/Plan: 64-year-old male with suicidal ideations endorses that his risperidone is not working he is having hallucinations of snakes and spiders coming out of the wall and voices have returned and are urging him to kill himself, he is calm and not aggressive with staff here he has no physical complaints his laboratory workup is benign and he is awaiting a bed possibly at [facility], he is voluntary at this time I do not feel that he warrants evaluation for EE at this time. Findings not consistent with aggressiveness toward others. Disposition of Suicidal Ideation. Patient verbalized understanding of the plan and return to ED criteria and engaged in shared decision making. Medical Records Medical records reviewed: Yes I reviewed the patient's medical records. Lab Data Lab results reviewed: Yes I reviewed the patient's lab results. Labs: Laboratory Tests Range/Units 06/14/24 13:41 WBC (4.4-10.8) 10^3/uL 7.62 RBC (4.36-5.78) 10^6/uL 4.33 L Hgb (13.5-17.5) g/dL 13.9 Hct (40.0-50.0) % 41.3 MCV (80-95) fL 95 MCH (27.0-33.0) pg 32.1 MCHC (32.0-36.0) % 33.7 RDW (11.8-14.1) % 12.4 Plt Count (130-400) 10^3/uL 177 MPV (8.0-11.0) fL 8.2 Immature Gran % % 1.2 Neutrophils % % 76.7 Lymphocytes % % 13.6 Monocytes % % 5.1 Eosinophils % % 2.5 Basophils % % 0.9 Nucleated RBC % (0.0-0.3) % 0.0 Absolute Neutrophils (1.2-6.7) 10^3/uL 5.84 Absolute Lymphocytes (1.2-3.4) 10^3/uL 1.04 L Absolute Monocytes (0.1-0.8) 10^3/uL 0.39 Absolute Eosinophils (0.0-0.7) 10^3/uL 0.19 Absolute Basophils (0.0-0.2) 10^3/uL 0.07 Sodium (136-145) mmol/L 136 Potassium (3.5-5.1) mmol/L 3.8 Chloride (98-107) mmol/L 99 Carbon Dioxide (21.0-32.0) mmol/L 30.0 Anion Gap (3-11) mmol/L 7.0 BUN (7-18) mg/dL 18 Creatinine (0.70-1.30) mg/dL 1.3 Est GFR (CKD-EPI 2020) (mL/min/1.73m2) 61.73 Glucose (74-106) mg/dL 174 H Calcium (8.5-10.1) mg/dL 9.1 Total Bilirubin (0.2-1.0) mg/dL 0.29 AST (15-37) U/L 10 L ALT (16-63) U/L 21 Alkaline Phosphatase (46-116) U/L 96 Total Protein (6.4-8.2) g/dL 7.9 Albumin (3.4-5.0) g/dL 4.5 TSH (0.36-3.74) uIU/mL 1.71 Urine Color (Yellow) Yellow Urine Clarity (Clear) Clear Urine pH (5-8) 5.5 Ur Specific [place] (1.005-1.025) 1.015 Urine Protein (Neg-Trace) mg/dL Negative Urine Ketones (Negative) mg/dL Negative Urine Blood (Negative) Small H Urine Nitrite (Negative) Negative Urine Bilirubin (Negative) Negative Urine Urobilinogen (Up to 0.2) mg/dL 0.2 Ur Leukocyte Esterase (Negative) Negative Urine RBC (0-2) HPF 0-2 Urine WBC (0-5) HPF Negative Ur Epithelial Cells (Negative) HPF Rare Urine Crystals (Negative) HPF Negative Urine Bacteria (Negative) HPF Rare Urine Casts (Negative) LPF Negative Urine Mucus (Negative) Negative Ur Culture Indicated? No Urine Glucose (Negative) mg/dL Negative Salicylates (<2.8) mg/dL < 2.8 Urine Opiates Screen (Negative) Negative Urine Methadone Screen (Negative) Negative Acetaminophen (10-30) ug/mL < 2 Ur Barbiturates Screen (Negative) Negative Ur Tricyclics Screen (Negative) Negative Ur Amphetamines Screen (Negative) Negative U Benzodiazepines Scrn (Negative) Negative Urine Cocaine Screen (Negative) Negative Ur THC Screen (Negative) Negative Ethyl Alcohol (<10) mg/dL < 3.0 Quality:SDOH Health Related Social Needs: No Data to Display PFSH All Active Problems (Updated 06/14/24 @ 15:22 by JAIR Hinson) Suicide ideation (Acute) Noncompliance with medication regimen (Acute) Suicidal ideations (Acute) Hallucinations (Acute) SOB (shortness of breath) (Acute) Routine medical exam (Acute) Encounter for screening laboratory testing for COVID-19 virus (Acute) Encounter for screening laboratory testing for COVID-19 virus (Acute) Schizoaffective disorder, depressive type (Chronic 12/27/13) most recent psych adm 11/2013 [facility] with psychosis, command hallucinations Colonoscopy refused (Acute) Unspecified disorder of liver (Acute) US: 09/2008; FATTY LIVER, ABNL LFT; ALK PHOS, ALT; GI CONSULT 2002, AntiMitrohondrial Ab neg, rec wt loss. Type 2 diabetes mellitus without complication, without long-term current use of insulin (Acute 12/29/17) Tobacco use disorder, continuous (Acute 09/01/11) FEV1 2.7 in 2004; 1 PPD; longest off 1 yr, 2 wks; stopped 03/27/2015; stopped again 12/13/16 Other detention (current) drug therapy (Acute 12/10/15) olanzapine Other and unspecified hyperlipidemia (Acute 09/01/11) LDL 128, risk 12.9% 04/2015; start statin 03/2015 and [facility] Organic sleep apnea, unspecified (Acute 05/25/99) REPORTS C-PAP SINCE 1999; needs new machine; but unable to get it without new sleep study!; no longer using CPAP 02/2017 Obesity, unspecified (Acute 09/01/11) 150 lb = BMI 25 Fatty liver disease, nonalcoholic (Acute) GGT 247 ; nl Fe/TIBC 03/1999; US: 09/2008; FATTY LIVER, ABNL LFT; ALK PHOS, ALT; GI CONSULT 2002, AntiMitrohondrial Ab neg, rec wt loss. Esophageal reflux disease (Acute 09/01/11) RANITIDINE RX Early cataracts, bilateral (Acute 02/09/17) Dr Pizano 12/2016 Abnormal serum creatinine level (Acute 04/13/15) GERD (gastroesophageal reflux disease) (Chronic) Obsessive compulsive disorder (Chronic) Sleep apnea (Chronic) Psychosis (Acute) Suicidal ideation (Acute) Leukocytosis (Chronic) Surgical History Vasectomy (05/25/93) Dr Henriquez Circumcision (02/07/05) Dr Henriquez Family History Mother Asthma onset not known Father , Kidney Failure at age 83. Renal failure onset not known Sister No problems noted. Brother Diabetes onset not known Brother No problems noted. 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 Pets and animals: No Do you think of yourself as: straight/heterosexual Current gender identity: male What is your relationship status?: How often do you talk on the phone with friends or family?: three or more times per week How often do you get together with friends or relatives?: twice per week How often do you attend sabianist or jain services?: decline to answer Do you belong to any clubs or organized social groups?: no Panel score (0-1 are the most socially isolated patients): 1 What type of physical activity do you participate in: walking Duration: 30-45 minutes/day Frequency: daily Margi/Yazidism: Latter-Day Special margi needs: No Drive intox or ride w/intox automation driver: No Do you feel safe at home: Yes Do you feel safe in your relationship?: Yes Additional Social history: came from care bed
[2024-06-14 13:55] LABS: Abs Immature Grans 0.09 10^3/uL (0.0-0.06); Absolute Basophil Count 0.07 10^3/uL (0.0-0.2); Absolute Eosinophil Count 0.19 10^3/uL (0.0-0.7); Absolute Lymphocyte Count 1.04 10^3/uL (1.2-3.4); Absolute Monocyte Count 0.39 10^3/uL (0.1-0.8); Absolute Neutrophil Count 5.84 10^3/uL (1.2-6.7); Basophils % 0.9 %; Eosinophils % 2.5 %; HCT 41.3 % (40.0-50.0); HGB 13.9 g/dL (13.5-17.5); Immature Grans % 1.2 %; Lymphocytes % 13.6 %; MCH 32.1 pg (27.0-33.0); MCHC 33.7 % (32.0-36.0); MCV 95 fL (80-95); MPV 8.2 fL (8.0-11.0); Monocytes % 5.1 %; Neutrophils % 76.7 %; Platelet Count 177 10^3/uL (130-400); RBC 4.33 10^6/uL (4.36-5.78); RDW 12.4 % (11.8-14.1); RDW-SD 43.8 fL; WBC 7.62 10^3/uL (4.4-10.8)
[2024-06-14 14:00] LABS: Bilirubin Negative (Negative); Blood Small (Negative); Clarity Clear (Clear); Glucose Negative (Negative); Ketones Negative (Negative); Leukocyte Esterase Negative (Negative); Nitrite Negative (Negative); Specific Gravity 1.015 (1.005-1.025); Urobilinogen 0.2 mg/dL (Up to 0.2); pH 5.5 (5-8)
[2024-06-14 14:13] LABS: Bacteria Rare HPF (Negative); C & S Indicated? No; Casts Negative LPF (Negative); Crystals Negative HPF (Negative); Epithelial Cells Rare HPF (Negative); Mucus Negative (Negative); RBC 0-2 HPF (0-2); WBC Negative HPF (0-5)
[2024-06-14 14:21] LABS: ALT 21 U/L (16-63); AST 10 U/L (15-37); Albumin 4.5 g/dL (3.4-5.0); Alkaline Phosphatase 96 U/L (46-116); BUN 18 mg/dL (7-18); Bilirubin, Total 0.29 mg/dL (0.2-1.0); CREATININE 1.3 mg/dL (0.70-1.30); Calcium 9.1 mg/dL (8.5-10.1); Chloride 99 mmol/L (98-107); ETHANOL BLOOD < 3.0 mg/dL (<10); Estimated GFR 61.73 (mL/min/1.73m2); Glucose 174 mg/dL (74-106); Potassium 3.8 mmol/L (3.5-5.1); Sodium 136 mmol/L (136-145); TSH (W/Ref FT4) 1.71 uIU/mL (0.36-3.74); Total Protein 7.9 g/dL (6.4-8.2)
[2024-06-14 14:22] LABS: *AMPHETAMINES SCREEN URINE Negative (Negative); *BARBITURATES SCREEN URINE Negative (Negative); *BENZODIAZEPINES SCREEN URINE Negative (Negative); Cannabinoids THC Negative (Negative); Cocaine Screen,Urine Negative (Negative); METHADONE URINE SCREEN Negative (Negative); OPIATES URINE SCREEN Negative (Negative); Tricyclic Antidepressants Negative (Negative)
[2024-06-14 14:28] LABS: Salicylate < 2.8 mg/dL (<2.8)
[2024-06-14 14:29] LABS: Acetaminophen < 2 ug/mL (10-30)
--- NOTE | 2024-06-14 14:35 | PDOC.MHCN ---
Date of service: 06/14/24 Time of Service: 14:38 PHQ-9 Over the last 2 weeks, how often have you been bothered by any of the following problems? 1. Little interest or pleasure in doing things: several days 2. Feeling down, depressed, or hopeless: several days 3. Trouble falling or staying asleep, or sleeping too much: nearly every day 4. Feeling tired or having little energy: several days 5. Poor appetite or overeating: several days 6. Feeling bad about yourself - or that you are a failure or have let yourself and your family down: nearly every day 7. Trouble concentrating on things, such as reading the newspaper or watching television: several days 8. Moving or speaking so slowly that other people could have noticed? - Or the opposite - being so fidgety or restless that you have been moving around a lot more than usual: not at all 9. Thoughts that you would be better off or of hurting yourself in some way: nearly every day Total score: 14 If you checked off any problems, how difficult have these problems made it for you to do your work, take care of things at home, or get along with other people?: somewhat difficult Source: Developed by Drs. Milton Gray, Norma Samuel, Denzel Sutherland and colleagues, with an educational nga from [employer]. Suicide Severity Rate CSSRS Have you wished you were or wished you could go to sleep and not wake up?: Yes Have you actually had any thoughts of killing yourself?: Yes CSSRS2 Have you been thinking about how you might do this?: Yes Have you had these thoughts and had some intention of acting on them?: Yes Have you started to work out or worked out the details of how to kill yourself? Do you intend to carry out this plan?: Yes CSSRS3 Have you ever done anything, started to do anything or prepared to do anything to end your life?: Yes CSSRS4 Was this within the past three months?: No Screening Score Total Score: 6 Screening: Positive Mental Health Emergency Note Release [facility] release signed:: Yes Reason for Visit The client is known to [facility] and is served through the [facility] program. He has a history of hospitalizations and many years prior to his last at [facility] 9 months ago. The client has been engaging in a modified crisis bed admission since Thursday. He does not believe this has been working for him and is requesting a higher level of care and treatment as he is afraid to be home alone. due to active auditory and visual hallucinations. 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 Intent: yes, has intent. Plan: yes,has a plan. History of suicide attempt: yes,history of suicide attempt reported. Details of previous suicide attempt: hanging Risk: Does risk to harm exist?: yes. Access to means: Yes. Types of Means: Medication. Counseling provided: Yes Risk: Moderate Risk Duty to warn indicated: No Asssessment/Mental Status Appearance: Disheveled Attitude: Cooperative and Friendly Behavior: Unremarkable Speech: Soft Affect: Flat and Cogruent with mood Mood: Depressed and Anxious Thought process: Goal directed Hallucinations: yes, Visual and Auditory Delusions: No Attention: Unremarkable Perception: Not impaired Orientation: Fully orientated Memory: Intact Insight: Good Judgement: Fair Neurovegetative Symptoms Sleep: Decrease Appetitie: No change Interests: Decrease Energy: Increase Libido: Not applicable Substance Use: Do you use nicotine?: No Have you used substances in the last 7 days?: No Additional Issues: Assaultive/Threatening Behavior: No Medical Concerns: No Client engaged in active self harm w/weapon: No Threatening to run away: No Child reported abuse/neglect: No Voluntarily presenting for services: Yes Domestic violence is a concern: No Extreme Psychosis or extreme behavior is present: No Impression The client is a 63 year old, single, , Heterosexual male who lives independently in [facility]. He is a known [facility] client. He follows a [employer] jae. These underrepresented categories were used during his assessment. The client did complete the CSSRS however, CAM's was not offered today. The client is at the [facility] and was discharged today as he believed he needed a higher level of treatment I don't trust myself at home without supervision. The client shared his experiences this past weekend which started Thursday night and how he walked the parking lot of his apartment complex all night non-stop. Additionally he shared that on Thursday he saw snakes and spiders coming in through his windows and the committee as he calls his auditory hallucinations telling him to not listen to other and to lock himself in his house. The client was heard yelling in fear when this clinician knocked on the door. He is observed sitting on the couch and his face shows worry with his eyes open wide. He is dressed in jeans and a t-shirt and appear disheveled in appearance. The client was worried about being asked difficult questions however, answered appropriately to all. He showed some frustrations of a previous tenant that used to live in the apartment complex he lives in and how they have begun using again and said if this person showed up to his home he would offer them a couch to sleep on s they didn't freeze. This is showing poor insight as this person he talks about as they are an active drug abuser. The client reported poor sleep and okay appetite. He is observed eating two grilled cheeses for lunch that was prepared for him. He continues to show good insight to his illness. The client identified friends as his natural supports and his [facility]AVA ANALYST team to include his correctional counselor/case manager Alberta, therapist Carmen Garrison, and med provider Wander. HIs PCP is Trinh Dupree with [facility]. The client identified his strengths as sleeping, humor, witty, good conversationalist, and having a gentle kind personality. The client per chart review is diagnosed with Diabetes, high blood pressure and sleep apnea. He reported that he is taking all of his medications as prescribed. THe cleint only completed the 9th grade and is currently disabled. Plan/Disposition Recommended Disposition: Hospitalization facilities contacted. Plan: The client was sent to [facility] to seek voluntary admission to address his MH concerns. He will be assessed daily until placed. Person reported agreement to plan: Yes Reports/communication Outcome discussed with: ED/Personnel
--- NOTE | 2024-06-14 15:40 | W.EDPROG ---
Date of service: 06/14/24 Time of Service: 15:40 Medical Decision Making Care assumed from provider (JAIR Coughlin) Please see their initial HPI, PE, and documentation. Discussed patient details and case and pending workup and disposition. Patient is hemodynamically stable, and alert and oriented. In short patient did have evidence for care bed. Has been calm and cooperative thus far per report. 193: Spoke with Dr. Solorzano at [place] for doc to doc report discussed medications labs and physical exam patient has remained calm and cooperative throughout the time she has accepted him for admission awaiting bed placement. Spoke with pharmacy regarding patient's ordered medications he is not taking risperidone since February so that was canceled and his monthly injection of Invega Sustenna was also counseled at this time. Care is to be handed off to oncoming provider Dr. Yeager pending transport to [place] in the a.m. At the time of this dictation patient, cooperative and hemodynamically stable. Medical Records Medical records reviewed: Yes I reviewed the patient's medical records. Lab Data Lab results reviewed: Yes I reviewed the patient's lab results. Labs: Laboratory Tests Range/Units 06/14/24 13:41 WBC (4.4-10.8) 10^3/uL 7.62 RBC (4.36-5.78) 10^6/uL 4.33 L Hgb (13.5-17.5) g/dL 13.9 Hct (40.0-50.0) % 41.3 MCV (80-95) fL 95 MCH (27.0-33.0) pg 32.1 MCHC (32.0-36.0) % 33.7 RDW (11.8-14.1) % 12.4 Plt Count (130-400) 10^3/uL 177 MPV (8.0-11.0) fL 8.2 Immature Gran % % 1.2 Neutrophils % % 76.7 Lymphocytes % % 13.6 Monocytes % % 5.1 Eosinophils % % 2.5 Basophils % % 0.9 Nucleated RBC % (0.0-0.3) % 0.0 Absolute Neutrophils (1.2-6.7) 10^3/uL 5.84 Absolute Lymphocytes (1.2-3.4) 10^3/uL 1.04 L Absolute Monocytes (0.1-0.8) 10^3/uL 0.39 Absolute Eosinophils (0.0-0.7) 10^3/uL 0.19 Absolute Basophils (0.0-0.2) 10^3/uL 0.07 Sodium (136-145) mmol/L 136 Potassium (3.5-5.1) mmol/L 3.8 Chloride (98-107) mmol/L 99 Carbon Dioxide (21.0-32.0) mmol/L 30.0 Anion Gap (3-11) mmol/L 7.0 BUN (7-18) mg/dL 18 Creatinine (0.70-1.30) mg/dL 1.3 Est GFR (CKD-EPI 2020) (mL/min/1.73m2) 61.73 Glucose (74-106) mg/dL 174 H Calcium (8.5-10.1) mg/dL 9.1 Total Bilirubin (0.2-1.0) mg/dL 0.29 AST (15-37) U/L 10 L ALT (16-63) U/L 21 Alkaline Phosphatase (46-116) U/L 96 Total Protein (6.4-8.2) g/dL 7.9 Albumin (3.4-5.0) g/dL 4.5 TSH (0.36-3.74) uIU/mL 1.71 Urine Color (Yellow) Yellow Urine Clarity (Clear) Clear Urine pH (5-8) 5.5 Ur Specific [place] (1.005-1.025) 1.015 Urine Protein (Neg-Trace) mg/dL Negative Urine Ketones (Negative) mg/dL Negative Urine Blood (Negative) Small H Urine Nitrite (Negative) Negative Urine Bilirubin (Negative) Negative Urine Urobilinogen (Up to 0.2) mg/dL 0.2 Ur Leukocyte Esterase (Negative) Negative Urine RBC (0-2) HPF 0-2 Urine WBC (0-5) HPF Negative Ur Epithelial Cells (Negative) HPF Rare Urine Crystals (Negative) HPF Negative Urine Bacteria (Negative) HPF Rare Urine Casts (Negative) LPF Negative Urine Mucus (Negative) Negative Ur Culture Indicated? No Urine Glucose (Negative) mg/dL Negative Salicylates (<2.8) mg/dL < 2.8 Urine Opiates Screen (Negative) Negative Urine Methadone Screen (Negative) Negative Acetaminophen (10-30) ug/mL < 2 Ur Barbiturates Screen (Negative) Negative Ur Tricyclics Screen (Negative) Negative Ur Amphetamines Screen (Negative) Negative U Benzodiazepines Scrn (Negative) Negative Urine Cocaine Screen (Negative) Negative Ur THC Screen (Negative) Negative Ethyl Alcohol (<10) mg/dL < 3.0 Quality:SDOH Health Related Social Needs: No Data to Display Discharge Plan Discharge Details Chief Complaint: PsychEval Clinical Impression: Suicide ideation Primary Care Provider: Trinh Dupree ED Provider: Ruthie Carrington [place] Meds and New Rx's Prescriptions: No Action olanzapine 10 mg tablet 10 mg PO QAM Patient Comments: 07/21/22 ov with new med list, no meds for 2 weeks atorvastatin 10 mg tablet 10 mg PO DAILY Qty: 28 12RF aspirin 81 mg tablet,delayed release (DR/EC) See Rx Instructions .ROUTE .COMPLEX Qty: 28 12RF Dose Instruction: TAKE 1 TABLET BY MOUTH DAILY FOR CARDIOVASCULAR PREVENTION Patient Comments: no meds for 2 weeks Rx Instructions: TAKE 1 TABLET BY MOUTH DAILY FOR CARDIOVASCULAR PREVENTION metoprolol succinate 50 mg tablet extended release 24 hr 50 mg PO DAILY Qty: 90 3RF Patient Comments: not taking for 2 weeks metformin 500 mg tablet See Rx Instructions .ROUTE .COMPLEX Qty: 28 12RF Dose Instruction: TAKE 1 TABLET BY MOUTH DAILY WITH BREAKFAST Rx Instructions: TAKE 1 TABLET BY MOUTH DAILY WITH BREAKFAST Invega Sustenna 234 mg/1.5 mL syringe 234 mg IM Q30D
--- NOTE | 2024-06-14 17:16 | CMSP_ITS ---
Date of service: 06/14/24 Time of Service: 17:18 Care Management Safety Plan Status Status: Voluntary Reason for Wait Reason for Wait: Inpatient Admission Safety Plan Safety Plan: VOLUNTARY FOR INPATIENT PSYCHIATRIC STABILIZATION.? Patient is appropriate in all interactions since arriving at [facility]; Pt has demonstrated appropriate coping and communication skills, has articulated his needs and concerns and is fully engaged during staff interactions. Safety plan has been established with patient, and care team, to adhere to patient goals, identify restrictions based on behavioral status, address nutrition, and determine allowed personal belongings, tools for hygiene and personal care. Determine level of activity including ambulation, level of supervision, visitors, and determine privileges based on behaviors and level of engagement by pt. SAFETY PLAN: 1. Will remain on suicide precautions, in paper clothes 2. Will remain in Zone B under direct supervision of one-on-one staff at all times provided by [employer]; RICKEY, BUSINESS SYSTEMS LEAD flatwork washer. 3. May have paper cups, plates, finger foods as well as a cardboard spoon with which to eat meals. 4. Follow [facility] Management of the Admitted Behavioral Health Patient policy. 5. Shower available in Zone B without restriction. 6. Personal belongings-soft items permitted at RN discretion. 7. Visitors-none at this time, at RN discretion. 8. Activities: soft cart items approved per RN discretion. 9.? Bathroom available in Zone B without restriction. 10. Phone: limited to [facility] cordless phone at RN discretion. Due to VOLUNTARY status, if patient wishes to leave [facility], staff will contact [facility] Crisis Screener ([phone]) and On-Call Manager Surgical ([phone]) as soon as possible. In the event of elopement, notify [facility] Police ([phone]). Patient is currently voluntarily at [facility] and seeking inpatient admission when a bed becomes available. [facility] Frontline Pit Crane Operator will continue seeking placement. Please contact the Site Supervising Technical Operator Manager Surgical ([phone]) and [facility] Pit Crane Operator ([phone]) for any needed changes in the Safety Plan. Safety plan has been provided to interdepartmental care team.
[2024-06-15] MEDS: OLANZapine 10 MG TAB PO (07:46)
[2024-06-15] MEDS: Metoprolol CR 50 MG TABCR PO (07:46)
[2024-06-15] MEDS: Aspirin E.C. 81 MG TABEC PO (07:46)
[2024-06-15] MEDS: Atorvastatin 10 MG TAB PO (07:46)
[2024-06-15] MEDS: metFORMIN 500 MG TAB PO (07:46)
[2024-06-15 07:52] VITALS: BP 145/76; PULSE 94; RESP 18; TEMP 36.4; O2SAT 100
== END 2024-06-15 08:37 | disposition home or self-care (01) ==
PROVIDERS: Physician Assistant; Emergency Provider Emergency Medicine; PCP Nurse Practitioner
DX: R45.851 Suicidal ideations (principal); R44.1 Visual hallucinations; E11.9 Type 2 diabetes mellitus without complications; Z79.84 Long term (current) use of oral hypoglycemic drugs; Z79.82 Long term (current) use of aspirin; Z87.891 Personal history of nicotine dependence
CPT/HCPCS: 00123; 80053; 80307; 96127; 99285; 80320; 80329; 81003; 81015; 84443; 85025

== ENCOUNTER 2024-12-19 15:04 | Emergency (ER) | payer MEDICARE, SELFPAY ==
[2024-12-19 15:11] VITALS: BP 121/77; PULSE 81; RESP 16; TEMP 37.2; O2SAT 96
--- NOTE | 2024-12-19 15:38 | PDOC.MHCN_ITS ---
Date of service: 12/19/24 Time of Service: 15:39 PHQ-9 Over the last 2 weeks, how often have you been bothered by any of the following problems? 1. Little interest or pleasure in doing things: nearly every day 2. Feeling down, depressed, or hopeless: nearly every day 3. Trouble falling or staying asleep, or sleeping too much: nearly every day 4. Feeling tired or having little energy: nearly every day 5. Poor appetite or overeating: not at all 6. Feeling bad about yourself - or that you are a failure or have let yourself and your family down: nearly every day 7. Trouble concentrating on things, such as reading the newspaper or watching television: nearly every day 8. Moving or speaking so slowly that other people could have noticed? - Or the opposite - being so fidgety or restless that you have been moving around a lot more than usual: nearly every day 9. Thoughts that you would be better off or of hurting yourself in some way: nearly every day Total score: 24 If you checked off any problems, how difficult have these problems made it for you to do your work, take care of things at home, or get along with other people?: very difficult PHQ-9 Results: Positive Source: Developed by Drs. Milton Gray, Norma Samuel, Denzel Sutherland and colleagues, with an educational nga from [employer]. Suicide Severity Rate CSSRS Have you wished you were or wished you could go to sleep and not wake up?: Yes Have you actually had any thoughts of killing yourself?: Yes CSSRS2 Have you been thinking about how you might do this?: Yes Have you had these thoughts and had some intention of acting on them?: Yes Have you started to work out or worked out the details of how to kill yourself? 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 He has a history of hospitalizations and many years prior to his last at [facility] in August of 2023. In May he was staying at the CARE Bed on a modified admission again to re-stabilize him on his medications. The client outreached to 8 who called [facility] to request support after disclosing that he has not been taking his Zyprexa and is having auditory hallucinations telling him to hang himself in the castro. The client agreed to a MBL response to his home. 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 Intent: yes, has intent. Plan: yes,has a plan. History of suicide attempt: yes,history of suicide attempt reported. Details of previous suicide attempt: hanging Risk: Does risk to harm exist?: yes. Access to means: Yes. Types of Means: Other weapons and Medication. Counseling provided: Yes Risk: High Risk Duty to warn indicated: No Asssessment/Mental Status Appearance: Disheveled Attitude: Cooperative and Friendly Behavior: Unremarkable Speech: Normal and Slow Affect: Cogruent with mood Mood: Stressed, Depressed and Anxious Thought process: Goal directed Hallucinations: yes, Auditory Delusions: No Attention: Inattention Perception: Not impaired Orientation: Disoriented in Time Memory: Intact Judgement: Good Neurovegetative Symptoms Sleep: Decrease Appetitie: No change Interests: Decrease Energy: Decrease Libido: Not applicable Substance Use: Do you use nicotine?: No Have you used substances in the last 7 days?: No Additional Issues: Assaultive/Threatening Behavior: No Medical Concerns: No Client engaged in active self harm w/weapon: No Threatening to run away: No Child reported abuse/neglect: No Voluntarily presenting for services: Yes Domestic violence is a concern: No Extreme Psychosis or extreme behavior is present: No Impression The client is a 64 year old, single, , Heterosexual male who lives independently in [facility]. 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 He follows a [employer] jae. The client completed the 9th grade and is currently disabled. These underrepresented categories were used during his assessment. The client did complete the CSSRS however, CAM's was not offered today. The client presents sitting outside of his apartment waiting for this clinician to arrive. He is dressed in pants and a t-shirt. His hair is disheveled. His stair is intense which is typical symptoms of him experiencing auditory hallucinations. Also typical is distracted and lack of understanding simple questions which was also present today. The client enters his apartment and sits on his couch. He welcomed this clinician and [facility] [place] into the room. The client noted that he has been off his Zyprexa for about two weeks lying to his team telling them he is taking them when in fact he had been flushing them. I don't know why I do this Cris, I will never learn. I can't be trusted. You know what I think is I need to go back on the once a month injectable that way I cannot not take them. He noted that the injectable was stopped the last time because he thought he was getting some shaking from it but now thinks that was not related to the injection. He reported he has been taking all other medications. This shows good insight and judgment. The client described his appetite as good however, his sleep is poor. He stated at one point in the assessment Wait I can't forget. I have to on the rooftop of [facility] at 5:30pm so the spaceship can take me home. He is mostly oriented being a bit off on the date (December unknown year). . 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 He does not use tobacco products. The client identified his natural supports as his friend Torres, nephew Zachary, and payee Etta. He identified his professional supports as his welfare case worker Nadege Pena, therapist Carmen Garrison, and psychiatrist Susie Valle. His PCP is [facility]. The client identified his strengths as his humor, poetry, jae and being a self advocate. The client per chart review is diagnosed with Diabetes, high blood pressure and sleep apnea. The client admitted to a family history of substance abuse, legal issues and suicide. He denied a family history of mental illness. Plan/Disposition Recommended Disposition: Hospitalization facilities contacted. Plan: The client agreed he needed a higher level of care and the CARE Bed was not an options therefore agreed to ride safely to the hospital with this clinician to seek voluntary placement. He will be assessed daily until placed. A warm hand off was completed face to face with the ED staff. Reports/communication Outcome discussed with: ED/Personnel
--- NOTE | 2024-12-19 15:55 | W.ED.GENAD ---
Discharge Plan Disposition Patient Disposition: Psychiatric Hospital/Unit Specific Psychiatric Facility: [facility] Condition: Stable Discharge Details Clinical Impression: Psychosis, Schizoaffective disorder, depressive type, Suicidal ideations Primary Care Provider: Trinh Dupree ED Provider: Monica Kaplan Home Meds and New Rx's Prescriptions: No Action atorvastatin 10 mg tablet 10 mg PO DAILY Qty: 28 12RF metoprolol succinate 50 mg tablet extended release 24 hr 50 mg PO DAILY Qty: 90 3RF metformin 500 mg tablet See Rx Instructions .ROUTE .COMPLEX Qty: 28 12RF Dose Instruction: TAKE 1 TABLET BY MOUTH DAILY WITH BREAKFAST Rx Instructions: TAKE 1 TABLET BY MOUTH DAILY WITH BREAKFAST benztropine 1 mg tablet 1 mg PO BID mirtazapine 15 mg tablet 15 mg PO QHS olanzapine 5 mg tablet 5 mg PO QHS aspirin 81 mg tablet,delayed release (DR/EC) See Rx Instructions .ROUTE .COMPLEX Qty: 28 12RF Dose Instruction: TAKE 1 TABLET BY MOUTH DAILY FOR CARDIOVASCULAR PREVENTION Rx Instructions: TAKE 1 TABLET BY MOUTH DAILY FOR CARDIOVASCULAR PREVENTION Invega Sustenna 234 mg/1.5 mL syringe 234 mg IM Q30D olanzapine 10 mg tablet 10 mg PO DAILY Patient Comments: Pt states he has not been taking 12/19/24 HPI General Date/Time Provider Initiated Documentation: 12/19/24 15:41. HPI Narrative: 64-year-old male with history of schizoaffective disorder and psychosis presents for evaluation of suicidal ideation and auditory hallucinations. Patient states that he has not been taking his Zyprexa. He states that the voices told him not to take the medication because it is poison. He states that he has been struggling with this level of his life. Today he states that the voices told him to hang himself in a tree and that a UFO will come and take him to [facility]. He states that he just does not want to be alive anymore so he does not have to deal with this. He denies any medical concerns today. No fevers or chills. No cough or cold. No chest pain or shortness of breath. No abdominal pain. Denies any ingestions or alcohol or drug use. Related Data Home Medications ?Medication ?Instructions ?Recorded ?Confirmed metoprolol succinate 50 mg 50 mg PO DAILY #90 tabs 02/15/24 12/19/24 tablet,extended release 24 hr metformin 500 mg tablet See Rx Instructions .Route 02/24/24 12/19/24 .COMPLEX #28 tabs atorvastatin 10 mg tablet 10 mg PO DAILY #28 tabs 03/08/24 12/19/24 paliperidone palmitate 234 mg/1.5 234 mg IM Q30D 06/14/24 12/19/24 mL intramuscular syringe ([email or web address]) benztropine 1 mg tablet 1 mg PO BID 07/18/24 12/19/24 mirtazapine 15 mg tablet 15 mg PO QHS 07/18/24 12/19/24 olanzapine 5 mg tablet 5 mg PO QHS 07/18/24 12/19/24 aspirin 81 mg tablet,delayed See Rx Instructions .Route 10/18/24 12/19/24 release .COMPLEX #28 tabs olanzapine 10 mg tablet 10 mg PO DAILY 12/19/24 12/19/24 Previous Rx's ?Medication ?Instructions ?Recorded metoprolol succinate 50 mg 50 mg PO DAILY #90 tabs 02/15/24 tablet,extended release 24 hr metformin 500 mg tablet See Rx Instructions .Route 02/24/24 .COMPLEX #28 tabs atorvastatin 10 mg tablet 10 mg PO DAILY #28 tabs 03/08/24 aspirin 81 mg tablet,delayed See Rx Instructions .Route 10/18/24 release .COMPLEX #28 tabs Allergies Allergy/AdvReac Type Severity Reaction Status Date / Time No Known Allergies Allergy Verified 12/19/24 15:16 General Stated Complaint: PsychEval SEBASTIEN: 2 Review of Systems Narrative: Remainder of review of systems otherwise negative except for as noted in the HPI x 10. Exam Narrative Exam Narrative: General: non-toxic, no respiratory distress, comfortable HEENT: normocephalic, atraumatic, lids and lashes normal, PERRL, EOMI, anicteric sclera, no conjunctival injection, moist oral mucosa Card: regular rate and rhythm, S1S2, no murmurs, rubs, or gallops Lungs: good air entry, clear to auscultation bilaterally. no wheezes, rales, rhonchi, or retractions Abd: soft, non-tender, non-distended, normal bowel sounds, no rebound or guarding, no peritoneal signs Musculoskeletal: full range of motion of arms and legs, no tenderness to palpation. no clubbing, cyanosis, or edema Neurologic: appropriate for age, strength normal Psych: alert and oriented, + suicidal ideation, + auditory hallucinations Skin: no petechiae, no lesions, warm and dry Course Vital Signs Vital signs: Vital Signs Temperature 37.2 C 12/19/24 15:11 Pulse 81 12/19/24 15:11 Respiratory Rate 16 12/19/24 15:11 Blood Pressure 121/77 12/19/24 15:11 Pulse Oximetry 96 12/19/24 15:11 Temperature 37.2 C 12/19/24 15:11 Pulse 81 12/19/24 15:11 Respiratory Rate 16 12/19/24 15:11 Blood Pressure 121/77 12/19/24 15:11 Pulse Oximetry 96 12/19/24 15:11 Oxygen Delivery Method Room Air 12/19/24 15:11 Oxygen Flow Rate 0 12/19/24 15:11 Pain Level 0 12/19/24 15:11 Medical Decision Making 64-year-old male with history of schizoaffective disorder and psychosis presents for auditory hallucinations and suicidal ideation. Smart clearance was completed. Laboratory studies will be drawn. Patient was evaluated by mental health and will require hold. Provide report was given to Shivam Mercer at [facility][Note 3]. Patient is accepted in transfer. Patient will be transferred in the morning of 12/20/2024. Patient signed out to overnight provider. PFSH All Active Problems (Updated 12/19/24 @ 20:41 by Monica Kaplan MD) Noncompliance with medication regimen (Acute) Suicidal ideations (Acute) Hallucinations (Acute) SOB (shortness of breath) (Acute) Routine medical exam (Acute) Encounter for screening laboratory testing for COVID-19 virus (Acute) Encounter for screening laboratory testing for COVID-19 virus (Acute) Schizoaffective disorder, depressive type (Chronic 12/27/13) most recent psych adm 11/2013 [facility] with psychosis, command hallucinations Colonoscopy refused (Acute) Unspecified disorder of liver (Acute) US: 09/2008; FATTY LIVER, ABNL LFT; ALK PHOS, ALT; GI CONSULT 2002, AntiMitrohondrial Ab neg, rec wt loss. 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 Esophageal reflux disease (Acute 09/01/11) RANITIDINE RX Early cataracts, bilateral (Acute 02/09/17) Dr Pizano 12/2016 Abnormal serum creatinine level (Acute 04/13/15) GERD (gastroesophageal reflux disease) (Chronic) Obsessive compulsive disorder (Chronic) Sleep apnea (Chronic) Psychosis (Acute) Suicidal ideation (Acute) Leukocytosis (Chronic) Surgical History Vasectomy (05/25/93) Dr Henriquez Circumcision (02/07/05) Dr Henriquez Family History Mother Asthma onset not known Father , Kidney Failure at age 83. Renal failure onset not known Sister No problems noted. Brother Diabetes onset not known Brother No problems noted. Social History Smoking/Tobacco Use Status: Former Tobacco Use Quit Date: 01/07/18 Tobacco: How many years used: 35 Smoking risk assessment performed?: Yes Alcohol Intake: former Year quit: 1999 Drug use: Never Substance use type: does not use Adopted: No Caregiver/Support person: No Foster care: No Household members: none Housing: apartment Number of Children: 0 Communication Needs: None Do you need help understanding health information?: Often current occupation: retired Pets and animals: No Do you think of yourself as: straight/heterosexual Current gender identity: male What is your relationship status?: How often do you talk on the phone with friends or family?: three or more times per week How often do you get together with friends or relatives?: twice per week How often do you attend baptism or alevism services?: decline to answer Do you belong to any clubs or organized social groups?: no Panel score (0-1 are the most socially isolated patients): 1 What type of physical activity do you participate in: walking Duration: 30-45 minutes/day Frequency: daily Margi/Confucianist: Adventism Special margi needs: No Seatbelt use: always Drive intox or ride w/intox lift driver: No Working smoke detector in home: Yes Fire extinguisher in home: Yes Carbon monox detector in home: Yes Do you feel safe at home: Yes Do you feel safe in your relationship?: Yes Additional Social history: came from care bed
--- NOTE | 2024-12-19 16:21 | CMSP_ITS ---
Date of service: 12/19/24 Time of Service: 16:21 Care Management Safety Plan Status Status: Voluntary Reason for Wait Reason for Wait: Inpatient Admission Safety Plan Safety Plan: VOLUNTARY FOR INPATIENT PSYCHIATRIC STABILIZATION.? Patient is appropriate in all interactions since arriving at [facility]; Pt has demonstrated appropriate coping and communication skills, has articulated his or her needs and concerns and is fully engaged during staff interactions. Safety plan has been established with patient, and care team, to adhere to patient goals, identify restrictions based on behavioral status, address nutrition, and determine allowed personal belongings, tools for hygiene and personal care. Determine level of activity including ambulation, level of superv ision, visitors, and determine privileges based on behaviors and level of engagement by pt. VOLUNTARY SAFETY PLAN: 1. Will remain on suicide precautions, in paper clothes 2. Will remain in Zone B under direct supervision of one-on-one staff at all times provided by [employer]; RICKEY, STABILIZING MACHINE OPERATOR paster supervisor. 3. May have paper cups, plates, finger foods as well as a cardboard spoon with which to eat meals. 4. Follow [facility] Management of the Admitted Behavioral Health Patient policy. 5. Shower available in Zone B without restriction. 6. Personal belongings-soft items permitted at RN discretion. 7. Visitors- supportive visitors, at RN discretion. 8. Activities: soft cart items, hospital tablets (Netflix/[place]+/music) approved per RN discretion. 9.? Bathroom available in Zone B without restriction. 10. Phone: limited to [facility] cordless phone at RN discretion. Due to VOLUNTARY status, if patient wishes to leave [facility], staff will contact [facility] Crisis Screener ([phone]) and Elevator Dispatcher ([phone]) as soon as possible. In the event of elopement, notify [facility] Police ([phone]). Patient is currently voluntarily at [facility] and seeking inpatient admission when a bed becomes available. [facility] Frontline Job Interviewer will continue seeking placement. Please contact the Elevator Dispatcher ([phone]) and [facility] Job Interviewer ([phone]) for any needed changes in the Safety Plan. Safety plan has been provided to interdepartmental care team.
--- NOTE | 2024-12-19 16:21 | PDOC.CMSAFE ---
Date of service: 12/19/24 Time of Service: 16:21 Care Management Safety Plan Status Status: Voluntary Reason for Wait Reason for Wait: Inpatient Admission Safety Plan Safety Plan: VOLUNTARY FOR INPATIENT PSYCHIATRIC STABILIZATION.? Patient is appropriate in all interactions since arriving at [facility]; Pt has demonstrated appropriate coping and communication skills, has articulated his or her needs and concerns and is fully engaged during staff interactions. Safety plan has been established with patient, and care team, to adhere to patient goals, identify restrictions based on behavioral status, address nutrition, and determine allowed personal belongings, tools for hygiene and personal care. Determine level of activity including ambulation, level of supervision, visitors, and determine privileges based on behaviors and level of engagement by pt. VOLUNTARY SAFETY PLAN: 1. Will remain on suicide precautions, in paper clothes 2. Will remain in Zone B under direct supervision of one-on-one staff at all times provided by [employer]; RICKEY, COLLATOR used car sales supervisor. 3. May have paper cups, plates, finger foods as well as a cardboard spoon with which to eat meals. 4. Follow [facility] Management of the Admitted Behavioral Health Patient policy. 5. Shower available in Zone B without restriction. 6. Personal belongings-soft items permitted at RN discretion. 7. Visitors- supportive visitors, at RN discretion. 8. Activities: soft cart items, hospital tablets (Netflix/[place]+/music) approved per RN discretion. 9.? Bathroom available in Zone B without restriction. 10. Phone: limited to [facility] cordless phone at RN discretion. Due to VOLUNTARY status, if patient wishes to leave [facility], staff will contact [facility] Crisis Screener ([phone]) and Pest Management Supervisor ([phone]) as soon as possible. In the event of elopement, notify [facility] Police ([phone]). Patient is currently voluntarily at [facility] and seeking inpatient admission when a bed becomes available. [facility] Frontline Comparison Shopper will continue seeking placement. Please contact the Pest Management Supervisor ([phone]) and [facility] Comparison Shopper ([phone]) for any needed changes in the Safety Plan. Safety plan has been provided to interdepartmental care team.
[2024-12-19 16:28] LABS: Abs Immature Grans 0.01 10^3/uL (0.0-0.06); HCT 33.3 % (40.0-50.0); HGB 11.7 g/dL (13.5-17.5); Immature Grans % 0.2 %; MCH 30.3 pg (27.0-33.0); MCHC 35.1 % (32.0-36.0); MCV 86 fL (80-95); MPV 8.4 fL (8.0-11.0); Platelet Count 144 10^3/uL (130-400); RBC 3.86 10^6/uL (4.36-5.78); RDW 13.0 % (11.8-14.1); RDW-SD 40.7 fL; WBC 6.46 10^3/uL (4.4-10.8)
[2024-12-19 17:07] LABS: Anion Gap 10.5 mmol/L (3-11); BUN 6 mg/dL (7-18); CO2 24.5 mmol/L (21.0-32.0); Calcium 9.1 mg/dL (8.5-10.1); Chloride 92 mmol/L (98-107); Estimated GFR 61.73 (mL/min/1.73m2); Glucose 89 mg/dL (74-106); Potassium 3.7 mmol/L (3.5-5.1); Sodium 127 mmol/L (136-145); TSH (W/Ref FT4) 1.48 uIU/mL (0.36-3.74)
[2024-12-19 17:20] LABS: Glucose Negative (Negative)
[2024-12-19 17:27] LABS: C & S Indicated? No; WBC Negative HPF (0-5)
[2024-12-19 17:30] LABS: Cannabinoids THC Negative (Negative); METHADONE URINE SCREEN Negative (Negative)
[2024-12-19] MEDS: OLANZapine ODT 5 MG TAB PO (17:31)
[2024-12-19 19:15] VITALS: BP 112/71; PULSE 73; RESP 15; TEMP 36.1; O2SAT 98
--- NOTE | 2024-12-19 20:42 | NUR.NOTE ---
Nursing Note: Report given to Christiano Hwang at the [facility]. Discussed with RN medications allergies, PMH, recent assessment and current condition. RN gives verbal confirmation that patient has been accepted and can be scheduled for transport .
[2024-12-20] MEDS: Metoprolol CR 50 MG TABCR PO (08:04)
[2024-12-20] MEDS: metFORMIN 500 MG TAB PO (08:04)
[2024-12-20] MEDS: Benztropine 1 MG TAB PO (08:04)
[2024-12-20] MEDS: OLANZapine 10 MG TAB PO (08:04)
[2024-12-20] MEDS: Atorvastatin 10 MG TAB PO (08:10)
[2024-12-20] MEDS: Aspirin E.C. 81 MG TABEC PO (08:10)
== END 2024-12-20 08:12 ==
PROVIDERS: Emergency Medicine Emergency Medical Services; Emergency Provider Emergency Medicine; PCP Nurse Practitioner
DX: R44.0 Auditory hallucinations (principal); R45.851 Suicidal ideations; Z91.148 Patient's other noncompliance with medication regimen for other reason
CPT/HCPCS: 99285 ×2; 00123; 80048; 80307; 96127; 81003; 81015; 84443; 85025

== ENCOUNTER 2025-01-13 12:09 | Emergency (ER) | payer MEDICARE, SELFPAY ==
[2025-01-13] VITALS (68 sets, daily range): BP systolic 125–190; BP diastolic 53–108; PULSE 96–217; RESP 13–25; TEMP 36.8; O2SAT 91–98
--- NOTE | 2025-01-13 12:00 | RT.EKG_ITS ---
APPROVED REPORT Exam: Resting ECG Reason for Exam: ams Patient Location: E HR:112 bpm ECG Measurements Heart Rate 112 AXIS RI 171 P 31 QRSd 80 QRS 33 QT 314 T 13 QTc 429 Conclusion Sinus tachycardia...rate> 99 I have reviewed and interpreted ECG and agree with software generated interpretation.
--- NOTE | 2025-01-13 12:15 | DI.CT_ITS ---
Exam(s) CT BRAIN NECK CTA EXAM: CT BRAIN NECK CTA CLINICAL HISTORY: AMS. TECHNIQUE: Imaging Protocol: Axial CT angiography was performed with multi- slice acquisition and multi-planar and MIP reconstructions. CONTRAST MATERIAL: Intravenous: Omnipaque 350 Contrast volume:70 ml COMPARISON: No exams were available for comparison FINDINGS: CT Head W/O and W contrast: Ventricles and Extra axial spaces: Somewhat enlarged for the patient's age. Hemorrhage: None. Cerebral parenchyma: No evidence of acute infarct or mass. There are white matter changes consistent with chronic microvascular disease. Midline shift: None. Brainstem/Cerebellum: No acute findings.. Calvarium: Normal. Visualized Paranasal sinuses/Mastoids: Clear. Soft Tissues: Unremarkable. Enhancement: Normal. Venous sinuses are patent. CTA Brain W: Internal Carotid Arteries: Right: No aneurysm, occlusion or significant stenosis. Left: No aneurysm, occlusion or significant stenosis. Middle Cerebral Arteries: Right: No aneurysm, occlusion or significant stenosis. Left: No aneurysm, occlusion or significant stenosis. Anterior Cerebral Arteries: Right: No aneurysm, occlusion or significant stenosis. Left: No aneurysm, occlusion or significant stenosis. Posterior cerebral Arteries: Right: No aneurysm, occlusion or significant stenosis. Left: No aneurysm, occlusion or significant stenosis. Vertebral Arteries: Right: No aneurysm, occlusion or significant stenosis. Left: No aneurysm, occlusion or significant stenosis. Basilar Artery: No aneurysm, occlusion or significant stenosis. CTA Neck W: Common Carotid: The common carotid arteries via toward the midline, anterior to the cervical spine, at the mid cervical spine. Right: No dissection, occlusion or significant stenosis. Left: No dissection, occlusion or significant stenosis. External Carotid: Right: No dissection, occlusion or significant stenosis. Left: No dissection, occlusion or significant stenosis. Internal Carotid: Right: No dissection, occlusion or significant stenosis. Left: No dissection, occlusion or significant stenosis. Vertebral Artery: Right: No dissection, occlusion or significant stenosis. Left: No dissection, occlusion or significant stenosis. The subclavian arteries are normal in diameter bilaterally. Lung Apices: No acute findings. Bones: No acute abnormality. Degenerative changes in the mid to lower cervical spine. Soft Tissues: Normal. IMPRESSION: 1. CTA brain: Normal CTA examination of the [place]. 2. Head CT: No acute abnormality. 3. CTA neck: No significant atherosclerotic changes. No evidence of occlusion, significant stenosis or dissection. RADIATION DOSE DELIVERED: Total DLP DATA REPOSITORY: All CT scans at this facility are submitted to the National Radiology Data Registry (NRDR) Dose Index Registry (DIR) with the [employer] (ACR). RADIATION OPTIMIZATION: All CT scans at this facility use at least one of these dose optimization techniques: automated exposure control; mA and/or kV adjustment per patient size (includes targeted exams where dose is matched to clinical indication); or iterative reconstruction.
--- NOTE | 2025-01-13 12:46 | W.ED.GENAD ---
Discharge Plan Discharge Details Chief Complaint: AMS/LOC Primary Care Provider: Trinh Dupree ED Provider: Sandra Conn Home Meds and New Rx's Prescriptions: No Action atorvastatin 10 mg tablet 10 mg PO DAILY Qty: 28 12RF metoprolol succinate 50 mg tablet extended release 24 hr 50 mg PO DAILY Qty: 90 3RF metformin 500 mg tablet See Rx Instructions .ROUTE .COMPLEX Qty: 28 12RF Dose Instruction: TAKE 1 TABLET BY MOUTH DAILY WITH BREAKFAST Rx Instructions: TAKE 1 TABLET BY MOUTH DAILY WITH BREAKFAST benztropine 1 mg tablet 1 mg PO BID mirtazapine 15 mg tablet 15 mg PO QHS olanzapine 5 mg tablet 5 mg PO QHS aspirin 81 mg tablet,delayed release (DR/EC) See Rx Instructions .ROUTE .COMPLEX Qty: 28 12RF Dose Instruction: TAKE 1 TABLET BY MOUTH DAILY FOR CARDIOVASCULAR PREVENTION Rx Instructions: TAKE 1 TABLET BY MOUTH DAILY FOR CARDIOVASCULAR PREVENTION paliperidone [Invega] 6 mg tablet extended release 24hr 6 mg PO QAM PRN Invega Sustenna 234 mg/1.5 mL syringe 234 mg IM Q30D HPI General Date/Time Provider Initiated Documentation: 01/13/25 12:12. Limitations to Documentation: altered mental status. Information obtained by: patient, RN/MD ([facility]), RN notes reviewed and old records reviewed. History of Present Illness 64 year old M presents to the emergency department with the chief complaint of altered mental status, described as moderate, Patient started experiencing this unknown (last known well thoguth to be 1100 yesterday) and it has been constant. No relieving factors improve symptom(s), No exacerbating factors reported (unclear if linked wtih new medication) . Patient notes confusion; denies chest pain, cough, fever/chills, headaches, loss of appetite, malaise, nausea/vomiting, rash, seizure, shortness of breath, syncope and weakness. Patient did receive the following treatments prior to arrival, none Related Data Home Medications ?Medication ?Instructions ?Recorded ?Confirmed metoprolol succinate 50 mg 50 mg PO DAILY #90 tabs 02/15/24 01/13/25 tablet,extended release 24 hr metformin 500 mg tablet See Rx Instructions .Route 02/24/24 01/13/25 .COMPLEX #28 tabs atorvastatin 10 mg tablet 10 mg PO DAILY #28 tabs 03/08/24 01/13/25 paliperidone palmitate 234 mg/1.5 234 mg IM Q30D 06/14/24 01/13/25 mL [facility]uscular syringe [facility] benztropine 1 mg tablet 1 mg PO BID 07/18/24 01/13/25 mirtazapine 15 mg tablet 15 mg PO QHS 07/18/24 01/13/25 olanzapine 5 mg tablet 5 mg PO QHS 07/18/24 01/13/25 aspirin 81 mg tablet,delayed See Rx Instructions .Route 10/18/24 01/13/25 release .COMPLEX #28 tabs paliperidone 6 mg tablet,extended 6 mg PO QAM PRN 01/11/25 01/13/25 release 24 hr (Invega) Previous Rx's ?Medication ?Instructions ?Recorded metoprolol succinate 50 mg 50 mg PO DAILY #90 tabs 02/15/24 tablet,extended release 24 hr metformin 500 mg tablet See Rx Instructions .Route 02/24/24 .COMPLEX #28 tabs atorvastatin 10 mg tablet 10 mg PO DAILY #28 tabs 03/08/24 aspirin 81 mg tablet,delayed See Rx Instructions .Route 10/18/24 release .COMPLEX #28 tabs Allergies Allergy/AdvReac Type Severity Reaction Status Date / Time haloperidol (From Haldol) Allergy Unknown Unknown Verified 01/13/25 12:43 General Stated Complaint: AMS/LOC SEBASTIEN: 2 Review of Systems Constitutional Comments: Patient's confusion makes gathering recent data limited Exam Const General: cooperative, healthy appearing, comfortable, no acute distress, well developed and well groomed Nutritional Appearance: well nourished and overweight Orientation: alert, awake, oriented to person and confused [facility] Head: normal to inspection, no palpable skull fracture, normocephalic and atraumatic Ears: hearing grossly normal bilaterally and external ears normal Mouth: oral mucosae normal Throat: posterior oropharynx normal Eyes General: appearance normal, both eyes and all related structures Alignment and Position: alignment normal Periorbital: periorbital findings normal Eyelids: eyelids normal Sclera: sclerae normal Cornea: corneas normal Pupils: PERRL EOM: EOM intact bilaterally Neck Neck: normal visual inspection and full ROM Resp Effort & Inspection: normal respiratory effort, able to speak in complete sentences and no respiratory distress Auscultation: clear to auscultation bilaterally, no rales, no rhonchi and no wheezes Cardio Rate: regular rate Rhythm: regular rhythm Heart Sounds: S1 normal and S2 normal GI Inspection: normal to inspection and non-distended Palpation: soft and nontender Back/Spine/Pelvis Cervical Spine: normal cervical lordosis and cervical ROM normal Skin General skin exam: no rashes or lesions noted Neuro General: patient alert and patient awake Cranial Nerves: CN's II-XI intact bilaterally Speech: speech normal Gait: shuffling Motor: muscle tone normal throughout, strength 5/5 throughout, no pronator drift and tremor Sensory Exam: no sensory deficits noted Coordination: [id number] test normal Extrem General: normal to inspection, capillary refill normal, no pedal edema and no calf tenderness Psych Appearance: grossly normal and well kempt Mental Status: mental status grossly normal Speech and Movement: speech and movement normal Course Vital Signs Vital signs: Vital Signs Temperature 36.8 C 01/13/25 12:20 Pulse 114 H 01/13/25 12:20 Respiratory Rate 16 01/13/25 12:20 Blood Pressure 139/81 01/13/25 12:20 Pulse Oximetry 95 01/13/25 12:20 Temperature 36.8 C 01/13/25 12:20 Temperature Source Skin 01/13/25 12:20 Pulse 114 H 01/13/25 12:20 Respiratory Rate 16 01/13/25 12:20 Blood Pressure 139/81 01/13/25 12:20 Blood Pressure Position Sitting 01/13/25 12:20 Pulse Oximetry 95 01/13/25 12:20 Oxygen Delivery Method Room Air 01/13/25 12:20 Oxygen Flow Rate 0 01/13/25 12:20 Pain Level 0 01/13/25 12:20 Medical Decision Making Patient is a pleasantly confused 64-year-old gentleman with past medical history significant for schizoaffective disorder, type 2 diabetes, GERD, OCD, sleep apnea, episodes of acute psychosis, suicidal ideation, presenting today by his care management team with concern for increased confusion. Patient had been hospitalized at [facility] who adjusted his psychiatric medications. Patient was discharged home 2 days ago. He was initially doing well but then became acutely confused. They state that he was not able to answer questions as he typically does. Patient denies any physical symptoms although he is aware of the fact that he is confused he does have some fear associated with this. He denies any headache, visual changes, dry mouth, sore throat, chest pain, shortness of breath, difficulty breathing, abdominal pain, nausea, vomiting, change in urinary or bowel habits. His team does note that he has a chronic tremor and often has a shuffled gait but these things seem to be more pronounced in bed than previously. No focal deficits have been noted by patient or his care team. No recent trauma. New medications from his recent hospitalization include addition of injection Invega which was administered on 01/10/2025. His benztropine was also increased from twice daily to 3 times daily dosing. Patient's care team did contact the clinicians at [facility] who advised evaluation for underlying medical cause should be completed first but this could be associated with the benztropine which often causes some psychosis and anticholinergic issues. The Invega less likely but can cause some delayed Tyr dive dyskinesia. On exam, patient appears nontoxic. Is hemodynamically stable. He is confused, oriented to person and is able to tell me the month but not the year. Is aware that he is in the hospital but not sure which 1. This is much different than his baseline per people that know him and are in the room. He did have a slow shuffling gait on his way in but when he was moving with purpose, such as when going to shake my hand, this did seem to quickly resolve and improved. He does have tremor in bilateral upper extremities, more so on the left than the right. Also has resting tremor that does resolve with movement in the lower extremities as well. Per caregivers, and they report that he has a baseline tremor but this does seem to be we are exaggerated than his typical. His lungs are clear, normal cardiac exam. I do not note a neurological deficit, coordination and movements are normal. No cranial nerve deficits. Patient does have an abrupt changes mental status and is much more confused than his baseline. Primary concern at this point is for side effect to his psychiatric medications given the timing of this. However, also considered CVA or metabolic issue. Glucose is 200. Will obtain baseline labs, imaging and continue to monitor the patient. Labs without significant abnormality. No leukocytosis. Patient's hemoglobin slightly low at 11.3 but this is patient's baseline. CMP without significant abnormality. Troponin within normal limits. Ammonia within normal limits. No illicit substances in his urine drug screen. He does have small amount of blood in his urine which she will need to follow-up with primary care for but no indication of infection. CTA of the patient's head and neck was reviewed by radiologist and no acute abnormalities were noted. Patient continues to be hemodynamically stable and resting comfortably. Same level of confusion. Reached out to mental health again and they advised that [facility] will plan to take the patient. They will call back with plan. At the end of my shift, care transitioned to oncoming clinician with bed placement pending. Plan for patient to go back to [facility] for continued management. PFSH All Active Problems (Updated 12/19/24 @ 20:41 by Monica Kaplan MD) Noncompliance with medication regimen (Acute) Suicidal ideations (Acute) Hallucinations (Acute) SOB (shortness of breath) (Acute) Routine medical exam (Acute) Encounter for screening laboratory testing for COVID-19 virus (Acute) Encounter for screening laboratory testing for COVID-19 virus (Acute) Schizoaffective disorder, depressive type (Chronic 12/27/13) most recent psych adm 11/2013 [facility] with psychosis, command hallucinations Colonoscopy refused (Acute) Unspecified disorder of liver (Acute) US: 09/2008; FATTY LIVER, ABNL LFT; ALK PHOS, ALT; GI CONSULT 2002, AntiMitrohondrial Ab neg, rec wt loss. 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 Esophageal reflux disease (Acute 09/01/11) RANITIDINE RX Early cataracts, bilateral (Acute 02/09/17) Dr Pizano 12/2016 Abnormal serum creatinine level (Acute 04/13/15) GERD (gastroesophageal reflux disease) (Chronic) Obsessive compulsive disorder (Chronic) Sleep apnea (Chronic) Psychosis (Acute) Suicidal ideation (Acute) Leukocytosis (Chronic) Surgical History Vasectomy (05/25/93) Dr Henriquez Circumcision (02/07/05) Dr Henriquez Family History Mother Asthma onset not known Father , Kidney Failure at age 83. Renal failure onset not known Sister No problems noted. Brother Diabetes onset not known Brother No problems noted. Social History Smoking/Tobacco Use Status: Former Tobacco Use Quit Date: 01/07/18 Tobacco: How many years used: 35 Smoking risk assessment performed?: Yes Alcohol Intake: former Year quit: 1999 Drug use: Never Substance use type: does not use Adopted: No Caregiver/Support person: No Foster care: No Household members: none Housing: apartment Number of Children: 0 Communication Needs: None Do you need help understanding health information?: Often current occupation: retired Pets and animals: No Do you think of yourself as: straight/heterosexual Current gender identity: male What is your relationship status?: How often do you talk on the phone with friends or family?: three or more times per week How often do you get together with friends or relatives?: twice per week How often do you attend rastafarian or jain services?: decline to answer Do you belong to any clubs or organized social groups?: no Panel score (0-1 are the most socially isolated patients): 1 What type of physical activity do you participate in: walking Duration: 30-45 minutes/day Frequency: daily Margi/Restorationism: Roman Catholic Special margi needs: No Seatbelt use: always Drive intox or ride w/intox bottom hoop driver: No Working smoke detector in home: Yes Fire extinguisher in home: Yes Carbon monox detector in home: Yes Do you feel safe at home: Yes Do you feel safe in your relationship?: Yes Additional Social history: came from care bed
[2025-01-13 13:03] LABS: Abs Immature Grans 0.05 10^3/uL (0.0-0.06); HCT 32.3 % (40.0-50.0); HGB 11.3 g/dL (13.5-17.5); Immature Grans % 0.6 %; MCH 31.4 pg (27.0-33.0); MCHC 35.0 % (32.0-36.0); MCV 90 fL (80-95); MPV 8.7 fL (8.0-11.0); Platelet Count 158 10^3/uL (130-400); RBC 3.60 10^6/uL (4.36-5.78); RDW 12.6 % (11.8-14.1); RDW-SD 41.5 fL; WBC 8.05 10^3/uL (4.4-10.8)
[2025-01-13 13:14] LABS: Ammonia 16 umol/L (11-32)
[2025-01-13 13:18] LABS: ALT 25 U/L (16-63); AST 14 U/L (15-37); Albumin 3.9 g/dL (3.4-5.0); Alkaline Phosphatase 113 U/L (46-116); Anion Gap 8.1 mmol/L (3-11); BUN 14 mg/dL (7-18); Bilirubin, Total 0.5 mg/dL (0.2-1.0); CO2 25.9 mmol/L (21.0-32.0); Calcium 8.6 mg/dL (8.5-10.1); Chloride 96 mmol/L (98-107); Estimated GFR 67.95 (mL/min/1.73m2); Glucose 168 mg/dL (74-106); Magnesium 2.1 mg/dL (1.8-2.4); Potassium 3.8 mmol/L (3.5-5.1); Sodium 130 mmol/L (136-145); Total Protein 7.0 g/dL (6.4-8.2); Troponin I 4 ng/L (<or=76)
[2025-01-13 13:32] LABS: Salicylate < 2.8 mg/dL (<2.8)
[2025-01-13 13:33] LABS: Acetaminophen < 2 ug/mL (10-30)
[2025-01-13] MEDS: Normal Saline Flush 10 ML SYR IVP (13:45)
[2025-01-13] MEDS: Normal Saline - Diluent 50 ML VIAL IJ (13:45)
[2025-01-13] MEDS: Omnipaque 350 MG/ML 500 ML BTL-Imaging package IJ (13:46)
[2025-01-13] MEDS: Lactated Ringers 1,000 ML 250 ML IV (14:18)
[2025-01-13 14:29] LABS: Glucose 100 mg/dL (Negative)
[2025-01-13 14:42] LABS: C & S Indicated? No; RBC 0-2 HPF (0-2); WBC Negative HPF (0-5)
[2025-01-13 14:43] LABS: Cannabinoids THC Negative (Negative); METHADONE URINE SCREEN Negative (Negative)
[2025-01-13 14:49] LABS: Troponin I 5 ng/L (<or=76)
--- NOTE | 2025-01-13 17:15 | RT.EKG_ITS ---
APPROVED REPORT Exam: Resting ECG Reason for Exam: tachy Patient Location: E HR:117 bpm ECG Measurements Heart Rate 117 AXIS MI 184 P 51 QRSd 77 QRS 29 QT 316 T 7 QTc 440 Conclusion Sinus tachycardia, rate 117, rate not significantly increased from prior obtained same day No interval abnormalities No STEMI Q wave lead III, unchanged
--- NOTE | 2025-01-14 07:40 | ED.PSYCHBOAR ---
Date of service: 01/14/25 Time of Service: 07:40 Psychiatric Border Handoff Update Brief Story: Patient here voluntarily for hallucinations, no reported issues on prior shift. Will continue to monitor until safe disposition found. Status: voluntary Able to leave: would need physician/CRISTIANA and crisis evaluation prior to leaving Mediation Reconciliation performed: Yes Code Status ordered: Yes Diet ordered: Yes Discharge Plan Discharge Details Chief Complaint: AMS/LOC Clinical Impression: Hallucinations Primary Care Provider: Trihn Dupree ED Provider: Wander Tong [place] Meds and New Rx's Prescriptions: No Action atorvastatin 10 mg tablet 10 mg PO DAILY Qty: 28 12RF metoprolol succinate 50 mg tablet extended release 24 hr 50 mg PO DAILY Qty: 90 3RF metformin 500 mg tablet See Rx Instructions .ROUTE .COMPLEX Qty: 28 12RF Dose Instruction: TAKE 1 TABLET BY MOUTH DAILY WITH BREAKFAST Rx Instructions: TAKE 1 TABLET BY MOUTH DAILY WITH BREAKFAST benztropine 1 mg tablet 1 mg PO BID mirtazapine 15 mg tablet 15 mg PO QHS olanzapine 5 mg tablet 5 mg PO QHS aspirin 81 mg tablet,delayed release (DR/EC) See Rx Instructions .ROUTE .COMPLEX Qty: 28 12RF Dose Instruction: TAKE 1 TABLET BY MOUTH DAILY FOR CARDIOVASCULAR PREVENTION Rx Instructions: TAKE 1 TABLET BY MOUTH DAILY FOR CARDIOVASCULAR PREVENTION paliperidone [Invega] 6 mg tablet extended release 24hr 6 mg PO QAM PRN Invega Sustenna 234 mg/1.5 mL syringe 234 mg IM Q30D
[2025-01-14] MEDS: Benztropine 1 MG TAB PO (08:23)
[2025-01-14] MEDS: Atorvastatin 10 MG TAB PO (08:23)
[2025-01-14] MEDS: Metoprolol CR 50 MG TABCR PO (08:23)
[2025-01-14] MEDS: Aspirin E.C. 81 MG TABEC PO (08:23)
[2025-01-14 08:29] VITALS: BP 136/88; PULSE 98; RESP 18; TEMP 36.8; O2SAT 97
--- NOTE | 2025-01-14 11:50 | PDOC.MHPN2 ---
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 Dave presents to [facility] after being discharged from the [facility] hoping to go back. 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 Well Housed: Yes Non Suicidal Self Injury Current: No History: No Safety Risk/Harm to Self or Others Current Ideation to Harm Self or Others: No Risk: Does risk to harm exist?: No Duty to warn indicated: No Asssessment/Mental Status Appearance: Unremarkable Attitude: Cooperative Behavior: Unremarkable Speech: Normal Affect: Normal Mood: Stressed and Anxious Thought process: Goal directed Hallucinations: No evidence Delusions: No evidence Attention: Unremarkable Perception: Not impaired Orientation: Fully orientated Memory: Intact Insight: Fair Judgement: Fair Neurovegetative Symptoms Sleep: No change Appetitie: No change Interests: No change Energy: No change Libido: No change Substance Use: Do you use nicotine?: No Have you used substances in the last 7 days?: No Additional Issues: Assaultive/Threatening Behavior: No Client engaged in active self harm w/weapon: No Threatening to run away: No Child reported abuse/neglect: No Voluntarily presenting for services: Yes Domestic violence is a concern: No Extreme Psychosis or extreme behavior is present: No Impression Dave is a [age] year old male who resides alone in [facility]. Dave is not currently and is not employed. Dave is at [facility] due to uncontrollable shaking and tremors. Dave thinks this may be a side effect from the injection he got while inpatient at the [facility]. Dave reports he is hoping to go back to the [facility] today. Dave slept well, ate breakfast, and denies SI and HI at this time. Plan/Disposition Recommended Disposition: Hospitalization facilities contacted. Plan: Dave was accepted to the [facility] for admission this afternoon. [place] was going to call to discuss with care management, the client, as well as the provider. Person reported agreement to plan: Yes Facilities contacted if Applicable [facility] Accepted, Accepted/transfer pending. Information Sent to [place]: Referral Reports/communication Outcome discussed with: ED/Personnel
--- NOTE | 2025-01-14 14:35 | PDOC.CMPRO ---
Date of service: 01/14/25 Time of Service: 14:36 Care Management Progress Note Progress Note Text Progress Note Text: Dave has been accepted for voluntary inpatient psychiatric stabilization at [facility] in [place], [place] He will be transported by [facility]. Social Determinants of Health Screening Will the Patient Participate in the Screening?: Unable to obtain
--- NOTE | 2025-01-16 07:09 | NUR.NOTE ---
Access chart to reconcile EKG orders with EKG's in [facility]. Duplicate order cancelled. Nursing Note:
== END 2025-01-14 14:26 ==
PROVIDERS: Physician Assistant; Emergency Provider Emergency Medicine; PCP Nurse Practitioner
DX: R44.3 Hallucinations, unspecified (principal); E11.9 Type 2 diabetes mellitus without complications
CPT/HCPCS: 00123; 36415; 36416; 70496; 70498; 80053; 80307; 82962; 93005; 96360; 96361; 99285; G0378; 80320; 80329; 81003; 81015; 82140; 83735; 84484; 85025; 93010

== ENCOUNTER 2025-03-03 03:02 | Outpatient (CLI) | payer MEDICARE, SELFPAY ==
[2025-03-03 09:46] LABS: Calculated LDL 45 mg/dL (<100); Cholesterol 134 mg/dL (<200); HDL Cholesterol 67 mg/dL (>or=40); Triglyceride 112 mg/dL (<150)
[2025-03-03 20:00] LABS: PSA, Screening 1.0 ng/mL (<=4.5)
== END 2025-03-03 03:03 | disposition home or self-care (01) ==
LOC: LBO 03:02
PROVIDERS: PCP Nurse Practitioner; Referring Provider Family Medicine; Visit Provider Family Medicine
DX: R35.0 Frequency of micturition (principal); E78.5 Hyperlipidemia, unspecified; Z13.9 Encounter for screening, unspecified; Z12.5 Encounter for screening for malignant neoplasm of prostate
CPT/HCPCS: 36415; 80061; 84153

== ENCOUNTER 2025-04-11 13:55 | Emergency (ER) | payer MEDICARE, SELFPAY ==
[2025-04-11] VITALS (25 sets, daily range): BP systolic 126–177; BP diastolic 74–99; PULSE 80–117; RESP 14–25; O2SAT 94–99
--- NOTE | 2025-04-11 14:00 | RT.EKG_ITS ---
APPROVED REPORT Exam: Resting ECG Reason for Exam: lightheaded Patient Location: E HR:89 bpm ECG Measurements Heart Rate 89 AXIS AZ 181 P 40 QRSd 79 QRS 16 QT 345 T 30 QTc 420 Conclusion Sinus rhythm...normal P axis, V-rate 60- [address] elevation, lateral leads...ST >0.06mV, I aVL V5 V6
--- NOTE | 2025-04-11 14:03 | W.ED.GENAD ---
Discharge Plan Disposition Patient Disposition: Home Condition: Stable Discharge Details Clinical Impression: Dizziness, Light-headed Primary Care Provider: Trinh Dupree ED Provider: Wander Tong Home Meds and New Rx's Prescriptions: New meclizine 25 mg tablet 25 mg PO BID PRN (Reason: dizziness) Qty: 30 0RF Continued aspirin 81 mg tablet,delayed release (DR/EC) See Rx Instructions .ROUTE .COMPLEX Qty: 28 12RF Dose Instruction: TAKE 1 TABLET BY MOUTH DAILY FOR CARDIOVASCULAR PREVENTION Rx Instructions: TAKE 1 TABLET BY MOUTH DAILY FOR CARDIOVASCULAR PREVENTION metoprolol succinate 50 mg tablet extended release 24 hr 50 mg PO DAILY Qty: 90 3RF Invega Sustenna 117 mg/0.75 mL syringe 117 mg IM Q30D atorvastatin 10 mg tablet See Rx Instructions .ROUTE .COMPLEX Qty: 28 12RF Dose Instruction: TAKE 1 TABLET BY MOUTH DAILY Rx Instructions: TAKE 1 TABLET BY MOUTH DAILY metformin 500 mg tablet See Rx Instructions .ROUTE .COMPLEX Qty: 28 12RF Dose Instruction: TAKE 1 TABLET BY MOUTH DAILY WITH BREAKFAST Rx Instructions: TAKE 1 TABLET BY MOUTH DAILY WITH BREAKFAST amantadine HCl 100 mg capsule 100 mg PO BID Qty: 60 0RF Discharge Instructions Additional Instructions: Your blood work and exam did not show any concerning findings at this time. Follow-up with your primary care provider if your symptoms are not improving over the next week or 2. If you feel more ill or have new symptoms such as severe chest pain or persistent vomiting return to the emergency department for reevaluation. Stand Alone Forms: Portal Information HPI General Date/Time Provider Initiated Documentation: 04/11/25 13:56. Limitations to Documentation: no limitations. Information obtained by: patient. History of Present Illness 65 year old M presents to the emergency department with the chief complaint of lightheaded, tired, dizzy, described as moderate, Patient started experiencing this hour(s) (10) and it has been constant. No relieving factors improve symptom(s), No exacerbating factors reported . Patient notes denies chest pain, fever/chills and shortness of breath. Patient did receive the following treatments prior to arrival, none Related Data Home Medications Medication Instructions Recorded Confirmed aspirin 81 mg tablet,delayed See Rx Instructions .Route 10/18/24 04/11/25 release .COMPLEX #28 tabs metoprolol succinate 50 mg 50 mg PO DAILY #90 tabs 02/16/25 04/11/25 tablet,extended release 24 hr paliperidone palmitate 117 mg/0.75 117 mg IM Q30D 02/17/25 04/11/25 mL intramuscular syringe (Invega Sustenna) atorvastatin 10 mg tablet See Rx Instructions .Route 03/10/25 04/11/25 .COMPLEX #28 tabs metformin 500 mg tablet See Rx Instructions .Route 03/10/25 04/11/25 .COMPLEX #28 tabs amantadine HCl 100 mg capsule 100 mg PO BID #60 caps 03/22/25 04/11/25 meclizine 25 mg tablet 25 mg PO BID PRN dizziness #30 tabs 04/11/25 Previous Rx's Medication Instructions Recorded aspirin 81 mg tablet,delayed See Rx Instructions .Route 10/18/24 release .COMPLEX #28 tabs metoprolol succinate 50 mg 50 mg PO DAILY #90 tabs 02/16/25 tablet,extended release 24 hr atorvastatin 10 mg tablet See Rx Instructions .Route 03/10/25 .COMPLEX #28 tabs metformin 500 mg tablet See Rx Instructions .Route 03/10/25 .COMPLEX #28 tabs amantadine HCl 100 mg capsule 100 mg PO BID #60 caps 03/22/25 meclizine 25 mg tablet 25 mg PO BID PRN dizziness #30 tabs 04/11/25 Allergies Allergy/AdvReac Type Severity Reaction Status Date / Time mirtazapine (From Remeron) Allergy Intermediate Unknown Verified 04/11/25 13:53 haloperidol (From Haldol) Allergy Unknown Unknown Verified 02/24/25 13:25 General Stated Complaint: Dizzy/Sync SEABSTIEN: 3 Review of Systems All systems reviewed & are unremarkable except as noted in HPI and below Constitutional Constitutional: Denies chills, Reports fatigue, Denies fever(s) and Denies weakness ENT Ears, Nose, Mouth, and Throat: Reports dizziness Cardiovascular Cardiovascular: Denies chest pain, Reports lightheadedness and Denies dyspnea Respiratory Respiratory: Denies cough and Denies dyspnea Gastrointestinal Gastrointestinal: Denies abdominal pain, Denies nausea and Denies vomiting Neurologic Neurologic: Reports dizziness and Denies weakness Endocrine Endocrine: Reports fatigue Exam Const General: no acute distress Orientation: alert HENUT Head: normal to inspection Ears: external ears normal General nose exam: external nose normal Mouth: moist mucous membranes Eyes General: appearance normal, both eyes and all related structures Neck Neck: normal visual inspection Resp Effort & Inspection: normal respiratory effort and able to speak in complete sentences Auscultation: clear to auscultation bilaterally Cardio Jugular venous pressure: no JVD Rate: regular rate GI Palpation: soft and nontender Skin General skin exam: no rashes or lesions noted Neuro General: patient alert, patient oriented x3 and CN's II-XI intact bilaterally Cognition: normal cognition Motor: muscle tone normal throughout Sensory Exam: no sensory deficits noted Extrem General: normal to inspection Psych Mental Status: mental status grossly normal Course Vital Signs Vital signs: Vital Signs Pulse 92 H 04/11/25 13:48 Respiratory Rate 20 04/11/25 13:48 Blood Pressure 126/87 04/11/25 13:48 Pulse Oximetry 98 04/11/25 13:48 Pulse 92 H 04/11/25 13:48 Respiratory Rate 21 04/11/25 13:55 Respiratory Effort Normal 04/11/25 13:55 Respiratory Depth Normal 04/11/25 13:55 Respiratory Pattern Normal 04/11/25 13:55 Blood Pressure 126/87 04/11/25 13:48 Blood Pressure Position Sitting 04/11/25 13:48 Pulse Oximetry 98 04/11/25 13:48 Oxygen Delivery Method Room Air 04/11/25 13:48 Oxygen Flow Rate 0 04/11/25 13:48 Medical Decision Making 65-year-old male with a history of schizoaffective disorder, type 2 diabetes, comes in with feeling lightheaded, fatigued and also dizzy started when he woke up this morning. He denies any fevers, chills, chest pain, difficulty breathing, headaches, vomiting. Denies any unilateral weakness or sensation changes. He is oriented x 4 speaking clearly. He denies any SI or HI. He is moving all extremities equally without any drift. Cranial nerves II through XII are intact. Clear lung sounds, no JVD, no abdominal tenderness. Unclear etiology for his lightheadedness and also his dizziness and fatigue, he has no findings on exam to suggest central stroke as a cause for his dizziness. Will check CBC CMP troponins and a D-dimer to screen for PE. He has no tearing back pain to suggest dissection. This could be peripheral vertigo, will treat with IV fluids and meclizine and reassess. Labs without emergent findings, he feels improved. Given reassuring workup I feel he stable for discharge to follow-up with his PCP, return precautions given. Differential Diagnosis Differential Diagnosis: Dehydration, peripheral vertigo, anemia Medical Records Medical records reviewed: Yes I reviewed the patient's medical records. Lab Data Lab results reviewed: Yes I reviewed the patient's lab results. ECG Data Attestation: I personally reviewed and interpreted this ECG (s) as follows: Prior ECG tracings: available for review Interpretation: Sinus rhythm, rate of 89, no STEMI PFSH All Active Problems (Updated 04/11/25 @ 16:02 by Wander Tong MD) Light-headed (Acute) Dizziness (Acute) Auditory hallucinations (Acute) Tremor (Acute) Noncompliance with medication regimen (Acute) Suicidal ideations (Acute) Hallucinations (Acute) SOB (shortness of breath) (Acute) Routine medical exam (Acute) Encounter for screening laboratory testing for COVID-19 virus (Acute) Encounter for screening laboratory testing for COVID-19 virus (Acute) Schizoaffective disorder, depressive type (Chronic 12/27/13) most recent psych adm 11/2013 [facility] with psychosis, command hallucinations Colonoscopy refused (Acute) Unspecified disorder of liver (Acute) US: 09/2008; FATTY LIVER, ABNL LFT; ALK PHOS, ALT; GI CONSULT 2002, AntiMitrohondrial Ab neg, rec wt loss. 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 Esophageal reflux disease (Acute 09/01/11) RANITIDINE RX Early cataracts, bilateral (Acute 02/09/17) Dr Pizano 12/2016 Abnormal serum creatinine level (Acute 04/13/15) GERD (gastroesophageal reflux disease) (Chronic) Obsessive compulsive disorder (Chronic) Sleep apnea (Chronic) Psychosis (Acute) Suicidal ideation (Acute) Leukocytosis (Chronic) Surgical History Vasectomy (05/25/93) Dr Henriquez Circumcision (02/07/05) Dr Henriquez Family History Mother Asthma onset not known Father , Kidney Failure at age 83. Renal failure onset not known Sister No problems noted. Brother Diabetes onset not known Brother No problems noted. Social History Smoking/Tobacco Use Status: Former Tobacco Use Quit Date: 01/07/18 Tobacco: How many years used: 35 Smoking risk assessment performed?: Yes Alcohol Intake: former Year quit: 1999 Drug use: Never Substance use type: does not use Adopted: No Caregiver/Support person: No Foster care: No Household members: none Housing: apartment Number of Children: 0 Communication Needs: None Do you need help understanding health information?: Often current occupation: retired Pets and animals: No Do you think of yourself as: straight/heterosexual Current gender identity: male What is your relationship status?: How often do you talk on the phone with friends or family?: three or more times per week How often do you get together with friends or relatives?: twice per week How often do you attend restoration or moravian services?: decline to answer Do you belong to any clubs or organized social groups?: no Panel score (0-1 are the most socially isolated patients): 1 What type of physical activity do you participate in: walking Duration: 30-45 minutes/day Frequency: daily Margi/[employer]: [employer] Special margi needs: No Seatbelt use: always Drive intox or ride w/intox 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
[2025-04-11] MEDS: Meclizine 25 MG TAB PO (14:08)
[2025-04-11] MEDS: Normal Saline 1,000 ML 1000 ML IV (14:09)
[2025-04-11 14:22] LABS: BE (Venous) 2 mmol/L (-2-3); HCO3 (Venous) 27 mmol/L (23-28); O2 Sat (Venous) 67 %; TCO2 (Venous) 25 mmol/L (24-29); pCO2 (Venous) 45 mmHg (41-51); pO2 (Venous) 36 mmHg
[2025-04-11 14:30] LABS: Abs Immature Grans 0.03 10^3/uL (0.0-0.06); HCT 36.8 % (40.0-50.0); HGB 13.0 g/dL (13.5-17.5); Immature Grans % 0.3 %; MCH 32.1 pg (27.0-33.0); MCHC 35.3 % (32.0-36.0); MCV 91 fL (80-95); MPV 8.6 fL (8.0-11.0); Platelet Count 196 10^3/uL (130-400); RBC 4.05 10^6/uL (4.36-5.78); RDW 12.4 % (11.8-14.1); RDW-SD 41.0 fL; WBC 8.84 10^3/uL (4.4-10.8)
[2025-04-11 14:50] LABS: Magnesium 1.8 mg/dL (1.6-2.6)
[2025-04-11 14:52] LABS: ALT 23 U/L (10-49); AST 19 U/L (<34); Albumin 4.6 g/dL (3.4-5.0); Alkaline Phosphatase 101 U/L (46-116); Anion Gap 8.6 mmol/L (3-11); BUN 11 mg/dL (9-23); Bilirubin, Total 0.50 mg/dL (0.2-1.2); CO2 27.5 mmol/L (20.0-31.0); Calcium 9.2 mg/dL (8.3-10.6); Chloride 99 mmol/L (98-107); Glucose 136 mg/dL (74-106); Potassium 3.8 mmol/L (3.5-5.1); Sodium 135 mmol/L (136-145); Total Protein 7.2 g/dL (5.7-8.2)
[2025-04-11 14:54] LABS: TSH (W/Ref FT4) 1.05 uIU/mL (0.55-4.78)
[2025-04-11 15:01] LABS: Troponin I < 3 ng/L (<54)
[2025-04-11 15:14] LABS: D-Dimer 230 ng/mlFEU (<500)
[2025-04-11 15:37] LABS: Glucose Negative (Negative)
[2025-04-11 15:39] LABS: Troponin I 3 ng/L (<54)
== END 2025-04-11 16:15 | disposition home or self-care (01) ==
LOC: ER 16:23
PROVIDERS: Emergency Provider Emergency Medicine; PCP Nurse Practitioner
DX: R42 Dizziness and giddiness (principal); R53.83 Other fatigue; E11.9 Type 2 diabetes mellitus without complications
CPT/HCPCS: 36415; 36416; 80053; 82805; 82962; 93005; 96360; 99284; 81003; 83735; 84443; 84484; 85025; 85379; 93010